=== PATIENT | female | born 1945 | race Caucasian/White ===

== ENCOUNTER 2017-11-26 15:26 | Emergency (ER) | payer MEDICARE ==
[~2017-11-26] VITALS: Ht 157.5 cm; Wt 100.0 kg
[2017-11-26] MEDS ORDERED: normal saline 1000ML IV soln IVB ONE (17:00)
[2017-11-26 17:31] LABS: BASOPHILS # (AUTO) 0.1 X10'3 (0-0.2); BASOPHILS % (AUTO) 0.6 % (0-1); EOSINOPHILS # (AUTO) 0.3 X10'3 (0-0.9); EOSINOPHILS % (AUTO) 2.9 % (0-6); HEMATOCRIT 35.6 % (35.0-45.0); HEMOGLOBIN 11.9 g/dl (12.0-16.0); LYMPHOCYTES % (AUTO) 17.6 % (21-51); MEAN CORPUSCULAR HEMOGLOBIN 32.8 PG (27.0-31.0); MEAN CORPUSCULAR HGB CONC 33.3 % (33.0-36.5); MEAN CORPUSCULAR VOLUME 98.6 FL (78-98); MEAN PLATELET VOLUME 9.1 FL (7.4-10.4); MONOCYTES # (AUTO) 0.8 X10'3 (0-0.9); MONOCYTES % (AUTO) 6.9 % (2-12); NEUTROPHILS # (AUTO) 8.1 X10'3 (1.8-7.7); PLATELET COUNT 361 X10'3 (140-440); RED BLOOD COUNT 3.61 X10'6 (4.20-5.60); RED CELL DISTRIBUTION WIDTH 13.2 % (11.5-14.5); WHITE BLOOD COUNT 11.2 X10'3 (4.5-11.0)
[2017-11-26 17:46] LABS: ALANINE AMINOTRANSFERASE 90 U/L (12-78); ALBUMIN 3.2 G/DL (3.4-5.0); ALBUMIN/GLOBULIN RATIO 0.9 (1.1-1.5); ALKALINE PHOSPHATASE 89 IU/L (46-116); ANION GAP 7 (8-16); ASPARTATE AMINO TRANSFERASE 90 U/L (10-37); BILIRUBIN,TOTAL 0.3 MG/DL (0.1-1.0); BLOOD UREA NITROGEN 11 MG/DL (7-18); CALCIUM 8.6 MG/DL (8.5-10.1); CHLORIDE 102 MMOL/L (99-107); CREATININE 0.92 MG/DL (0.40-0.90); GLUCOSE 96 MG/DL (70-104); POTASSIUM 3.9 MMOL/L (3.5-5.1); SODIUM 139 MMOL/L (135-145); TOTAL CARBON DIOXIDE 30.2 MMOL/L (24-32); TOTAL PROTEIN 6.8 G/DL (6.4-8.2); eGFR 60 ML/MIN
[2017-11-26 18:27] LABS: CLARITY,URINE CLOUDY (Clear); COLOR,URINE YELLOW (Yellow); GLUCOSE, URINE NEGATIVE (Neg); KETONES,URINE NEGATIVE (Neg); LEUKOCYTE ESTERASE ,URINE TRACE (Neg); NITRITES, URINE NEGATIVE (Neg); OCCULT BLOOD,URINE LARGE (Neg); PH,URINE 5.5 (4.8-8.0); PROTEIN,URINE 30 mg/dl (Neg)
[2017-11-26 18:28] LABS: UA COLLECTION TYPE CLN CATCH MIDSTREAM
[2017-11-26 18:32] LABS: SQUAMOUS EPITHELIAL CELL,UR MODERATE /LPF (FEW)
[2017-11-26 18:39] LABS: BACTERIA,URINE 2+ /HPF (Neg); CAL OXALATE CRYSTALS 1+ /HPF (NEGATIVE)
[2017-11-26 18:40] LABS: RBC,URINE TNTC /HPF (0-2)
[2017-11-26 19:16] VITALS: BP 141/83
== END 2017-11-26 19:18 | disposition home or self-care (01) ==
LOC: ER 15:27
DX: N93.8 Other specified abnormal uterine and vaginal bleeding (principal); E78.00 Pure hypercholesterolemia, unspecified
CPT/HCPCS: 36415; 74176; 80053; 81001; 85025; 87077; 87088; 87186; 99285; J7030

== ENCOUNTER 2018-06-22 14:35 | Emergency (ER) | payer MEDICARE ==
[~2018-06-22] VITALS: Ht 154.9 cm; Wt 90.9 kg
[2018-06-22 14:54] VITALS: BP 123/54
--- NOTE | 2018-06-22 15:20 | NUR ---
Assumed care of patient. Patient moved from hallway bed to room 10. xray done. Patient's family at bedside.
--- NOTE | 2018-06-22 15:26 | NUR ---
xray at bedside.
--- NOTE | 2018-06-22 16:45 | NUR ---
Patient has walker to use at home.
== END 2018-06-22 16:39 | disposition home or self-care (01) ==
LOC: ER 14:35
DX: S92.512A Displaced fracture of proximal phalanx of left lesser toe(s), initial encounter for closed fracture (principal); E78.00 Pure hypercholesterolemia, unspecified; W01.0XXA Fall on same level from slipping, tripping and stumbling without subsequent striking against object, initial encounter; Y93.89 Activity, other specified; Y92.89 Other specified places as the place of occurrence of the external cause; Y99.8 Other external cause status
CPT/HCPCS: 73610; 73630; 99283

== ENCOUNTER 2023-11-09 15:24 | Emergency (ER) | payer MEDICARE, MEDICAID ==
[~2023-11-09] VITALS: Ht 157.5 cm; Wt 90.9 kg
[2023-11-09 18:06] VITALS: BP 119/47; PULSE 56; RESP 18; TEMP 98.8; O2SAT 96
== END 2023-11-09 18:07 | disposition home or self-care (01) ==
LOC: ER 15:25
DX: S82.832A Other fracture of upper and lower end of left fibula, initial encounter for closed fracture (principal); S63.502A Unspecified sprain of left wrist, initial encounter; E78.00 Pure hypercholesterolemia, unspecified; W19.XXXA Unspecified fall, initial encounter; Y93.89 Activity, other specified; Y92.89 Other specified places as the place of occurrence of the external cause; Y99.8 Other external cause status
CPT/HCPCS: 29260; 73110; 73610; 99284; L3908; L4360; 29125

== ENCOUNTER 2024-06-06 11:43 | Emergency (ER) | payer MEDICARE, MEDICAID ==
[~2024-06-06] VITALS: Ht 157.5 cm; Wt 103.9 kg
[2024-06-06 12:15] VITALS: BP 146/68; PULSE 76; RESP 16; TEMP 99.3; O2SAT 95
[2024-06-06 13:42] LABS: BASOPHILS # (AUTO) 0.1 X10'3 (0-0.2); BASOPHILS % (AUTO) 0.8 % (0-1); EOSINOPHILS # (AUTO) 0.3 X10'3 (0-0.9); EOSINOPHILS % (AUTO) 3.9 % (0-6); HEMATOCRIT 32.9 % (35.0-45.0); HEMOGLOBIN 10.8 g/dl (12.0-16.0); LYMPHOCYTES # (AUTO) 1.3 X10'3 (1.1-4.8); LYMPHOCYTES % (AUTO) 17.1 % (21-51); MEAN CORPUSCULAR HEMOGLOBIN 29.8 PG (27.0-31.0); MEAN CORPUSCULAR HGB CONC 32.9 g/dL (33.0-36.5); MEAN CORPUSCULAR VOLUME 90.6 FL (78-98); MEAN PLATELET VOLUME 8.9 FL (7.4-10.4); MONOCYTES # (AUTO) 0.5 X10'3 (0-0.9); MONOCYTES % (AUTO) 6.6 % (2-12); NEUTROPHILS # (AUTO) 5.3 X10'3 (1.8-7.7); NEUTROPHILS % (AUTO) 71.6 % (42-75); PLATELET COUNT 249 X10'3 (140-440); RED BLOOD COUNT 3.63 X10'6 (4.20-5.60); RED CELL DISTRIBUTION WIDTH 15.1 % (11.5-14.5); WHITE BLOOD COUNT 7.4 X10'3 (4.5-11.0)
[2024-06-06 13:48] LABS: ALANINE AMINOTRANSFERASE 25 U/L (12-78); ALBUMIN 3.3 G/DL (3.4-5.0); ALBUMIN/GLOBULIN RATIO 0.9 (1.1-1.5); ALKALINE PHOSPHATASE 103 IU/L (46-116); ANION GAP 7 (8-16); ASPARTATE AMINO TRANSFERASE 28 U/L (10-37); BILIRUBIN,TOTAL 0.5 MG/DL (0.1-1.0); BLOOD UREA NITROGEN 24 MG/DL (7-18); BUN/CREATININE RATIO 36.4 (10.0-20.0); CALCIUM 8.7 MG/DL (8.5-10.1); CHLORIDE 105 MMOL/L (99-107); CREATININE 0.66 MG/DL (0.40-0.90); GLUCOSE 155 MG/DL (70-104); POTASSIUM 3.8 MMOL/L (3.5-5.1); SODIUM 141 MMOL/L (135-145); TOTAL CARBON DIOXIDE 29.4 MMOL/L (24-32); TOTAL PROTEIN 6.9 G/DL (6.4-8.2); eCRCL 57 ML/MIN; eGFR 87 ML/MIN
== END 2024-06-06 14:31 | disposition home or self-care (01) ==
LOC: ER 11:44
DX: M71.21 Synovial cyst of popliteal space [Baker], right knee (principal); E78.00 Pure hypercholesterolemia, unspecified; Z88.5 Allergy status to narcotic agent
CPT/HCPCS: 36415; 80053; 84145; 85025; 93971; 99284

== ENCOUNTER 2024-06-15 12:52 | Emergency (ER) | payer MEDICARE, MEDICAID ==
[~2024-06-15] VITALS: Ht 157.5 cm; Wt 103.5 kg
[2024-06-15 13:17] VITALS: TEMP 97.8
[2024-06-15 15:17] LABS: BASOPHILS # (AUTO) 0.1 X10'3 (0-0.2); LYMPHOCYTES # (AUTO) 1.7 X10'3 (1.1-4.8); MONOCYTES # (AUTO) 0.6 X10'3 (0-0.9); NEUTROPHILS # (AUTO) 6.6 X10'3 (1.8-7.7); RED BLOOD COUNT 4.02 X10'6 (4.20-5.60)
[2024-06-15 15:18] LABS: EOSINOPHILS # (AUTO) 0.4 X10'3 (0-0.9); EOSINOPHILS % (AUTO) 3.9 % (0-6); HEMATOCRIT 36.5 % (35.0-45.0); HEMOGLOBIN 11.7 g/dl (12.0-16.0); LYMPHOCYTES % (AUTO) 17.8 % (21-51); MEAN CORPUSCULAR HEMOGLOBIN 29.1 PG (27.0-31.0); MEAN CORPUSCULAR HGB CONC 32.1 g/dL (33.0-36.5); MEAN CORPUSCULAR VOLUME 90.8 FL (78-98); MONOCYTES % (AUTO) 6.7 % (2-12); NEUTROPHILS % (AUTO) 70.6 % (42-75); PLATELET COUNT 326 X10'3 (140-440); RED CELL DISTRIBUTION WIDTH 15.1 % (11.5-14.5); WHITE BLOOD COUNT 9.3 X10'3 (4.5-11.0)
[2024-06-15 15:33] LABS: ANION GAP 3 (8-16); BLOOD UREA NITROGEN 16 MG/DL (7-18); BUN/CREATININE RATIO 23.9 (10.0-20.0); CALCIUM 8.9 MG/DL (8.5-10.1); CHLORIDE 102 MMOL/L (99-107); CREATININE 0.67 MG/DL (0.40-0.90); GLUCOSE 98 MG/DL (70-104); POTASSIUM 4.2 MMOL/L (3.5-5.1); SODIUM 138 MMOL/L (135-145); TOTAL CARBON DIOXIDE 32.7 MMOL/L (24-32); eCRCL 57 ML/MIN; eGFR 86 ML/MIN
[2024-06-15 15:34] LABS: ALANINE AMINOTRANSFERASE 34 U/L (12-78); ALBUMIN 3.6 G/DL (3.4-5.0); ALBUMIN/GLOBULIN RATIO 0.8 (1.1-1.5); ALKALINE PHOSPHATASE 103 IU/L (46-116); ASPARTATE AMINO TRANSFERASE 37 U/L (10-37); BILIRUBIN,TOTAL 0.5 MG/DL (0.1-1.0); TOTAL PROTEIN 7.9 G/DL (6.4-8.2)
[2024-06-15 15:40] LABS: PRO BRAIN NATRIURETIC PEPTIDE 131 PG/ML (0-450)
[2024-06-15 16:21] VITALS: BP 149/74; PULSE 73; RESP 16; O2SAT 92
== END 2024-06-15 18:14 | disposition home or self-care (01) ==
LOC: ER 12:52
DX: R60.0 Localized edema (principal); I87.8 Other specified disorders of veins; E78.00 Pure hypercholesterolemia, unspecified; E07.9 Disorder of thyroid, unspecified; Z72.89 Other problems related to lifestyle; Z88.5 Allergy status to narcotic agent
CPT/HCPCS: 36415; 71045; 80053; 83880; 85025; 93971; 99284; J7030

== ENCOUNTER 2025-01-13 17:13 | Inpatient (IN) | payer MEDICARE, MEDICAID ==
[~2025-01-13] VITALS: Ht 157.5 cm; Wt 118.3 kg
[~2025-01-13 17:13] MED LIST: etomidate 2mg/ml inj. ONE; rocuronium 10mg/ml inj IV ONE
[2025-01-13 17:56] LABS: MEAN PLATELET VOLUME 10.0 FL (7.4-10.4); RED CELL DISTRIBUTION WIDTH 15.5 % (11.5-14.5)
[2025-01-13 18:05] LABS: CREATININE 4.60 MG/DL (0.40-0.90); TOTAL CARBON DIOXIDE 25.1 MMOL/L (24-32); eCRCL 8 ML/MIN; eGFR 9 ML/MIN
--- NOTE | 2025-01-13 18:07 | RADIOLOGY REPORT ---
CHEST RADIOGRAPH Indication: R/o sepsis Technique: Single frontal view of the chest was obtained Comparison: DI CHEST,SINGLE VIEW on DOS: 06/15/24 FINDINGS: Lines and Tubes: None Lungs: No focal consolidation. Diffuse interstitial prominence. Pleura: No effusion. No pneumothorax. Cardiomediastinal contours: Gadr-[id number] cardiomegaly with dfrg-up-[id number] atherosclerotic calcification and uncoiling of the aorta. Bones: No acute osseous abnormality. IMPRESSION: Cardiomegaly with pulmonary vascular congestion.
--- NOTE | 2025-01-13 18:10 | Physician Documentation ---
History of Present Illness General Chief Complaint: Confused Stated Complaint: ALOC Time Seen by MD: 18:09 Primary Medical Doctor: eduardo mccarthy History of Present Illness Initial Comments 79-year-old female brought in by family for confusion and slight shortness of breath over last 2-3 days. The patient has had fevers at home. The patient has been complaining of body aches. The patient has had rigors at home. The patient denies any abdominal pain. The patient denies any chest pain. Patient does have history of chronic back pain. Patient takes [place] for chronic back pain. Patient is a symptoms are moderate to severe. Medication Reconciliation Allergies: Coded Allergies: codeine (Verified Allergy, Mild, NAUSEATED, 06/15/24) Scheduled Aspirin (Aspirin EC), 1 TAB PO DAILY, (Reported) Cholecalciferol (Vitamin D3) (Vitamin D), 1 TAB PO DAILY, (Reported) Furosemide* (Lasix*), 1 TAB PO DAILY, (Reported) Levothyroxine* (Synthroid*), 1 TAB PO BKF, (Reported) Losartan Potassium* (Cozaar*), 50 MG PO DAILY, (Reported) Metformin HCl (Metformin HCl), 1 TAB PO Q12H, (Reported) Milk Thistle Seed Extract (Milk Thistle), 1 CAP PO DAILY, (Reported) Omeprazole Magnesium (Prilosec Otc), 20 MG PO DAILY, (Reported) Ropinirole HCl (Ropinirole HCl), 1 TAB PO HS, (Reported) Simvastatin* (Zocor*), 40 MG PO HS, (Reported) Thiamine Mononitrate (Vitamin B-1), 100 MG PO DAILY, (Reported) Venlafaxine HCl (Effexor Xr), 1 CAP PO DAILY, (Reported) Venlafaxine Hcl XR* (Effexor XR*), 1 CAP PO DAILY, (Reported) Scheduled PRN Hydrocodone Bit/Acetaminophen 5/325 MG ([place] 5/325 MG), 2 TAB PO Q4H PRN for moderate or severe pain, (Reported) Past Medical History Past Medical History: High Cholesterol, Thyroid (unspecified) Past Surgical History: no surgical history Alcohol Use: Occasionally Lives with: Family Lives In: Home Review of Systems All Other Systems at this time: Reviewed and Negative Physical Exam Physical Exam Vital Signs: Temperature: 98.5, Source: Oral, Heart Rate: 92, Respiratory Rate: 19, BP: 120/99, Pulse Oximetry: 95, Weight: 111.000 Oxygen Flow Rate: 2.0 Physical Exam VITALS: Reviewed and as above. GENERAL: Alert, mild respiratory distress HEENT: Normocephalic, atraumatic, PERRL, EOMI, dry mucosa, no erythema RESPIRATORY: Slight crackles bilateral bases, tachypneic with mild respiratory distress CHEST: No accessory muscle use, no retractions CV: Regular rate, rhythm, no edema, no murmur, No: JVD GI: Soft, non-tender, bowels sounds present, no rebound, guarding, or rigidity BACK: No CVA tenderness, or swelling MUSCULOSKELETAL: No deformities, no edema SKIN: Warm and dry, pale NEURO: Oriented x4, No motor or sensory deficit PSYCH: Normal mood and affect, no agitation Procedures Central Line Lumen: Quad lumen Central Line Procedure: sterile drapes applied Position: internal jugular (R) Complications: none Post Position: sutured Tolerated Procedure Well?: yes, no complications Procedure Note Patient had the right side of her neck cleansed with chlorhexidine and utilizing sterile procedure and ultrasound guidance a wide lumen central line was placed in the right internal jugular by the resident I supervised the resident throughout the procedure. All lines flushed the central line was in good position and cleared for use. Intubation Intubation Method: orotracheal Medications: Etomidate, other (Rocuronium) ETT Confirmation: Ascultation, CO2 Detector, Direct Visualization Breath Sounds After Intubation: equal Intubation Complications: no complications Post Intubation Xray: Yes Progress/Xray Impression: Post intubation x-ray shows ET tube in good position Progress Results/Orders Results/Orders Orders - OHLJONA SOLOMON MD * (B) Rogers- Non Protocol * Q12H@07,19 (01/13/25 19:44) Abg (Arterial Blood Gas) (01/13/25 ) Bipap/Cpap (01/13/25 ) Chest,Single View (01/13/25 ) Ct Chest Abdomen Pelvis (01/14/25 02:40) Completed Orders - JONA PARIS MD Hs Troponin I W Calculations (01/13/25 18:11) Ceftriaxone/W2o-Uhxdmfxm 1gm (Rocephin 1 (01/13/25 18:15) Normal Saline 1000ml (0.9% Sodium Chlori (01/13/25 18:15) Hydrocodone/Apap 10/325 ([place] 10/325mg (01/13/25 18:25) Normal Saline 1000ml (0.9% Sodium Chlori (01/13/25 19:30) Norepinephrine 8mg/ 250ml Ns (Norepineph (01/13/25 20:21) Fentanyl/Pf (Fentanyl 0.05 Mg/Ml Syringe (01/13/25 21:05) Ondansetron Inj. (Zofran 4mg/2ml Vial) (01/13/25 21:05) Midazolam 5 Mg/Ml 2ml Inj (Versed 5 Mg/M (01/13/25 21:55) Propofol 1000mg/100ml Bottle (Diprivan I (01/13/25 21:55) Sodium Bicarbonate 1meq/Ml Syr (Sodium B (01/13/25 22:10) Sodium Bicarbonate 1meq/Ml Syr (Sodium B (01/13/25 22:14) Chest,Single View (01/13/25 ) Etomidate Inj (Amidate Inj) (01/13/25 21:40) Rocuronium Inj. (Zemuron Inj) (01/13/25 21:40) Ct Chest Abdomen Pelvis (01/14/25 02:40) Vital Signs 01/13/25 01/13/25 01/13/25 01/13/25 17:38 17:57 18:12 18:27 Temp 98.5 Pulse 92 89 90 89 Resp 19 21 23 24 B/P (MAP) 120/99 Pulse Ox 95 O2 Flow Rate 2.0 01/13/25 01/13/25 01/13/25 01/13/25 18:30 18:34 18:42 18:57 Pulse 89 91 Resp 18 16 23 22 B/P (MAP) 01/13/25 01/13/25 01/13/25 01/13/25 19:00 19:12 19:27 19:42 Pulse 90 92 91 91 Resp 18 21 20 17 B/P (MAP) 95/60 (72) 85/50 (62) Pulse Ox 99 O2 Flow Rate 0 01/13/25 01/13/25 01/13/25 01/13/25 19:42 19:57 20:12 20:27 Pulse 90 91 86 88 Resp 20 21 20 15 B/P (MAP) 85/50 (62) 96/53 (67) 83/36 (52) Pulse Ox 98 97 95 95 01/13/25 01/13/25 01/13/25 01/13/25 20:42 20:49 20:57 20:58 Pulse 89 69 97 Resp 16 19 19 B/P (MAP) 104/36 (58) 86/45 (59) 88/43 Pulse Ox 95 93 95 FiO2 35 01/13/25 01/13/25 01/13/25 01/13/25 21:12 21:27 21:42 21:57 Pulse 104 99 96 116 Resp 22 18 18 13 B/P (MAP) 175/138 (150) Pulse Ox 93 98 01/13/25 01/13/25 01/13/25 01/13/25 22:00 22:00 22:09 22:12 Temp 98.6 Pulse 118 137 Resp 14 14 Pulse Ox 96 93 91 FiO2 45 50 Laboratory Tests Test 01/13/25 17:44 01/13/25 19:28 01/13/25 20:32 01/13/25 20:53 White Blood Count 19.6 H Red Blood Count 3.66 L Hemoglobin 10.6 L Hematocrit 32.4 L Mean Corpuscular Volume 88.6 Mean Corpuscular Hemoglobin 29.1 Mean Corpuscular Hemoglobin Concent 32.8 L Red Cell Distribution Width 15.5 H Platelet Count 201 Mean Platelet Volume 10.0 Neutrophils (%) (Auto) 92.7 H Lymphocytes (%) (Auto) 3.0 L Monocytes (%) (Auto) 3.0 Eosinophils (%) (Auto) 1.0 Basophils (%) (Auto) 0.3 Neutrophils # (Auto) 18.1 H Lymphocytes # (Auto) 0.6 L Monocytes # (Auto) 0.6 Eosinophils # (Auto) 0.2 Basophils # (Auto) 0.1 CBC Comment Differential Total Cells Counted 100 Neutrophils % (Manual) 77.0 H Band Neutrophils % 15.0 H Lymphocytes % (Manual) 1.0 L Monocytes % (Manual) 5.0 Eosinophils % (Manual) 1.0 Metamyelocytes % 1.0 H Platelet Estimate Normal Red Blood Cell Morphology Normal Basophilic Stippling Sodium Level 130 L Potassium Level 4.3 Chloride Level 91 L Carbon Dioxide Level 25.1 Anion Gap 14 Blood Urea Nitrogen 54 H Creatinine 4.60 H Estimated GFR/1.73 m2 9 BUN/Creatinine Ratio 11.7 Glucose Level 119 H Lactic Acid Level 5.1 *H 4.2 *H Calcium Level 8.2 L Troponin I High Sensitivity 18 Pro-B-Type Natriuretic Peptide 3312 H Albumin 2.6 L Procalcitonin 84.20 H Chemistry Comments Blood Gas Specimen Type Arterial Blood Gas Puncture Site Rr O2 Saturation 97.5 Arterial Blood pH (Temp corrected) 7.333 L Arterial Blood pCO2 (Temp correct) 36.7 Arterial Blood pO2 (Temp corrected) 104.8 Arterial Blood PO2/FiO2 Ratio 3.74 Arterial Blood HCO3 19.0 L Arterial Blood Base Excess -6.2 L Arterial Blood Oxyhemoglobin 96.8 Arterial Blood Carboxyhemoglobin 0.4 L Arterial Blood Methemoglobin 0.3 Arterial Blood Deoxyhemoglobin 2.5 Gilbert Test Modified Blood Gas Hemoglobin 10.5 L Blood Gas Temperature 37.0 Blood Gas Modality Nasal cannula FiO2 28.0 Urine Specimen Description Rogers cath Urine Color Yellow Urine Clarity Turbid Urine pH 6.0 Urine Specific [place] 1.015 Urine Protein >=300 H Urine Glucose (UA) Negative Urine Ketones Trace H Urine Occult Blood Moderate H Urine Nitrite Negative Urine Bilirubin Moderate Urine Urobilinogen 1.0 Urine Leukocyte Esterase Moderate H Urine RBC None seen Urine WBC Tntc H Urine WBC Clumps Many Urine Squamous Epithelial Cells None seen Urine Bacteria 4+ Urine Culture Indicated Indicated Volume Urine Centrifuged 10 ml Urine Comment Microbiology Date/Time Source Procedure Growth Status 01/13/25 21:28 Urine Rogers Cath Urine Culture - Preliminary Gram Negative Toni Resulted 01/13/25 18:45 Blood A/C Right Blood Culture - Preliminary Positive Culture Resulted EKG/XRAY/CT/US/VASC/MRI Chest X-Ray : Additional Comments Patient: CAROLYNN MCHUGH V Medical Record: [id number] : 1945, Age: 79 Sex: Female Location: ED HOLD Patient Status: ADM IN Service Date/Time: 01/13/25/ Ordering Physician: JONA PARIS MD Exam: CHEST,SINGLE VIEW EXAM: DI CHEST,SINGLE VIEW CLINICAL HISTORY: post endotracheal tube placement TECHNIQUE: AP views of the chest. WID: COMPARISON: DI CHEST,SINGLE VIEW on DOS: 01/13/25, DI CHEST,SINGLE VIEW on DOS: 06/15/24 FINDINGS: Lines and tubes: Endotracheal tube in place with the tip projecting 3.7 cm above the zachery. Gastric tube descends into the stomach with the tip projecting over the body of the stomach. Right IJ central venous catheter with the tip projecting over the low SVC. Chest: Cardiomegaly and pulmonary vascular congestion. Calcified plaque projects over the aortic arch. Small right pleural effusion. No significant pneumothorax. The osseous structures are grossly intact. Multilevel thoracic spondylosis. IMPRESSION: 1. Placement of endotracheal tube, gastric tube, and right IJ central venous catheter as described. 2. Cardiomegaly, pulmonary vascular congestion, and small right pleural effusion. Electronically Signed by:SANTANA KAYE MD Date & Time: 01/13/252308 Dictated by: SANTANA KAYE MD Dictation date and time: 01/13/252308 Primary Care Provider: NO PRIMARY CARE PROVIDER cc: JONA PARIS MD ~ CT : Impression Patient: CAROLYNN MCHUGH V Medical Record: [id number] [place] : 1945, Age: 79 Sex: Female Location: ED HOLD Patient Status: ADM IN Service Date/Time: 01/14/25/ 0240 Ordering Physician: JONA PARIS MD Exam: CT CHEST ABDOMEN PELVIS Exam: CT CT CHEST ABDOMEN PELVIS History: Septic shock. Comparison Study: None Technique: Multidetector CT of the chest, abdomen and pelvis was performed from lower neck to pubic symphysis was performed without intravenous contrast. Coronal and sagittal multiplanar reformats were performed by the technologist on a separate workstation. Radiation Dose Information: CT Dose: CTDI volume is 21.4 mGy. Dose-length product is 1412.3 mGy*cm Findings: Support lines and tubes: There is an endotracheal tube which terminates above the zachery. Right central venous catheter terminates in the superior vena cava. The enteric tube terminates in the stomach. Lower neck: The thyroid is unremarkable. Lungs: There is a 6 mm pulmonary nodule in the left upper lobe. There is bilateral lower lobe atelectasis. Right upper lobe atelectasis. Central airways: Patent. Pleura: No pneumothorax. Small bilateral pleural effusions. Heart/Vascular Structures: Cardiomegaly. There is no significant pericardial effusion. There are coronary artery calcifications. Atherosclerotic calcifications are present in the thoracic aorta. No aneurysmal dilatation of the thoracic aorta. The main pulmonary artery is normal in caliber. Lymph Nodes: No adenopathy Liver: The liver is normal in size. Limited evaluation for masses without contrast. Gallbladder and Biliary Tree: Cholecystectomy. No biliary ductal dilatation. Spleen: Unremarkable Pancreas: The unenhanced pancreas is grossly unremarkable. Adrenal Glands: Unremarkable Kidneys: No renal calculi. There is mild left hydronephrosis and perinephric fat stranding. Bladder: There is a Rogers catheter in the urinary bladder Bowel: The stomach is grossly normal in appearance. The small bowel is normal in caliber. Colonic diverticulosis without acute diverticulitis. No acute appendicitis. Peritoneum: No pneumoperitoneum. No ascites. Lymphadenopathy: No mesenteric, retroperitoneal or periportal lymphadenopathy. Abdominal Wall and Mesentery: Unremarkable. Vasculature: The visualized abdominal aorta is normal in size and caliber. Pelvic Organs: Unremarkable Musculoskeletal: No aggressive focal bony lesions, acute fractures or dislocation. Multilevel lumbar spondylosis. IMPRESSION: 1. Mild left hydronephrosis and perinephric fat stranding. Findings could be related to infection. 2. Colonic diverticulosis without acute diverticulitis. 3. 6 mm left upper lobe pulmonary nodule. Follow-up according to Fleischner society guidelines is recommended. 4. Small bilateral pleural effusions. 5. Cardiomegaly. Electronically Signed by:OSVALDO LUU MD Date & Time: 01/14/25415 Dictated by: OSVALDO LUU MD Dictation date and time: 01/14/25415 Primary Care Provider: NO PRIMARY CARE PROVIDER cc: JONA PARIS MD ~ Medical Decision Making Additional information obtaine: old records, family Findings Patient is a 79-year-old female who presented to the emergency department with confusion and elevated white blood cell count as well as hypotension and an elevated lactic acid with new onset renal failure. With the patient was treated for sepsis and septic shock with IV antibiotics to include ceftriaxone vancomycin and initially azithromycin for concern for possible pneumonia. The patient had a slight resting dyspnea and O2 saturation at 95% no focal crackles were appreciated. The patient was found to have a significant urinary tract infection with very purulent urine. The patient was given 2 L of fluid and developed respiratory distress with audible wheezes and given her size she was expanding a lot of energy on work of breathing so the decision was made to intubate the patient to facilitate her care and allow us to do some central line and continue fluid management. The patient was intubated by myself using etomidate 10 mg and 50 mg of rocuronium tube was positioned to 20 cm at the teeth without complication capnography was used to confirm tube position. The patient has continued to be hypotensive and has been placed on Levophed she has a right femoral arterial line that was placed by myself utilizing sterile to take in his Seldinger technique. This is in the right femoral. The patient has been sedated on propofol but has been difficult to keep sedated so we have started a fentanyl drip. The patient is critical condition has been discussed at length with family. The patient has been discussed with the audit machine operator. The patient will be admitted to the audit machine operator. The patient did develop rapid atrial fibrillation, the patient's heart rate went up to proximally 180 bpm. The patient was given amiodarone 150 mg IV and started on amiodarone drip. Differential Diagnosis Pneumonia, urosepsis, other infectious etiologies. Departure Admitted to Inpatient Unit: yes, to audit machine operator Impression: Primary Impression: Septic shock Additional Impressions: Acute kidney injury Acute urinary tract infection Respiratory distress Atrial fibrillation with rapid ventricular response Referrals: NO PRIMARY CARE PROVIDER (PCP) Critical Care Note Total Time (mins): 240 Critical Care Note The very real possibility of a deterioration of this patient's condition required the highest level of my preparedness for sudden, emergent intervention. I provided critical care services, which included medication orders, frequent reevaluations of the patient's condition and response to treatment, ordering and reviewing test results, and discussing the case with various consultants. Excludes time spent performing separately billable procedures. The critical care time associated with the care of the patient was 240 minutes. Signature Scribe Signature: No scribe Attestation: The note accurately reflects work and decisions made by me.Jona Paris MD 01/15/25 03:53 JONA PARIS MD Jan 13, 2025 18:10
[2025-01-13 18:21] LABS: BANDS% (MANUAL) 15.0 % (0-10); EOSINOPHILS % (MANUAL) 1.0 % (0-6); LYMPHOCYTES % (MANUAL) 1.0 % (21-51); METAMYLEOCYTES% (MANUAL) 1.0 % (0-0); MONOCYTES % (MANUAL) 5.0 % (2-12); NEUTROPHILS % (MANUAL) 77.0 % (42-75)
[2025-01-13 18:22] LABS: PLATELET ESTIMATE NORMAL
[2025-01-13] MEDS: normal saline 1000ML IV soln IVB ONE ×2 (18:28→19:30)
[2025-01-13] MEDS: CefTRIAXone/D5W-Rocephin 1gm 50 ML IV ONE (18:34)
[2025-01-13] MEDS: HYDROcodone/acetaminophen 10/325mg tab PO ONE (18:34)
[2025-01-13] MEDS: CefTRIAXone 2gm/D5W 50ml BAG 50 ML IV ONE (18:49)
[2025-01-13] MEDS: azithromycin/NS 500mg/250ml 250 ML IV ONE (18:50)
[2025-01-13 19:00] LABS: PRO BRAIN NATRIURETIC PEPTIDE 3312 PG/ML (0-450)
--- NOTE | 2025-01-13 19:00 | ELECTROCARDIOGRAPH REPORT ---
[facility] Test Date: 2025-01-13 Test Time: 18:57:40 Pat Name: CAROLYNN MCHUGH Department: [facility] Patient ID: [facility]-[id number] Room: [facility] 2006 Gender: F [employer] Supervisor: : 1945 Requested By: MARIBELL VASQUEZ Order Number: [id number] Reading MD: Dr. Erasmo Huff Measurements Intervals [place] Rate: 91 P: 33 [place]: 168 QRS: -32 QRSD: 114 T: 65 QT: 386 QTc: 475 Interpretive Statements Sinus rhythm Borderline IVCD with LAD Low voltage, precordial leads RSR' in V1 or V2, right VCD or RVH Electronically Signed On 01-21-2025 8:17:[address] Erasmo Huff Please click the below link to view image of tracing.
[2025-01-13] MEDS: vancomycin/NS 1 GM ADD-VANTAGE 250 ML X 1 DOSE IV ONE (19:55)
[2025-01-13 20:42] LABS: ABG BASE EXCESS -6.2 mmol/L (-2.0-3.0); ABG HCO3 19.0 mmol/L (21.0-28.0); ABG OXYGEN SATURATION 97.5 % (94.0-98.0); ABG PCO2 (T) 36.7 mmHg (32.0-45.0); ABG PH (T) 7.333 (7.350-7.450); ABG PO2 (T) 104.8 mmHg (83.0-108.0); ALLEN'S TEST Modified; FCOHb 0.4 % (0.5-1.5); FHHb 2.5 % (0.0-5.0); FIO2 28.0 mmHg/%; FMetHb 0.3 % (0.0-1.5); FO2Hb 96.8 % (94.0-98.0); MODE NASAL CANNULA; PATIENT TEMPERATURE 37.0; TOTAL HEMOGLOBIN 10.5 G/dl (12.0-16.0)
[2025-01-13 20:49] VITALS: PULSE 69; RESP 19; O2SAT 93
[2025-01-13] MEDS: NORepinephrine 8mg/ 250ml NS 250 ML IV ONE (20:58)
[2025-01-13] MEDS: normal saline 500ml IV soln 500 ML IV ONE (21:11)
[2025-01-13] MEDS: ondansetron/PF 4mg/2ml inj IV ONE ×2 (21:12→21:17)
[2025-01-13 21:13] LABS: LEUKOCYTE ESTERASE ,URINE MODERATE (Neg); NITRITES, URINE NEGATIVE (Neg); OCCULT BLOOD,URINE MODERATE (Neg)
[2025-01-13] MEDS: fentaNYL/PF 50MCG/1 ML 2ML syringe IV ONE (21:17)
[2025-01-13 21:24] LABS: UA COLLECTION TYPE FOLEY CATH
[2025-01-13 21:26] LABS: SQUAMOUS EPITHELIAL CELL,UR NONE SEEN /LPF (FEW)
[2025-01-13 21:27] LABS: WBC CLUMPS,URINE MANY /HPF (NEGATIVE)
[2025-01-13 22:00] VITALS: BP 149/65; PULSE 118; RESP 14; O2SAT 96
[2025-01-13] MEDS: MIDAZolam 5mg/ml 2ml vial IV ONE (22:05)
[2025-01-13 22:09] VITALS: O2SAT 93
[2025-01-13] MEDS: etomidate 2mg/ml inj. IV ONE (22:21)
[2025-01-13] MEDS: rocuronium 10mg/ml inj IV ONE (22:21)
[2025-01-13] MEDS: sodium bicarbonate (8.4%) 1 mEq/ml syringe IV ONE (22:22)
[2025-01-13] MEDS: sodium bicarbonate (8.4%) 1 mEq/ml syringe ONE (22:32)
[2025-01-13] MEDS: propofol 1000mg/100ml bottle 100 ML IV PRN (23:05)
--- NOTE | 2025-01-13 23:12 | RADIOLOGY REPORT ---
EXAM: DI CHEST,SINGLE VIEW CLINICAL HISTORY: post endotracheal tube placement TECHNIQUE: AP views of the chest. WID: COMPARISON: DI CHEST,SINGLE VIEW on DOS: 01/13/25, DI CHEST,SINGLE VIEW on DOS: 06/15/24 FINDINGS: Lines and tubes: Endotracheal tube in place with the tip projecting 3.7 cm above the zachery. Gastric tube descends into the stomach with the tip projecting over the body of the stomach. Right IJ central venous catheter with the tip projecting over the low SVC. Chest: Cardiomegaly and pulmonary vascular congestion. Calcified plaque projects over the aortic arch. Small right pleural effusion. No significant pneumothorax. The osseous structures are grossly intact. Multilevel thoracic spondylosis. IMPRESSION: 1. Placement of endotracheal tube, gastric tube, and right IJ central venous catheter as described. 2. Cardiomegaly, pulmonary vascular congestion, and small right pleural effusion.
[2025-01-13 23:15] VITALS: BP 144/80; PULSE 174; RESP 14; O2SAT 93
[2025-01-13] MEDS: amiodarone 150mg/dext, iso-os 100 ML IV ONE (23:23)
[2025-01-13] MEDS: amiodarone/D5 360MG/200ML BAG 200 ML IV SCH (23:33)
[2025-01-13 23:52] LABS: CREATININE 4.45 MG/DL (0.40-0.90); PHOSPHORUS 4.8 MG/DL (2.3-4.5); TOTAL CARBON DIOXIDE 24.6 MMOL/L (24-32); eCRCL 8 ML/MIN; eGFR 10 ML/MIN
[2025-01-14] VITALS (28 sets, daily range): BP systolic 100–151; BP diastolic 46–80; PULSE 78–111; RESP 18–27; O2SAT 94–99
[2025-01-14] MEDS ORDERED: fentaNYL 50mcg/ml PF inj. 2,500 MCG in normal saline 250ml IV soln 200 ML IV ONE (00:30)
[2025-01-14] MEDS: magnesium sulf-water 2g/50mL 50 ML IV ONE (00:38)
[2025-01-14 01:08] LABS: ABG BASE EXCESS -11.6 mmol/L (-2.0-3.0); ABG HCO3 16.6 mmol/L (21.0-28.0); ABG OXYGEN SATURATION 94.3 % (94.0-98.0); ABG PCO2 (T) 47.3 mmHg (32.0-45.0); ABG PH (T) 7.164 (7.350-7.450); ABG PO2 (T) 85.8 mmHg (83.0-108.0); FCOHb 0.5 % (0.5-1.5); FHHb 5.7 % (0.0-5.0); FIO2 50.0 mmHg/%; FMetHb 0.3 % (0.0-1.5); FO2Hb 93.5 % (94.0-98.0); MODE PRVC; PATIENT TEMPERATURE 37.0; PEEP 5 cm H2O; RESPIRATORY RATE 14 b/min; TIDAL VOLUME 400 mL; TOTAL HEMOGLOBIN 11.0 G/dl (12.0-16.0)
[2025-01-14] MEDS: FENTANYL-0.9 % NACL/PF 100 ML IV SCH (01:11)
--- NOTE | 2025-01-14 01:37 | HISTORY AND PHYSICAL ---
History & Physical - Short Providers to CC ~ History of Present Illness Chief Complain & History Night time TeleICU coverage Patient see and evaluated using HIPPA compliant AV device Admitted for encephalopathy/ fever and rigor for two days, after fluid resuscitation in Er became more dyspneic and required intubation, In shock on pressor Also had A fib with RVR now on amiodarone drip. Intubated and sedated Respiratory failure : continue vent support Septic shock : Levo can transition to phenylephrine with A fib UTI: Zosyn, received vanc already, CT abd pelv r/o hydronephrosis Severe metab acidosis: Bicarb A fib: cardiology consult [place]: Gentle hydration Follow cultures and tend lactic acid Family not reachable at this time DVT prophylaxis CCT 60mins Delilah Cody MD Allergies: Coded Allergies: codeine (Verified Allergy, Mild, NAUSEATED, 06/15/24) Exam Last recorded Lab results: 01/13/25 1744 01/13/25 2326 Vitals: Vital Signs Date Time Temp Pulse Resp B/P (MAP) Pulse Ox O2 Delivery O2 Flow Rate FiO2 01/14/25 01:14 111 25 94 50 01/14/25 00:42 101/45 (63) 01/13/25 19:00 0 01/13/25 17:38 98.5 Counseling Services Smoking & Tobacco Cessation: N/A Advance Care Planning Advanced Care planning: N/A DELILAH CODY MD Jan 14, 2025 01:36
[2025-01-14] MEDS: sodium bicarbonate 1meq/ml inj 150 ML in dextrose 5%-water 1,000 ML IV SCH (01:45)
[2025-01-14] MEDS: sodium bicarbonate (8.4%) 1 mEq/ml syringe IV ONE (02:06)
[2025-01-14] MEDS: midazolam 1 mg/ML 2ml injection IV ONE (02:23)
[2025-01-14 02:55] LABS: INFLUENZA TYPE A ANTIGEN RAPID NEGATIVE (Negative); INFLUENZA TYPE B ANTIGEN RAPID NEGATIVE (Negative)
--- NOTE | 2025-01-14 03:04 | RADIOLOGY REPORT ---
EXAM: CT CT HEAD INDICATION: CONFUSION TECHNIQUE: CT of the head without intravenous contrast. Radiation Dose : 1. Head: CT Dose: CTDI volume is 60.5 mGy. Dose-length product is 1201.85 mGy*cm The dose indicators for CT are the volume Computed Tomography (CT) Dose Index (CTDIvol) and the Dose Length Product (DLP), and are measured in units of mGy and mGy-cm, respectively. These indicators are not patient dose, but values generated from the CT scanner acquisition factors. The report includes radiation exposure data for exposures received during this examination. COMPARISON: None FINDINGS: There is no evidence of acute intracranial hemorrhage, extra-axial collection, mass effect, midline shift, herniation or hydrocephalus. Increased prominence of the ventricles, sulci and cisterns consistent with the sequelae of atrophic cortical volume loss. The veliz-white differentiation is intact. Moderate diffuse confluent periventricular and subcortical white matter hypoattenuation is nonspecific but may be related to small vessel ischemic disease. Pansinusitis. The mastoid air cells are clear. The surrounding soft tissues and osseous structures are unremarkable. IMPRESSION: 1. No acute intracranial abnormality. 2. Chronic sequelae of microangiopathy and atrophic cortical volume loss. Radiation optimization: All CT scans at this facility use at least one of these dose optimization techniques: automated exposure control mA and/or kV adjustment per patient size (includes targeted exams where dose is matched to clinical indication) or iterative reconstruction.
--- NOTE | 2025-01-14 04:19 | RADIOLOGY REPORT ---
Exam: CT CT CHEST ABDOMEN PELVIS History: Septic shock. Comparison Study: None Technique: Multidetector CT of the chest, abdomen and pelvis was performed from lower neck to pubic symphysis was performed without intravenous contrast. Coronal and sagittal multiplanar reformats were performed by the technologist on a separate workstation. Radiation Dose Information: CT Dose: CTDI volume is 21.4 mGy. Dose-length product is 1412.3 mGy*cm Findings: Support lines and tubes: There is an endotracheal tube which terminates above the zachery. Right central venous catheter terminates in the superior vena cava. The enteric tube terminates in the stomach. Lower neck: The thyroid is unremarkable. Lungs: There is a 6 mm pulmonary nodule in the left upper lobe. There is bilateral lower lobe atelectasis. Right upper lobe atelectasis. Central airways: Patent. Pleura: No pneumothorax. Small bilateral pleural effusions. Heart/Vascular Structures: Cardiomegaly. There is no significant pericardial effusion. There are coronary artery calcifications. Atherosclerotic calcifications are present in the thoracic aorta. No aneurysmal dilatation of the thoracic aorta. The main pulmonary artery is normal in caliber. Lymph Nodes: No adenopathy Liver: The liver is normal in size. Limited evaluation for masses without contrast. Gallbladder and Biliary Tree: Cholecystectomy. No biliary ductal dilatation. Spleen: Unremarkable Pancreas: The unenhanced pancreas is grossly unremarkable. Adrenal Glands: Unremarkable Kidneys: No renal calculi. There is mild left hydronephrosis and perinephric fat stranding. Bladder: There is a Rogers catheter in the urinary bladder Bowel: The stomach is grossly normal in appearance. The small bowel is normal in caliber. Colonic diverticulosis without acute diverticulitis. No acute appendicitis. Peritoneum: No pneumoperitoneum. No ascites. Lymphadenopathy: No mesenteric, retroperitoneal or periportal lymphadenopathy. Abdominal Wall and Mesentery: Unremarkable. Vasculature: The visualized abdominal aorta is normal in size and caliber. Pelvic Organs: Unremarkable Musculoskeletal: No aggressive focal bony lesions, acute fractures or dislocation. Multilevel lumbar spondylosis. IMPRESSION: 1. Mild left hydronephrosis and perinephric fat stranding. Findings could be related to infection. 2. Colonic diverticulosis without acute diverticulitis. 3. 6 mm left upper lobe pulmonary nodule. Follow-up according to Fleischner society guidelines is recommended. 4. Small bilateral pleural effusions. 5. Cardiomegaly.
[2025-01-14 04:41] LABS: ABG BASE EXCESS -7.0 mmol/L (-2.0-3.0); ABG HCO3 20.1 mmol/L (21.0-28.0); ABG OXYGEN SATURATION 95.4 % (94.0-98.0); ABG PCO2 (T) 49.1 mmHg (32.0-45.0); ABG PH (T) 7.235 (7.350-7.450); ABG PO2 (T) 85.7 mmHg (83.0-108.0); FCOHb 1.0 % (0.5-1.5); FHHb 4.5 % (0.0-5.0); FIO2 50.0 mmHg/%; FMetHb 0.3 % (0.0-1.5); FO2Hb 94.2 % (94.0-98.0); MODE VENT - AC; PATIENT TEMPERATURE 37.8; PEEP 5 cm H2O; RESPIRATORY RATE 14 b/min; TIDAL VOLUME 400 mL; TOTAL HEMOGLOBIN 11.6 G/dl (12.0-16.0)
--- NOTE | 2025-01-14 04:43 | PROGRESS NOTE ---
Progress Progress Note: Called by nurse that patient with GNR in blood. Apparent urinary source. Patient on pressors, intubated. Pip/tazo changed to meropenem as per IDSA recs for complicated UTI in critically ill patient. Results/Orders Result Diagram: 01/13/25 1744 01/13/25 2326 NOEMY REDDY MD Jan 14, 2025 04:43
[2025-01-14] MEDS: acetaminophen 1,000mg/100ml IV 100 ML IV ONE (05:45)
[2025-01-14] MEDS: MEROPENEM 1GM/NACL 50ML IVPB 50 ML IV SCH (05:48)
--- NOTE | 2025-01-14 06:14 | PROCEDURE NOTE- Residance ---
Procedure Note Providers to CC CC: JONA SOW MD ~ Planned Procedure Right Internal Jugular vein catheter Indications Pressor support required Post Operative Dx: Severe sepsis Toolroom Attendant Nora Justice resident supervised by Dr Sow Type of Anesthesia Sedated with versed and fentanyl Informed Consent Yes, obtained prior to the intubation Description Preparation to place a central line was performed in the ED. The nurse and Dr. Sow were in the room to monitor and supervise I wore a surgical cap, mask with protective eyewear, full gown and sterile gloves throughout the procedure. The patient was placed in Trendelenburg position. The right side of the neck was prepped using chlorhexidine scrub and draped in sterile fashion using a three quarter sheet drape and sterile towels. Skin preparation was allowed to dry prior to skin puncture. Anatomic landmarks were identified using ultrasound. Anesthesia was achieved with the fentanyl and Versed by itself that was used for intubation. Using real-time ultrasound, with sterile probe cover and sterile gel, the introducer needle was inserted into the vein under direct ultrasound visualization. Venous blood was withdrawn. The syringe was removed and a guidewire was advanced into the introducer needle. A small incision was made at the skin surface with a scalpel and the introducer needle was exchanged for a dilator over the guidewire. After appropriate dilation was obtained, the dilator was exchanged over the wire for a central venous catheter. The wire was removed and the catheter was sutured in place at 15 cm. A biopatch was placed at the insertion site. A sterile op-site was placed over the catheter and biopatch. The patient tolerated the procedure without any hemodynamic compromise. At time of procedure completion, all ports aspirated and flushed properly. Estimated Blood Loss 10cc Complication None X-Ray Findings Shows adequate positioning of the catheter for use Date of Service: Jan 13, 2025 Billing Provider: JONA SOW MD, DEEPANJALI, ZANE Jan 14, 2025 06:14
[2025-01-14] MEDS: NORepinephrine 8mg/ 250ml NS 250 ML IV ONE (06:24)
[2025-01-14] MEDS: MEROPENEM 1GM/NS 100ML IVPB 100 ML IV ONE (06:25)
[2025-01-14] MEDS ORDERED: propofol 1000mg/100ml bottle 100 ML IV PRN (07:03)
[2025-01-14] MEDS ORDERED: piperacillin/tazo 3.375gm/50ml 50 ML IV SCH (08:00)
[2025-01-14 08:42] LABS: CREATININE 4.83 MG/DL (0.40-0.90); TOTAL CARBON DIOXIDE 21.3 MMOL/L (24-32); eCRCL 8 ML/MIN; eGFR 9 ML/MIN
[2025-01-14] MEDS: propofol 1000mg/100ml bottle 100 ML IV SCH (08:44)
[2025-01-14] MEDS: heparin, porcine 5000 units/ml vial SQ SCH (08:50)
[2025-01-14 10:04] LABS: PHOSPHORUS 3.5 MG/DL (2.3-4.5)
--- NOTE | 2025-01-14 10:18 | RADIOLOGY REPORT ---
EXAM: DI CHEST,SINGLE VIEW Indication: pain Technique: AP views of the chest. WID: Comparison: CT CT CHEST ABDOMEN PELVIS on DOS: 01/14/25, DI CHEST,SINGLE VIEW on DOS: 01/13/25, DI CHEST,SINGLE VIEW on DOS: 01/13/25, DI CHEST,SINGLE VIEW on DOS: 06/15/24, DI CHEST,SINGLE VIEW on DOS: 01/13/25 FINDINGS: Lines and tubes: Endotracheal tube in place with the tip projecting 5.8 cm above the zachery. Gastric tube descends into the stomach with the tip projecting over the body of the stomach. Right IJ central venous catheter with the tip projecting over the low SVC. Chest: Cardiomegaly and pulmonary vascular congestion. Calcified plaque projects over the aortic arch. Small right pleural effusion. No significant pneumothorax. The osseous structures are grossly intact. Multilevel thoracic spondylosis. IMPRESSION: No significant change compared to prior exam allowing for differences in technique.
[2025-01-14] MEDS ORDERED: DEXTROSE 15 GM of carb/4 tabs (each vial/BOTTLE has 4 tablets) PO PRN ×2 (11:10)
[2025-01-14] MEDS ORDERED: dextrose 50%-water 50ml dispensing syringe IV PRN (11:10)
[2025-01-14] MEDS ORDERED: potassium Cl 40MEQ/270ML bag 270 ML IV PRN (11:10)
[2025-01-14] MEDS ORDERED: potassium Cl 40MEQ/1/2NS 520ml 520 ML IV PRN (11:10)
[2025-01-14] MEDS ORDERED: magnesium sulf-water 4G/100mL 100 ML IV PRN (11:10)
[2025-01-14] MEDS ORDERED: glucagon, human recombinant 1mg kit SUBCUT PRN (11:10)
[2025-01-14] MEDS ORDERED: potassium Cl 20 mEq SR tablet PO PRN ×2 (11:10)
[2025-01-14] MEDS ORDERED: magnesium sulf-water 2g/50mL 50 ML IV PRN (11:10)
[2025-01-14] MEDS ORDERED: HYDR-3965 PO (11:21)
[2025-01-14] MEDS ORDERED: VITD400T PO (11:21)
[2025-01-14] MEDS ORDERED: FURO-150 PO (11:21)
[2025-01-14] MEDS ORDERED: OMEP20TA23 PO (11:21)
[2025-01-14] MEDS ORDERED: MILK175C5 PO (11:21)
[2025-01-14] MEDS ORDERED: ROPI3TAB21 PO (11:21)
[2025-01-14] MEDS ORDERED: METF-1203 PO (11:21)
[2025-01-14] MEDS ORDERED: SIMV-42 PO (11:21)
[2025-01-14] MEDS ORDERED: ASPI81TA52 PO (11:21)
[2025-01-14] MEDS ORDERED: VENL150C5 PO (11:21)
[2025-01-14] MEDS ORDERED: LEVO175T2 PO (11:21)
[2025-01-14] MEDS ORDERED: THIA100T70 PO (11:21)
[2025-01-14] MEDS ORDERED: VENL37.59 PO (11:21)
[2025-01-14] MEDS ORDERED: LOSA-415 PO (11:21)
[2025-01-14] MEDS ORDERED: POTASSIUM CHLORIDE 20 MEQ/15 ML oral solution PO PRN (11:27)
[2025-01-14] MEDS ORDERED: POTASSIUM CHLORIDE 20 MEQ/15 ML oral solution NG PRN (11:28)
[2025-01-14] MEDS: albumin (human) 25% 100ml IV 400 ML IV ONE (11:31)
[2025-01-14] MEDS: albumin (Human) 5% 250ml 250 ML IV SCH (11:33)
[2025-01-14] MEDS: NORepinephrine 8mg/ 250ml NS 250 ML IV PRN (11:34)
[2025-01-14] MEDS: POTASSIUM CHLORIDE 20 MEQ/15 ML oral solution NG PRN (11:57)
--- NOTE | 2025-01-14 12:34 | PROGRESS NOTE- Residence ---
Progress Note - Resident Providers to CC Resident Creating Document: PK HARRISON, RES ~ Antibiotic Timeout Antibiotic Ordered?: Yes Subjective Patient seen and examined at the bedside today. The patient is waking up on command. She is sedated and mechanically ventilated and is not able to follow commands at the moment. No acute overnight events were reported. The patient's daughter was at the bedside. She stated that the patient was doing absolutely well prior to the admission and was at baseline, independent in her daily living activities. She denied any recent hospitalizations or antibiotic use. Objective Vital Signs Date Time Temp Pulse Resp B/P (MAP) Pulse Ox O2 Delivery O2 Flow Rate FiO2 01/14/25 11:34 140/49 01/14/25 11:12 86 22 96 Mechanical Ventilator 45 01/14/25 10:00 99.3 01/13/25 19:00 0 Result Diagram: 01/13/25 1744 01/14/25 0800 General: Sedated, intubated and mechanically ventilated. HEENT: Conjunctiva pink, Sclera clear, Mucus Membranes moist. Neck: Supple without masses and tenderness. Resp: On mechanical ventilation. Bilateral coarse breath sounds heard. Heart: Regular Rate and rhythm, normal S1 and S2 without murmur, rub or gallop. Abdomen: Soft and non tender no organomegaly Extremities: 1+ edema noted. No cyanosis or clubbing. Skin: Warm and Dry. Neurology: Wakes up to stimulation. Assessment Assessment 79 years old female with past medical history of hypothyroidism, congestive heart failure, hypertension, hyperlipidemia is admitted in the hospital for evaluation and management of altered level of consciousness. The patient was found to be in his septic shock with worsening respiratory failure and had to be intubated, mechanical ventilated and transferred to the intensive care unit for the management of her septic shock and respiratory failure. Plan Plan Septic shock, POA Most likely secondary to Complicated pyelonephritis Metabolic encephalopathy secondary to above Patient has a WBC count of 19.6, procalcitonin of 84.20. Lactic acidosis. Urine analysis positive for 4+ bacteria, too numerous to count WBCs, positive leukocyte esterase. Blood cultures X 2 show positive for Gram-negative rods in the two cultures. CT scan of the abdomen is significant for mild left-sided hydronephrosis with a perinephric fat stranding. The patient has been started on IV meropenem. Patient received aggressive hydration in the ER. Currently continued on IV bicarbonate drip. Starting the patient on IV albumin drip. Requiring IV norepinephrine to maintain blood pressures at target of map 60 mmHg. Continues to be intubated and mechanically ventilated. We will wean the patient off of pressors and mechanical ventilation as tolerated. Acute hypoxemic respiratory failure Pulmonary nodule Patient had to be intubated and on started on mechanical ventilation. She has a underlying congestive heart failure. The patient had a recent echocardiogram at Dr. Hu's office. We will request records. Chest x-ray significant for atelectasis. CT scan of the chest shows a 6 mm pulmonary nodule in the left upper lobe with a bilateral lower lobe atelectasis and right upper lobe atelectasis. RT evaluation and treatment has been done. Appreciate recommendations. We will plan to wean the patient off of mechanical ventilation as tolerated. Acute kidney injury Mixed respiratory and metabolic acidosis Patient's baseline creatinine from her previous admission show her creatinine was around 0.6. Her creatinine today is 4.45 with a BUN of 56. Urine analysis positive for 4+ bacteria, too numerous to count WBCs, positive leukocyte esterase. The urine also has a high-protein, moderate blood in the urine. CT scan shows mild left hydronephrosis and perinephric fat stranding. We will follow up with renal ultrasound. The Nephrology team has been consulted. Appreciate recommendations. Diabetes mellitus Started the patient on low-dose sliding scale insulin. Nutrition Dietitian consulted. Starting the patient on tube feeds. History of hypothyroidism Restarted home levothyroxine 170 high mcg daily. Normocytic anemia Continue close monitoring of H&H. Follow up with the iron profile. CODE STATUS: Full code DVT prophylaxis: Heparin GI prophylaxis: None Diet: Tube feeds Disposition: Continue management in the intensive care unit. Critical care time 35 minutes. Pk Harrison MD Internal Medicine Resident, PGY-3 Date of Service: Jan 14, 2025 Billing Provider: HARINDER EPSTEIN MD,PK AGUIRRE, RES Jan 14, 2025 12:34
--- NOTE | 2025-01-14 13:56 | CONSULTATION REPORT ---
Consult Providers to CC ~ History of Present Illness Reason for Admit\Complaint: Septic shock History of Present Illness Linda Jefferson is a 79-year-old female with past medical history of hyperlipidemia and hypothyroidism who was brought to the ED by her family due to confusion, fever, generalized bodyaches and slight shortness of breath x 2-3 days. Initial findings were notable for leukocytosis, elevated lactic acid, renal insufficiency, severe hypotension requiring vasopressor. Patient was initially treated with 2 L of bolus fluids in ED, then developed respiratory distress requiring intubation. Patient was intubated and was started in ED and was admitted to ICU. Allergies: Coded Allergies: codeine (Verified Allergy, Mild, NAUSEATED, 06/15/24) Home Medications Home Medications Active Reported Aspirin EC (Aspirin) 81 Mg Tablet.dr 1 Tab PO DAILY 30 Days Vitamin D (Cholecalciferol (Vitamin D3)) 10 Mcg (400 Unit) Tablet 1 Tab PO DAILY 30 Days Milk Thistle (Milk Thistle Seed Extract) 175 Mg Capsule 1 Cap PO DAILY Prilosec Otc (Omeprazole Magnesium) 20 Mg Tablet.dr 20 Mg PO DAILY Synthroid* (Levothyroxine Sodium) 175 Mcg Tab 1 Tab PO BKF 30 Days Zocor* (Simvastatin) 20 Mg Tablet 40 Mg PO HS 30 Days Metformin HCl 500 Mg Tablet 1 Tab PO Q12H 30 Days Ropinirole HCl 3 Mg Tablet 1 Tab PO HS 30 Days Effexor Xr (Venlafaxine HCl) 150 Mg Cap.er.24h 1 Cap PO DAILY 30 Days TAKE TOTAL DOSE OF 187.5 MG Effexor XR* (Venlafaxine HCl) 37.5 Mg Cap.sr.12h 1 Cap PO DAILY 30 Days TAKE TOTAL DOSE OF 187.5 MG [place] 5/325 MG (Acetaminophen/Hydrocodone Bitart) 5 Mg/325 Mg Tablet 2 Tab PO Q4H PRN Cozaar* (Losartan Potassium) 25 Mg Tablet 50 Mg PO DAILY 30 Days Lasix* (Furosemide) 20 Mg Tablet 1 Tab PO DAILY 30 Days Vitamin B-1 (Thiamine Mononitrate) 100 Mg Tablet 100 Mg PO DAILY Past Medical History Past Medical History Hyperlipidemia Hypothyroidism Lower back pain Past Surgical History Surgical History Comment JOSEPHINE Past Social History Social History Comment JOSEPHINE ROS ROS Sedated, intubated Exam Vitals: Vital Signs Date Time Temp Pulse Resp B/P (MAP) Pulse Ox O2 Delivery O2 Flow Rate FiO2 01/14/25 13:09 86 22 98 45 01/14/25 11:34 140/49 01/14/25 11:12 Mechanical Ventilator 01/14/25 10:00 99.3 01/13/25 19:00 0 General: Sedated, intubated HEENT: Normocephalic, PERRLA Neck: Supple, trachea midline, no JVD Chest: Crackles in b/l lower lobes of lungs Cardiovascular: RRR, S1&S2 Abdomen: Soft and nontender Extremities: No cyanosis/clubbing/or edema Central Nervous System: Sedated, intubated Musculoskeletal: No paraspinal muscle tenderness, no muscle spasm Skin: Warm and intact Diagnostic Data Last Recorded Lab Results: 01/13/25 1744 01/14/25 0800 Additional Plan Assessment & Plan Septic shock likely 2/2 pyelonephritis Bacteremia- POA Acute hypoxemic respiratory failure Mixed respiratory and metabolic acidosis Intrinsic TEMITOPE 2/2 pyelonephritis/tubular stasis Pulmonary nodule Metabolic encephalopathy 2/2 above -leukocytosis, elevated lactic acid and procal, UA positive UTI, blood cultures X 2 show positive for Gram-negative rods, CT scan of the abdomen is significant for mild left-sided hydronephrosis with a perinephric fat stranding. -albumin drip, pressors, meropenem, ventilated Hyperlipidemia Hypothyroidism NIDDM low-dose sliding scale insulin, home levothyroxine, follow tsh/t4, lipid panel, a1c Nutrition Dietitian consulted. Starting the patient on tube feeds Normocytic anemia Continue close monitoring of H&H. Follow up with the iron profile. CODE STATUS: Full code DVT prophylaxis: Heparin Date of Service: Jan 14, 2025 Billing Provider: CATERINA AGUSTIN Common Visit Codes: [id number] INP/OBS CARE (HIGH) CATERINA AGUSTIN Jan 14, 2025 13:56
[2025-01-14] MEDS: insulin regular, human U-100 10ml vial - multi-dose SQ SCH (14:00)
--- NOTE | 2025-01-14 15:09 | RADIOLOGY REPORT ---
RENAL ULTRASOUND REASON FOR EXAM: TEMITOPE, Hydronephrosis COMPARISON: None TECHNIQUE: Real-time sector scans in multiple planes were obtained over the kidneys, ureters and bladder. FINDINGS: The right kidney measures 11.9 x 5.1 x 6. cm. The left kidney measures 10.4 x 5.4 x 5.3 cm. No mass is identified. There is no hydronephrosis. The urinary bladder is nearly completely decompressed at the time of evaluation (estimated volume 17 cc). The ureteral jets are not identified during this exam. IMPRESSION: Unremarkable sonographic appearance of the kidneys. No hydronephrosis of either kidney.
[2025-01-14] MEDS ORDERED: DEXTROSE 15 GM of carb/4 tabs (each vial/BOTTLE has 4 tablets) OGT PRN ×2 (15:15→15:16)
[2025-01-14] MEDS ORDERED: POTASSIUM CHLORIDE 20 MEQ/15 ML oral solution OGT PRN ×2 (15:17→15:18)
[2025-01-14 15:40] LABS: ABG BASE EXCESS -3.5 mmol/L (-2.0-3.0); ABG HCO3 21.6 mmol/L (21.0-28.0); ABG OXYGEN SATURATION 98.4 % (94.0-98.0); ABG PCO2 (T) 41.5 mmHg (32.0-45.0); ABG PH (T) 7.340 (7.350-7.450); ABG PO2 (T) 114.1 mmHg (83.0-108.0); FCOHb 1.1 % (0.5-1.5); FHHb 1.6 % (0.0-5.0); FIO2 40.0 mmHg/%; FMetHb 0.3 % (0.0-1.5); FO2Hb 97.0 % (94.0-98.0); MODE VENT - prvc; PATIENT TEMPERATURE 38.3; PEEP 5 cm H2O; RESPIRATORY RATE 22 b/min; TIDAL VOLUME 400 mL; TOTAL HEMOGLOBIN 9.6 G/dl (12.0-16.0)
[2025-01-14 16:26] LABS: MEAN PLATELET VOLUME 10.0 FL (7.4-10.4); RED CELL DISTRIBUTION WIDTH 15.5 % (11.5-14.5)
[2025-01-14 16:41] LABS: CREATININE 4.49 MG/DL (0.40-0.90); TOTAL CARBON DIOXIDE 20.9 MMOL/L (24-32); eCRCL 8 ML/MIN; eGFR 10 ML/MIN
--- NOTE | 2025-01-14 18:40 | CONSULTATION REPORT - RESIDENT ---
Consult Providers to CC Resident Creating Document: NILDA WILSON RES History of Present Illness Reason for Admit\Complaint: TEMITOPE History of Present Illness 79 years old female with past medical history of hypothyroidism, congestive heart failure, hypertension, hyperlipidemia was brought to the hospital for fever, body aches, confusion. Patient had elevated WBC count and was hypotensive with elevated lactic acid. Was admitted for sepsis, septic shock. Was given about 2 L of fluid, which led to respiratory distress and patient was intubated and ventilated. Urine analysis is positive for infection with positive urine and blood cultures. CT abdomen showed findings possible of pyelonephritis. Patient is on norepinephrine drip for maintaining blood pressure and is on meropenem 1 g IV daily. The nephrology team has been consulted for TEMITOPE. Her creatinine at the time of admission is 4.6, continues to be in the same range. BUN 55, mild acidosis with a bicarb of 20.9, potassium and phosphorus in the normal range. Total urine output is 46 mL. Baseline creatinine in 06/22 was 0.67. The TEMITOPE could be secondary to decreased perfusion because of septic shock. Allergies: Coded Allergies: codeine (Verified Allergy, Mild, NAUSEATED, 06/15/24) Home Medications Home Medications Active Reported Aspirin EC (Aspirin) 81 Mg Tablet.dr 1 Tab PO DAILY 30 Days Vitamin D (Cholecalciferol (Vitamin D3)) 10 Mcg (400 Unit) Tablet 1 Tab PO DAILY 30 Days Milk Thistle (Milk Thistle Seed Extract) 175 Mg Capsule 1 Cap PO DAILY Prilosec Otc (Omeprazole Magnesium) 20 Mg Tablet.dr 20 Mg PO DAILY Synthroid* (Levothyroxine Sodium) 175 Mcg Tab 1 Tab PO BKF 30 Days Zocor* (Simvastatin) 20 Mg Tablet 40 Mg PO HS 30 Days Metformin HCl 500 Mg Tablet 1 Tab PO Q12H 30 Days Ropinirole HCl 3 Mg Tablet 1 Tab PO HS 30 Days Effexor Xr (Venlafaxine HCl) 150 Mg Cap.er.24h 1 Cap PO DAILY 30 Days TAKE TOTAL DOSE OF 187.5 MG Effexor XR* (Venlafaxine HCl) 37.5 Mg Cap.sr.12h 1 Cap PO DAILY 30 Days TAKE TOTAL DOSE OF 187.5 MG [place] 5/325 MG (Acetaminophen/Hydrocodone Bitart) 5 Mg/325 Mg Tablet 2 Tab PO Q4H PRN Cozaar* (Losartan Potassium) 25 Mg Tablet 50 Mg PO DAILY 30 Days Lasix* (Furosemide) 20 Mg Tablet 1 Tab PO DAILY 30 Days Vitamin B-1 (Thiamine Mononitrate) 100 Mg Tablet 100 Mg PO DAILY Past Medical History Past Medical History hypothyroidism, congestive heart failure, hypertension, hyperlipidemia, type 2 diabetes mellitus Past Surgical History Surgical History Comment Orthopedic surgeries Past Social History Social History Comment Not known Exam Vitals: Vital Signs Date Time Temp Pulse Resp B/P (MAP) Pulse Ox O2 Delivery O2 Flow Rate FiO2 01/14/25 17:34 20 40 01/14/25 16:56 100.4 84 115/51 (72) 95 Mechanical Ventilator 01/13/25 19:00 0 General: General: Sedated, intubated and mechanically ventilated. HEENT: Conjunctiva pink, Sclera clear, Mucus Membranes moist. Neck: Supple without masses and tenderness. Resp: On mechanical ventilation. Bilateral coarse breath sounds heard. Heart: Regular Rate and rhythm, normal S1 and S2 without murmur, rub or gallop. Abdomen: Soft and non tender no organomegaly Extremities: 2+ edema noted. No cyanosis or clubbing. Skin: Warm and Dry. Neurology: Wakes up to stimulation. Diagnostic Data Last Recorded Lab Results: 01/14/25 1613 01/14/25 1613 Additional Plan Assessment 79 years old female with past medical history of hypothyroidism, congestive heart failure, hypertension, hyperlipidemia is admitted in the hospital for evaluation and management of altered level of consciousness. The patient was found to be in his septic shock with worsening respiratory failure and had to be intubated, mechanical ventilated and transferred to the intensive care unit for the management of her septic shock and respiratory failure. The patient developed TEMITOPE secondary to septic shock. Plan Plan TEMITOPE/ischemic ATN Non-anion gap acidosis Oliguria Possible left-sided pyelonephritis The patient developed TEMITOPE secondary to septic shock. Creatinine 4.49, BUN 55, BUN/creatinine-12.2 Bicarb 20.9, potassium 3.6 Urine output 51 mL Renal ultrasound showed normal appearance of the kidneys Abdominal CT showed mild left hydronephrosis with perinephric fat stranding. Plan Continues D5W with bicarb@ 75 mL/hour Renal dosing of nephrotoxin agents medications, on meropenem 1 g IV daily . Discontinue pantoprazole if not necessary. Follow up with urine electrolytes Strict I&Os Hypocalcemia Calcium 6.0, corrected calcium 6.9 ionized calcium 0.87 Phosphorus in the normal range. Magnesium in the normal range. Septic shock, POA Metabolic encephalopathy secondary to above Positive blood and urine cultures. Elevated WBC count, procalcitonin, lactic acidosis. Urine analysis positive for infection Urine culture showed Gram-negative rods, positive blood culture Patient is intubated and ventilated, FiO2 40, On fentanyl, propofol for sedation, norepinephrine for blood pressure. On IV norepinephrine for blood pressure On meropenem 1 g daily. Diabetes mellitus A1c 6.4 Started the patient on low-dose sliding scale insulin. Nutrition Dietitian consulted. Starting the patient on tube feeds. History of hypothyroidism Restarted home levothyroxine 170 high mcg daily. Normocytic anemia Continue close monitoring of H&H. Follow up with the iron profile. Nilda Wilson M.D PGY2 Nephrology Resident. Nephrology attending: patient seen and examined. care plan reviewed with resident. appreciate the above. will try hydrating today and see how she does. on pressors. this could be ATN from the shock. not in metabolic distrss currenetly and will like to wait for a day or two to see which direction she takes. Chris Johnson MD Date of Service: Jan 14, 2025 Billing Provider: CHRIS JOHNSON MD, PRAVAHIKA, RES Jan 14, 2025 18:40 CHRIS JOHNSON MD Jan 14, 2025 20:56
[2025-01-15] VITALS (44 sets, daily range): BP systolic 98–130; BP diastolic 39–62; PULSE 78–97; RESP 18–36; TEMP 98.4–98.6; O2SAT 92–100
[2025-01-15 04:24] LABS: ABG BASE EXCESS 0.9 mmol/L (-2.0-3.0); ABG HCO3 25.4 mmol/L (21.0-28.0); ABG OXYGEN SATURATION 98.4 % (94.0-98.0); ABG PCO2 (T) 41.6 mmHg (32.0-45.0); ABG PH (T) 7.407 (7.350-7.450); ABG PO2 (T) 114.2 mmHg (83.0-108.0); FCOHb 0.9 % (0.5-1.5); FHHb 1.6 % (0.0-5.0); FIO2 35.0 mmHg/%; FMetHb 0.3 % (0.0-1.5); FO2Hb 97.2 % (94.0-98.0); MODE VENT - AC; PATIENT TEMPERATURE 37.9; PEEP 5 cm H2O; RESPIRATORY RATE 22 b/min; TIDAL VOLUME 400 mL; TOTAL HEMOGLOBIN 9.4 G/dl (12.0-16.0)
[2025-01-15 06:26] LABS: MEAN PLATELET VOLUME 10.3 FL (7.4-10.4); RED CELL DISTRIBUTION WIDTH 15.4 % (11.5-14.5)
--- NOTE | 2025-01-15 06:57 | RADIOLOGY REPORT ---
CHEST RADIOGRAPH Indication: int Technique: Single frontal view of the chest was obtained COMPARISON: DI CHEST,SINGLE VIEW on DOS: 01/14/25, CT CT CHEST ABDOMEN PELVIS on DOS: 01/14/25, DI CHEST,SINGLE VIEW on DOS: 01/13/25, DI CHEST,SINGLE VIEW on DOS: 01/13/25, DI CHEST,SINGLE VIEW on DOS: 06/15/24 FINDINGS: Lines and Tubes: Unchanged. Lungs: Stable appearing diffuse increased prominence of the pulmonary vasculature and probable small bilateral pleural effusions. No pneumothorax. Cardiomediastinal contours: Cardiomegaly. Bones: Unremarkable IMPRESSION: 1. Stable diffuse increased prominence of the pulmonary vasculature, probable small bilateral pleural effusions and cardiomegaly. 2. Lines and tubes unchanged.
[2025-01-15 07:06] LABS: CHOL/HDL RATIO 8.9 (0.00-4.99); LDL CHOLESTEROL 20 MG/DL (50-100)
[2025-01-15 07:18] LABS: PHOSPHORUS 2.0 MG/DL (2.3-4.5)
[2025-01-15] MEDS: levoTHYROXINE 175mcg tablet OGT SCH (07:38)
[2025-01-15] MEDS: NORepinephrine 8mg/ 250ml NS 250 ML IV SCH (07:38)
[2025-01-15] MEDS: K and/or MAG REPLACEMENT MC SCH (07:39)
[2025-01-15 07:51] LABS: CREATININE 5.16 MG/DL (0.40-0.90); TOTAL CARBON DIOXIDE 26.1 MMOL/L (24-32); eCRCL 7 ML/MIN; eGFR 8 ML/MIN
[2025-01-15] MEDS: midazolam 1 mg/ML 2ml injection IV ONE (09:57)
[2025-01-15] MEDS: midazolam 100mg in NS 100ml 100 ML IV SCH (09:58)
[2025-01-15] MEDS: COMMUNICATION ORDER 1 EA MISC MC ONE ×3 (09:59→10:00)
--- NOTE | 2025-01-15 10:46 | PROGRESS NOTE ---
Subjective Subjective Patient seen and examined at the bedside today. The patient is sedated on propofol and fentanyl and remains on mechanical ventilation.No acute overnight events were reported. She remains anuric. Reason for visit: Acute respiratory failure Reviewed: Care Plan, H&P, Labs, Medications, Radiology Review of Systems Changes from previous H/P or p: No Changes Daily Progress Note Exam Vitals Vital Signs Date Time Temp Pulse Resp B/P (MAP) Pulse Ox O2 Delivery O2 Flow Rate FiO2 01/15/25 10:23 88 27 97 50 01/15/25 09:58 109/53 01/15/25 08:00 101.1 Mechanical Ventilator 01/13/25 19:00 0 Result Diagram: 01/15/25 [id number] Exam General: Sedated, intubated and mechanically ventilated. HEENT: Conjunctiva pink, Sclera clear, Mucus Membranes moist. Neck: Supple without masses and tenderness. Resp: On mechanical ventilation. Bilateral coarse breath sounds heard. Heart: Regular Rate and rhythm, normal S1 and S2 without murmur, rub or gallop. Abdomen: Soft and non tender no organomegaly Extremities: 1+ edema noted. No cyanosis or clubbing. Skin: Warm and Dry. Neurology: Wakes up to stimulation. VTE VTE Risk Score VTE Risk Score Reference Ranges: Score 0-1 = Low Risk (Aggressive mobilization; early ambulation; no VTE prophylaxis required) Score 2: Moderate Risk (Intermittent/Pneumatic Compression Device OR Lovenox/Heparin/Coumadin) Score 3-4: High Risk (Intermittent/Pneumatic Compression Device AND Lovenox/Heparin/Coumadin) Score > or = 5: Highest Risk (Intermittent/Pneumatic Compression Device AND Lovenox/Heparin/Coumadin) Assessment/Plan Assessment 79 years old female with past medical history of hypothyroidism, congestive heart failure, hypertension, hyperlipidemia is admitted in the hospital for evaluation and management of altered level of consciousness. The patient was found to be in his septic shock with worsening respiratory failure and had to be intubated, mechanical ventilated and transferred to the intensive care unit for the management of her septic shock and respiratory failure. Plan Septic shock, POA: Secondary to E coli that is pansensitive. Currently on meropenem. Remains on low-dose norepinephrine drip at 0.05 mcg/kg per minute. Most likely secondary to Complicated pyelonephritis: Has mild left hydronephrosis. Metabolic encephalopathy secondary to above Acute hypoxemic respiratory failure Pulmonary nodule: 6 mm in size in the left upper lobe Acute kidney injury: Remains anuric. Expected to resolve with time. Bridging with renal replacement therapy i.e. dialysis. Mixed respiratory and metabolic acidosis Diabetes mellitus Nutrition History of hypothyroidism Normocytic anemia Hypothyroidism Plan: Continue mechanical ventilation. No spontaneous breathing trial at this moment. Continue sedation with midazolam and fentanyl to achieve a RASS score of-1/-2. Propofol should be discontinued in light of hypertriglyceridemia. Dialysis will be initiated today once dialysis catheter has been inserted. Change meropenem to ceftriaxone. Adjust pressors to maintain a mean arterial pressure of at least 65 mm of mercury. Continue 5% albumin and IV bicarbonate each running at 75 mL/hour Continue levothyroxine. CODE STATUS: Full code DVT prophylaxis: Heparin GI prophylaxis: None Diet: Tube feeds Disposition: Continue management in the intensive care unit. Critical care time 35 minutes. Expected Outcome/Goals Expected Outcomes/Goals: Tolerance to TF, wt maintenance, bowel regularity, skin integrity, BG 140-180 mg/dL HARINDER EPSTEIN MD Jan 15, 2025 10:46
[2025-01-15] MEDS: CefTRIAXone/D5W-Rocephin 1gm 50 ML IV ONE (12:22)
--- NOTE | 2025-01-15 13:11 | RADIOLOGY REPORT ---
CHEST RADIOGRAPH Indication: for line placment Technique: DI CHEST,SINGLE VIEW COMPARISON: 01/15/2025 FINDINGS: Right IJ catheter tip projects over the SVC. Endotracheal tube tip projects 5.5 cm above the zachery. Nasogastric tube projects towards the stomach, beyond the field of view of this examination. The cardiac silhouette is enlarged. The lungs demonstrate bilateral patchy airspace opacities. The pulmonary vasculature is prominent. Small to moderate bilateral pleural effusions. There is no pneumothorax. IMPRESSION: As above
[2025-01-15] MEDS ORDERED: albumin (human) 25% 100ml IV 100 ML IV PRN (13:25)
--- NOTE | 2025-01-15 13:29 | PROGRESS NOTE ---
Progress Note Dictate Providers to CC ~ Central Line/PICC still needed: Yes Central Line/PICC Necessity: Req HD/Plasmapheresis [facility] Indications Met/Not Met: F/C Indications Met Antibiotic Ordered?: Yes Subjective Subjective The patient continues to be oliguric. remains septic. on levophed. creatinine worsening. remains critically ill. spoke to the daughter and spent about 35 minutes today reviewing chart and explained about the need for CVVH vs regular hD. She wishes to proceed. She gave a written consent. Line has since been placed by . Greatly appreciated. Orders for hD written. will try regular HD first. If she fails, will switch to CVVH from tomorrow. She still is running low grade tempoerature. her CVP is indeed high. remains on jose juan ventilator at 50% FiO2 Objective Vitals Vital Signs Date Time Temp Pulse Resp B/P (MAP) Pulse Ox O2 Delivery O2 Flow Rate FiO2 01/15/25 13:17 101/49 01/15/25 13:17 24 01/15/25 13:15 98.6 82 98 Mechanical Ventilator 45 01/13/25 19:00 0 Lab Results: 01/15/25 0240 01/15/25 0240 Objective Vital Signs: As above, remains on jose juan ventilator General: obese body habitus, no acute distress. Skin: No rashes, lumps, ulcers, blisters, purpura or petechiae HEENT: Anicteric sclera, DONTE Neck: Supple and nontender without enlargement of the thyroid, or lymphadenopathy. Chest: Normal size and shape, no tenderness, CTA bilaterally Heart: Regular. No jugular venous distention, S1 and S2 heard , no gallop Abdomen: Soft and non tender no organomegaly,BS+ Extremities: ++pedal edema Neuro: sedated. but is responsive Advance Care Planning Advanced Care plannin - 30 Minutes Problem\Assessment\Plan Problems/Diagnosis: (1) Acute respiratory failure Assessment & Plan: on ventilator. weaning in progress. not ready to be extubated. (2) Acute kidney injury Assessment & Plan: worsening. has gone into ATn secondary to septic shock. will proceed with HD starting today. - avoid NSAIds -avoid Magnesium and aluminum based laxatives or antacids -don't use protocol based potassium replacement until recovery of renal function - has a temp cath now. -orders for HD placed. (3) Septic shock Assessment & Plan: on antibiotics. proceed with HD (4) Edema of lower extremity Assessment & Plan: will aim for 0-2 liters off as tolereated (5) Acute urinary tract infection Assessment & Plan: pyelonephritis there is mild hydronephrosis. since then, she has corbett in place and also pyelonephritis can cause that edema. will monitro for now. KRISTEN JACKSON MD Jan 15, 2025 13:29
--- NOTE | 2025-01-15 16:01 | PROGRESS NOTE ---
Daily Progress Note Providers to CC ~ Antibiotic Timeout Antibiotic Ordered?: Yes Subjective Patient examined at bedside. Patient is sedated and mechanically ventilated. HD today. Objective Vital Signs Date Time Temp Pulse Resp B/P (MAP) Pulse Ox O2 Delivery O2 Flow Rate FiO2 01/15/25 15:45 81 23 95 35 01/15/25 15:15 108/50 (69) Mechanical Ventilator 01/15/25 14:31 97.0 01/13/25 19:00 0 Result Diagram: 01/15/2523901/15/25239 Physical Exam General: Sedated, intubated HEENT: Normocephalic, PERRLA Neck: Supple, trachea midline, no JVD Chest: Crackles in b/l lower lobes of lungs Cardiovascular: RRR, S1&S2 Abdomen: Soft and nontender Extremities: No cyanosis/clubbing/or edema Central Nervous System: Sedated, intubated Musculoskeletal: No paraspinal muscle tenderness, no muscle spasm Skin: Warm and intact Problem\Assessment\Plan Assessment & Plan Septic shock likely 2/2 pyelonephritis Bacteremia- POA Acute hypoxemic respiratory failure Mixed respiratory and metabolic acidosis Intrinsic TEMITOPE 2/2 pyelonephritis/tubular stasis Pulmonary nodule Metabolic encephalopathy 2/2 above -leukocytosis, elevated lactic acid and procal, UA positive UTI, blood cultures X 2 show positive for Gram-negative rods, CT scan of the abdomen is significant for mild left-sided hydronephrosis with a perinephric fat stranding. -albumin drip, pressors, meropenem, ventilated 01/15: UA E.coli, prelim blood cx gram neg analy; HD today. Hyperlipidemia Hypothyroidism NIDDM low-dose sliding scale insulin, home levothyroxine, follow tsh/t4, lipid panel, a1c Nutrition Dietitian consulted. Starting the patient on tube feeds Normocytic anemia Continue close monitoring of H&H. Follow up with the iron profile. CODE STATUS: Full code DVT prophylaxis: Heparin Date of Service: Jan 15, 2025 Billing Provider: CATERINA AGUSTIN Common Visit Codes: [id number] INP/OBS CARE(HIGH) CATERINA AGUSTIN Jan 15, 2025 16:01
[2025-01-15] MEDS ORDERED: albumin (human) 5% 500 ML NS IV ONE (17:05)
[2025-01-15] MEDS: albumin (human) 5% 500 ML NS IV ONE (18:00)
[2025-01-15] MEDS: heparin 1,000unit/ml 10ml vial 10 ML IV ONE (18:15)
[2025-01-15] MEDS: heparin 1,000 units/ml 10ml inj IV ONE (18:15)
[2025-01-15] MEDS: heparin 1,000 units/ml 10ml inj HE ONE ×2 (18:16)
[2025-01-15] MEDS: EPOETIN ALFA-EPBX 20,000 UNIT/ML 1 ML MDV IV ONE (18:17)
[2025-01-16] VITALS (44 sets, daily range): BP systolic 101–129; BP diastolic 46–55; PULSE 76–97; RESP 17–31; TEMP 99.5–100; O2SAT 93–100
--- NOTE | 2025-01-16 01:38 | PROGRESS NOTE ---
Progress Note Dictate Providers to CC ~ Antibiotic Ordered?: Yes Objective Vitals Vital Signs Date Time Temp Pulse Resp B/P (MAP) Pulse Ox O2 Delivery O2 Flow Rate FiO2 01/16/25 01:12 84 23 96 40 01/15/25 22:00 99.3 118/52 (74) Mechanical Ventilator 01/13/25 19:00 0 Lab Results: 01/15/25 0240 01/15/25 0240 Problem\Assessment\Plan Additional Plan Night time TeleICU coverage Patient see and evaluated using HIPPA compliant AV device E coli bacteremia Respiratory failure Intubated and sedated Synchronous with the vent Respiratory failure : Continue vent support Septic shock : Levo improving UTI/Bacteremia E coli: Ceftriaxone, A fib: cardiology consulted TEMITOPE: On dialysis tolerated 2L removal today DVT prophylaxis CCT 60mins Dleilah Cody MD Sepsis Screening Skin Color: Normal DELILAH CODY MD Jan 16, 2025 01:38
[2025-01-16 02:49] LABS: MEAN PLATELET VOLUME 10.0 FL (7.4-10.4); RED CELL DISTRIBUTION WIDTH 15.9 % (11.5-14.5)
[2025-01-16 03:11] LABS: CREATININE 4.27 MG/DL (0.40-0.90); TOTAL CARBON DIOXIDE 30.4 MMOL/L (24-32); eCRCL 9 ML/MIN; eGFR 10 ML/MIN
[2025-01-16 03:27] LABS: ABG BASE EXCESS 1.9 mmol/L (-2.0-3.0); ABG HCO3 28.5 mmol/L (21.0-28.0); ABG OXYGEN SATURATION 96.8 % (94.0-98.0); ABG PCO2 (T) 58.1 mmHg (32.0-45.0); ABG PH (T) 7.313 (7.350-7.450); ABG PO2 (T) 98.0 mmHg (83.0-108.0); FCOHb 1.3 % (0.5-1.5); FHHb 3.1 % (0.0-5.0); FIO2 40.0 mmHg/%; FMetHb 0.3 % (0.0-1.5); FO2Hb 95.3 % (94.0-98.0); MODE PRVC; PATIENT TEMPERATURE 37.9; PEEP 5 cm H2O; RESPIRATORY RATE 22 b/min; TIDAL VOLUME 300 mL; TOTAL HEMOGLOBIN 9.3 G/dl (12.0-16.0)
[2025-01-16 03:31] LABS: BANDS% (MANUAL) 1.0 % (0-10); EOSINOPHILS % (MANUAL) 2.0 % (0-6); LYMPHOCYTES % (MANUAL) 8.0 % (21-51); MONOCYTES % (MANUAL) 11.0 % (2-12); NEUTROPHILS % (MANUAL) 78.0 % (42-75); PLATELET ESTIMATE DECREASED
--- NOTE | 2025-01-16 06:11 | RADIOLOGY REPORT ---
CHEST RADIOGRAPH Indication: ET Tube PLacement Technique: Single frontal view of the chest was obtained Comparison: DI CHEST,SINGLE VIEW on DOS: 01/15/25, DI CHEST,SINGLE VIEW on DOS: 01/15/25, DI CHEST,SINGLE VIEW on DOS: 01/14/25 IMPRESSION: The heart is enlarged with moderate pulmonary vascular congestion. Endotracheal tube tip is unchanged approximately 5 cm from the zachery. Other support lines and tubes appear unchanged in satisfactory position. There is likely a small left pleural effusion. No pneumothorax.
[2025-01-16 08:14] LABS: PHOSPHORUS 2.3 MG/DL (2.3-4.5)
[2025-01-16] MEDS: CefTRIAXone/D5W-Rocephin 1gm 50 ML IV SCH (09:25)
--- NOTE | 2025-01-16 09:40 | PROGRESS NOTE ---
Daily Progress Note Providers to CC ~ Rogers-Non Protocol Rogers Indications Met/Not Met: F/C Indications Met Antibiotic Timeout Antibiotic Ordered?: Yes Subjective Patient examined at bedside. Patient is sedated and mechanically ventilated. Pansensitive E.coli bacteremia secondary to pyelonephritis. Febrile, continued on abx. Objective Vital Signs Date Time Temp Pulse Resp B/P (MAP) Pulse Ox O2 Delivery O2 Flow Rate FiO2 01/16/25 09:11 85 22 96 40 01/16/25 09:00 99.9 102/49 (66) Mechanical Ventilator 01/13/25 19:00 0 Result Diagram: 01/16/2519901/16/25199 Physical Exam General: Sedated, intubated HEENT: Normocephalic, PERRLA Neck: Supple, trachea midline, no JVD Chest: Crackles in b/l lower lobes of lungs Cardiovascular: RRR, S1&S2 Abdomen: Soft and nontender Extremities: No cyanosis/clubbing/or edema Central Nervous System: Sedated, intubated Musculoskeletal: No paraspinal muscle tenderness, no muscle spasm Skin: Warm and intact Problem\Assessment\Plan Assessment & Plan Septic shock likely 2/2 pyelonephritis Bacteremia- POA Acute hypoxemic respiratory failure Mixed respiratory and metabolic acidosis Intrinsic TEMITOPE 2/2 pyelonephritis/tubular stasis Pulmonary nodule Metabolic encephalopathy 2/2 above -leukocytosis, elevated lactic acid and procal, UA positive UTI, blood cultures X 2 show positive for Gram-negative rods, CT scan of the abdomen is significant for mild left-sided hydronephrosis with a perinephric fat stranding. -albumin drip, pressors, meropenem, ventilated 01/15: UA E.coli, prelim blood cx gram neg analy; HD today. 01/16: Pansensitive E.coli bacteremia secondary to pyelonephritis. Hyperlipidemia Hypothyroidism NIDDM low-dose sliding scale insulin, home levothyroxine, follow tsh/t4, lipid panel, a1c Nutrition Dietitian consulted. Starting the patient on tube feeds Normocytic anemia Continue close monitoring of H&H. Follow up with the iron profile. CODE STATUS: Full code DVT prophylaxis: Heparin Sepsis Screening Skin Color: Normal Date of Service: Jan 16, 2025 Billing Provider: CATERINA AGUSTIN Common Visit Codes: [id number] INP/OBS CARE(HIGH) CATERINA AGUSTIN Jan 16, 2025 09:40
--- NOTE | 2025-01-16 09:53 | PROGRESS NOTE ---
Subjective Subjective Patient seen and examined at the bedside today.The patient is sedated on midazolam and fentanyl and remains on mechanical ventilation.Had dialysis yesterday ,No acute overnight events were reported. She remains anuric. Reason for visit: Acute respiratory failure Reviewed: Care Plan, H&P, Labs, Medications, Radiology Daily Progress Note Exam Vitals Vital Signs Date Time Temp Pulse Resp B/P (MAP) Pulse Ox O2 Delivery O2 Flow Rate FiO2 01/16/25 09:11 85 22 96 40 01/16/25 09:00 99.9 102/49 (66) Mechanical Ventilator 01/13/25 19:00 0 Result Diagram: 01/16/2519901/16/25199 Exam General: Sedated, intubated and mechanically ventilated. HEENT: Conjunctiva pink, Sclera clear, Mucus Membranes moist. Neck: Supple without masses and tenderness. Resp: On mechanical ventilation. Bilateral coarse breath sounds heard. Heart: Regular Rate and rhythm, normal S1 and S2 without murmur, rub or gallop. Abdomen: Soft and non tender no organomegaly Extremities: 1+ edema noted. No cyanosis or clubbing. Skin: Warm and Dry. Neurology: Wakes up to stimulation. VTE VTE Risk Score VTE Risk Score Reference Ranges: Score 0-1 = Low Risk (Aggressive mobilization; early ambulation; no VTE prophylaxis required) Score 2: Moderate Risk (Intermittent/Pneumatic Compression Device OR Lovenox/Heparin/Coumadin) Score 3-4: High Risk (Intermittent/Pneumatic Compression Device AND Lovenox/Heparin/Coumadin) Score > or = 5: Highest Risk (Intermittent/Pneumatic Compression Device AND Lovenox/Heparin/Coumadin) Assessment/Plan Plan Septic shock, POA: Secondary to E coli that is pansensitive. Currently on meropenem. Remains on low-dose norepinephrine drip at 0.05 mcg/kg per minute. Most likely secondary to Complicated pyelonephritis: Has mild left hydronephrosis. Metabolic encephalopathy secondary to above Acute hypoxemic respiratory failure:Remains on mechanical ventilation Pulmonary nodule: 6 mm in size in the left upper lobe Acute kidney injury: Remains anuric. Expected to resolve with time. Bridging with renal replacement therapy i.e. dialysis.Second round of dialysis planned for today. Mixed respiratory and metabolic acidosis Diabetes mellitus Nutrition History of hypothyroidism Normocytic anemia Hypothyroidism Thrombocytopenia: Getting worse . Plan: Continue mechanical ventilation. No spontaneous breathing trial at this moment. Continue sedation with midazolam and fentanyl to achieve a RASS score of-1/-2. Propofol should be discontinued in light of hypertriglyceridemia. Dialysis will be initiated today once dialysis catheter has been inserted. Change meropenem to ceftriaxone. Adjust pressors to maintain a mean arterial pressure of at least 65 mm of mercury. Avoid all heparin products. Continue 5% albumin and IV bicarbonate each running at 75 mL/hour Continue levothyroxine. F/u pulmonary nodule as outpatient. Consult urology tomorrow for mild left hydronephrosis. CODE STATUS: Full code DVT prophylaxis: Heparin GI prophylaxis: None Diet: Tube feeds Disposition: Continue management in the intensive care unit. Critical care time 35 minutes. Expected Outcome/Goals Expected Outcomes/Goals: Tolerance to TF, wt maintenance, bowel regularity, skin integrity, BG 140-180 mg/dL HARINDER EPSTEIN MD Jan 16, 2025 09:53
[2025-01-16] MEDS: albumin (human) 5% 500 ML NS IV ONE ×2 (11:13→13:11)
[2025-01-16] MEDS: EPOETIN ALFA-EPBX 20,000 UNIT/ML 1 ML MDV IV ONE (12:38)
[2025-01-16] MEDS: albumin (human) 25% 100ml IV 100 ML IV PRN (12:39)
[2025-01-16] MEDS: heparin 1,000unit/ml 10ml vial 10 ML IV ONE (12:40)
[2025-01-16] MEDS: heparin 1,000 units/ml 10ml inj IV ONE (12:40)
[2025-01-16] MEDS: heparin 1,000 units/ml 10ml inj HE ONE ×2 (12:41→12:42)
[2025-01-16] MEDS: mineral oil/petrolatum ophthal oint EACHEYE SCH (14:35)
[2025-01-16] MEDS ORDERED: albumin (human) 5% 500 ML NS IV ONE (22:00)
[2025-01-17] VITALS (46 sets, daily range): BP systolic 85–188; BP diastolic 35–86; PULSE 67–145; RESP 19–34; TEMP 98.1–98.6; O2SAT 90–98
[2025-01-17 01:45] LABS: MEAN PLATELET VOLUME 10.1 FL (7.4-10.4); RED CELL DISTRIBUTION WIDTH 15.8 % (11.5-14.5)
[2025-01-17 01:59] LABS: CREATININE 3.90 MG/DL (0.40-0.90); PHOSPHORUS 2.0 MG/DL (2.3-4.5); TOTAL CARBON DIOXIDE 30.8 MMOL/L (24-32); eCRCL 10 ML/MIN; eGFR 11 ML/MIN
[2025-01-17 02:48] LABS: EOSINOPHILS % (MANUAL) 1.0 % (0-6); LYMPHOCYTES % (MANUAL) 8.0 % (21-51); METAMYLEOCYTES% (MANUAL) 1.0 % (0-0); MONOCYTES % (MANUAL) 13.0 % (2-12); NEUTROPHILS % (MANUAL) 77.0 % (42-75)
[2025-01-17 02:49] LABS: LARGE PLATELETS FEW; PLATELET ESTIMATE DECREASED
[2025-01-17 03:26] LABS: ABG BASE EXCESS 3.2 mmol/L (-2.0-3.0); ABG HCO3 29.1 mmol/L (21.0-28.0); ABG OXYGEN SATURATION 97.3 % (94.0-98.0); ABG PCO2 (T) 51.3 mmHg (32.0-45.0); ABG PH (T) 7.371 (7.350-7.450); ABG PO2 (T) 91.9 mmHg (83.0-108.0); FCOHb 1.4 % (0.5-1.5); FHHb 2.7 % (0.0-5.0); FIO2 35.0 mmHg/%; FMetHb 0.3 % (0.0-1.5); FO2Hb 95.6 % (94.0-98.0); MODE PRVC; PATIENT TEMPERATURE 37.0; PEEP 5 cm H2O; RESPIRATORY RATE 22 b/min; TIDAL VOLUME 300 mL; TOTAL HEMOGLOBIN 9.0 G/dl (12.0-16.0)
--- NOTE | 2025-01-17 05:52 | RADIOLOGY REPORT ---
CHEST RADIOGRAPH Indication: ET Tube PLacement Technique: Single frontal view of the chest was obtained COMPARISON: DI CHEST,SINGLE VIEW on DOS: 01/16/25, DI CHEST,SINGLE VIEW on DOS: 01/15/25, DI CHEST,SINGLE VIEW on DOS: 01/15/25, DI CHEST,SINGLE VIEW on DOS: 01/14/25, CT CT CHEST ABDOMEN PELVIS on DOS: 01/14/25 FINDINGS: Lines and Tubes: Unchanged. Lungs: Stable appearing diffuse increased prominence of the pulmonary vasculature. Small bilateral pleural effusions. No pneumothorax. Cardiomediastinal contours: Cardiomegaly. Bones: Unremarkable IMPRESSION: 1. Stable pulmonary vascular congestion and bilateral pleural effusions. 2. Cardiomegaly. 3. Lines and tubes unchanged.
--- NOTE | 2025-01-17 08:39 | PROGRESS NOTE ---
Progress Note Dictate Providers to CC ~ Central Line/PICC still needed: Yes Central Line/PICC Necessity: Req HD/Plasmapheresis [facility] Indications Met/Not Met: F/C Indications Met Antibiotic Ordered?: Yes Subjective Subjective The patient is on ventilator. FiO2 down to 35%. HD getting started soon. will aim for 2-3 liter fluid off as tolerated. cathetr flows have come down. will use tpa to keep cath open. Objective Vitals Vital Signs Date Time Temp Pulse Resp B/P (MAP) Pulse Ox O2 Delivery O2 Flow Rate FiO2 01/17/25 12:45 98.6 140 22 103/43 (63) 94 Mechanical Ventilator 35 01/17/25 08:00 0.0 Lab Results: 01/17/25 0130 01/17/25 0130 Objective Vital Signs: As above, remains on jose juan ventilator General: obese body habitus, no acute distress. Skin: No rashes, lumps, ulcers, blisters, purpura or petechiae HEENT: Anicteric sclera, DONTE Neck: Supple and nontender without enlargement of the thyroid, or lymphadenopathy. Chest: Normal size and shape, no tenderness, CTA bilaterally Heart: Regular. No jugular venous distention, S1 and S2 heard , no gallop Abdomen: Soft and non tender no organomegaly,BS+ Extremities: ++pedal edema Neuro: sedated. but is responsive Advance Care Planning Advanced Care plannin - 30 Minutes Problem\Assessment\Plan Problems/Diagnosis: (1) Acute respiratory failure Assessment & Plan: on ventilator. weaning in progress. not ready to be extubated. ICu team following. FiO2 down to .35 (2) Acute kidney injury Assessment & Plan: ATN due to septic shock. will proceed with HD 3rd day - avoid NSAIds -avoid Magnesium and aluminum based laxatives or antacids -don't use protocol based potassium replacement until recovery of renal function - has a temp cath now. -orders for HD placed. (3) Septic shock Assessment & Plan: on antibiotics. proceed with HD (4) Edema of lower extremity Assessment & Plan: will aim for 3 liters off as tolereated (5) Acute urinary tract infection Assessment & Plan: pyelonephritis there is mild hydronephrosis. since then, she has corbett in place and also pyelonephritis can cause that edema. will monitro for now. Sepsis Screening Skin Color: Normal KRISTEN JACKSON MD Jan 17, 2025 08:39
--- NOTE | 2025-01-17 10:49 | PROGRESS NOTE ---
Daily Progress Note Providers to CC ~ Antibiotic Timeout Antibiotic Ordered?: Yes Subjective Patient examined at bedside. Patient is sedated and mechanically ventilated. Pansensitive E. coli bacteremia secondary to pyelonephritis. Off pressors, sedation. Objective Vital Signs Date Time Temp Pulse Resp B/P (MAP) Pulse Ox O2 Delivery O2 Flow Rate FiO2 01/17/25 09:09 90 22 96 35 01/17/25 09:00 125/54 (77) 01/17/25 07:00 97.9 01/17/25 05:58 Mechanical Ventilator 01/16/25 20:00 0.0 Result Diagram: 01/17/2512901/17/25129 Physical Exam General: Sedated, intubated HEENT: Normocephalic, PERRLA Neck: Supple, trachea midline, no JVD Chest: Crackles in b/l lower lobes of lungs Cardiovascular: RRR, S1&S2 Abdomen: Soft and nontender Extremities: No cyanosis/clubbing/or edema Central Nervous System: Sedated, intubated Musculoskeletal: No paraspinal muscle tenderness, no muscle spasm Skin: Warm and intact Problem\Assessment\Plan Assessment & Plan Septic shock likely 2/2 pyelonephritis Bacteremia- POA Acute hypoxemic respiratory failure Mixed respiratory and metabolic acidosis Intrinsic TEMITOPE 2/2 pyelonephritis/tubular stasis Pulmonary nodule Metabolic encephalopathy 2/2 above -leukocytosis, elevated lactic acid and procal, UA positive UTI, blood cultures X 2 show positive for Gram-negative rods, CT scan of the abdomen is significant for mild left-sided hydronephrosis with a perinephric fat stranding. -albumin drip, pressors, meropenem, ventilated 01/15: UA E.coli, prelim blood cx gram neg analy; HD today 01/16: Pansensitive E.coli bacteremia secondary to pyelonephritis, HD #2 01/17: off pressors, sedation Hyperlipidemia Hypothyroidism NIDDM low-dose sliding scale insulin, home levothyroxine, follow tsh/t4, lipid panel, a1c Nutrition Dietitian consulted. Starting the patient on tube feeds Normocytic anemia Continue close monitoring of H&H. Follow up with the iron profile. CODE STATUS: Full code DVT prophylaxis: Heparin Sepsis Screening Skin Color: Normal Date of Service: Jan 17, 2025 Billing Provider: CATERINA AGUSTIN SCUDDING INSPECTOR Common Visit Codes: [id number] INP/OBS CARE(HIGH) CATERINA AGUSTIN SCUDDING INSPECTOR Jan 17, 2025 10:49
[2025-01-17] MEDS: albumin (human) 25% 100ml IV 100 ML IV PRN (12:18)
--- NOTE | 2025-01-17 12:34 | PROGRESS NOTE ---
Subjective Subjective Patient seen and examined at the bedside today.The patient is sedated on midazolam and fentanyl and remains on mechanical ventilation.Had dialysis yesterday ,No acute overnight events were reported. She remains anuric. Dialysis initiated. Has had two rounds of dialysis and dialysis also planned for today. Patient's sedation is off. Reason for visit: Acute respiratory failure Reviewed: Care Plan, H&P, Labs, Medications, Radiology Review of Systems Changes from previous H/P or p: No Changes Daily Progress Note Exam Vitals Vital Signs Date Time Temp Pulse Resp B/P (MAP) Pulse Ox O2 Delivery O2 Flow Rate FiO2 01/17/25 12:20 139 23 146/62 (90) 90 Mechanical Ventilator 35 01/17/25 11:50 98.1 01/17/25 08:00 0.0 Result Diagram: 01/17/2512901/17/25129 Exam General: Sedated, intubated and mechanically ventilated. HEENT: Conjunctiva pink, Sclera clear, Mucus Membranes moist. Neck: Supple without masses and tenderness. Resp: On mechanical ventilation. Bilateral coarse breath sounds heard. Heart: Regular Rate and rhythm, normal S1 and S2 without murmur, rub or gallop. Abdomen: Soft and non tender no organomegaly Extremities: 1+ edema noted. No cyanosis or clubbing. Skin: Warm and Dry. Neurology: Wakes up to stimulation. VTE VTE Risk Score VTE Risk Score Reference Ranges: Score 0-1 = Low Risk (Aggressive mobilization; early ambulation; no VTE prophylaxis required) Score 2: Moderate Risk (Intermittent/Pneumatic Compression Device OR Lovenox/Heparin/Coumadin) Score 3-4: High Risk (Intermittent/Pneumatic Compression Device AND Lovenox/Heparin/Coumadin) Score > or = 5: Highest Risk (Intermittent/Pneumatic Compression Device AND Lovenox/Heparin/Coumadin) Assessment/Plan Plan Septic shock, POA: Secondary to E coli that is pansensitive. Meropenem changed to ceftriaxone. Off pressors. Albumin we will be discontinued today. Most likely secondary to Complicated pyelonephritis: Has mild left hydronephrosis. Metabolic encephalopathy secondary to above Acute hypoxemic respiratory failure:Remains on mechanical ventilation Pulmonary nodule: 6 mm in size in the left upper lobe Acute kidney injury: Remains anuric. Expected to resolve with time. Bridging with renal replacement therapy i.e. dialysis.Second round of dialysis planned for today. Mixed respiratory and metabolic acidosis Diabetes mellitus: Adjust insulin to maintain a serum glucose level of 140-180 mg/dL. Nutrition History of hypothyroidism Normocytic anemia Hypothyroidism Thrombocytopenia: Slightly better. Plan: Continue mechanical ventilation. Sedation currently on hold and undergoing a spontaneous breathing trial. We will consider decannulation once patient is more awake. Dialysis will be initiated today once dialysis catheter has been inserted. Continue ceftriaxone for E coli sepsis/septic shock. Adjust pressors to maintain a mean arterial pressure of at least 65 mm of mercury. Avoid all heparin products. Continue levothyroxine. F/u pulmonary nodule as outpatient. Consult urology tomorrow for mild left hydronephrosis. CODE STATUS: Full code DVT prophylaxis: Heparin GI prophylaxis: None Diet: Tube feeds Disposition: Continue management in the intensive care unit. Critical care time 35 minutes. Expected Outcome/Goals Expected Outcomes/Goals: Tolerance to TF, wt maintenance, bowel regularity, skin integrity, BG 140-180 mg/dL HARINDER EPSTEIN MD Jan 17, 2025 12:34
[2025-01-17] MEDS: amiodarone 150mg/dext, iso-os 100 ML IV ONE (12:57)
[2025-01-17] MEDS: amiodarone/D5 360MG/200ML BAG 200 ML IV SCH (12:58)
[2025-01-17] MEDS: tPA-cathflo 2mg/2ml IV flush 2 MG/2 ML VIAL IVF ONE (13:23)
[2025-01-17] MEDS: heparin 1,000 units/ml 10ml inj HE ONE ×2 (13:24)
[2025-01-17] MEDS: EPOETIN ALFA-EPBX 20,000 UNIT/ML 1 ML MDV IV ONE (13:37)
[2025-01-17] MEDS: digoxin 250mcg/ml 2ml ampule IV SCH (15:04)
[2025-01-17] MEDS: acetaminophen 325mg/10.15ml oral unit dose solution PO PRN (19:22)
--- NOTE | 2025-01-17 21:07 | PROGRESS NOTE ---
Progress Note Dictate Providers to CC ~ Progress Note: 79 year old with septic shock and respiratory failure secondary to pyelonephritis. remains intubated and sedated, follows commands intermittently off sedation, off vasopressors. Antibiotic Ordered?: Yes Objective Vitals Vital Signs Date Time Temp Pulse Resp B/P (MAP) Pulse Ox O2 Delivery O2 Flow Rate FiO2 01/17/25 20:55 86 24 98 35 01/17/25 20:18 Mechanical Ventilator 0.0 01/17/25 20:00 98.2 101/65 (77) Lab Results: 01/17/25 0130 01/17/25 0130 Problem\Assessment\Plan Additional Plan Plan: TEMITOPE requiring HD intermittently SAT in am with plan for extubation continue ceftriaxone for e coli minimal vent settings continue tube feeds CCT 60 min using HIPPA compliant A/V technology Sepsis Screening Skin Color: Normal SVITLANA JOSE MD Jan 17, 2025 21:07
[2025-01-18] VITALS (38 sets, daily range): BP systolic 79–181; BP diastolic 35–81; PULSE 52–85; RESP 18–39; TEMP 98.4–98.6; O2SAT 93–100
[2025-01-18 02:35] LABS: MEAN PLATELET VOLUME 9.8 FL (7.4-10.4); RED CELL DISTRIBUTION WIDTH 15.8 % (11.5-14.5)
[2025-01-18 02:43] LABS: CREATININE 4.39 MG/DL (0.40-0.90); PHOSPHORUS 2.7 MG/DL (2.3-4.5); TOTAL CARBON DIOXIDE 28.9 MMOL/L (24-32); eCRCL 8 ML/MIN; eGFR 10 ML/MIN
[2025-01-18] MEDS: dexmedetomidin/NS 400mcg/100ml 100 ML IV SCH (02:45)
[2025-01-18 03:47] LABS: ABG BASE EXCESS 0.9 mmol/L (-2.0-3.0); ABG HCO3 26.2 mmol/L (21.0-28.0); ABG OXYGEN SATURATION 98.6 % (94.0-98.0); ABG PCO2 (T) 44.2 mmHg (32.0-45.0); ABG PH (T) 7.389 (7.350-7.450); ABG PO2 (T) 124.5 mmHg (83.0-108.0); FCOHb 0.2 % (0.5-1.5); FHHb 1.4 % (0.0-5.0); FIO2 35.0 mmHg/%; FMetHb 0.3 % (0.0-1.5); FO2Hb 98.1 % (94.0-98.0); MODE CMV PRVC IT 0.8; PATIENT TEMPERATURE 36.7; PEEP 5 cm H2O; RESPIRATORY RATE 22 b/min; TIDAL VOLUME 300 mL; TOTAL HEMOGLOBIN 9.6 G/dl (12.0-16.0)
[2025-01-18 05:13] LABS: HBSAG SCREEN Negative (Negative)
--- NOTE | 2025-01-18 06:01 | RADIOLOGY REPORT ---
CHEST RADIOGRAPH Indication: ET Tube PLacement Technique: Single frontal view of the chest was obtained COMPARISON: DI CHEST,SINGLE VIEW on DOS: 01/17/25, DI CHEST,SINGLE VIEW on DOS: 01/16/25, DI CHEST,SINGLE VIEW on DOS: 01/15/25, DI CHEST,SINGLE VIEW on DOS: 01/15/25, DI CHEST,SINGLE VIEW on DOS: 01/14/25 FINDINGS: Lines and Tubes: Unchanged. The endotracheal tube tip projects approximately 4.4 cm above the level of the zachery. Lungs: Stable appearing diffuse increased prominence of the pulmonary vasculature and small bilateral pleural effusions. No pneumothorax. Cardiomediastinal contours: Cardiomegaly. Bones: Unremarkable IMPRESSION: 1. Stable diffuse increased prominence of the pulmonary vasculature, small bilateral pleural effusions and cardiomegaly. 2. Lines and tubes unchanged.
[2025-01-18] MEDS ORDERED: magnesium sulf-water 4G/100mL 100 ML IV PRN (10:05)
[2025-01-18] MEDS ORDERED: sodium phosphate inj. 30 MMOL in dextrose 5%-water 250 ML IV PRN (10:05)
[2025-01-18] MEDS ORDERED: Duosol 4K/3 Ca (w/calcium) 5,000 ML HE SCH (10:05)
--- NOTE | 2025-01-18 10:07 | PROGRESS NOTE ---
Progress Note Dictate Providers to CC ~ Central Line/PICC still needed: Yes Central Line/PICC Necessity: Req HD/Plasmapheresis Corbett Indications Met/Not Met: F/C Indications Met Antibiotic Ordered?: Yes Subjective Subjective the patient is fluid positive by 3-4 liters. Though she is currently off the pressors, it is soft that we need a continuous dialysis to help remove more fluids, failing which, she won't be able to come off the ventilator. I discussed with and will proceed with CVVH starting today. catheter meanwhile was malfunctioning yesterday and we instilled tpa yesterday . Objective Vitals Vital Signs Date Time Temp Pulse Resp B/P (MAP) Pulse Ox O2 Delivery O2 Flow Rate FiO2 01/18/25 09:00 18 35 01/18/25 09:00 97.5 76 131/50 (77) 95 Mechanical Ventilator 01/17/25 20:18 0.0 Lab Results: 01/18/25 0215 01/18/25 0215 Objective Vital Signs: As above, remains on jose juan ventilator General: obese body habitus, no acute distress. Skin: No rashes, lumps, ulcers, blisters, purpura or petechiae HEENT: Anicteric sclera, DONTE Neck: Supple and nontender without enlargement of the thyroid, or lymphadenopathy. Chest: Normal size and shape, no tenderness, CTA bilaterally Heart: Regular. No jugular venous distention, S1 and S2 heard , no gallop Abdomen: Soft and non tender no organomegaly,BS+ Extremities: ++pedal edema Neuro: sedated. but is responsive Advance Care Planning Advanced Care plannin - 30 Minutes Problem\Assessment\Plan Problems/Diagnosis: (1) Acute respiratory failure Assessment & Plan: on ventilator. weaning in progress. not ready to be extubated. ICu team following. FiO2 down to .35 (2) Acute kidney injury Assessment & Plan: ATN due to septic shock. - avoid NSAIds -avoid Magnesium and aluminum based laxatives or antacids -don't use protocol based potassium replacement until recovery of renal function - has a temp cath now. -switchign to CVVH (3) Septic shock Assessment & Plan: on antibiotics. proceed with CVVh starting today for the next few dayxs (4) Edema of lower extremity Assessment & Plan: will aim for 50-150 cc per hour negative fluid balance on CVVH (5) Acute urinary tract infection Assessment & Plan: pyelonephritis there is mild hydronephrosis. since then, she has corbett in place and also pyelonephritis can cause that edema. will monitro for now. Sepsis Screening Skin Color: Normal KRISTEN JACKSON MD Jan 18, 2025 10:07
[2025-01-18] MEDS ORDERED: calcium chloride inj. 1,000 MG in normal saline 100ml IV soln 100 ML IV PRN ×2 (10:30→12:55)
[2025-01-18] MEDS ORDERED: fentaNYL/PF 50MCG/1 ML 2ML syringe IV PRN (10:50)
[2025-01-18] MEDS ORDERED: magnesium hydroxide 30ml (MOM) UD suspension PO PRN (10:50)
[2025-01-18] MEDS: FENTANYL-0.9 % NACL/PF 100 ML IV SCH (10:59)
[2025-01-18] MEDS: propofol 1000mg/100ml bottle 100 ML IV SCH (11:07)
[2025-01-18] MEDS: potassium Cl 40MEQ/270ML bag 270 ML IV PRN (11:38)
--- NOTE | 2025-01-18 12:14 | PROGRESS NOTE- Residence ---
Progress Note - Resident Providers to CC Resident Creating Document: NORA MASON RES ~ Central Line/PICC still needed: Yes Central Line/PICC Necessity: Prolonged IV access req Rogers-Non Protocol Rogers Indications Met/Not Met: F/C Indications Met Antibiotic Timeout Antibiotic Ordered?: Yes Subjective Patient continues to be sedated and ventilated. Still not responding to command. Unable to wean off of the vent as she is not responding to command and due to diffuse pulmonary congestion, restarting propofol and fentanyl again. Plan for CVVH starting today Objective Vital Signs Date Time Temp Pulse Resp B/P (MAP) Pulse Ox O2 Delivery O2 Flow Rate FiO2 01/18/25 11:44 127/49 01/18/25 11:25 64 35 93 30 01/18/25 11:00 98.6 Mechanical Ventilator 01/17/25 20:18 0.0 Result Diagram: 01/18/2521401/18/25214 General: Mechanically ventilated and sedated Resp: Mechanical sounds. Diminished by basilar breath sounds Heart: Regular Rate and rhythm, normal S1 and S2, pansystolic blowing murmur 3/5 loudest in the tricuspid area Abdomen: Distended, Soft and non tender no organomegaly. Hypoactive bowel sounds Extremities: Edema of the upper extremities present. No cyanosis, edema or pallor of the lower extremities. RESIDENT IN DIAGNOSTIC RADIOLOGY: Not responding to commands even off sedation. Skin: Warm and Dry. Assessment Assessment 79 years old female with past medical history of hypothyroidism, congestive heart failure, hypertension, hyperlipidemia is admitted in the hospital for evaluation and management of altered level of consciousness. The patient was found to be in his septic shock secondary to a complicated UTI with associated respiratory distress requiring to be intubated and mechanically ventilated. Additionally also developed TEMITOPE from the septic shock with anuria and now is being continued management in the ICU. Plan Plan Septic shock, POA Most likely secondary to complicated UTI and pyelonephritis Metabolic encephalopathy secondary to above Metabolic acidosis resolved Improving leukocytosis. Continue Rocephin- day 3 for E coli sepsis IV fluids decreased to rate of 75 cc/hour Levophed to maintain map greater than 65 We will wean the patient off of pressors and mechanical ventilation as tolerated Acute hypoxemic respiratory failure Likely secondary to bilateral atelectasis and pulmonary congestion Respiratory acidosis resolved Minimal vent settings but risk of desaturation on SAT as the patient is not waking up. However, no significant improvement on chest x-ray. CVVH started today to remove fluid overload; monitor for improvement on chest x-ray and respiratory status Restarting propofol and fentanyl- expect clearance through CVVH. Addressed hypertriglyceridemia and elevated alkaline phosphatase We will plan to wean the patient off of mechanical ventilation as tolerated. Acute kidney injury Mixed respiratory and metabolic acidosis: Resolved CVVH starting today on 01/17 Likely secondary to septic shock and complicated UTI Continue IV fluid resuscitation and CVVH Strict I&O monitoring through the Rogers's catheter Nephrology following Diabetes mellitus Started the patient on low-dose sliding scale insulin. Nutrition Dietitian consulted. Starting the patient on tube feeds. History of hypothyroidism Restarted home levothyroxine 170 high mcg daily. Normocytic anemia Continue close monitoring of H&H. Follow up with the iron profile. Constipation: Milk of mag and if failed to work, will try senna or suppositories CODE STATUS: Full code DVT prophylaxis: Heparin GI prophylaxis: None Diet: Tube feeds Disposition: Continue management in the intensive care unit. Critical care time 35 minutes. Nora Mason PGY3, Internal medicine resident Date of Service: Jan 18, 2025 Billing Provider: HARINDER EPSTEIN MD, DEEPANJALI, RES Jan 18, 2025 12:14
[2025-01-18] MEDS ORDERED: potassium Cl 40MEQ/270ML bag 270 ML IV PRN (12:55)
[2025-01-18] MEDS: Duosol 4K/3 Ca (w/calcium) 5,000 ML HE SCH (13:19)
[2025-01-18 13:30] LABS: MEAN PLATELET VOLUME 10.1 FL (7.4-10.4); RED CELL DISTRIBUTION WIDTH 16.1 % (11.5-14.5)
[2025-01-18 13:39] LABS: CREATININE 4.74 MG/DL (0.40-0.90); PHOSPHORUS 2.8 MG/DL (2.3-4.5); TOTAL CARBON DIOXIDE 28.0 MMOL/L (24-32); eCRCL 8 ML/MIN; eGFR 9 ML/MIN
[2025-01-18 14:02] LABS: BANDS% (MANUAL) 2.0 % (0-10); EOSINOPHILS % (MANUAL) 4.0 % (0-6); METAMYLEOCYTES% (MANUAL) 2.0 % (0-0); PLATELET ESTIMATE NORMAL
[2025-01-18 14:03] LABS: LYMPHOCYTES % (MANUAL) 6.0 % (21-51); MONOCYTES % (MANUAL) 11.0 % (2-12); NEUTROPHILS % (MANUAL) 75.0 % (42-75)
[2025-01-18 14:05] LABS: LARGE PLATELETS FEW
[2025-01-18 14:21] LABS: MEAN PLATELET VOLUME 9.9 FL (7.4-10.4); RED CELL DISTRIBUTION WIDTH 16.0 % (11.5-14.5)
[2025-01-18 14:35] LABS: CREATININE 4.20 MG/DL (0.40-0.90); PHOSPHORUS 2.7 MG/DL (2.3-4.5); TOTAL CARBON DIOXIDE 27.1 MMOL/L (24-32); eCRCL 9 ML/MIN; eGFR 10 ML/MIN
[2025-01-18 15:23] LABS: MEAN PLATELET VOLUME 10.1 FL (7.4-10.4); RED CELL DISTRIBUTION WIDTH 16.0 % (11.5-14.5)
[2025-01-18 15:36] LABS: CREATININE 3.92 MG/DL (0.40-0.90); PHOSPHORUS 2.6 MG/DL (2.3-4.5); TOTAL CARBON DIOXIDE 28.9 MMOL/L (24-32); eCRCL 10 ML/MIN; eGFR 11 ML/MIN
[2025-01-18 16:25] LABS: MEAN PLATELET VOLUME 10.1 FL (7.4-10.4); RED CELL DISTRIBUTION WIDTH 15.9 % (11.5-14.5)
[2025-01-18 16:36] LABS: CREATININE 3.81 MG/DL (0.40-0.90); PHOSPHORUS 2.4 MG/DL (2.3-4.5); TOTAL CARBON DIOXIDE 28.8 MMOL/L (24-32); eCRCL 10 ML/MIN; eGFR 11 ML/MIN
[2025-01-18 17:31] LABS: MEAN PLATELET VOLUME 10.0 FL (7.4-10.4); RED CELL DISTRIBUTION WIDTH 16.1 % (11.5-14.5)
[2025-01-18 17:38] LABS: CREATININE 3.70 MG/DL (0.40-0.90); PHOSPHORUS 2.3 MG/DL (2.3-4.5); TOTAL CARBON DIOXIDE 28.7 MMOL/L (24-32); eCRCL 10 ML/MIN; eGFR 12 ML/MIN
--- NOTE | 2025-01-18 18:21 | PROGRESS NOTE ---
Daily Progress Note Providers to CC Patient intubated sedated resting comfortably in the bed ~ Central Line/PICC still needed: Yes Rogers-Non Protocol Rogers Indications Met/Not Met: F/C Indications Met Antibiotic Timeout Antibiotic Ordered?: Yes MRSA Education MRSA Education Provided to pt: Yes Subjective As above Objective Vital Signs Date Time Temp Pulse Resp B/P (MAP) Pulse Ox O2 Delivery O2 Flow Rate FiO2 01/18/25 18:00 97.5 54 24 134/45 (74) 99 Mechanical Ventilator 30 01/17/25 20:18 0.0 Vital signs, stable ,afebrile. Pulse Oximetry reflects adequate oxygenation. Intubated on ventilator FiO2 30% General: well developed, well nourished. Awake , alert, and oriented x4, resting comfortably in the bed, in no acute distress . Skin: Warm, dry, no pallor, no rash or petechiae. HEENT: Atraumatic, normocephalic, EOMI, anicteric sclera B; pink conjunctiva; PERRLA, normal oropharynx, moist oral and nasal mucosa. Tympanic membrane , nose , throat clear. Neck: Trachea midline. Supple, full range of motion, no JVD, bruit , hepatojugular reflex , lymphadenopathy or masses, or other lesions Cardiac: Regular rhythm, regular rate no murmurs, rubs, or gallops. Normal S1 and S2, no S3 noticed. PMI is normal. Respiratory: Equal breath sounds bilaterally, no tachypnea; lungs clear to auscultation bilaterally, no wheezing ,rub or rales, or crackles. Chest wall is symmetric and without deformity. No signs of trauma. Chest wall is nontender. No signs of respiratory distress. Resonance is normal upon percussion bilaterally. Gastrointestinal: Abdomen symmetric, non-distended, soft, non-tender, normal bowel sounds x4 quadrant, normoactive, no hepatosplenomegaly , no masses , no bruit, no flank pain bilaterally. No voluntary guarding, rebound, or rigidity. No tenderness to percussion. No pulsatile masses. Equal femoral pulses. No Benitez's sign or McBurney point tenderness. Back; no CVA tenderness bilaterally, no deformities. Neck and back are without deformity as well. No tenderness noted on palpation of the spinous processes. Spinous processes are midline. Cervical, thoracic, and lumbar paraspinal muscles are not tender and are without spasm. : normal external genitalia, without lesions, swelling, masses or tenderness. Musculoskeletal: Extremities, normal range of motion, non-tender, muscle strength 5/5 x 4. Negative Homans signs bilaterally on lower extremity. Distal pulses full symmetrical, no clubbing, cyanosis , edema. Neurological: Sedated on ventilator Psych: Sedated on ventilator Vascular: Good distal pulses, which are equal x4; capillary refill less than 2 seconds. Lymphatic, no lymphadenopathy. Result Diagram: 01/18/25 17001/18/25 170 Problem\Assessment\Plan Assessment & Plan Septic shock likely 2/2 pyelonephritis Bacteremia- POA Bilateral pneumonia Gram-positive Gram-negative, mixed renato, POA Acute hypoxemic respiratory failure Mixed respiratory and metabolic acidosis Intrinsic TEMITOPE 2/2 pyelonephritis/tubular stasis Pulmonary nodule Metabolic encephalopathy 2/2 above -leukocytosis, elevated lactic acid and procal, UA positive UTI, blood cultures X 2 show positive for Gram-negative rods, CT scan of the abdomen is significant for mild left-sided hydronephrosis with a perinephric fat stranding. -albumin drip, pressors, meropenem, ventilated 01/15: UA E.coli, prelim blood cx gram neg analy; HD today 01/16: Pansensitive E.coli bacteremia secondary to pyelonephritis, HD #2 01/17: off pressors, sedation Hyperlipidemia Hypothyroidism NIDDM low-dose sliding scale insulin, home levothyroxine, follow tsh/t4, lipid panel, a1c Nutrition Dietitian consulted. Starting the patient on tube feeds Normocytic anemia Continue close monitoring of H&H. Follow up with the iron profile. CODE STATUS: Full code DVT prophylaxis: Heparin Sepsis Screening Reassessment Date: Jan 18, 2025 Skin Color: Normal Date of Service: Jan 18, 2025 Billing Provider: YOLANDA LARSON MD Common Visit Codes: [id number] INP/OBS CARE(HIGH) YOLANDA LARSON MD Jan 18, 2025 18:21
--- NOTE | 2025-01-18 19:44 | PROGRESS NOTE ---
Progress Note Dictate Providers to CC ~ Progress Note: 79 year old with septic shock and respiratory failure secondary to pyelonephritis. remains intubated and sedated, follows commands intermittently off sedation restarted on levophed and crrt, volume removal at 50cc/hr Antibiotic Ordered?: Yes Objective Vitals Vital Signs Date Time Temp Pulse Resp B/P (MAP) Pulse Ox O2 Delivery O2 Flow Rate FiO2 01/18/25 19:20 54 22 100 30 01/18/25 18:00 97.5 134/45 (74) Mechanical Ventilator 01/17/25 20:18 0.0 Lab Results: 01/18/25 1700 01/18/25 1700 Problem\Assessment\Plan Additional Plan Plan: continue crrt start on senna continue tube feeds at goal continue levophed with goal map >65 d/c amiodarone for bradycardia CCT 60 min using HIPPA compliant A/V technology Sepsis Screening Skin Color: Normal SVITLANA JOSE MD Jan 18, 2025 19:44
[2025-01-18] MEDS ORDERED: docusate sodium 100mg/10ml UD cup OGT SCH (20:00)
[2025-01-18 23:28] LABS: MEAN PLATELET VOLUME 9.9 FL (7.4-10.4); RED CELL DISTRIBUTION WIDTH 16.2 % (11.5-14.5)
[2025-01-18 23:41] LABS: CREATININE 2.84 MG/DL (0.40-0.90); PHOSPHORUS 2.5 MG/DL (2.3-4.5); TOTAL CARBON DIOXIDE 28.5 MMOL/L (24-32); eCRCL 13 ML/MIN; eGFR 16 ML/MIN
[2025-01-19] VITALS (38 sets, daily range): BP systolic 102–179; BP diastolic 37–62; PULSE 52–86; RESP 21–39; TEMP 98.6; O2SAT 95–100
[2025-01-19 03:53] LABS: ABG BASE EXCESS 1.4 mmol/L (-2.0-3.0); ABG HCO3 26.3 mmol/L (21.0-28.0); ABG OXYGEN SATURATION 96.5 % (94.0-98.0); ABG PCO2 (T) 42.5 mmHg (32.0-45.0); ABG PH (T) 7.408 (7.350-7.450); ABG PO2 (T) 87.7 mmHg (83.0-108.0); FCOHb 1.4 % (0.5-1.5); FHHb 3.4 % (0.0-5.0); FIO2 30.0 mmHg/%; FMetHb 0.3 % (0.0-1.5); FO2Hb 94.9 % (94.0-98.0); MODE CMV PRVC IT 0.8; PATIENT TEMPERATURE 36.8; PEEP 5 cm H2O; RESPIRATORY RATE 22 b/min; TIDAL VOLUME 300 mL; TOTAL HEMOGLOBIN 9.3 G/dl (12.0-16.0)
[2025-01-19 05:57] LABS: CREATININE 2.17 MG/DL (0.40-0.90); TOTAL CARBON DIOXIDE 27.8 MMOL/L (24-32); eCRCL 17 ML/MIN; eGFR 22 ML/MIN
--- NOTE | 2025-01-19 05:59 | RADIOLOGY REPORT ---
CHEST RADIOGRAPH Indication: ET Tube PLacement Technique: Single frontal view of the chest was obtained Comparison: DI CHEST,SINGLE VIEW on DOS: 01/18/25 FINDINGS: Lines and Tubes: There is a right central venous catheter with tip terminating in the superior vena cava. The endotracheal tube terminates 4.9 cm above the zachery. The enteric tube courses below the left hemidiaphragm and the tip extends outside the field of view. Lungs: Hazy bilateral opacities. Pleura: No effusion. No pneumothorax. Cardiomediastinal contours: Cardiomegaly. Bones: No acute osseous abnormality. IMPRESSION: 1. Support tubes in appropriate position. 2. Hazy bilateral pulmonary opacities. 3. Cardiomegaly.
[2025-01-19 06:03] LABS: MEAN PLATELET VOLUME 10.3 FL (7.4-10.4); RED CELL DISTRIBUTION WIDTH 15.9 % (11.5-14.5)
[2025-01-19 06:10] LABS: PHOSPHORUS 2.6 MG/DL (2.3-4.5)
[2025-01-19 09:06] LABS: BANDS% (MANUAL) 1.0 % (0-10); EOSINOPHILS % (MANUAL) 1.0 % (0-6); LYMPHOCYTES % (MANUAL) 4.0 % (21-51); METAMYLEOCYTES% (MANUAL) 2.0 % (0-0); MONOCYTES % (MANUAL) 9.0 % (2-12); NEUTROPHILS % (MANUAL) 83.0 % (42-75)
[2025-01-19 09:07] LABS: PLATELET ESTIMATE NORMAL
--- NOTE | 2025-01-19 09:07 | PROGRESS NOTE ---
Progress Note Dictate Providers to CC ~ Central Line/PICC still needed: Yes Central Line/PICC Necessity: Req HD/Plasmapheresis [facility] Indications Met/Not Met: F/C Indications Met Antibiotic Ordered?: Yes Subjective Subjective The patient remains on the ventilator. CVVH in progress albeit the temp dialysis cath is malfunctioning, with poor flows despite tpa. set to be changed today. Objective Vitals Vital Signs Date Time Temp Pulse Resp B/P (MAP) Pulse Ox O2 Delivery O2 Flow Rate FiO2 01/19/25 17:21 62 33 99 30 01/19/25 17:00 98.1 135/51 (79) Mechanical Ventilator 01/17/25 20:18 0.0 Lab Results: 01/19/25 1700 01/19/25 1700 Objective Vital Signs: As above, remains on jose juan ventilator General: obese body habitus, no acute distress. Skin: No rashes, lumps, ulcers, blisters, purpura or petechiae HEENT: Anicteric sclera, DONTE Neck: Supple and nontender without enlargement of the thyroid, or lymphadenopathy. Chest: Normal size and shape, no tenderness, CTA bilaterally Heart: Regular. No jugular venous distention, S1 and S2 heard , no gallop Abdomen: Soft and non tender no organomegaly,BS+ Extremities: ++pedal edema Neuro: sedated. but is responsive Advance Care Planning Advanced Care plannin - 30 Minutes Problem\Assessment\Plan Problems/Diagnosis: (1) Acute respiratory failure Assessment & Plan: on ventilator. weaning in progress. not ready to be extubated. ICu team following. FiO2 down to .35 (2) Acute kidney injury Assessment & Plan: ATN due to septic shock. - avoid NSAIds -avoid Magnesium and aluminum based laxatives or antacids -don't use protocol based potassium replacement until recovery of renal function - has a temp cath now. -continue CVVH -getting the Temp cath exchanged over guide wire today by resident. (3) Septic shock Assessment & Plan: on antibiotics. proceed with CVVh starting today for the next few dayxs (4) Edema of lower extremity Assessment & Plan: will aim for 50-150 cc per hour negative fluid balance on CVVH (5) Acute urinary tract infection Assessment & Plan: pyelonephritis there is mild hydronephrosis. since then, she has corbett in place and also pyelonephritis can cause that edema. will monitro for now. Sepsis Screening Skin Color: Normal KRISTEN JACKSON MD Jan 19, 2025 09:07
[2025-01-19] MEDS ORDERED: acetaminophen 325mg/10.15ml oral unit dose solution OGT PRN ×2 (10:51→10:52)
[2025-01-19] MEDS: lactulose 20gm/30ml cup OGT SCH (11:07)
[2025-01-19 12:01] LABS: MEAN PLATELET VOLUME 10.4 FL (7.4-10.4); RED CELL DISTRIBUTION WIDTH 15.8 % (11.5-14.5)
[2025-01-19 12:27] LABS: CREATININE 2.00 MG/DL (0.40-0.90); PHOSPHORUS 2.6 MG/DL (2.3-4.5); TOTAL CARBON DIOXIDE 28.3 MMOL/L (24-32); eCRCL 19 ML/MIN; eGFR 24 ML/MIN
--- NOTE | 2025-01-19 13:47 | RADIOLOGY REPORT ---
CHEST RADIOGRAPH Indication: Post central line/Mamadou placement Technique: Single frontal view of the chest was obtained Comparison: DI CHEST,SINGLE VIEW on DOS: 01/19/25, DI CHEST,SINGLE VIEW on DOS: 01/18/25, DI CHEST,SINGLE VIEW on DOS: 01/17/25, DI CHEST,SINGLE VIEW on DOS: 01/16/25, DI CHEST,SINGLE VIEW on DOS: 01/15/25, DI CHEST,SINGLE VIEW on DOS: 01/19/25 FINDINGS: Lines and Tubes: The endotracheal tube terminates 4.9 cm above the zachery. The enteric tube courses below the left hemidiaphragm and the tip extends outside the field of view. Right Mamadou catheter with tip in the SVC Lungs: Hazy bilateral opacities. Pleura: No effusion. No pneumothorax. Cardiomediastinal contours: Cardiomegaly. Bones: No acute osseous abnormality. IMPRESSION: 1. Support tubes in appropriate position. 2. Hazy bilateral pulmonary opacities. 3. Cardiomegaly. 4. Right Mamadou catheter with tip in the SVC
--- NOTE | 2025-01-19 14:38 | PROGRESS NOTE ---
Daily Progress Note Providers to CC Sedated, resting comfortably in the bed ~ Central Line/PICC still needed: Yes Rogers-Non Protocol Rogers Indications Met/Not Met: F/C Indications Met Antibiotic Timeout Antibiotic Ordered?: Yes MRSA Education MRSA Education Provided to pt: Yes Subjective As above Objective Vital Signs Date Time Temp Pulse Resp B/P (MAP) Pulse Ox O2 Delivery O2 Flow Rate FiO2 01/19/25 14:17 98.6 80 26 132/48 (76) 97 Mechanical Ventilator 30 01/17/25 20:18 0.0 Vital signs, stable ,afebrile. Pulse Oximetry reflects adequate oxygenation FiO2 30% General: well developed, well nourished. Sedated on mechanical ventilator, resting comfortably in the bed, in no acute distress . Skin: Warm, dry, no pallor, no rash or petechiae. HEENT: Atraumatic, normocephalic, EOMI, anicteric sclera B; pink conjunctiva; PERRLA, normal oropharynx, moist oral and nasal mucosa. Tympanic membrane , nose , throat clear. Neck: Trachea midline. Supple, full range of motion, no JVD, bruit , hepatojugular reflex , lymphadenopathy or masses, or other lesions Cardiac: Regular rhythm, regular rate no murmurs, rubs, or gallops. Normal S1 and S2, no S3 noticed. PMI is normal. Respiratory: Equal breath sounds bilaterally, no tachypnea; lungs clear to auscultation bilaterally, no wheezing ,rub or rales, or crackles. Chest wall is symmetric and without deformity. No signs of trauma. Chest wall is nontender. No signs of respiratory distress. Resonance is normal upon percussion bilaterally. Gastrointestinal: Abdomen symmetric, non-distended, soft, non-tender, normal bowel sounds x4 quadrant, normoactive, no hepatosplenomegaly , no masses , no bruit, no flank pain bilaterally. No voluntary guarding, rebound, or rigidity. No tenderness to percussion. No pulsatile masses. Equal femoral pulses. No Benitez's sign or McBurney point tenderness. Back; no CVA tenderness bilaterally, no deformities. Neck and back are without deformity as well. No tenderness noted on palpation of the spinous processes. Spinous processes are midline. Cervical, thoracic, and lumbar paraspinal muscles are not tender and are without spasm. Rogers in place functional Musculoskeletal: Extremities, normal range of motion, non-tender, muscle strength 5/5 x 4. Negative Homans signs bilaterally on lower extremity. Distal pulses full symmetrical, no clubbing, cyanosis , edema. Neurological: Sedated on mechanical ventilator Psych: Sedated, Vascular: Good distal pulses, which are equal x4; capillary refill less than 2 seconds. Lymphatic, no lymphadenopathy. Result Diagram: 01/19/25 1106 01/19/25 1106 Problem\Assessment\Plan Assessment & Plan Septic shock likely 2/2 pyelonephritis Bacteremia- POA Bilateral pneumonia Gram-positive Gram-negative, mixed renato, POA Acute hypoxemic respiratory failure Mixed respiratory and metabolic acidosis Intrinsic TEMITOPE 2/2 pyelonephritis/tubular stasis Pulmonary nodule Metabolic encephalopathy 2/2 above -leukocytosis, elevated lactic acid and procal, UA positive UTI, blood cultures X 2 show positive for Gram-negative rods, CT scan of the abdomen is significant for mild left-sided hydronephrosis with a perinephric fat stranding. -albumin drip, pressors, meropenem, ventilated 01/15: UA E.coli, prelim blood cx gram neg analy; HD today 01/16: Pansensitive E.coli bacteremia secondary to pyelonephritis, HD #2 01/17: off pressors, sedation Hyperlipidemia Hypothyroidism NIDDM low-dose sliding scale insulin, home levothyroxine, follow tsh/t4, lipid panel, a1c Nutrition Dietitian consulted. Starting the patient on tube feeds Normocytic anemia Continue close monitoring of H&H. Follow up with the iron profile. CODE STATUS: Full code DVT prophylaxis: Heparin Sepsis Screening Reassessment Date: Jan 19, 2025 Skin Color: Normal Date of Service: Jan 19, 2025 Billing Provider: YOLANDA LARSON MD Common Visit Codes: [id number] INP/OBS CARE(HIGH) YOLANDA LARSON MD Jan 19, 2025 14:38
[2025-01-19] MEDS: mineral oil/petrolatum ophthal oint EACHEYE SCH (14:53)
[2025-01-19 17:22] LABS: MEAN PLATELET VOLUME 10.3 FL (7.4-10.4); RED CELL DISTRIBUTION WIDTH 15.7 % (11.5-14.5)
[2025-01-19 17:53] LABS: CREATININE 1.89 MG/DL (0.40-0.90); PHOSPHORUS 2.7 MG/DL (2.3-4.5); TOTAL CARBON DIOXIDE 27.9 MMOL/L (24-32); eCRCL 20 ML/MIN; eGFR 26 ML/MIN
--- NOTE | 2025-01-19 17:56 | PROGRESS NOTE- Residence ---
Progress Note - Resident Providers to CC Resident Creating Document: VANCE MASON RES ~ Central Line/PICC still needed: Yes Central Line/PICC Necessity: Prolonged IV access req Rogers-Non Protocol Rogers Indications Met/Not Met: F/C Indications Met Antibiotic Timeout Antibiotic Ordered?: Yes Subjective Continues to be sedated and ventilated. Bilateral atelectasis of the lungs, continuing to be on a PEEP of five and FiO2 of 30 but tachypneic. She is distended from not having a bowel movement over the last one week since she has been in the hospital. She is passing flatus and has hyperactive bowel sounds but is unable to pass any stool due to which she also has bilateral atelectasis Objective Vital Signs Date Time Temp Pulse Resp B/P (MAP) Pulse Ox O2 Delivery O2 Flow Rate FiO2 01/19/25 17:21 62 33 99 30 01/19/25 17:00 98.1 135/51 (79) Mechanical Ventilator 01/17/25 20:18 0.0 Result Diagram: 01/19/25 1700 01/19/25 1106 General: Mechanically ventilated and sedated Neck: Right Mamadou cath and left IJV present Resp: Mechanical sounds. Diminished by basilar breath sounds Heart: Regular Rate and rhythm, normal S1 and S2, pansystolic blowing murmur 3/5 loudest in the tricuspid area Abdomen: Distended, Soft and non tender no organomegaly. Hyperactive bowel sounds Extremities: Edema of the upper extremities present. No cyanosis, edema or pallor of the lower extremities. CONSERVATION SPECIALIST: Continues to be sedated Skin: Warm and Dry. Assessment Assessment 79 years old female with past medical history of hypothyroidism, congestive heart failure, hypertension, hyperlipidemia is admitted in the hospital for evaluation and management of altered level of consciousness. The patient was found to be in his septic shock secondary to a complicated UTI with associated respiratory distress requiring to be intubated and mechanically ventilated. Additionally also developed TEMITOPE from the septic shock with anuria and now is being continued management in the ICU. Plan Plan Septic shock, POA Most likely secondary to complicated UTI and pyelonephritis Metabolic encephalopathy secondary to above Metabolic acidosis resolved Continue Rocephin- day 4 for E coli sepsis Follow repeat procalcitonin for tomorrow IV fluids decreased to rate of 75 cc/hour Levophed to maintain map greater than 65 We will wean the patient off of pressors and mechanical ventilation as tolerated Acute hypoxemic respiratory failure Likely secondary to bilateral atelectasis and pulmonary congestion Respiratory acidosis resolved Chest x-ray reveals bibasilar atelectasis with very minimal lung volumes, also reveals increased pulmonary vascular congestion Currently on pressure support Tachypnea ongoing due to which and able to perform spontaneous breathing trials CVVH ongoing. Estimate that the patient has a bowel movement, the atelectasis of the lung will decrease in lung volumes will increase due to decreasing in abdominal distention No significant change in chest x-ray, diffuse bilateral basilar atelectasis noted. Restarting propofol and fentanyl- expect clearance through CVVH. Addressed hypertriglyceridemia and elevated alkaline phosphatase We will plan to wean the patient off of mechanical ventilation as tolerated. Acute kidney injury Mixed respiratory and metabolic acidosis: Resolved CVVH starting today on 01/17 Likely secondary to septic shock and complicated UTI Continue IV fluid resuscitation and CVVH Urine output improving, continuing strict I&O monitoring through the foleys catheter Nephrology following Diabetes mellitus Continue the patient on low-dose sliding scale insulin. Goal between 140-180 mg/dL Nutrition Continue tube feeds Dietitian on board History of hypothyroidism Restarted home levothyroxine 170 high mcg daily. Normocytic anemia Continue close monitoring of H&H. Likely anemia of chronic disease based on the iron panel Constipation: Milk of mag and if failed to work, will try senna or suppositories CODE STATUS: Full code DVT prophylaxis: Heparin GI prophylaxis: None Diet: Tube feeds Disposition: Continue management in the intensive care unit. Critical care time 35 minutes. Vance Mason PGY3, Internal medicine resident Date of Service: Jan 19, 2025 Billing Provider: HARINDER EPSTEIN MD,VANCE, RES Jan 19, 2025 17:56
--- NOTE | 2025-01-19 19:00 | PROCEDURE NOTE- Residance ---
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 Local as needed Informed Consent Obtained from family Description My hands were washed immediately prior to the procedure. I wore a surgical cap, mask with protective eyewear, full gown and sterile gloves throughout the procedure. The patient was placed in Trendelenburg position. The dressing around the Mamadou catheter on the left was removed postop The left side of the neck site was cleaned with a chlorhexidine scrub and draped in sterile fashion using a three quarter sheet drape and sterile towels. Skin preparation was a llowed to dry prior to skin puncture. Anatomic landmarks were identified. Anesthesia was achieved over the vein using 1% lidocaine. A guidewire was passed the Mamadou catheter and exchanged for a central line. Venous blood was withdrawn. The wire was removed and the catheter was sutured in place at 15 cm. A biopatch was placed at the insertion site. A sterile op-site was placed over the catheter and biopatch. The patient tolerated the procedure without any hemodynamic compromise. At time of procedure completion, all ports aspirated and flushed properly. Attention was sent to the right side of the neck, the central line was removed. After appropriate dilation was obtained, the dilator was exchanged over the wire for a Mamadou catheter. The wire was removed and the catheter was sutured in place at 15 cm. A sterile sorbaview shield was placed over the catheter at the insertion site. The patient tolerated the procedure without any hemodynamic compromise. At time of procedure completion, all ports aspirated and flushed properly. Estimated Blood Loss 20-30cc Complication None X-Ray Findings Shows adequate positioning of the catheter for use. Date of Service: Jan 19, 2025 Billing Provider: HARINDER EPSTEIN MD, DEEPANJALI, ZANE Jan 19, 2025 19:00
--- NOTE | 2025-01-19 22:13 | PROGRESS NOTE ---
Progress Note Dictate Providers to CC ~ Progress Note: 79 year old with septic shock and respiratory failure secondary to pyelonephritis. failed sat, remains intubated Antibiotic Ordered?: Yes Objective Vitals Vital Signs Date Time Temp Pulse Resp B/P (MAP) Pulse Ox O2 Delivery O2 Flow Rate FiO2 01/19/25 21:04 60 28 100 30 01/19/25 20:00 Mechanical Ventilator 01/19/25 18:00 98.2 127/49 (75) 01/17/25 20:18 0.0 Lab Results: 01/19/25 1700 01/19/25 1700 Problem\Assessment\Plan Additional Plan Plan: continue levophed with goal map >65 ceftriaxone for sepsis hold amiodarone crrt with volume removal CCT 60 min using HIPPA compliant A/V technology Sepsis Screening Skin Color: Normal SVITLANA JOSE MD Jan 19, 2025 22:13
[2025-01-19 23:30] LABS: MEAN PLATELET VOLUME 10.3 FL (7.4-10.4); RED CELL DISTRIBUTION WIDTH 15.8 % (11.5-14.5)
[2025-01-19 23:34] LABS: CREATININE 1.63 MG/DL (0.40-0.90); PHOSPHORUS 2.7 MG/DL (2.3-4.5); TOTAL CARBON DIOXIDE 27.4 MMOL/L (24-32); eCRCL 23 ML/MIN; eGFR 31 ML/MIN
[2025-01-20] VITALS (35 sets, daily range): BP systolic 105–174; BP diastolic 36–75; PULSE 55–95; RESP 15–36; TEMP 99.2; O2SAT 91–100
[2025-01-20 00:22] LABS: BANDS% (MANUAL) 14.0 % (0-10); EOSINOPHILS % (MANUAL) 2.0 % (0-6); LYMPHOCYTES % (MANUAL) 4.0 % (21-51); METAMYLEOCYTES% (MANUAL) 7.0 % (0-0); MONOCYTES % (MANUAL) 3.0 % (2-12); MYELOCYTES % (MANUAL) 1.0 % (0-0); NEUTROPHILS % (MANUAL) 69.0 % (42-75); NUCLEATED RED BLOOD CELLS 1 /100WBC (0-0)
[2025-01-20 00:23] LABS: PLATELET ESTIMATE NORMAL
[2025-01-20] MEDS: FENTANYL-0.9 % NACL/PF 100 ML IV PRN (00:52)
[2025-01-20 03:25] LABS: ABG BASE EXCESS 1.9 mmol/L (-2.0-3.0); ABG HCO3 27.4 mmol/L (21.0-28.0); ABG OXYGEN SATURATION 97.0 % (94.0-98.0); ABG PCO2 (T) 47.2 mmHg (32.0-45.0); ABG PH (T) 7.381 (7.350-7.450); ABG PO2 (T) 94.3 mmHg (83.0-108.0); FCOHb 1.8 % (0.5-1.5); FHHb 2.9 % (0.0-5.0); FIO2 30.0 mmHg/%; FMetHb 0.3 % (0.0-1.5); FO2Hb 95.0 % (94.0-98.0); MODE CMV PRVC IT 0.8; PATIENT TEMPERATURE 36.8; PEEP 5 cm H2O; RESPIRATORY RATE 22 b/min; TIDAL VOLUME 300 mL; TOTAL HEMOGLOBIN 9.0 G/dl (12.0-16.0)
[2025-01-20 05:32] LABS: MEAN PLATELET VOLUME 10.5 FL (7.4-10.4); RED CELL DISTRIBUTION WIDTH 15.7 % (11.5-14.5)
[2025-01-20] MEDS: heparin 1,000 units/ml 10ml inj HE ONE ×2 (05:44→05:46)
[2025-01-20 05:47] LABS: CREATININE 1.51 MG/DL (0.40-0.90); PHOSPHORUS 3.1 MG/DL (2.3-4.5); TOTAL CARBON DIOXIDE 28.0 MMOL/L (24-32); eCRCL 25 ML/MIN; eGFR 33 ML/MIN
--- NOTE | 2025-01-20 06:35 | RADIOLOGY REPORT ---
CHEST RADIOGRAPH Indication: ET Tube PLacement Technique: Single frontal view of the chest was obtained COMPARISON: DI CHEST,SINGLE VIEW on DOS: 01/19/25, DI CHEST,SINGLE VIEW on DOS: 01/19/25, DI CHEST,SINGLE VIEW on DOS: 01/18/25, DI CHEST,SINGLE VIEW on DOS: 01/17/25, DI CHEST,SINGLE VIEW on DOS: 01/16/25 FINDINGS: Lines and Tubes: Endotracheal tube, left central venous catheter, and right central venous catheter in satisfactory position. Lungs: Unchanged pulmonary vascular congestion. Pleura: No effusion.No pneumothorax. Cardiomediastinal contours: Cardiomegaly. Bones: Unremarkable IMPRESSION: Lines and tubes in satisfactory position. No significant interval change.
[2025-01-20 08:07] LABS: BANDS% (MANUAL) 7.0 % (0-10); EOSINOPHILS % (MANUAL) 1.0 % (0-6); LYMPHOCYTES % (MANUAL) 7.0 % (21-51); METAMYLEOCYTES% (MANUAL) 7.0 % (0-0); MONOCYTES % (MANUAL) 6.0 % (2-12); NEUTROPHILS % (MANUAL) 72.0 % (42-75)
[2025-01-20 08:08] LABS: LARGE PLATELETS FEW; PLATELET ESTIMATE NORMAL
--- NOTE | 2025-01-20 09:56 | PROGRESS NOTE- Residence ---
Progress Note - Resident Providers to CC Resident Creating Document: VANCE MASON RES ~ Central Line/PICC still needed: Yes Central Line/PICC Necessity: Req HD/Plasmapheresis Rogers-Non Protocol Rogers Indications Met/Not Met: F/C Indications Met Antibiotic Timeout Antibiotic Ordered?: Yes Subjective Patient had a bowel movement today. No other significant changes. Continues to be on CVVH, continues to be sedated and mechanically ventilated but on pressure support. Plan for TDC today Objective Vital Signs Date Time Temp Pulse Resp B/P (MAP) Pulse Ox O2 Delivery O2 Flow Rate FiO2 01/20/25 09:35 32 01/20/25 09:13 30 01/20/25 09:00 98.8 85 174/63 (100) 91 Mechanical Ventilator 01/17/25 20:18 0.0 Result Diagram: 01/20/25 0500 01/20/25 0500 General: Mechanically ventilated and sedated Neck: Right Mamadou cath and left IJV present Resp: Mechanical sounds. Diminished by basilar breath sounds Heart: Regular Rate and rhythm, normal S1 and S2, pansystolic blowing murmur 3/5 loudest in the tricuspid area Abdomen: Improved distention, Soft and non tender no organomegaly. Hyperactive bowel sounds Extremities: Edema of the upper extremities present. No cyanosis, edema or pallor of the lower extremities. 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 Assessment Assessment 79 years old female with past medical history of hypothyroidism, congestive heart failure, hypertension, hyperlipidemia is admitted in the hospital for evaluation and management of altered level of consciousness. The patient was found to be in his septic shock secondary to a complicated UTI with associated respiratory distress requiring to be intubated and mechanically ventilated. Additionally also developed TEMITOPE from the septic shock with anuria and now is being continued management in the ICU. Plan Plan Septic shock: POA Most likely secondary to complicated UTI and pyelonephritis Metabolic encephalopathy secondary to above Metabolic acidosis resolved Fluctuating leukocytosis, mostly up trending. Awaiting repeat procalcitonin. Repeat blood cultures on 01/16/2025 negative in three days Continue Rocephin- day 5 for E coli sepsis; total of seven days of IV antibiotic therapy Tapered off of Levophed since the last 12 hours. Monitor to maintain map above 65 RT eval and treat to wean off of mechanical ventilation Acute hypoxemic respiratory failure Likely secondary to bilateral atelectasis and pulmonary congestion/developing pneumonia Respiratory acidosis POA resolved Review of chest x-ray today on 12/2024 reveals mildly improved aeration bilaterally but more on the right side. Prominent cardiomegaly present Currently on pressure support. Ongoing tachypnea; on fentanyl. Also on propofol for sedation CVVH ongoing with fluid retrieval planned for today. Patient had a bowel movement today, decreasing the distention of the abdomen we will likely improve bibasilar atelectasis We will plan to wean the patient off of mechanical ventilation as tolerated. Discussed with family regarding the possibility of slow recovery and requiring a PEG and trach possibly next week Acute kidney injury secondary to septic shock and end-organ damage Mixed respiratory and metabolic acidosis: Resolved CVVH started on 01/17 Likely secondary to septic shock and complicated UTI Continue IV fluid resuscitation and CVVH. Plan for TDC today. Reassess tomorrow to switch from CVVH to HD Urine output minimal improvement at about 5-10 cc of output, continuing strict I&O monitoring through the foleys catheter Nephrology following Paroxysmal AFib with RVR: Currently rate controlled and in sinus rhythm Amiodarone drip held CHADS-VASc- 4. We will start Eliquis after TDC placement Diabetes mellitus Continue the patient on low-dose sliding scale insulin Goal between 140-180 mg/dL Nutrition Continue tube feeds Dietitian on board History of hypothyroidism Restarted home levothyroxine 170 mcg daily. Normocytic anemia Continue close monitoring of H&H. Likely anemia of chronic disease based on the iron panel Elevated alkaline phosphatase: Continue propofol today. Watch closely for liver function tests and switch to an alternative sedative Constipation: Senna and lactulose. Continue lactulose q.6 hours until 2-3 bowel movements per day and decrease it to twice a day after CODE STATUS: Full code DVT prophylaxis: Heparin GI prophylaxis: None Diet: Tube feeds Disposition: Continue management in the intensive care unit. Critical care time 35 minutes. Vance Mason PGY3, Internal medicine resident Date of Service: Jan 20, 2025 Billing Provider: HARINDER EPSTEIN MD, DEEPANJALI, ZANE Jan 20, 2025 09:56
--- NOTE | 2025-01-20 17:13 | PROGRESS NOTE ---
Daily Progress Note Providers to CC ~ patient sedated intubated resting comfortably in the bed Central Line/PICC still needed: Yes Rogers-Non Protocol Rogers Indications Met/Not Met: F/C Indications Met Antibiotic Timeout Antibiotic Ordered?: Yes MRSA Education MRSA Education Provided to pt: Yes Subjective As above Objective Vital Signs Date Time Temp Pulse Resp B/P (MAP) Pulse Ox O2 Delivery O2 Flow Rate FiO2 01/20/25 16:35 94 25 97 30 01/20/25 16:00 99.3 137/51 (79) Mechanical Ventilator 01/17/25 20:18 0.0 Vital signs, stable ,afebrile. Pulse Oximetry reflects adequate oxygenation. FiO2 30%, sedated on ventilator General: well developed, well nourished. Sedated, on ventilator resting comfortably in the bed, in no acute distress . Skin: Warm, dry, no pallor, no rash or petechiae. HEENT: Atraumatic, normocephalic, EOMI, anicteric sclera B; pink conjunctiva; PERRLA, normal oropharynx, moist oral and nasal mucosa. Tympanic membrane , nose , throat clear. Neck: Trachea midline. Supple, full range of motion, no JVD, bruit , hepatojugular reflex , lymphadenopathy or masses, or other lesions Cardiac: Regular rhythm, regular rate no murmurs, rubs, or gallops. Normal S1 and S2, no S3 noticed. PMI is normal. Respiratory: Equal breath sounds bilaterally, no tachypnea; lungs clear to auscultation bilaterally, no wheezing ,rub or rales, or crackles. Chest wall is symmetric and without deformity. No signs of trauma. Chest wall is nontender. No signs of respiratory distress. Resonance is normal upon percussion bilaterally. Gastrointestinal: Abdomen symmetric, non-distended, soft, non-tender, normal bowel sounds x4 quadrant, normoactive, no hepatosplenomegaly , no masses , no bruit, no flank pain bilaterally. No voluntary guarding, rebound, or rigidity. No tenderness to percussion. No pulsatile masses. Equal femoral pulses. No Benitez's sign or McBurney point tenderness. Back; no CVA tenderness bilaterally, no deformities. Neck and back are without deformity as well. No tenderness noted on palpation of the spinous processes. Spinous processes are midline. Cervical, thoracic, and lumbar paraspinal muscles are not tender and are without spasm. Musculoskeletal: Extremities, normal range of motion, non-tender, muscle strength 5/5 x 4. Negative Homans signs bilaterally on lower extremity. Distal pulses full symmetrical, no clubbing, cyanosis , edema. Neurological: Sedated, on ventilator Psych: Sedated on ventilator Vascular: Good distal pulses, which are equal x4; capillary refill less than 2 seconds. Lymphatic, no lymphadenopathy. Result Diagram: 01/20/25 0500 01/20/25 0500 Problem\Assessment\Plan Assessment & Plan Septic shock likely 2/2 pyelonephritis Bacteremia- POA Bilateral pneumonia Gram-positive Gram-negative, mixed renato, POA Acute hypoxemic respiratory failure Mixed respiratory and metabolic acidosis Intrinsic TEMITOPE 2/2 pyelonephritis/tubular stasis Pulmonary nodule Metabolic encephalopathy 2/2 above -leukocytosis, elevated lactic acid and procal, UA positive UTI, blood cultures X 2 show positive for Gram-negative rods, CT scan of the abdomen is significant for mild left-sided hydronephrosis with a perinephric fat stranding. -albumin drip, pressors, meropenem, ventilated 01/15: UA E.coli, prelim blood cx gram neg analy; HD today 01/16: Pansensitive E.coli bacteremia secondary to pyelonephritis, HD #2 01/17: off pressors, sedation Hyperlipidemia Hypothyroidism NIDDM low-dose sliding scale insulin, home levothyroxine, follow tsh/t4, lipid panel, a1c Nutrition Dietitian consulted. Starting the patient on tube feeds Normocytic anemia Continue close monitoring of H&H. Follow up with the iron profile. CODE STATUS: Full code DVT prophylaxis: Heparin Sepsis Screening Reassessment Date: Jan 20, 2025 Skin Color: Normal Date of Service: Jan 20, 2025 Billing Provider: YOLANDA LARSON MD Common Visit Codes: [id number] INP/OBS CARE(HIGH) YOLANDA LARSON MD Jan 20, 2025 17:13
--- NOTE | 2025-01-20 17:49 | PROGRESS NOTE ---
Progress Note Dictate Providers to CC ~ Central Line/PICC still needed: Yes Central Line/PICC Necessity: Req HD/Plasmapheresis Rogers Indications Met/Not Met: F/C Indications Met Antibiotic Ordered?: Yes Subjective Subjective The patient is on ventilator. getting TDC today as IR service is available today. CVVH to be resumed after that. She is off pressors. hopefully she can move to [facility] after that Objective Vitals Vital Signs Date Time Temp Pulse Resp B/P (MAP) Pulse Ox O2 Delivery O2 Flow Rate FiO2 01/20/25 16:35 94 25 97 30 01/20/25 16:00 99.3 137/51 (79) Mechanical Ventilator 01/17/25 20:18 0.0 Lab Results: 01/20/25 0500 01/20/25 0500 Objective Vital Signs: As above, remains on jose juan ventilator General: obese body habitus, no acute distress. Skin: No rashes, lumps, ulcers, blisters, purpura or petechiae HEENT: Anicteric sclera, DONTE Neck: Supple and nontender without enlargement of the thyroid, or lymphadenopathy. Chest: Normal size and shape, no tenderness, CTA bilaterally Heart: Regular. No jugular venous distention, S1 and S2 heard , no gallop Abdomen: Soft and non tender no organomegaly,BS+ Extremities: ++pedal edema Neuro: sedated. but is responsive Advance Care Planning Advanced Care plannin - 30 Minutes Problem\Assessment\Plan Problems/Diagnosis: (1) Acute respiratory failure Assessment & Plan: on ventilator. weaning in progress. not ready to be extubated. ICu team following. FiO2 down to .35 (2) Acute kidney injury Assessment & Plan: ATN due to septic shock. - avoid NSAIds -avoid Magnesium and aluminum based laxatives or antacids -don't use protocol based potassium replacement until recovery of renal function - has a temp cath now. -continue CVVH -getting the Temp cath exchanged over guide wire to tDC today by IR (3) Septic shock Assessment & Plan: on antibiotics. due to fluctuating bP, we are continuing cvvh today. (4) Edema of lower extremity Assessment & Plan: will aim for 50-150 cc per hour negative fluid balance on CVVH (5) Acute urinary tract infection Assessment & Plan: there is mild hydronephrosis. due to pyelonephritis. CVVh to continue. Sepsis Screening Skin Color: Normal KRISTEN JACKSON MD Jan 20, 2025 17:49
[2025-01-20 23:21] LABS: MEAN PLATELET VOLUME 10.0 FL (7.4-10.4); RED CELL DISTRIBUTION WIDTH 15.4 % (11.5-14.5)
[2025-01-20 23:32] LABS: CREATININE 1.76 MG/DL (0.40-0.90); PHOSPHORUS 3.7 MG/DL (2.3-4.5); TOTAL CARBON DIOXIDE 28.5 MMOL/L (24-32); eCRCL 21 ML/MIN; eGFR 28 ML/MIN
[2025-01-21] VITALS (37 sets, daily range): BP systolic 115–161; BP diastolic 35–61; PULSE 54–84; RESP 16–36; TEMP 97.4–97.5; O2SAT 95–100
[2025-01-21 03:30] LABS: ABG BASE EXCESS 1.9 mmol/L (-2.0-3.0); ABG HCO3 26.9 mmol/L (21.0-28.0); ABG OXYGEN SATURATION 97.8 % (94.0-98.0); ABG PCO2 (T) 44.1 mmHg (32.0-45.0); ABG PH (T) 7.403 (7.350-7.450); ABG PO2 (T) 100.6 mmHg (83.0-108.0); FCOHb 2.3 % (0.5-1.5); FHHb 2.1 % (0.0-5.0); FIO2 30.0 mmHg/%; FMetHb 0.3 % (0.0-1.5); FO2Hb 95.3 % (94.0-98.0); MODE ac/prvc; PATIENT TEMPERATURE 36.8; PEEP 5 cm H2O; RESPIRATORY RATE 22 b/min; TIDAL VOLUME 300 mL; TOTAL HEMOGLOBIN 8.0 G/dl (12.0-16.0)
[2025-01-21 05:32] LABS: MEAN PLATELET VOLUME 10.1 FL (7.4-10.4); RED CELL DISTRIBUTION WIDTH 15.6 % (11.5-14.5)
[2025-01-21 05:47] LABS: CREATININE 1.41 MG/DL (0.40-0.90); PHOSPHORUS 3.0 MG/DL (2.3-4.5); TOTAL CARBON DIOXIDE 27.3 MMOL/L (24-32); eCRCL 26 ML/MIN; eGFR 36 ML/MIN
[2025-01-21 06:34] LABS: BANDS% (MANUAL) 7.0 % (0-10); EOSINOPHILS % (MANUAL) 3.0 % (0-6); LYMPHOCYTES % (MANUAL) 4.0 % (21-51); METAMYLEOCYTES% (MANUAL) 2.0 % (0-0); MONOCYTES % (MANUAL) 7.0 % (2-12); NEUTROPHILS % (MANUAL) 77.0 % (42-75); PLATELET ESTIMATE NORMAL
[2025-01-21] MEDS: lactulose 20gm/30ml cup OGT SCH (08:09)
--- NOTE | 2025-01-21 09:00 | RADIOLOGY REPORT ---
CHEST RADIOGRAPH Indication: ET Tube PLacement Technique: Single frontal view of the chest was obtained Comparison: DI CHEST,SINGLE VIEW on DOS: 01/20/25, DI CHEST,SINGLE VIEW on DOS: 01/19/25, DI CHEST,SINGLE VIEW on DOS: 01/19/25, DI CHEST,SINGLE VIEW on DOS: 01/18/25, DI CHEST,SINGLE VIEW on DOS: 01/17/25, DI CHEST,SINGLE VIEW on DOS: 01/20/25 FINDINGS: Lines and Tubes: Endotracheal tube, left central venous catheter, and right central venous catheter in satisfactory position. Lungs: Unchanged pulmonary vascular congestion. Pleura: No effusion.No pneumothorax. Cardiomediastinal contours: Cardiomegaly. Bones: Unremarkable IMPRESSION: 1. Lines and tubes in satisfactory position. 2. No significant interval change.
[2025-01-21 10:40] LABS: MEAN PLATELET VOLUME 10.0 FL (7.4-10.4); RED CELL DISTRIBUTION WIDTH 15.7 % (11.5-14.5)
[2025-01-21 10:52] LABS: CREATININE 1.19 MG/DL (0.40-0.90); PHOSPHORUS 3.0 MG/DL (2.3-4.5); TOTAL CARBON DIOXIDE 29.3 MMOL/L (24-32); eCRCL 31 ML/MIN; eGFR 44 ML/MIN
--- NOTE | 2025-01-21 11:26 | PROGRESS NOTE- Residence ---
Progress Note - Resident Providers to CC Resident Creating Document: ANNETTE HAWKINS RES ~ Antibiotic Timeout Antibiotic Ordered?: Yes Subjective Seen and examined patient at the bedside, her BUN and creatinine are stable, bicarb 27, Patient is currently on CVVH, and WBC count is elevated Objective Vital Signs Date Time Temp Pulse Resp B/P (MAP) Pulse Ox O2 Delivery O2 Flow Rate FiO2 01/21/25 10:00 97.2 69 23 148/47 (80) 96 Mechanical Ventilator 30 01/17/25 20:18 0.0 Result Diagram: 01/21/25 1015 01/21/25 1015 General: Mechanically ventilated and sedated Neck: Right Mamadou cath and left IJV present Resp: Mechanical sounds. Diminished by basilar breath sounds Heart: Regular Rate and rhythm, normal S1 and S2, pansystolic blowing murmur 3/5 loudest in the tricuspid area Abdomen: Improved distention, Soft and non tender no organomegaly. Hyperactive bowel sounds Extremities: Edema of the upper extremities present. No cyanosis, edema or pallor of the lower extremities. RN MEDICATION: Continues to be sedated but responds to pain Skin: Warm and Dry. Advance Care Planning Advanced Care plannin - 30 Minutes Assessment Assessment 79 years old female with past medical history of hypothyroidism, congestive heart failure, hypertension, hyperlipidemia is admitted in the hospital for evaluation and management of altered level of consciousness. The patient was found to be in his septic shock secondary to a complicated UTI with associated respiratory distress requiring to be intubated and mechanically ventilated. Additionally also developed TEMITOPE from the septic shock with anuria and now is being continued management in the ICU. Plan Plan Acute kidney injury secondary to septic shock and end-organ damage Mixed respiratory and metabolic acidosis: Resolved CVVH started on 01/17 Likely secondary to septic shock and complicated UTI Patient is Currently on CVVH Continue IV fluid resuscitation 2)Septic shock: POA Most likely secondary to complicated UTI and pyelonephritis Metabolic encephalopathy secondary to above Metabolic acidosis resolved 3)Acute hypoxemic respiratory failure Likely secondary to bilateral atelectasis and pulmonary congestion/developing pneumonia Respiratory acidosis POA resolved 4)Paroxysmal AFib with RVR: 5)Diabetes mellitus 6)History of hypothyroidism 7)Normocytic anemia 8)Elevated alkaline phosphatase: Continue managing the Patient according to Primary Care Givers Plan Nephrology Attending: The patient was seen and examined with resident. wbc high. not a candidate right now for TDC placement. Ischemic ATN from septic shock / Pyelonephritis needs to continue CVVH for now. not ready to be extubated as well yet. discussed with her son by the bedside. Chris Johnson MD Date of Service: Jan 21, 2025 Billing Provider: CHRIS JOHNSON MD, SATISH, RES Jan 21, 2025 11:26 CHRIS JOHNSON MD Jan 21, 2025 12:24
--- NOTE | 2025-01-21 11:57 | PROGRESS NOTE- Residence ---
Progress Note - Resident Providers to CC Resident Creating Document: VANCE JUSTICE RES ~ Central Line/PICC still needed: Yes Central Line/PICC Necessity: Req HD/Plasmapheresis Rogers-Non Protocol Rogers Indications Met/Not Met: F/C Indications Met Antibiotic Timeout Antibiotic Ordered?: Yes Subjective Patient continues to be intubated on pressure support. No significant changes noted today. Trial of SAT and SBT we will be continued if the patient is able to tolerated. Objective Vital Signs Date Time Temp Pulse Resp B/P (MAP) Pulse Ox O2 Delivery O2 Flow Rate FiO2 01/21/25 11:24 29 01/21/25 11:18 30 01/21/25 11:00 97.3 56 144/39 (74) 97 Mechanical Ventilator 01/17/25 20:18 0.0 Result Diagram: 01/21/25 1015 01/21/25 1015 General: Mechanically ventilated and sedated Neck: Right Mamadou cath and left IJV present Resp: Mechanical sounds. Diminished by basilar breath sounds Heart: Regular Rate and rhythm, normal S1 and S2, pansystolic blowing murmur 3/5 loudest in the tricuspid area Abdomen: Improved distention, Soft and non tender no organomegaly. Hyperactive bowel sounds Extremities: Edema of the upper extremities present. No cyanosis, edema or pallor of the lower extremities. 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 Assessment Assessment 79 years old female with past medical history of hypothyroidism, congestive heart failure, hypertension, hyperlipidemia is admitted in the hospital for evaluation and management of altered level of consciousness. The patient was found to be in his septic shock secondary to a complicated UTI with associated respiratory distress requiring to be intubated and mechanically ventilated. Additionally also developed TEMITOPE from the septic shock with anuria and now is being continued management in the ICU. Plan Plan Septic shock: POA Most likely secondary to complicated UTI and pyelonephritis Metabolic encephalopathy secondary to above Metabolic acidosis resolved Fluctuating leukocytosis, mostly up trending. Downtrending procalcitonin Last blood cultures from 01/16/2025 and negative. Repeat blood cultures ordered today. Continue Rocephin- day 6 for E coli sepsis; total of eight days of IV antibiotic therapy Levophed intermittently being used. Goal of map above 65. Likely hypotension secondary to CRRT and on high-dose sedation RT eval and treat to wean off of mechanical ventilation Acute hypoxemic respiratory failure Likely secondary to bilateral atelectasis and pulmonary congestion/developing pneumonia Respiratory acidosis POA resolved Mild improved aeration in the left lung saha on the chest x-ray Currently on pressure support. Unable to wean off of the current ventilator settings due to developing tachypnea and respiratory distress. Trials to wean the patient off of mechanical ventilation as tolerated ongoing. Discussed with family regarding the possibility of slow recovery and requiring a PEG and trach possibly next week Acute kidney injury secondary to septic shock and end-organ damage Mixed respiratory and metabolic acidosis: Resolved CVVH started on 01/17 Likely secondary to septic shock and complicated UTI Continue IV fluid resuscitation and CVVH through the Mamadou catheter on the right. Unable to get the TDC due to ongoing leukocytosis. We will re-evaluate as condition improves Urine output minimal improvement at about 5-10 cc of output, continuing strict I&O monitoring through the foleys catheter Nephrology following Paroxysmal AFib with RVR: Currently rate controlled and in sinus rhythm Amiodarone drip held CHADS-VASc- 4. We will start Eliquis after TDC placement Diabetes mellitus Continue the patient on low-dose sliding scale insulin Goal between 140-180 mg/dL Nutrition Continue tube feeds Dietitian on board History of hypothyroidism On home medication of levothyroxine 175 mcg daily TSH on admission was 0.18, with normal free T4. Follow repeat normal T4 and total T3 to rule out euthyroid sick syndrome versus primary hyperthyroidism Normocytic anemia Continue close monitoring of H&H. Likely anemia of chronic disease based on the iron panel Elevated alkaline phosphatase: Minimally elevated AST, normal ALT. Bilirubin also mildly elevated at 1.3. Ongoing elevation noted, we will consider abdominal ultrasound Continue propofol today. Watch closely for liver function tests and switch to an alternative sedative Constipation: Resolved, continue Senna and lactulose daily CODE STATUS: Full code DVT prophylaxis: Heparin GI prophylaxis: None Diet: Tube feeds Disposition: Continue management in the intensive care unit. Critical care time 35 minutes. Vance Justice PGY3, Internal medicine resident Date of Service: Jan 21, 2025 Billing Provider: HARINDER EPSTEIN MD, DEEPANJALI, RES Jan 21, 2025 11:57
--- NOTE | 2025-01-21 15:28 | RADIOLOGY REPORT ---
CHEST RADIOGRAPH Indication: r/o TB for HD Technique: DI CHEST,SINGLE VIEW COMPARISON: None FINDINGS: Right IJ catheter tip projects over SVC. Endotracheal tube tip projects 3.5 cm above the zachery. Nasogastric tube projects towards stomach. Left IJ catheter tip projects over the presumed confluence of the internal jugular and brachiocephalic veins. The cardiac silhouette is enlarged. The lungs demonstrate bilateral patchy airspace opacities. The pulmonary vasculature is prominent. Small bilateral pleural effusions. There is no pneumothorax. IMPRESSION: Cardiomegaly with pulmonary vascular congestion and bilateral patchy airspace opacities. Small bilateral pleural effusions. Support catheters and lines as above. Please note that the left IJ catheter tip projects over the expected /presumed region of the left internal jugular and brachiocephalic veins. Correlate clinically to ensure that this is not in the arterial/carotid circulation.
--- NOTE | 2025-01-21 15:36 | PROGRESS NOTE ---
Daily Progress Note Providers to CC ~ intubated sedated resting comfortably in the bed Central Line/PICC still needed: Yes Rogers-Non Protocol Rogers Indications Met/Not Met: F/C Indications Met Antibiotic Timeout Antibiotic Ordered?: Yes MRSA Education MRSA Education Provided to pt: Yes Subjective As above Objective Vital Signs Date Time Temp Pulse Resp B/P (MAP) Pulse Ox O2 Delivery O2 Flow Rate FiO2 01/21/25 15:22 153/50 01/21/25 15:04 28 30 01/21/25 15:00 98.1 69 99 Mechanical Ventilator 01/17/25 20:18 0.0 Vital signs, stable ,afebrile. Pulse Oximetry reflects adequate oxygenation. On ventilator, sedated FiO2 30% General: well developed, well nourished. , resting comfortably in the bed, in no acute distress . Skin: Warm, dry, no pallor, no rash or petechiae. HEENT: Atraumatic, normocephalic, EOMI, anicteric sclera B; pink conjunctiva; PERRLA, normal oropharynx, moist oral and nasal mucosa. Tympanic membrane , nose , throat clear. Neck: Trachea midline. Supple, full range of motion, no JVD, bruit , hepatojugular reflex , lymphadenopathy or masses, or other lesions Cardiac: Regular rhythm, regular rate no murmurs, rubs, or gallops. Normal S1 and S2, no S3 noticed. PMI is normal. Respiratory: Equal breath sounds bilaterally, no tachypnea; lungs clear to auscultation bilaterally, no wheezing ,rub or rales, or crackles. Chest wall is symmetric and without deformity. No signs of trauma. Chest wall is nontender. No signs of respiratory distress. Resonance is normal upon percussion bilaterally. Gastrointestinal: Abdomen symmetric, non-distended, soft, non-tender, normal bowel sounds x4 quadrant, normoactive, no hepatosplenomegaly , no masses , no bruit, no flank pain bilaterally. No voluntary guarding, rebound, or rigidity. No tenderness to percussion. No pulsatile masses. Equal femoral pulses. No Benitez's sign or McBurney point tenderness. Back; no CVA tenderness bilaterally, no deformities. Neck and back are without deformity as well. No tenderness noted on palpation of the spinous processes. Spinous processes are midline. Cervical, thoracic, and lumbar paraspinal muscles are not tender and are without spasm. : Rogers catheter in place functional Musculoskeletal: Extremities, normal range of motion, non-tender, muscle strength 5/5 x 4. Negative Homans signs bilaterally on lower extremity. Distal pulses full symmetrical, no clubbing, cyanosis , edema. Neurological: Intubated, sedated Psych: Intubated sedated Vascular: Good distal pulses, which are equal x4; capillary refill less than 2 seconds. Lymphatic, no lymphadenopathy. Result Diagram: 01/21/25 1015 01/21/25 1015 Problem\Assessment\Plan Assessment & Plan Septic shock likely 2/2 pyelonephritis Bacteremia- POA Bilateral pneumonia Gram-positive Gram-negative, mixed renato, POA Acute hypoxemic respiratory failure Mixed respiratory and metabolic acidosis Intrinsic TEMITOPE 2/2 pyelonephritis/tubular stasis Renal failure, on CVVH, continuous venovenous hemofiltration Pulmonary nodule Metabolic encephalopathy 2/2 above -leukocytosis, elevated lactic acid and procal, UA positive UTI, blood cultures X 2 show positive for Gram-negative rods, CT scan of the abdomen is significant for mild left-sided hydronephrosis with a perinephric fat stranding. -albumin drip, pressors, meropenem, ventilated 01/15: UA E.coli, prelim blood cx gram neg analy; HD today 01/16: Pansensitive E.coli bacteremia secondary to pyelonephritis, HD #2 01/17: off pressors, sedation Hyperlipidemia Hypothyroidism NIDDM low-dose sliding scale insulin, home levothyroxine, follow tsh/t4, lipid panel, a1c Nutrition Dietitian consulted. Starting the patient on tube feeds Normocytic anemia Continue close monitoring of H&H. Follow up with the iron profile. CODE STATUS: Full code DVT prophylaxis: Heparin Sepsis Screening Reassessment Date: Jan 21, 2025 Skin Color: Normal Date of Service: Jan 21, 2025 Billing Provider: YOLANDA LARSON MD Common Visit Codes: [id number] INP/OBS CARE(HIGH) YOLANDA LARSON MD Jan 21, 2025 15:36
[2025-01-21 17:27] LABS: MEAN PLATELET VOLUME 10.0 FL (7.4-10.4); RED CELL DISTRIBUTION WIDTH 15.3 % (11.5-14.5)
[2025-01-21 17:33] LABS: CREATININE 1.01 MG/DL (0.40-0.90); PHOSPHORUS 3.0 MG/DL (2.3-4.5); TOTAL CARBON DIOXIDE 28.7 MMOL/L (24-32); eCRCL 37 ML/MIN; eGFR 53 ML/MIN
[2025-01-22] VITALS (43 sets, daily range): BP systolic 99–188; BP diastolic 34–65; PULSE 47–82; RESP 15–35; TEMP 97–97.6; O2SAT 93–100
[2025-01-22 02:19] LABS: MEAN PLATELET VOLUME 10.2 FL (7.4-10.4); RED CELL DISTRIBUTION WIDTH 15.3 % (11.5-14.5)
[2025-01-22 02:31] LABS: CREATININE 0.96 MG/DL (0.40-0.90); PHOSPHORUS 3.0 MG/DL (2.3-4.5); TOTAL CARBON DIOXIDE 28.1 MMOL/L (24-32); eCRCL 39 ML/MIN; eGFR 56 ML/MIN
[2025-01-22 02:41] LABS: ABG BASE EXCESS 0.7 mmol/L (-2.0-3.0); ABG HCO3 25.0 mmol/L (21.0-28.0); ABG OXYGEN SATURATION 99.7 % (94.0-98.0); ABG PCO2 (T) 37.8 mmHg (32.0-45.0); ABG PH (T) 7.436 (7.350-7.450); ABG PO2 (T) 174.5 mmHg (83.0-108.0); FCOHb 2.0 % (0.5-1.5); FHHb 0.3 % (0.0-5.0); FIO2 30.0 mmHg/%; FMetHb 0.4 % (0.0-1.5); FO2Hb 97.3 % (94.0-98.0); MODE vent- ac prvc; PATIENT TEMPERATURE 36.6; PEEP 5 cm H2O; RESPIRATORY RATE 22 b/min; TIDAL VOLUME 300 mL; TOTAL HEMOGLOBIN 7.6 G/dl (12.0-16.0)
[2025-01-22 02:50] LABS: BANDS% (MANUAL) 2.0 % (0-10); LYMPHOCYTES % (MANUAL) 5.0 % (21-51); METAMYLEOCYTES% (MANUAL) 3.0 % (0-0); MONOCYTES % (MANUAL) 3.0 % (2-12); NEUTROPHILS % (MANUAL) 87.0 % (42-75)
[2025-01-22 02:51] LABS: PLATELET ESTIMATE NORMAL
--- NOTE | 2025-01-22 06:25 | RADIOLOGY REPORT ---
CHEST RADIOGRAPH Indication: ET Tube PLacement Technique: Single frontal view of the chest was obtained COMPARISON: DI CHEST,SINGLE VIEW on DOS: 01/21/25, DI CHEST,SINGLE VIEW on DOS: 01/21/25, DI CHEST,SINGLE VIEW on DOS: 01/20/25, DI CHEST,SINGLE VIEW on DOS: 01/19/25, DI CHEST,SINGLE VIEW on DOS: 01/19/25 FINDINGS: Lines and Tubes: Slight interval retraction of the endotracheal tube such that the tip now projects approximately 5.7 cm above the level of the zachery. Remaining lines and tubes unchanged. Lungs: Moderate diffuse increased prominence of the pulmonary vasculature and small left pleural effusion. No evidence of focal consolidation. No pneumothorax. Cardiomediastinal contours: Cardiomegaly. Bones: Unremarkable IMPRESSION: 1. Slight interval retraction of the endotracheal tube such that the tip now projects approximately 5.7 cm above the level of the zachery. Remaining lines and tubes unchanged. 2. Moderate pulmonary edema and small left pleural effusion. 3. Cardiomegaly.
[2025-01-22 07:54] LABS: MEAN PLATELET VOLUME 9.7 FL (7.4-10.4); RED CELL DISTRIBUTION WIDTH 15.1 % (11.5-14.5)
[2025-01-22 08:06] LABS: CREATININE 0.86 MG/DL (0.40-0.90); PHOSPHORUS 2.6 MG/DL (2.3-4.5); TOTAL CARBON DIOXIDE 28.3 MMOL/L (24-32); eCRCL 43 ML/MIN; eGFR 64 ML/MIN
--- NOTE | 2025-01-22 11:11 | PROGRESS NOTE ---
Subjective Subjective Patient continues to be intubated on pressure support. No significant changes noted today. Became tachypneic and wrestless with SBT . Reason for visit: Acute respiratory failure Reviewed: Care Plan, H&P, Labs, Medications, Radiology Daily Progress Note Exam Vitals Vital Signs Date Time Temp Pulse Resp B/P (MAP) Pulse Ox O2 Delivery O2 Flow Rate FiO2 01/22/25 10:00 97.3 75 23 149/53 (85) 97 Mechanical Ventilator 30 Result Diagram: 01/22/25 0740 01/22/25 0740 Exam General: Sedated, intubated and mechanically ventilated. HEENT: Conjunctiva pink, Sclera clear, Mucus Membranes moist. Neck: Supple without masses and tenderness. Resp: On mechanical ventilation. Bilateral coarse breath sounds heard. Heart: Regular Rate and rhythm, normal S1 and S2 without murmur, rub or gallop. Abdomen: Soft and non tender no organomegaly Extremities: No cyanosis, clubbing and edema. Skin: Warm and Dry. Neurology: Wakes up to stimulation. VTE VTE Risk Score VTE Risk Score Reference Ranges: Score 0-1 = Low Risk (Aggressive mobilization; early ambulation; no VTE prophylaxis required) Score 2: Moderate Risk (Intermittent/Pneumatic Compression Device OR Lovenox/Heparin/Coumadin) Score 3-4: High Risk (Intermittent/Pneumatic Compression Device AND Lovenox/Heparin/Coumadin) Score > or = 5: Highest Risk (Intermittent/Pneumatic Compression Device AND Lovenox/Heparin/Coumadin) Assessment/Plan Assessment 79 years old female with past medical history of hypothyroidism, congestive heart failure, hypertension, hyperlipidemia is admitted in the hospital for evaluation and management of altered level of consciousness. The patient was found to be in his septic shock secondary to a complicated UTI with associated respiratory distress requiring to be intubated and mechanically ventilated. Additionally also developed TEMITOPE from the septic shock with anuria and now is being continued management in the ICU. Plan Septic shock: POA Most likely secondary to complicated UTI and pyelonephritis Metabolic encephalopathy secondary to above Metabolic acidosis resolved Fluctuating leukocytosis, mostly up trending. Downtrending procalcitonin Last blood cultures from 01/21/2025 and negative. Repeat blood cultures done. Currently off pressors. Goal of map above 65. Likely hypotension secondary to septic shock, CRRT and on high-dose sedation RT eval and treat to wean off of mechanical ventilation Acute hypoxemic respiratory failure Likely secondary to bilateral atelectasis and pulmonary congestion/developing pneumonia Respiratory acidosis POA resolved Interval worsening from yesterday. Currently on AC/PRVC 22/300/5/30% with a pulse oximeter reading of 97%. Arterial blood gas reveals a mild metabolic alkalosis. Unable to wean off of the current ventilator settings due to developing tachypnea and respiratory distress. Trials to wean the patient off of mechanical ventilation as tolerated ongoing. Discussed with family regarding the possibility of slow recovery and requiring a PEG and trach possibly next week Acute kidney injury secondary to septic shock and end-organ damage Mixed respiratory and metabolic acidosis: Resolved CVVH started on 01/17 Likely secondary to septic shock and complicated UTI Continue IV fluid resuscitation and CVVH through the Mamadou catheter on the right. Unable to get the TDC due to ongoing leukocytosis. We will re-evaluate as condition improves Urine output minimal improvement at about 5-10 cc of output, continuing strict I&O monitoring through the foleys catheter Nephrology following Paroxysmal AFib with RVR: Currently rate controlled and in sinus rhythm Amiodarone drip held CHADS-VASc- 4. Now on Eliquis after TDC placement Diabetes mellitus Continue the patient on low-dose sliding scale insulin Goal between 140-180 mg/dL Nutrition Continue tube feeds and currently on Vital HP at 55 mL/hour. Dietitian on board History of hypothyroidism On home medication of levothyroxine 175 mcg daily TSH on admission was 0.18, with normal free T4. Follow repeat normal T4 and total T3 to rule out euthyroid sick syndrome versus primary hyperthyroidism Normocytic anemia Continue close monitoring of H&H. Likely anemia of chronic disease based on the iron panel Elevated alkaline phosphatase: Minimally elevated AST, normal ALT. Bilirubin also mildly elevated at 1.3. Ongoing elevation noted, we will consider abdominal ultrasound Continue propofol today. Watch closely for liver function tests and switch to an alternative sedative Constipation: Resolved, continue Senna and lactulose daily CODE STATUS: Full code DVT prophylaxis: Heparin GI prophylaxis: None Diet: Tube feeds Disposition: Continue management in the intensive care unit. Critical care time 35 minutes. Expected Outcome/Goals Expected Outcomes/Goals: Tolerance to TF, wt maintenance, bowel regularity, skin integrity, BG 140-180 mg/dL HARINDER EPSTEIN MD Jan 22, 2025 11:11
[2025-01-22 14:05] LABS: MEAN PLATELET VOLUME 9.8 FL (7.4-10.4); RED CELL DISTRIBUTION WIDTH 15.3 % (11.5-14.5)
[2025-01-22 14:14] LABS: CREATININE 0.76 MG/DL (0.40-0.90); PHOSPHORUS 2.6 MG/DL (2.3-4.5); TOTAL CARBON DIOXIDE 29.2 MMOL/L (24-32); eCRCL 49 ML/MIN; eGFR 74 ML/MIN
--- NOTE | 2025-01-22 14:49 | PROGRESS NOTE ---
Progress Note Dictate Providers to CC ~ Progress Note: This is a 79-year-old woman with a history of hypothyroidism, congestive heart failure, hypertension, and hyperlipidemia, admitted with altered mental status and found to be in septic shock from a complicated urinary tract infection. She developed acute kidney injury with anuria, refractory hypervolemia, and electrolyte disturbances despite medical management. She is intubated and mechanically ventilated for respiratory distress, with moderate pulmonary edema and a small pleural effusion on imaging. She remains oliguric (235 mL/24h), with ongoing hemodynamic support, anemia, and hypoalbuminemia. The most likely etiology of her TEMITOPE is acute tubular necrosis (ATN) secondary to septic shock, given the context of sepsis, persistent oliguria/anuria, and volume overload. Pre-renal azotemia is less likely given refractory oliguria despite hemodynamic support, and there is no evidence for obstruction or rapidly progressive glomerulonephritis. Antibiotic Ordered?: N/A Objective Vitals Vital Signs Date Time Temp Pulse Resp B/P (MAP) Pulse Ox O2 Delivery O2 Flow Rate FiO2 01/22/25 17:19 76 22 98 30 01/22/25 17:00 97.3 153/59 (90) Mechanical Ventilator Sedated, intubated, ventilated, CVVH RRR w/o murmur, no JVD Ventilator breath sounds, no wheezes Decreased BS 1+ edema Lab Results: 01/22/25 1350 01/22/25 1350 Other Results I & O 01/22/25 07:00 Intake Total 2376 ml Output Total 5596 ml Balance -3220 ml Intake Oral 80 ml IV Total 924 ml Tube Feeding 1272 ml Blood Product 0 ml Other 100 ml Output Urine Total 222 ml Gastric Drainage Total 0 ml Chest Tube Drainage Total 0 ml Drainage Total 0 ml Ultrafiltrate 5179 ml Other 195 ml Problem\Assessment\Plan Additional Plan This patient has severe, oliguric TEMITOPE due to septic shock, now complicated by refractory hypervolemia, pulmonary edema, and metabolic derangements. She requires initiation of renal replacement therapy for volume and metabolic control. Continue aggressive management of sepsis, hemodynamic support, and supportive care for her comorbidities. 1. Acute Kidney Injury (ATN, secondary to septic shock) Most likely due to prolonged hypotension and sepsis. Pre-renal causes are less likely given persistent oliguria despite resuscitation; obstruction is unlikely without suggestive imaging or history. Initiate renal replacement therapy ([employer]) for refractory hypervolemia, anuria, and metabolic derangements. Monitor hemodynamics and adjust ultrafiltration rates as tolerated. Avoid further nephrotoxins. 2. Volume Overload with Pulmonary Edema Due to anuric TEMITOPE and underlying heart failure, not responsive to diuretics. Manage with [employer] for fluid removal. Monitor for respiratory and hemodynamic stability. 3. Electrolyte Disturbances and Acidemia Monitor and correct potassium, calcium, magnesium, and acid-base status as needed. [employer] will assist with correction of metabolic derangements. 4. Septic Shock (complicated UTI) Continue broad-spectrum antibiotics (ceftriaxone) and source control. Titrate vasopressors (norepinephrine) to maintain adequate perfusion. 5. Severe Anemia (Hgb 6.9) Likely multifactorial (sepsis, critical illness, possible blood loss). Transfuse PRBCs as indicated for hemodynamic instability or symptomatic anemia. 6. Chronic Medical Conditions (CHF, hypothyroidism, hypertension, hyperlipidemia) Cautiously restart home medications as appropriate and as tolerated in the ICU setting. Monitor for decompensation of heart failure during fluid management. Sepsis Screening Skin Color: Normal WALL,JOHN M III DO Jan 22, 2025 14:49
--- NOTE | 2025-01-22 15:16 | PROGRESS NOTE ---
Daily Progress Note Providers to CC Intubated, sedated on mechanical ventilator ~ Central Line/PICC still needed: Yes Rogers-Non Protocol Rogers Indications Met/Not Met: F/C Indications Met Antibiotic Timeout Antibiotic Ordered?: Yes MRSA Education MRSA Education Provided to pt: Yes Subjective As above Objective Vital Signs Date Time Temp Pulse Resp B/P (MAP) Pulse Ox O2 Delivery O2 Flow Rate FiO2 01/22/25 14:19 126/45 01/22/25 14:00 96.8 68 26 98 Mechanical Ventilator 30 Vital signs, stable ,afebrile. Pulse Oximetry reflects adequate oxygenation. FiO2 30% General: well developed, well nourished. Sedated, on ventilator, resting comfortably in the bed, in no acute distress . Skin: Warm, dry, no pallor, no rash or petechiae. HEENT: Atraumatic, normocephalic, EOMI, anicteric sclera B; pink conjunctiva; PERRLA, normal oropharynx, moist oral and nasal mucosa. Tympanic membrane , nose , throat clear. Neck: Trachea midline. Supple, full range of motion, no JVD, bruit , hepatojugular reflex , lymphadenopathy or masses, or other lesions Cardiac: Regular rhythm, regular rate no murmurs, rubs, or gallops. Normal S1 and S2, no S3 noticed. PMI is normal. Respiratory: Equal breath sounds bilaterally, no tachypnea; lungs clear to auscultation bilaterally, no wheezing ,rub or rales, or crackles. Chest wall is symmetric and without deformity. No signs of trauma. Chest wall is nontender. No signs of respiratory distress. Resonance is normal upon percussion bilaterally. Gastrointestinal: Abdomen symmetric, non-distended, soft, non-tender, normal bowel sounds x4 quadrant, normoactive, no hepatosplenomegaly , no masses , no bruit, no flank pain bilaterally. No voluntary guarding, rebound, or rigidity. No tenderness to percussion. No pulsatile masses. Equal femoral pulses. No Benitez's sign or McBurney point tenderness. Back; no CVA tenderness bilaterally, no deformities. Neck and back are without deformity as well. No tenderness noted on palpation of the spinous processes. Spinous processes are midline. Cervical, thoracic, and lumbar paraspinal muscles are not tender and are without spasm. Musculoskeletal: Extremities, normal range of motion, non-tender, muscle strength 5/5 x 4. Negative Homans signs bilaterally on lower extremity. Distal pulses full symmetrical, no clubbing, cyanosis , edema. Neurological: On ventilator, sedated Vascular: Good distal pulses, which are equal x4; capillary refill less than 2 seconds. Lymphatic, no lymphadenopathy. Result Diagram: 01/22/25 1350 01/22/25 1350 Problem\Assessment\Plan Assessment & Plan Septic shock likely 2/2 pyelonephritis Bacteremia- POA Bilateral pneumonia Gram-positive Gram-negative, mixed renato, POA Acute hypoxemic respiratory failure Mixed respiratory and metabolic acidosis Intrinsic TEMITOPE 2/2 pyelonephritis/tubular stasis Renal failure, on CVVH, continuous venovenous hemofiltration Pulmonary nodule Metabolic encephalopathy 2/2 above -leukocytosis, elevated lactic acid and procal, UA positive UTI, blood cultures X 2 show positive for Gram-negative rods, CT scan of the abdomen is significant for mild left-sided hydronephrosis with a perinephric fat stranding. -albumin drip, pressors, meropenem, ventilated 01/15: UA E.coli, prelim blood cx gram neg analy; 01/16: Pansensitive E.coli bacteremia secondary to pyelonephritis, HD #2 01/17: off pressors, sedation Hyperlipidemia Hypothyroidism NIDDM low-dose sliding scale insulin, home levothyroxine, follow tsh/t4, lipid panel, a1c Nutrition Dietitian consulted. Starting the patient on tube feeds Normocytic anemia Continue close monitoring of H&H. Follow up with the iron profile. CODE STATUS: Full code DVT prophylaxis: Heparin Sepsis Screening Reassessment Date: Jan 22, 2025 Skin Color: Normal Date of Service: Jan 22, 2025 Billing Provider: YOLANDA LARSON MD Common Visit Codes: [id number] INP/OBS CARE(HIGH) YOLANDA LARSON MD Jan 22, 2025 15:16
--- NOTE | 2025-01-22 15:30 | CONSULTATION ---
DATE OF CONSULTATION: 01/22/2025 DICTATING PHYSICIAN: Thong Almanza MD HISTORY OF PRESENT ILLNESS: A 79-year-old female who was admitted 8 days ago on 01/14/2025. She remains in the ICU. She had a CT scan on admission, which showed minimal left-sided hydroureteronephrosis with bilateral perinephric stranding, but no obstruction or stones with an indwelling Rogers. I am asked to consult since she apparently has grown out gram-negative rods in both her blood and urine. Cultures are reviewed and culture from her Rogers catheter on 01/13/2025 reveals E. coli and that in her blood also reveals E. coli. She remains in critical condition, intubated in the ICU. LABORATORY DATA: White count remains elevated at 25,000, hematocrit is 22%, BUN and creatinine on presentation was 56 and 4.4, but has since normalized to a creatinine of 0.76. IMAGING: CT scan is reviewed in detail and reveals minimal left hydronephrosis with bilateral perinephric stranding and a Rogers catheter in the bladder and no obstruction from ureteral stones or renal stones. ASSESSMENT: Gram-negative analy bacteremia from a urinary source without obstruction. PLAN: Recommend supportive care with appropriate antibiotics. No indication for genitourinary surgical intervention. Thong Almanza MD TID: [id number] RECEIPT: [id number] PF/JOSÉ MIGUEL
[2025-01-22 20:10] LABS: MEAN PLATELET VOLUME 10.3 FL (7.4-10.4); RED CELL DISTRIBUTION WIDTH 15.1 % (11.5-14.5)
[2025-01-22 20:16] LABS: CREATININE 0.83 MG/DL (0.40-0.90); PHOSPHORUS 2.5 MG/DL (2.3-4.5); TOTAL CARBON DIOXIDE 28.1 MMOL/L (24-32); eCRCL 45 ML/MIN; eGFR 67 ML/MIN
[2025-01-22] MEDS: magnesium sulf-water 4G/100mL 100 ML IV PRN (20:24)
[2025-01-22 23:38] LABS: ABG BASE EXCESS 2.3 mmol/L (-2.0-3.0); ABG HCO3 25.9 mmol/L (21.0-28.0); ABG OXYGEN SATURATION 98.5 % (94.0-98.0); ABG PCO2 (T) 34.2 mmHg (32.0-45.0); ABG PH (T) 7.493 (7.350-7.450); ABG PO2 (T) 102.2 mmHg (83.0-108.0); FCOHb 2.0 % (0.5-1.5); FHHb 1.5 % (0.0-5.0); FIO2 30.0 mmHg/%; FMetHb 0.3 % (0.0-1.5); FO2Hb 96.2 % (94.0-98.0); MODE ac/prvc; PATIENT TEMPERATURE 36.0; PEEP 5 cm H2O; RESPIRATORY RATE 14 b/min; TIDAL VOLUME 450 mL; TOTAL HEMOGLOBIN 8.5 G/dl (12.0-16.0)
[2025-01-23] VITALS (37 sets, daily range): BP systolic 100–156; BP diastolic 33–60; PULSE 46–67; RESP 13–30; TEMP 98.4; O2SAT 93–100
[2025-01-23 02:26] LABS: MEAN PLATELET VOLUME 10.2 FL (7.4-10.4); RED CELL DISTRIBUTION WIDTH 15.4 % (11.5-14.5)
[2025-01-23 02:37] LABS: CREATININE 0.70 MG/DL (0.40-0.90); PHOSPHORUS 2.5 MG/DL (2.3-4.5); TOTAL CARBON DIOXIDE 28.0 MMOL/L (24-32); eCRCL 53 ML/MIN; eGFR 81 ML/MIN
[2025-01-23 03:04] LABS: BANDS% (MANUAL) 4.0 % (0-10); EOSINOPHILS % (MANUAL) 4.0 % (0-6); LYMPHOCYTES % (MANUAL) 8.0 % (21-51); METAMYLEOCYTES% (MANUAL) 1.0 % (0-0); MONOCYTES % (MANUAL) 2.0 % (2-12); NEUTROPHILS % (MANUAL) 81.0 % (42-75); PLATELET ESTIMATE NORMAL
[2025-01-23 03:05] LABS: LARGE PLATELETS FEW
[2025-01-23 03:33] LABS: ABG BASE EXCESS 0.3 mmol/L (-2.0-3.0); ABG HCO3 24.2 mmol/L (21.0-28.0); ABG OXYGEN SATURATION 97.3 % (94.0-98.0); ABG PCO2 (T) 33.7 mmHg (32.0-45.0); ABG PH (T) 7.469 (7.350-7.450); ABG PO2 (T) 82.8 mmHg (83.0-108.0); FCOHb 2.4 % (0.5-1.5); FHHb 2.6 % (0.0-5.0); FIO2 30.0 mmHg/%; FMetHb 0.3 % (0.0-1.5); FO2Hb 94.7 % (94.0-98.0); MODE ac/prvc; PATIENT TEMPERATURE 35.7; PEEP 5 cm H2O; RESPIRATORY RATE 14 b/min; TIDAL VOLUME 450 mL; TOTAL HEMOGLOBIN 8.7 G/dl (12.0-16.0)
--- NOTE | 2025-01-23 07:32 | RADIOLOGY REPORT ---
CHEST RADIOGRAPH Indication: ET Tube PLacement Technique: Single frontal view of the chest was obtained Comparison: DI CHEST,SINGLE VIEW on DOS: 01/22/25 FINDINGS: Lines and Tubes: The endotracheal tube terminates 5.7 cm above the zachery. The enteric tube courses below the left hemidiaphragm and the tip extends outside the field of view. Right central venous catheter with its tip terminating in the superior vena cava. There is a left central venous catheter with its tip terminating in the superior vena cava. Lungs: There is pulmonary edema. Pleura: No effusion. No pneumothorax. Cardiomediastinal contours: Cardiomegaly. Bones: No acute osseous abnormality. IMPRESSION: 1. Support tubes in appropriate position. 2. Cardiomegaly and pulmonary edema similar to prior study.
[2025-01-23 08:16] LABS: MEAN PLATELET VOLUME 10.5 FL (7.4-10.4); RED CELL DISTRIBUTION WIDTH 15.3 % (11.5-14.5)
[2025-01-23 08:23] LABS: CREATININE 0.81 MG/DL (0.40-0.90); PHOSPHORUS 2.6 MG/DL (2.3-4.5); TOTAL CARBON DIOXIDE 27.6 MMOL/L (24-32); eCRCL 46 ML/MIN; eGFR 69 ML/MIN
[2025-01-23] MEDS: COMMUNICATION ORDER 1 EA MISC MC ONE (09:18)
--- NOTE | 2025-01-23 10:25 | PROGRESS NOTE ---
Subjective Subjective Patient continues to be intubated and was on pressure support this morning off sedation. No significant changes noted today. Became tachypneic and wrestless with SBT and therefore sedation resumed. Still on low-dose Levophed. Reason for visit: Acute respiratory failure Reviewed: Care Plan, H&P, Labs, Medications, Radiology Daily Progress Note Exam Vitals Vital Signs Date Time Temp Pulse Resp B/P (MAP) Pulse Ox O2 Delivery O2 Flow Rate FiO2 01/23/25 10:00 98.1 56 15 117/40 (65) 98 Mechanical Ventilator 30 01/23/25 08:00 0.0 Result Diagram: 01/23/25 0757 01/23/25 0800 Exam General: Sedated, intubated and mechanically ventilated. HEENT: Conjunctiva pink, Sclera clear, Mucus Membranes moist. Neck: Supple without masses and tenderness. Resp: On mechanical ventilation. Bilateral coarse breath sounds heard. Heart: Regular Rate and rhythm, normal S1 and S2 without murmur, rub or gallop. Abdomen: Soft and non tender no organomegaly Extremities: No cyanosis, clubbing and edema. Skin: Warm and Dry. Neurology: Still unresponsive. Thrashing around with sedation vacation VTE VTE Risk Score VTE Risk Score Reference Ranges: Score 0-1 = Low Risk (Aggressive mobilization; early ambulation; no VTE prophylaxis required) Score 2: Moderate Risk (Intermittent/Pneumatic Compression Device OR Lovenox/Heparin/Coumadin) Score 3-4: High Risk (Intermittent/Pneumatic Compression Device AND Lovenox/Heparin/Coumadin) Score > or = 5: Highest Risk (Intermittent/Pneumatic Compression Device AND Lovenox/Heparin/Coumadin) Assessment/Plan Assessment 79 years old female with past medical history of hypothyroidism, congestive heart failure, hypertension, hyperlipidemia is admitted in the hospital for evaluation and management of altered level of consciousness. The patient was found to be in his septic shock secondary to a complicated UTI with associated respiratory distress requiring to be intubated and mechanically ventilated. Additionally also developed TEMITOPE from the septic shock with anuria and now is being continued management in the ICU. Plan Septic shock: POA Most likely secondary to complicated UTI and pyelonephritis Metabolic encephalopathy secondary to above Metabolic acidosis resolved Leukemoid reaction slightly improved. Downtrending procalcitonin Most recent blood cultures on the and 21 January 2025 without any growth. Currently norepinephrine drip at 0.04 mcg/kg per minute.Goal of map above 65. Hypotension likely secondary to septic shock, CRRT and on high-dose sedation RT eval and treat to wean off of mechanical ventilation Acute hypoxemic respiratory failure Likely secondary to bilateral atelectasis and pulmonary congestion/developing pneumonia Respiratory acidosis POA resolved Interval chest x-ray improvement with CRRT i.e. fluid removal. Currently on AC/PRVC 22/300/5/30% with a pulse oximeter reading of 96%. Arterial blood gas reveals a mild respiratory alkalosis. Unable to wean off of the current ventilator settings due to developing tachypnea and respiratory distress with sedation vacation. We will continue daily awakening and spontaneous breathing trials. Discussed with family regarding the possibility of slow recovery and requiring a PEG and trach possibly next week Acute kidney injury secondary to septic shock and end-organ damage Mixed respiratory and metabolic acidosis: Resolved CRRT started on 01/17 Likely secondary to septic shock and complicated E coli UTI and bacteremia. Continue IV fluid resuscitation and CVVH through the Mamadou catheter on the right. Unable to get the TDC due to ongoing leukocytosis. We will re-evaluate as condition improves. Remains oliguric, continuing strict I&O monitoring through the foleys catheter Nephrology following Paroxysmal AFib with RVR: Currently rate controlled and in sinus rhythm Amiodarone drip held CHADS-VASc- 4. Now on Eliquis after TDC placement Diabetes mellitus Continue the patient on low-dose sliding scale insulin Goal between 140-180 mg/dL Nutrition Continue tube feeds and currently on Vital HP at 55 mL/hour. Dietitian on board History of hypothyroidism On home medication of levothyroxine 175 mcg daily TSH on admission was 0.18, with normal free T4. Follow repeat normal T4 and total T3 to rule out euthyroid sick syndrome versus primary hyperthyroidism Normocytic anemia Continue close monitoring of H&H. Likely anemia of chronic disease based on the iron panel Elevated alkaline phosphatase: Minimally elevated AST, normal ALT. Bilirubin also mildly elevated at 1.4. Ongoing elevation noted, we will consider abdominal ultrasound Continue propofol today. Watch closely for liver function tests and switch to an alternative sedative Constipation: Resolved, continue Senna and lactulose daily CODE STATUS: Full code DVT prophylaxis: Heparin GI prophylaxis: None Diet: Tube feeds Disposition: Continue management in the intensive care unit. Critical care time 35 minutes. Expected Outcome/Goals Expected Outcomes/Goals: Tolerance to TF, wt maintenance, bowel regularity, skin integrity, BG 140-180 mg/dL HARINDER EPSTEIN MD Jan 23, 2025 10:25
[2025-01-23] MEDS: heparin 1,000 units/ml 10ml inj HE ONE ×2 (11:06→11:07)
--- NOTE | 2025-01-23 11:57 | PROGRESS NOTE ---
Progress Note Dictate Providers to CC ~ Progress Note: This is a 79-year-old woman with a history of hypothyroidism, congestive heart failure, hypertension, and hyperlipidemia, admitted with altered mental status and found to be in septic shock from a complicated urinary tract infection. She developed acute kidney injury with anuria, refractory hypervolemia, and electrolyte disturbances despite medical management. She is intubated and mechanically ventilated for respiratory distress, with moderate pulmonary edema and a small pleural effusion on imaging. She remains oliguric (235 mL/24h), with ongoing hemodynamic support, anemia, and hypoalbuminemia. The most likely etiology of her TEMITOPE is acute tubular necrosis (ATN) secondary to septic shock, given the context of sepsis, persistent oliguria/anuria, and volume overload. Pre-renal azotemia is less likely given refractory oliguria despite hemodynamic support, and there is no evidence for obstruction or rapidly progressive glomerulonephritis. Antibiotic Ordered?: N/A Subjective Subjective Clinically stable overnight, no new events since last evaluation, CRRT with 0-22 UF, reduced today to 0-100, we are getting close to a euvolemic state I believe. Objective Vitals Vital Signs Date Time Temp Pulse Resp B/P (MAP) Pulse Ox O2 Delivery O2 Flow Rate FiO2 01/26/25 21:18 72 25 95 40 01/26/25 20:53 116/38 01/26/25 19:43 Mechanical Ventilator 01/26/25 17:51 99.7 01/24/25 20:00 0.0 Intubated, weaning of sedation for daily SBT RRR w/o murmur, no JVD CTAB, ventilator breath sounds +BS, NT No edema Lab Results: 01/26/25 0200 01/26/25 0200 Other Results I & O 01/23/25 07:00 Intake Total 3159 ml Output Total 7430 ml Balance -4271 ml Intake Oral 50 ml IV Total 1005 ml Tube Feeding 1304 ml Blood Product 700 ml Other 100 ml Output Urine Total 287 ml Gastric Drainage Total 0 ml Chest Tube Drainage Total 0 ml Drainage Total 0 ml Ultrafiltrate 7143 ml Other 0 ml # Bowel Movements 2 Problem\Assessment\Plan Additional Plan She has severe, oliguric TEMITOPE due to septic shock, complicated by refractory hypervolemia, pulmonary edema, and metabolic derangements. She required initiation of renal replacement therapy for volume and metabolic control. Continue aggressive management of sepsis, hemodynamic support, and supportive care for her other comorbidities. 1. Acute Kidney Injury (ATN, secondary to septic shock) Most likely due to prolonged hypotension and sepsis. Purely pre-renal causes are less likely given persistent oliguria despite resuscitation; obstruction is unlikely without suggestive imaging or history. Dr. 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 Monitor hemodynamics and adjust ultrafiltration rates as tolerated, continue to monitor daily for CRRT needs, she may be close to being able to convertt to iHD, I will defer this judgement to Dr Ramesh . Avoid further nephrotoxins. 2. Volume Overload with Pulmonary Edema Due to anuric TEMITOPE and underlying heart failure, not responsive to diuretics. Manage with TRUCK TRAILER MECHANIC for fluid removal, decrease to 0- 100 mL/hr today. Monitor for respiratory and hemodynamic stability and adjust CRRT prescription as indicated clinically. 3. Electrolyte Disturbances and Acidemia Monitor and correct potassium, calcium, magnesium, and acid-base status as needed. CRRT will assist with correction of some but not all metabolic derangements, assess daily and replace as necessary. 4. Septic Shock (complicated UTI) Continue broad-spectrum antibiotics (ceftriaxone) and source control. Titrate vasopressors (norepinephrine) to maintain adequate perfusion. 5. Severe Anemia (Hgb 8.2) Likely multifactorial (sepsis, critical illness, possible blood loss). Transfused PRBCs yesterday, continue to monitor, transfusion indicated for hemodynamic instability or symptomatic anemia. TJ/EPO is not routinely recommended for anemia in critically ill patients due to limited benefit and increased thrombotic risk. 6. Chronic Medical Conditions (CHF, hypothyroidism, hypertension, hyperlipidemia) Cautiously restart home medications as appropriate and as tolerated in the ICU setting. Sepsis Screening Skin Color: Normal WALL,JOHN M III DO Jan 23, 2025 11:57
--- NOTE | 2025-01-23 12:14 | RADIOLOGY REPORT ---
EXAM: CT CT HEAD INDICATION: not following commands TECHNIQUE: CT images of the head were obtained without administration of IV contrast. CT scans at this facility use dose modulation, iterative reconstruction, and/or weight based dosing when appropriate to reduce radiation dose to as low as reasonably achievable. COMPARISON: CT CT HEAD on DOS: 01/14/25 FINDINGS: PARENCHYMA: No acute hemorrhage. There is no mass effect, midline shift, or herniation. There is preservation of the veliz white differentiation. Mild scattered hypoattenuation along the periventricular, centrum semiovale, and deep white matter tracts, which are nonspecific however statistically most likely represent chronic microvascular ischemic change. Suspected slight loss of the anterior temporal lobes VENTRICLES: No hydrocephalus. EXTRA-AXIAL SPACES: No extra-axial fluid collections. OTHER: The bony structures are intact. Visualized portions of the paranasal sinuses and mastoid air cells are clear. IMPRESSION: 1. No CT evidence of an acute intracranial abnormality. 2. Suspected slight loss of the anterior temporal lobes. 3. Correlate for dementia.
[2025-01-23 14:30] LABS: MEAN PLATELET VOLUME 10.2 FL (7.4-10.4); RED CELL DISTRIBUTION WIDTH 15.1 % (11.5-14.5)
[2025-01-23 14:38] LABS: CREATININE 0.92 MG/DL (0.40-0.90); PHOSPHORUS 2.9 MG/DL (2.3-4.5); TOTAL CARBON DIOXIDE 26.9 MMOL/L (24-32); eCRCL 41 ML/MIN; eGFR 59 ML/MIN
--- NOTE | 2025-01-23 15:30 | PROGRESS NOTE ---
Daily Progress Note Providers to CC ~ sedated, on ventilator resting comfortably in the bed Central Line/PICC still needed: Yes Rogers-Non Protocol Rogers Indications Met/Not Met: F/C Indications Met Antibiotic Timeout Antibiotic Ordered?: Yes MRSA Education MRSA Education Provided to pt: Yes Subjective As above Objective Vital Signs Date Time Temp Pulse Resp B/P (MAP) Pulse Ox O2 Delivery O2 Flow Rate FiO2 01/23/25 15:25 58 16 94 30 01/23/25 15:00 97.9 113/33 (59) Mechanical Ventilator 01/23/25 08:00 0.0 Vital signs, stable ,afebrile. Pulse Oximetry reflects adequate oxygenation. Sedated on ventilator FiO2 30% General: well developed, well nourished. Sedated, resting comfortably in the bed, in no acute distress . Skin: Warm, dry, no pallor, no rash or petechiae. HEENT: Atraumatic, normocephalic, EOMI, anicteric sclera B; pink conjunctiva; PERRLA, normal oropharynx, moist oral and nasal mucosa. Tympanic membrane , nose , throat clear. Neck: Trachea midline. Supple, full range of motion, no JVD, bruit , hepatojugular reflex , lymphadenopathy or masses, or other lesions Cardiac: Regular rhythm, regular rate no murmurs, rubs, or gallops. Normal S1 and S2, no S3 noticed. PMI is normal. Respiratory: Equal breath sounds bilaterally, no tachypnea; lungs clear to auscultation bilaterally, no wheezing ,rub or rales, or crackles. Chest wall is symmetric and without deformity. No signs of trauma. Chest wall is nontender. No signs of respiratory distress. Resonance is normal upon percussion bilaterally. Gastrointestinal: Abdomen symmetric, non-distended, soft, non-tender, normal bowel sounds x4 quadrant, normoactive, no hepatosplenomegaly , no masses , no bruit, no flank pain bilaterally. No voluntary guarding, rebound, or rigidity. No tenderness to percussion. No pulsatile masses. Equal femoral pulses. No Benitez's sign or McBurney point tenderness. Back; no CVA tenderness bilaterally, no deformities. Neck and back are without deformity as well. No tenderness noted on palpation of the spinous processes. Spinous processes are midline. Cervical, thoracic, and lumbar paraspinal muscles are not tender and are without spasm. Musculoskeletal: Extremities, normal range of motion, non-tender, muscle strength 5/5 x 4. Negative Homans signs bilaterally on lower extremity. Distal pulses full symmetrical, no clubbing, cyanosis , edema. Neurological: Sedated Vascular: Good distal pulses, which are equal x4; capillary refill less than 2 seconds. Lymphatic, no lymphadenopathy. Result Diagram: 01/23/25 1410 01/23/25 1410 Problem\Assessment\Plan Assessment & Plan Septic shock likely 2/2 pyelonephritis Bacteremia- POA Bilateral pneumonia Gram-positive Gram-negative, mixed renato, POA Acute hypoxemic respiratory failure sedated on ventilator FiO2 30% Mixed respiratory and metabolic acidosis Intrinsic TEMITOPE 2/2 pyelonephritis/tubular stasis Renal failure, on CVVH, continuous venovenous hemofiltration Pulmonary nodule Metabolic encephalopathy 2/2 above -leukocytosis, elevated lactic acid and procal, UA positive UTI, blood cultures X 2 show positive for Gram-negative rods, CT scan of the abdomen is significant for mild left-sided hydronephrosis with a perinephric fat stranding. -albumin drip, pressors, meropenem, ventilated 01/15: UA E.coli, prelim blood cx gram neg analy; 01/16: Pansensitive E.coli bacteremia secondary to pyelonephritis, HD #2 01/17: off pressors, sedation Hyperlipidemia Hypothyroidism NIDDM low-dose sliding scale insulin, home levothyroxine, follow tsh/t4, lipid panel, a1c Nutrition Dietitian consulted. Starting the patient on tube feeds Normocytic anemia Continue close monitoring of H&H. Follow up with the iron profile. CODE STATUS: Full code DVT prophylaxis: Heparin Sepsis Screening Reassessment Date: Jan 23, 2025 Skin Color: Normal Date of Service: Jan 23, 2025 Billing Provider: YOLANDA LARSON MD Common Visit Codes: [id number] INP/OBS CARE(HIGH) YOLANDA LARSON MD Jan 23, 2025 15:30
[2025-01-23 20:40] LABS: MEAN PLATELET VOLUME 9.9 FL (7.4-10.4); RED CELL DISTRIBUTION WIDTH 15.7 % (11.5-14.5)
[2025-01-23 20:49] LABS: CREATININE 0.74 MG/DL (0.40-0.90); PHOSPHORUS 3.0 MG/DL (2.3-4.5); TOTAL CARBON DIOXIDE 27.2 MMOL/L (24-32); eCRCL 50 ML/MIN; eGFR 76 ML/MIN
--- NOTE | 2025-01-23 22:09 | PROGRESS NOTE ---
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
[2025-01-24] VITALS (34 sets, daily range): BP systolic 87–158; BP diastolic 36–56; PULSE 43–84; RESP 11–33; TEMP 97.8; O2SAT 93–100
[2025-01-24 02:42] LABS: MEAN PLATELET VOLUME 9.7 FL (7.4-10.4); RED CELL DISTRIBUTION WIDTH 15.5 % (11.5-14.5)
[2025-01-24 02:55] LABS: CREATININE 0.78 MG/DL (0.40-0.90); PHOSPHORUS 2.6 MG/DL (2.3-4.5); TOTAL CARBON DIOXIDE 27.2 MMOL/L (24-32); eCRCL 48 ML/MIN; eGFR 72 ML/MIN
[2025-01-24 03:28] LABS: ABG BASE EXCESS 1.7 mmol/L (-2.0-3.0); ABG HCO3 26.8 mmol/L (21.0-28.0); ABG OXYGEN SATURATION 96.6 % (94.0-98.0); ABG PCO2 (T) 44.2 mmHg (32.0-45.0); ABG PH (T) 7.399 (7.350-7.450); ABG PO2 (T) 84.6 mmHg (83.0-108.0); FCOHb 2.0 % (0.5-1.5); FHHb 3.3 % (0.0-5.0); FIO2 30.0 mmHg/%; FMetHb 0.4 % (0.0-1.5); FO2Hb 94.3 % (94.0-98.0); MODE ac/prvc; PATIENT TEMPERATURE 36.7; PEEP 5 cm H2O; RESPIRATORY RATE 14 b/min; TIDAL VOLUME 450 mL; TOTAL HEMOGLOBIN 8.9 G/dl (12.0-16.0)
[2025-01-24 03:29] LABS: BANDS% (MANUAL) 2.0 % (0-10); LYMPHOCYTES % (MANUAL) 7.0 % (21-51); MONOCYTES % (MANUAL) 3.0 % (2-12); MYELOCYTES % (MANUAL) 1.0 % (0-0); NEUTROPHILS % (MANUAL) 87.0 % (42-75)
[2025-01-24 03:30] LABS: PLATELET ESTIMATE NORMAL
--- NOTE | 2025-01-24 06:08 | RADIOLOGY REPORT ---
CHEST RADIOGRAPH Indication: ET Tube PLacement Technique: Single frontal view of the chest was obtained Comparison: DI CHEST,SINGLE VIEW on DOS: 01/23/25 FINDINGS: Lines and Tubes: The endotracheal tube terminates 4.3 cm above the zachery. The enteric tube courses below the left hemidiaphragm and the tip extends outside the field of view. There is a right central venous catheter and left central venous catheter both terminating in the superior vena cava. Lungs: Mild pulmonary edema similar to prior study. Pleura: No effusion. No pneumothorax. Cardiomediastinal contours: Stable cardiomegaly. Bones: No acute osseous abnormality. IMPRESSION: 1. Support tubes in appropriate position. 2. Cardiomegaly with mild pulmonary edema similar to prior study.
[2025-01-24 08:03] LABS: MEAN PLATELET VOLUME 9.8 FL (7.4-10.4); RED CELL DISTRIBUTION WIDTH 15.4 % (11.5-14.5)
[2025-01-24 08:19] LABS: CREATININE 0.79 MG/DL (0.40-0.90); PHOSPHORUS 2.7 MG/DL (2.3-4.5); TOTAL CARBON DIOXIDE 27.4 MMOL/L (24-32); eCRCL 47 ML/MIN; eGFR 71 ML/MIN
[2025-01-24] MEDS: dexmedetomidin/NS 400mcg/100ml 100 ML IV SCH (09:15)
--- NOTE | 2025-01-24 12:08 | PROGRESS NOTE ---
Progress Note Dictate Providers to CC ~ Central Line/PICC still needed: Yes Central Line/PICC Necessity: Req HD/Plasmapheresis Rogers Indications Met/Not Met: F/C Indications Met Antibiotic Ordered?: Yes Subjective Subjective remains on jose juan ventilator. She is encephalopathic. weaning from sedation is not working as she gets restless, but without purpose. discussed with family that it is going to be a slow progress and not sure if she is getting a new sepsis (hospital acquired). Discussed with the icu resident. surveillance culture was done yesterday. Objective Vitals Vital Signs Date Time Temp Pulse Resp B/P (MAP) Pulse Ox O2 Delivery O2 Flow Rate FiO2 01/24/25 12:03 128/58 01/24/25 11:31 50 17 96 30 01/24/25 11:00 97.9 Mechanical Ventilator 01/24/25 08:00 0.0 Lab Results: 01/24/25 0745 01/24/25 0745 Objective Vital Signs: As above, remains on jose juan ventilator General: obese body habitus, no acute distress. Skin: No rashes, lumps, ulcers, blisters, purpura or petechiae HEENT: Anicteric sclera, DONTE Neck: Supple and nontender without enlargement of the thyroid, or lymphadenopathy. Chest: Normal size and shape, no tenderness, CTA bilaterally Heart: Regular. No jugular venous distention, S1 and S2 heard , no gallop Abdomen: Soft and non tender no organomegaly,BS+ Extremities: ++pedal edema Neuro: sedated. but is responsive Advance Care Planning Advanced Care plannin - 30 Minutes Problem\Assessment\Plan Problems/Diagnosis: (1) Acute respiratory failure Assessment & Plan: on ventilator. not weaning well yet. restless on weaning of sedation. encephalopthic. EEG pending. (2) Acute kidney injury Assessment & Plan: ATN due to septic shock. - avoid NSAIds -avoid Magnesium and aluminum based laxatives or antacids -don't use protocol based potassium replacement until recovery of renal function - has a temp cath now. -continue CVVH (3) Septic shock Assessment & Plan: on antibiotics. due to fluctuating bP, we are continuing cvvh today. (4) Edema of lower extremity Assessment & Plan: much better. aiming for 0-100 cc per hour as tolerataed. negative fluid balance (5) Acute urinary tract infection Assessment & Plan: there is mild hydronephrosis. due to pyelonephritis. CVVh to continue. Sepsis Screening Skin Color: Normal KRISTEN JACKSON MD Jan 24, 2025 12:08
[2025-01-24 15:02] LABS: MEAN PLATELET VOLUME 9.8 FL (7.4-10.4); RED CELL DISTRIBUTION WIDTH 15.5 % (11.5-14.5)
[2025-01-24 15:12] LABS: CREATININE 0.69 MG/DL (0.40-0.90); PHOSPHORUS 3.0 MG/DL (2.3-4.5); TOTAL CARBON DIOXIDE 28.1 MMOL/L (24-32); eCRCL 54 ML/MIN; eGFR 82 ML/MIN
[2025-01-24] MEDS: heparin 1,000 units/ml 10ml inj HE ONE ×2 (15:29)
[2025-01-24] MEDS ORDERED: iohexol 300mg/ml 100ml inj. ONE (15:46)
--- NOTE | 2025-01-24 16:15 | PROGRESS NOTE ---
Daily Progress Note Providers to CC ~ Antibiotic Timeout Antibiotic Ordered?: Yes Subjective Patient is intubated lethargic unable to respond to verbal commands Objective Vital Signs Date Time Temp Pulse Resp B/P (MAP) Pulse Ox O2 Delivery O2 Flow Rate FiO2 01/24/25 15:00 97.7 49 15 105/37 (59) 96 Mechanical Ventilator 30 01/24/25 08:00 0.0 Result Diagram: 01/24/25 1440 01/24/25 1440 General-patient is intubated, ill-appearing, lethargic HEENT-atraumatic normocephalic, neck supple without elevated JVD, Eyes-no icterus or pallor seen in eyes Chest- decreased breath sounds to auscultation bilaterally, Heart-S1-S2 normal, regular heart rate no murmur Abdomen bowel sounds positive on auscultation, soft nondistended nontender no guarding, no rigidity Neurology-lethargic unable to communicate and follow verbal commands Extremity- no pedal edema , not able to to move extremities Problem\Assessment\Plan 79 years old female with past medical history of hypothyroidism, congestive heart failure, hypertension, hyperlipidemia is admitted in the hospital for evaluation and management of altered level of consciousness. The patient was found to be in his septic shock secondary to a complicated UTI with associated respiratory distress requiring to be intubated and mechanically ventilated. Additionally also developed TEMITOPE from the septic shock with anuria and now is being continued management in the ICU. Septic shock likely 2/2 pyelonephritis Bacteremia- POA Bilateral pneumonia Gram-positive Gram-negative, mixed reanto, POA Acute hypoxemic respiratory failure sedated on ventilator FiO2 30% Mixed respiratory and metabolic acidosis Intrinsic TEMITOPE 2/2 pyelonephritis/tubular stasis Renal failure, on CVVH, continuous venovenous hemofiltration Pulmonary nodule Metabolic encephalopathy 2/2 above -leukocytosis, elevated lactic acid and procal, UA positive UTI, blood cultures X 2 show positive for Gram-negative rods, CT scan of the abdomen is significant for mild left-sided hydronephrosis with a perinephric fat stranding. -albumin drip, pressors, meropenem, ventilated 01/15: UA E.coli, prelim blood cx gram neg analy; 01/16: Pansensitive E.coli bacteremia secondary to pyelonephritis, HD #2 01/17: off pressors, sedation Hyperlipidemia Hypothyroidism NIDDM low-dose sliding scale insulin, home levothyroxine, follow tsh/t4, lipid panel, a1c Normocytic anemia monitoring of H&H. 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
--- NOTE | 2025-01-24 17:11 | RADIOLOGY REPORT ---
CLINICAL HISTORY: abdominal distention, possible hydronephrosis TECHNIQUE: CT of the chest, abdomen, and pelvis was performed with IV contrast. Coronal and sagittal reformatted images were performed for better depiction of the anatomy. This exam was performed according to our departmental dose optimization program. Up-to-date CT equipment and radiation dose reduction techniques are utilized as appropriate. CTDI 36 DLP 2720 COMPARISON: CT CT CHEST ABDOMEN PELVIS on DOS: 01/14/25 FINDINGS: CHEST: The thoracic aorta is normal in course and caliber. There are mild aortic atherosclerotic calcifications. The main pulmonary artery is dilated, 4.2 cm. The heart is mildly enlarged in size with regional faint coronary artery calcifications. No pericardial effusion is seen. No enlarged mediastinal, hilar, or axillary lymph node is present. An endotracheal tube terminate in satisfactory position above the zachery. The central airways are patent. There is no bronchiectasis. Evaluation of the lung is limited due to patient breathing artifact. There are mild bibasilar atelectatic changes. There is no pleural effusion present. ABDOMEN/PELVIS: The adrenal glands, pancreas, and uterus are unremarkable. The liver is cirrhotic in morphology with nodular contour. The spleen is moderately enlarged, measuring 15 cm in long axis. There are multiple bilateral peripelvic cysts. There is mild vswm-[id number]-right perinephric stranding. The gallbladder is absent. The bladder is decompressed by Rogers. The abdominal aorta is normal in course and caliber. There are moderate to advanced atherosclerotic calcifications. There is no free intraperitoneal air or fluid. There is no enlarged abdominal or pelvic lymph node. There is no bowel wall thickening or dilatation. Scattered submucosal fat within the colon is compatible with an old infectious/inflammatory process. There is colonic diverticulosis, moderate at the sigmoid segment. The nasogastric tube terminates in the distal stomach. BONES: There is an age-indeterminate right anterior 8th rib fracture. IMPRESSION: Age-indeterminate right anterior 8 rib fracture. Pulmonary arterial hypertension. 3-vessel coronary artery calcifications. Cirrhotic liver morphology. Moderate splenomegaly. Mild [id number]-uvzm-right nonspecific perinephric stranding. Please correlate with laboratory values/ urinalysis. Cholecystectomy.
--- NOTE | 2025-01-24 18:15 | PROGRESS NOTE- Residence ---
Progress Note - Resident Providers to CC Resident Creating Document: VANCE MASON RES ~ Central Line/PICC still needed: Yes Central Line/PICC Necessity: Prolonged IV access req Rogers-Non Protocol Rogers Indications Met/Not Met: F/C Indications Met Antibiotic Timeout Antibiotic Ordered?: Yes Subjective Patient continues to be intubated, continues to be sedated on pressors. Evaluated by EEG today, awaiting report. No new findings on CT scan of the chest, abdomen or pelvis. Objective Vital Signs Date Time Temp Pulse Resp B/P (MAP) Pulse Ox O2 Delivery O2 Flow Rate FiO2 01/24/25 18:00 97.2 43 16 111/41 (64) 96 Mechanical Ventilator 30 01/24/25 08:00 0.0 Result Diagram: 01/24/25143901/24/25 1440 General: Mechanically ventilated and sedated Neck: Right Mamadou cath and left IJV present Resp: Mechanical sounds. Diminished breath sounds in bilateral lung saha Heart: Regular Rate and rhythm, normal S1 and S2, pansystolic blowing murmur 3/5 loudest in the tricuspid area Abdomen: Improved distention, Soft and non tender no organomegaly. Hyperactive bowel sounds. Cholecystectomy scar present on the right Extremities: Edema of the upper extremities present. No cyanosis, edema or pallor of the lower extremities. 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 Assessment Assessment 79 years old female with past medical history of hypothyroidism, congestive heart failure, hypertension, hyperlipidemia is admitted in the hospital for evaluation and management of altered level of consciousness. The patient was found to be in his septic shock secondary to a complicated UTI with associated respiratory distress requiring to be intubated and mechanically ventilated. Additionally also developed TEMITOPE from the septic shock with anuria and now is being continued management in the ICU. Plan Plan Septic shock: POA Most likely secondary to complicated UTI with bilateral pyelonephritis Metabolic encephalopathy secondary to above Leukemoid reaction improving Most recent blood cultures on the and 21 January 2025 without any growth. Discontinue Rocephin in a.m. Bilateral mild hydronephrosis on the CT abdomen with left side greater than the right and nonspecific perinephric stranding; likely clinically insignificant at this time not affecting management Continues to be on Levophed. Goal of map above 65. Hypotension likely secondary to septic shock, CRRT and on high-dose sedation SAT and SBT trials ongoing. RT eval and treat to wean off of mechanical ventilation CT head negative for intracranial abnormalities. EEG performed today, awaiting results Acute hypoxemic respiratory failure Likely secondary to bilateral atelectasis and pulmonary congestion/developing pneumonia Pulmonary arterial hypertension No significant changes on chest x-ray or chest CT. Cardiomegaly noted with diffuse reduced lung volumes Currently on CPAP. Ongoing SAT and SBT trials Acute kidney injury secondary to septic shock and end-organ damage CRRT started on 01/17 Likely secondary to septic shock and complicated E coli UTI and bacteremia. Continue IV fluid resuscitation and CVVH through the Mamadou catheter on the right. Unable to get the TDC due to ongoing leukocytosis. We will re-evaluate as condition improves. Remains oliguric, continuing strict I&O monitoring through the foleys catheter Nephrology following New diagnosis of cirrhosis and splenomegaly: Possible portal hypertension induced Elevated alkaline phosphatase- discontinued propofol. Close monitoring of CMP CVP is between 5-10; unlikely cardiac induced nutmeg liver Follow ammonia. Continue Protonix 40 mg twice daily. Lactulose BID Paroxysmal AFib with RVR: Currently rate controlled and in sinus rhythm Amiodarone drip held CHADS-VASc- 4. Continue Eliquis Diabetes mellitus Continue the patient on low-dose sliding scale insulin Goal between 140-180 mg/dL Nutrition Continue tube feeds and currently on Vital HP at 55 mL/hour. Dietitian on board History of hypothyroidism On home medication of levothyroxine 175 mcg daily TSH on admission was 0.18, with normal free T4, low T3. Likely euthyroid sick syndrome Normocytic anemia Also on CRRT which is affecting volume status and varies druing the blood draw No acute GI/ blood losses observed; protonix 40mg BID Continue close monitoring of H&H. Likely anemia of chronic disease based on the iron panel Elevated alkaline phosphatase: Minimally elevated AST, normal ALT. Bilirubin also mildly elevated at 1.4. Ongoing elevation noted, we will consider abdominal ultrasound Continue propofol today. Watch closely for liver function tests and switch to an alternative sedative Constipation: Resolved, continue Senna and lactulose daily CODE STATUS: Full code DVT prophylaxis: Heparin GI prophylaxis: None Diet: Tube feeds Disposition: Continue management in the intensive care unit. Critical care time 35 minutes. Date of Service: Jan 24, 2025 Billing Provider: MARKSJODI MILLS MD,VANCE, RES Jan 24, 2025 18:15
[2025-01-24] MEDS: lactulose 20gm/30ml cup PO SCH (19:15)
[2025-01-24] MEDS ORDERED: pantoprazole 40MG/NS 100ML BAG 100 ML IV SCH (20:00)
[2025-01-24 21:02] LABS: MEAN PLATELET VOLUME 10.0 FL (7.4-10.4); RED CELL DISTRIBUTION WIDTH 15.8 % (11.5-14.5)
--- NOTE | 2025-01-24 21:04 | [facility] CONSULT REPORT ---
[facility] Procedure Note [facility] Procedure Note Consult [facility] Note # Demographics Type of EEG Read: - Routine EEG - video Patient Location: Inpatient First Name: Linad Last Name: Ronny Date of : 1945 Age: 79 Gender: Female Facility: [facility] Time of Initial Page (): 01/24/2025 12:40 First Contact with Site (): 01/24/2025 12:40 # EEG Interpretation Start Time of EEG Read (): 01/24/2025 13:03 Stop Time of EEG Read (): 01/24/2025 13:24 Duration: 0h 21m Technical Details: - The EEG electrodes were placed using the standard International 10-20 system of electrode placement. Video and an accessory EKG lead were used during the course of this study. - This study was recorded using the [employer] EEG software Indication: - altered mental status # Description Photic Stimulation: NOT Performed Hyperventilation: NOT performed Phases Captured: - unresponsive - sleep Symmetry: symmetric Posterior Dominant Rhythm: The record is continuous, of normal amplitude and bilaterally symmetrical. There was no clear posterior dominant rhythm captured. There is a moderate amount of diffuse low amplitude 15-25 Hz beta activity and moderate amount of 4-7 Hz theta activity. Occasional <4 Hz delta activity is present. With drowsiness, there is attenuation of the background alpha activity and a shift to slower frequencies. Amplitude: normal Reactivity: unclear Variability: unclear Continuity: continuous EKG: artifactual # Abnormalities Epileptiform Abnormalities: - NOT present Focal Slowing: no Seizure: - NOT present No push button events # Impression Impression: abnormal 1. Diffuse Slowing # Clinical Correlation Clinical Correlation: 1. Diffuse slowing is non-specific and may be seen in the setting of diffuse cerebral dysfunction; such as toxic/metabolic/infectious encephalopathy or heavily sedating medication use. # Demographics First Name: Linda Last Name: Ronny Facility: [facility] ROSALBA PAULINO MD Jan 24, 2025 21:04
[2025-01-24 21:16] LABS: CREATININE 0.54 MG/DL (0.40-0.90); TOTAL CARBON DIOXIDE 25.6 MMOL/L (24-32); eCRCL 69 ML/MIN; eGFR > 90 ML/MIN
[2025-01-24 21:17] LABS: PHOSPHORUS 2.2 MG/DL (2.3-4.5)
[2025-01-25] VITALS (44 sets, daily range): BP systolic 95–168; BP diastolic 34–78; PULSE 40–83; RESP 10–30; TEMP 97.2; O2SAT 96–100
[2025-01-25] MEDS: sodium phosphate inj. 30 MMOL in dextrose 5%-water 250 ML IV PRN (01:32)
[2025-01-25 02:46] LABS: MEAN PLATELET VOLUME 9.8 FL (7.4-10.4); RED CELL DISTRIBUTION WIDTH 15.3 % (11.5-14.5)
[2025-01-25 03:02] LABS: CALCIUM CVVH 8.6 MG/DL (8.5-10.1); CREATININE 0.65 MG/DL (0.40-0.90); PHOSPHORUS 2.3 MG/DL (2.3-4.5); TOTAL CARBON DIOXIDE 26.8 MMOL/L (24-32); eCRCL 57 ML/MIN; eGFR 88 ML/MIN
[2025-01-25 03:37] LABS: ABG BASE EXCESS 0.2 mmol/L (-2.0-3.0); ABG HCO3 24.6 mmol/L (21.0-28.0); ABG OXYGEN SATURATION 96.7 % (94.0-98.0); ABG PCO2 (T) 37.3 mmHg (32.0-45.0); ABG PH (T) 7.433 (7.350-7.450); ABG PO2 (T) 82.4 mmHg (83.0-108.0); FCOHb 2.5 % (0.5-1.5); FHHb 3.2 % (0.0-5.0); FIO2 30.0 mmHg/%; FMetHb 0.3 % (0.0-1.5); FO2Hb 94.0 % (94.0-98.0); MODE ac/prvc; PATIENT TEMPERATURE 36.0; PEEP 5 cm H2O; RESPIRATORY RATE 14 b/min; TIDAL VOLUME 450 mL; TOTAL HEMOGLOBIN 8.6 G/dl (12.0-16.0)
[2025-01-25 03:59] LABS: BANDS% (MANUAL) 2.0 % (0-10); EOSINOPHILS % (MANUAL) 3.0 % (0-6); LYMPHOCYTES % (MANUAL) 5.0 % (21-51); METAMYLEOCYTES% (MANUAL) 2.0 % (0-0); MONOCYTES % (MANUAL) 4.0 % (2-12); NEUTROPHILS % (MANUAL) 84.0 % (42-75)
[2025-01-25 04:00] LABS: PLATELET ESTIMATE NORMAL
[2025-01-25 05:14] LABS: HBSAG SCREEN Negative (Negative); HEP B CORE AB, IGM Negative (Negative)
--- NOTE | 2025-01-25 05:48 | RADIOLOGY REPORT ---
CHEST RADIOGRAPH Indication: ET Tube PLacement Technique: Single frontal view of the chest was obtained Comparison: CT CT CHEST ABDOMEN PELVIS W/ IV CONTRAST on DOS: 01/24/25 FINDINGS: Lines and Tubes: Right central venous catheter terminates in the superior vena cava. Endotracheal tube terminates 6.4 cm above the zachery. The enteric tube courses below the left hemidiaphragm and the tip extends outside the field of view. Lungs: Hazy bilateral opacities. Pleura: No effusion. No pneumothorax. Cardiomediastinal contours: Cardiomegaly. Bones: No acute osseous abnormality. IMPRESSION: 1. Support tubes in appropriate position. 2. Cardiomegaly with hazy bilateral pulmonary opacities.
[2025-01-25 07:57] LABS: MEAN PLATELET VOLUME 9.7 FL (7.4-10.4); RED CELL DISTRIBUTION WIDTH 15.7 % (11.5-14.5)
[2025-01-25 08:09] LABS: CALCIUM CVVH 8.4 MG/DL (8.5-10.1); CREATININE 0.77 MG/DL (0.40-0.90); PHOSPHORUS 5.0 MG/DL (2.3-4.5); TOTAL CARBON DIOXIDE 29.3 MMOL/L (24-32); eGFR 73 ML/MIN
--- NOTE | 2025-01-25 08:12 | PROGRESS NOTE ---
Progress Note Dictate Providers to CC ~ Central Line/PICC still needed: Yes Central Line/PICC Necessity: Prolonged IV access req Rogers Indications Met/Not Met: F/C Indications Met Antibiotic Ordered?: Yes Subjective Subjective The patient is on CVVH. CXR shows some haziness ? related to obesity. CT chest done yesterday fails to show any pleural effusion. NO hydronephrosis identified in the kidneys. Good negative fluid balance last 24 hours. we are aiming for 50-100 negative balance per hour as tolerated. if the membrane fails, will switch her to intermitted HD Objective Vitals Vital Signs Date Time Temp Pulse Resp B/P (MAP) Pulse Ox O2 Delivery O2 Flow Rate FiO2 01/25/25 10:28 44 14 97 30 01/25/25 10:00 97.3 122/42 (68) Mechanical Ventilator 01/24/25 20:00 0.0 Lab Results: 01/25/25 0745 01/25/25 0745 Objective Vital Signs: As above, remains on jose juan ventilator General: obese body habitus, no acute distress. Skin: No rashes, lumps, ulcers, blisters, purpura or petechiae HEENT: Anicteric sclera, DONTE Neck: Supple and nontender without enlargement of the thyroid, or lymphadenopathy. Chest: Normal size and shape, no tenderness, CTA bilaterally Heart: Regular. No jugular venous distention, S1 and S2 heard , no gallop Abdomen: Soft and non tender no organomegaly,BS+ Extremities: ++pedal edema Neuro: sedated. but is responsive Advance Care Planning Advanced Care plannin - 30 Minutes Problem\Assessment\Plan Problems/Diagnosis: (1) Acute respiratory failure Assessment & Plan: on ventilator. not weaning well yet. restless on weaning of sedation. encephalopthic. EEG pending. (2) Acute kidney injury Assessment & Plan: ATN due to septic shock. - avoid NSAIds -avoid Magnesium and aluminum based laxatives or antacids -don't use protocol based potassium replacement until recovery of renal function - has a temp cath now. -continue CVVH for now. aim for 50-100 cc negative fluid balance. (3) Septic shock Assessment & Plan: on antibiotics. due to fluctuating bP, we are continuing cvvh today. if the membrane fails later today, will consider stopping CVVH and switch her to intermittent HD starting tomorrow. (4) Edema of lower extremity Assessment & Plan: much better. aiming for 0-100 cc per hour as tolerataed. negative fluid balance (5) Acute urinary tract infection Assessment & Plan: there is mild hydronephrosis. due to pyelonephritis. CVVh in progress. needs a new line possibly TDC. Sepsis Screening Skin Color: Normal KRISTEN JACKSON MD Jan 25, 2025 08:12
[2025-01-25 08:37] LABS: PRO BRAIN NATRIURETIC PEPTIDE 665 PG/ML (0-450)
[2025-01-25] MEDS: propofol 1000mg/100ml bottle 100 ML IV SCH (10:47)
[2025-01-25] MEDS: CefTRIAXone/D5W-Rocephin 1gm 50 ML IV ONE (12:26)
[2025-01-25] MEDS ORDERED: albuterol 2.5 MG/3 ML nebule NEB PRN (13:45)
--- NOTE | 2025-01-25 13:46 | PROGRESS NOTE- Residence ---
Progress Note - Resident Providers to CC Resident Creating Document: VANCE JUSTICE RES ~ Central Line/PICC still needed: Yes Central Line/PICC Necessity: Prolonged IV access req Rogers-Non Protocol Rogers Indications Met/Not Met: F/C Indications Met Antibiotic Timeout Antibiotic Ordered?: Yes Subjective No significant improvement noted. On levophed, sedation and perssure support. Unable to tolerate cpap for too long. Continuing on CRRT. Current plan on pausing tomorrow. Objective Vital Signs Date Time Temp Pulse Resp B/P (MAP) Pulse Ox O2 Delivery O2 Flow Rate FiO2 01/25/25 13:00 15 30 01/25/25 13:00 96.6 49 114/39 (64) 96 Mechanical Ventilator 01/24/25 20:00 0.0 Result Diagram: 01/25/2545 01/25/25 0745 General: Mechanically ventilated and sedated Neck: Right Mamadou cath and left IJV present Resp: Diminished breath sounds in bilateral lung saha with expiratory wheezing noted Heart: Regular Rate and rhythm, normal S1 and S2, pansystolic blowing murmur 3/5 loudest in the tricuspid area Abdomen: Improved distention, Soft and non tender no organomegaly. Hyperactive bowel sounds. Cholecystectomy scar present on the right Extremities: Edema of the upper extremities present. No cyanosis, edema or pallor of the lower extremities. 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 No rashes Assessment Assessment 79 years old female with past medical history of hypothyroidism, congestive heart failure, hypertension, hyperlipidemia is admitted in the hospital for evaluation and management of altered level of consciousness. The patient was found to be in his septic shock secondary to a complicated UTI with associated respiratory distress requiring to be intubated and mechanically ventilated. Additionally also developed TEMITOPE from the septic shock with anuria and now is being continued management in the ICU. Plan Plan Septic shock: POA Most likely secondary to complicated UTI with bilateral pyelonephritis Metabolic encephalopathy secondary to above Leukemoid reaction improving. Negative blood cultures, last drawn on the 21 of January Rocephin increased to 2 g per day, continue complete 14 days of antibiotic therapy- five more days No change in management based on the CTA abdomen with mild hydronephrosis Continues to be on Levophed. Goal of map above 65. Hypotension likely secondary to septic shock, CRRT and on high-dose sedation EEG aligns with possible sedation induced slowing/metabolic encephalopathy SAT and SBT trials ongoing. RT eval and treat to wean off of mechanical ventilation Acute hypoxemic respiratory failure Likely secondary to bilateral atelectasis and pulmonary congestion/developing pneumonia Pulmonary arterial hypertension with RVSP 57 mmHg Difficult to wean off of ventilator No significant changes on chest x-ray. Cardiomegaly noted with diffuse reduced lung volumes Duo nebs q.4 scheduled and albuterol q.2h PRN. RT eval and treat with CPT Acute kidney injury secondary to septic shock and end-organ damage CRRT started on 01/17 Likely secondary to septic shock and complicated E coli UTI and bacteremia. Continue IV fluid resuscitation and CVVH through the Ammadou catheter on the right. Remains oliguric, continuing strict I&O monitoring through the foleys catheter Nephrology following New diagnosis of cirrhosis and splenomegaly: Possible portal hypertension induced Elevated alkaline phosphatase; restart propofol today in view of bradycardia and hypotension from Precedex. Expect in significant increase in alkaline phosphatase, patient is status post cholecystectomy and normal bile duct appearance. CVP is between 5-10; but patient has elevated RVSP. Possible nutmeg liver Ammonia within normal limits. Continue Protonix 40 mg twice daily. Lactulose BID to have at least 3-4 bowel movements/day Paroxysmal AFib with RVR: Currently rate controlled and in sinus rhythm Amiodarone drip held CHADS-VASc- 4. Continue Eliquis Diabetes mellitus Continue the patient on low-dose sliding scale insulin Goal between 140-180 mg/dL Nutrition Continue tube feeds and currently on Vital HP at 55 mL/hour. Dietitian on board History of hypothyroidism Currently euthyroid sick syndrome On home medication of levothyroxine 175 mcg daily TSH on admission was 0.18, with normal free T4, low T3. Normocytic anemia Also on CRRT which is affecting volume status and varies druing the blood draw No acute GI/ blood losses observed; protonix 40mg BID Continue close monitoring of H&H. Likely anemia of chronic disease based on the iron panel Constipation: Resolved, continue Senna and lactulose daily CODE STATUS: Full code DVT prophylaxis: Heparin GI prophylaxis: None Diet: Tube feeds Disposition: Continue management in the intensive care unit. Prognosis is poor. Begun the conversation regarding possible comfort care options with the family. Critical care time 35 minutes. Vance Justice PGY3, Internal medicine resident Date of Service: Jan 25, 2025 Billing Provider: JODI MARKS MD,VANCE, RES Jan 25, 2025 13:46
[2025-01-25 14:33] LABS: MEAN PLATELET VOLUME 9.4 FL (7.4-10.4); RED CELL DISTRIBUTION WIDTH 15.7 % (11.5-14.5)
[2025-01-25] MEDS: ipratropium/albuterol 3ml nebule NEB SCH (14:45)
[2025-01-25 14:49] LABS: CALCIUM CVVH 8.5 MG/DL (8.5-10.1); CREATININE 0.65 MG/DL (0.40-0.90); PHOSPHORUS 3.2 MG/DL (2.3-4.5); TOTAL CARBON DIOXIDE 29.0 MMOL/L (24-32); eGFR 88 ML/MIN
--- NOTE | 2025-01-25 18:33 | CARDIOLOGY REPORT ---
APPROVED REPORT EXAM: Comprehensive 2D, Doppler, and color-flow Echocardiogram. Patient Location: 2006 A Blood Pressure: 130/43 mmHg Heart Rate: 53 bpm Rhythm: SINUS BRADYCARDIA Indications CONGESTIVE HEART FAILURE HYPERTENSION ALOC [place]ocks Tender: unknown Previous echo: none 2D Dimensions IVSd 1.4 (0.7-1.1cm) LVDd 4.7 cm PWd 1.2 (0.7-1.1cm) IVSs 1.9 (0.8-1.2cm) LVDs 3.1 (2.5-4.0cm) PWs 1.5 (0.8-1.2cm) LVOT Diameter 2.08 (1.8-2.4cm) LVEF(%) 65.1 (>50%) FS (%) 35.6 % SV 67.9 ml CO 3.3 L/min M-Mode Dimensions Left Atrium(MM) 3.79 (2.5-4.0cm) Aortic Root 3.58 (2.2-3.7cm) Aortic Cusp Exc 1.44 (1.5-2.0cm) Aortic Valve AoV Peak Danial. 312.1 cm/s AoV VTI 71.0 cm AO Peak GR. 39.0 mmHg AO Mean GR. 21 mmHg LVOT VTI 33.11 cm LVOT Peak Danial. 158.8 cm/s HONORIO(VTI)/BSA 1.48 cm2/m2 HONORIO (VTI) 1.48 cm2 AV DI 0.47 % Mitral Valve MV E Velocity 153.7 cm/s MV Peak Gr. 16 mmHg MV DECEL TIME 368 ms MV A Velocity 126.0 cm/s MV PHT 56 ms E/A Ratio 1.2 MVA (PHT) 3.93 cm2 MV VMax 197.0 cm/s TDI Medial E' P. V 12.89 cm/s E/Medial E' 11.9 Tricuspid Valve TR P. Velocity 344 cm/s RAP ESTIMATE 10 mmHg TR Peak Gr. 47 mmHg RVSP 57 mmHg Pulmonary Vein S1 Velocity 53.8 cm/s D2 Velocity 35.8 cm/s PVa Velocity 31.4 cm/s PVa Duration 112 msec LEFT VENTRICLE Normal LV size and function. Moderate concentric hypertrophy. Overall LVEF is 60-65%. RIGHT VENTRICLE RV size and function appear normal. RVSP is estimated at 57 mmHg. ATRIA LA size is normal. AORTIC VALVE Trileaflet AV appears moderately sclerotic and calcified with moderate stenosis. HONORIO: 1.47 cmsq; Pkv: 3.12 m/sec; Gradients: 39 / 21 mmHG. Moderate insufficiency. MITRAL VALVE Mild MV annular calcification without stenosis. Mild regurgitation. TRICUSPID VALVE TV appears structurally normal with mild regurgitation. PULMONIC VALVE Normal PV without stenosis, mild insufficiency. GREAT VESSELS The aortic root is normal in size. PERICARDIUM Normal pericardium. No effusion. Other Information Study Quality: Adequate, but difficult due to patient being supine/intubated, body habitus. Conclusion Overall LVEF is 60-65%. Normal LV size and function. Moderate concentric hypertrophy. RV size and function appear normal. RVSP is estimated at 57 mmHg. Trileaflet AV appears moderately sclerotic and calcified with moderate stenosis. HONORIO: 1.47 cmsq; Pkv: 3.12 m/sec; Gradients: 39 / 21 mmHG. Moderate insufficiency. Mild MV annular calcification without stenosis. Mild regurgitation. TV appears structurally normal with mild regurgitation. Normal pericardium. No effusion.
--- NOTE | 2025-01-25 18:44 | PROGRESS NOTE ---
Daily Progress Note Providers to CC ~ Antibiotic Timeout Antibiotic Ordered?: Yes Subjective No significant improvement noted. On levophed, sedation and perssure support. failed weaning trials. Objective Vital Signs Date Time Temp Pulse Resp B/P (MAP) Pulse Ox O2 Delivery O2 Flow Rate FiO2 01/25/25 18:32 153/46 01/25/25 17:55 97.5 64 14 97 Mechanical Ventilator 30 01/24/25 20:00 0.0 Result Diagram: 01/25/25 1412 01/25/25 1412 General-patient is intubated, ill-appearing, lethargic HEENT-atraumatic normocephalic, neck supple without elevated JVD, Eyes-no icterus or pallor seen in eyes Chest- decreased breath sounds to auscultation bilaterally, Heart-S1-S2 normal, regular heart rate no murmur Abdomen bowel sounds positive on auscultation, soft nondistended nontender no guarding, no rigidity Neurology-lethargic unable to communicate and follow verbal commands Extremity- no pedal edema , not able to to move extremities Problem\Assessment\Plan 79 years old female with past medical history of hypothyroidism, congestive heart failure, hypertension, hyperlipidemia is admitted in the hospital for evaluation and management of altered level of consciousness. The patient was found to be in his septic shock secondary to a complicated UTI with associated respiratory distress requiring to be intubated and mechanically ventilated. Additionally also developed TEMITOPE from the septic shock with anuria and now is being continued management in the ICU. Septic shock likely 2/2 pyelonephritis Bacteremia- POA Bilateral pneumonia Gram-positive Gram-negative, mixed renato, POA Acute hypoxemic respiratory failure sedated on ventilator FiO2 30% Mixed respiratory and metabolic acidosis Intrinsic TEMITOPE 2/2 pyelonephritis/tubular stasis Renal failure, on CVVH, continuous venovenous hemofiltration Pulmonary nodule Metabolic encephalopathy 2/2 above -leukocytosis, elevated lactic acid and procal, UA positive UTI, blood cultures X 2 show positive for Gram-negative rods, CT scan of the abdomen is significant for mild left-sided hydronephrosis with a perinephric fat stranding. -albumin drip, pressors, meropenem, ventilated 01/15: UA E.coli, prelim blood cx gram neg analy; 01/16: Pansensitive E.coli bacteremia secondary to pyelonephritis, HD #2 01/17: off pressors, sedation Hyperlipidemia Hypothyroidism NIDDM low-dose sliding scale insulin, home levothyroxine, follow tsh/t4, lipid panel, a1c Normocytic anemia monitoring of H&H. CODE STATUS: Full code DVT prophylaxis: Heparin We will continue to follow patient along with the vascular neurologist team Sepsis Screening Skin Color: Normal Date of Service: Jan 25, 2025 Billing Provider: CATALINO OSEGUERA MD Common Visit Codes: [id number] INP/OBS CARE(MOD) CATALINO OSEGUERA MD Jan 25, 2025 18:44
[2025-01-25 20:21] LABS: MEAN PLATELET VOLUME 9.3 FL (7.4-10.4); RED CELL DISTRIBUTION WIDTH 15.8 % (11.5-14.5)
[2025-01-25 20:34] LABS: CALCIUM CVVH 8.4 MG/DL (8.5-10.1); CREATININE 0.67 MG/DL (0.40-0.90); PHOSPHORUS 2.7 MG/DL (2.3-4.5); TOTAL CARBON DIOXIDE 27.4 MMOL/L (24-32); eGFR 85 ML/MIN
--- NOTE | 2025-01-25 21:46 | PROGRESS NOTE ---
Progress Note Dictate Providers to CC ~Hypoxic resp failure Central Line/PICC still needed: N\A Rogers Indications Met/Not Met: F/C Indications Met Antibiotic Ordered?: N/A MRSA Education MRSA Education Provided to pt: N/A Objective Vitals Vital Signs Date Time Temp Pulse Resp B/P (MAP) Pulse Ox O2 Delivery O2 Flow Rate FiO2 01/25/25 20:54 60 25 100 30 01/25/25 20:24 100/34 01/25/25 19:17 Mechanical Ventilator 01/25/25 17:55 97.5 01/24/25 20:00 0.0 Lab Results: 01/25/25200401/25/252004 Counseling Services Smoking & Tobacco Cessation: N/A Advance Care Planning Advanced Care planning: N/A Problem\Assessment\Plan Additional Plan Assessment Assessment 79 years old female with past medical history of hypothyroidism, congestive heart failure, hypertension, hyperlipidemia is admitted in the hospital for evaluation and management of altered level of consciousness. The patient was found to be in his septic shock secondary to a complicated UTI with associated respiratory distress requiring to be intubated and mechanically ventilated. Additionally also developed TEMITOPE from the septic shock with anuria and now is being continued management in the ICU. Plan Plan Septic shock: POA Most likely secondary to complicated UTI with bilateral pyelonephritis Metabolic encephalopathy secondary to above Leukemoid reaction improving. Negative blood cultures, last drawn on the 21 of January Rocephin increased to 2 g per day, continue complete 14 days of antibiotic therapy- five more days No change in management based on the CTA abdomen with mild hydronephrosis Continues to be on Levophed. Goal of map above 65. Hypotension likely secondary to septic shock, CRRT and on high-dose sedation EEG aligns with possible sedation induced slowing/metabolic encephalopathy SAT and SBT trials ongoing. RT eval and treat to wean off of mechanical ventilation Acute hypoxemic respiratory failure Likely secondary to bilateral atelectasis and pulmonary congestion/developing pneumonia Pulmonary arterial hypertension with RVSP 57 mmHg Difficult to wean off of ventilator No significant changes on chest x-ray. Cardiomegaly noted with diffuse reduced lung volumes Duo nebs q.4 scheduled and albuterol q.2h PRN. RT eval and treat with CPT Acute kidney injury secondary to septic shock and end-organ damage CRRT started on 01/17 Likely secondary to septic shock and complicated E coli UTI and bacteremia. Continue IV fluid resuscitation and CVVH through the Mamadou catheter on the right. Remains oliguric, continuing strict I&O monitoring through the foleys catheter Nephrology following New diagnosis of cirrhosis and splenomegaly: Possible portal hypertension induced Elevated alkaline phosphatase; restart propofol today in view of bradycardia and hypotension from Precedex. Expect in significant increase in alkaline phosphatase, patient is status post cholecystectomy and normal bile duct appearance. CVP is between 5-10; but patient has elevated RVSP. Possible nutmeg liver Ammonia within normal limits. Continue Protonix 40 mg twice daily. Lactulose BID to have at least 3-4 bowel movements/day Paroxysmal AFib with RVR: Currently rate controlled and in sinus rhythm Amiodarone drip held CHADS-VASc- 4. Continue Eliquis Diabetes mellitus Continue the patient on low-dose sliding scale insulin Goal between 140-180 mg/dL Nutrition Continue tube feeds and currently on Vital HP at 55 mL/hour. Dietitian on board History of hypothyroidism Currently euthyroid sick syndrome On home medication of levothyroxine 175 mcg daily TSH on admission was 0.18, with normal free T4, low T3. Normocytic anemia Also on CRRT which is affecting volume status and varies druing the blood draw No acute GI/ blood losses observed; protonix 40mg BID Constipation: Resolved, continue Senna and lactulose daily Patient seen using HIPAA compliant audio visual aid CC time 35 mins Sepsis Screening Skin Color: Normal DARIEL SIMMONS MD Jan 25, 2025 21:46
[2025-01-26] VITALS (49 sets, daily range): BP systolic 95–170; BP diastolic 30–69; PULSE 59–113; RESP 12–26; O2SAT 91–100
[2025-01-26] MEDS: heparin, porcine 5000 units/ml vial IV ONE ×2 (01:17→01:18)
[2025-01-26] MEDS: heparin 1,000 units/ml 10ml inj HE ONE ×2 (01:21)
[2025-01-26 02:16] LABS: MEAN PLATELET VOLUME 9.4 FL (7.4-10.4); RED CELL DISTRIBUTION WIDTH 15.9 % (11.5-14.5)
[2025-01-26 02:36] LABS: CALCIUM CVVH 8.8 MG/DL (8.5-10.1); CREATININE 1.00 MG/DL (0.40-0.90); PHOSPHORUS 2.9 MG/DL (2.3-4.5); TOTAL CARBON DIOXIDE 26.4 MMOL/L (24-32); eCRCL 37 ML/MIN; eGFR 54 ML/MIN
[2025-01-26 03:32] LABS: ABG BASE EXCESS -0.2 mmol/L (-2.0-3.0); ABG HCO3 24.1 mmol/L (21.0-28.0); ABG OXYGEN SATURATION 96.9 % (94.0-98.0); ABG PCO2 (T) 38.0 mmHg (32.0-45.0); ABG PH (T) 7.421 (7.350-7.450); ABG PO2 (T) 88.3 mmHg (83.0-108.0); ALLEN'S TEST Modified; FCOHb 2.3 % (0.5-1.5); FHHb 3.0 % (0.0-5.0); FIO2 30.0 mmHg/%; FMetHb 0.3 % (0.0-1.5); FO2Hb 94.4 % (94.0-98.0); MODE ac/prvc; PATIENT TEMPERATURE 37.2; PEEP 5 cm H2O; RESPIRATORY RATE 14 b/min; TIDAL VOLUME 450 mL; TOTAL HEMOGLOBIN 8.0 G/dl (12.0-16.0)
--- NOTE | 2025-01-26 05:40 | RADIOLOGY REPORT ---
CHEST RADIOGRAPH Indication: ET Tube PLacement Technique: 1 view Comparison: DI CHEST,SINGLE VIEW on DOS: 01/25/25, DI CHEST,SINGLE VIEW on DOS: 01/24/25, DI CHEST,SINGLE VIEW on DOS: 01/23/25, DI CHEST,SINGLE VIEW on DOS: 01/22/25, DI CHEST,SINGLE VIEW on DOS: 01/21/25 FINDINGS: Lines and Tubes: Unchanged. Lungs/Pleura: Unchanged. Cardiomediastinum: Unchanged. Other: Unchanged osseous structures. IMPRESSION: No significant change from the previous day. Stable support devices. Persistent [id number] interstitial opacities with cardiomegaly.
[2025-01-26] MEDS: CefTRIAXone 2gm/D5W 50ml BAG 50 ML IV SCH (08:12)
[2025-01-26] MEDS ORDERED: methylPREDNISolone sod succ/PF 40mg inj. IV SCH (10:30)
--- NOTE | 2025-01-26 10:59 | PROGRESS NOTE- Residence ---
Progress Note - Resident Providers to CC Resident Creating Document: VANCE JUSTICE RES ~ Central Line/PICC still needed: Yes Central Line/PICC Necessity: Prolonged IV access req Rogers-Non Protocol Rogers Indications Met/Not Met: F/C Indications Met Antibiotic Timeout Antibiotic Ordered?: Yes Subjective Patient has had no significant changes since yesterday. Continues to be on pressure support, Levophed. Continues to be agitated without sedation. Intermittent dialysis starting from today; CRRT discontinued. Urine output slightly improved than prior. We discussed with the family regarding the possibility for tracheostomy and PEG tube placement if she fails to improve with this upcoming weekend. Objective Vital Signs Date Time Temp Pulse Resp B/P (MAP) Pulse Ox O2 Delivery O2 Flow Rate FiO2 01/26/25 10:34 106/39 01/26/25 10:30 16 01/26/25 09:56 100.4 113 93 Mechanical Ventilator 01/24/25 20:00 0.0 Result Diagram: 01/26/2519901/26/25 020 General: Mechanically ventilated and sedated Neck: Right Mamadou cath and left IJV present Resp: Diminished breath sounds in bilateral lung saha with expiratory wheezing noted Heart: Regular Rate and rhythm, normal S1 and S2, pansystolic blowing murmur 3/5 loudest in the tricuspid area Abdomen: Improved distention, Soft and non tender no organomegaly. Hyperactive bowel sounds. Cholecystectomy scar present on the right Extremities: Edema of the upper extremities present. No cyanosis, edema or pallor of the lower extremities. 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 No rashes Assessment Assessment 79 years old female with past medical history of hypothyroidism, congestive heart failure, hypertension, hyperlipidemia is admitted in the hospital for evaluation and management of altered level of consciousness. The patient was found to be in his septic shock secondary to a complicated UTI with associated respiratory distress requiring to be intubated and mechanically ventilated. Additionally also developed TEMITOPE from the septic shock with anuria and now is being continued management in the ICU. Plan Plan Septic shock: POA Most likely secondary to complicated UTI with bilateral pyelonephritis Metabolic encephalopathy secondary to above Leukemoid reaction improving. Negative blood cultures, last drawn on the 21 of January Rocephin increased to 2 g per day, continue until total of 14 days of antibiotic therapy. Stop date placed Continues to be on Levophed. Goal of map above 65 SAT and SBT trials ongoing. RT eval and treat to wean off of mechanical ventilation Acute hypoxemic respiratory failure Likely secondary to bilateral atelectasis and pulmonary congestion/developing pneumonia Pulmonary arterial hypertension with RVSP 57 mmHg Starting the patient on solumedrol 125 stat followed by 40mg daily from tomorrow No significant changes on chest x-ray. Cardiomegaly noted with diffuse reduced lung volumes Duo nebs q.4 scheduled and albuterol q.2h PRN. RT eval and treat with CPT Acute kidney injury secondary to septic shock and end-organ damage CRRT started on 01/17; stopped yesterday on 01/25/2025 Likely secondary to septic shock and complicated E coli UTI and bacteremia. Plan for possible intermittent dialysis. Requires a TDC when stable Remains oliguric, continuing strict I&O monitoring through the foleys catheter Nephrology following New diagnosis of cirrhosis and splenomegaly: Possible portal hypertension induced Elevated alkaline phosphatase; restart propofol today in view of bradycardia and hypotension from Precedex. Expect in significant increase in alkaline phosphatase, patient is status post cholecystectomy and normal bile duct appearance. CVP is between 5-10; but patient has elevated RVSP. Possible nutmeg liver Ammonia within normal limits. Continue Protonix 40 mg twice daily. Lactulose BID to have at least 3-4 bowel movements/day Paroxysmal AFib with RVR: Currently rate controlled and in sinus rhythm Amiodarone drip held CHADS-VASc- 4. Continue Eliquis Diabetes mellitus Continue the patient on low-dose sliding scale insulin Goal between 140-180 mg/dL Nutrition Continue tube feeds and currently on Vital HP at 55 mL/hour. Dietitian on board History of hypothyroidism Currently euthyroid sick syndrome On home medication of levothyroxine 175 mcg daily TSH on admission was 0.18, with normal free T4, low T3. Normocytic anemia Also on CRRT which is affecting volume status and varies druing the blood draw No acute GI/ blood losses observed; protonix 40mg BID Continue close monitoring of H&H. Likely anemia of chronic disease based on the iron panel Constipation: Resolved, continue Senna and lactulose daily CODE STATUS: Full code DVT prophylaxis: Heparin GI prophylaxis: None Diet: Tube feeds Disposition: Continue management in the intensive care unit. Prognosis is poor. Begun the conversation regarding possible comfort care versus tracheostomy and PEG tube placement options with the family. Critical care time 35 minutes. Vance Justice PGY3, Internal medicine resident Date of Service: Jan 26, 2025 Billing Provider: JODI MARKS MD,VANCE, RES Jan 26, 2025 10:59
--- NOTE | 2025-01-26 19:02 | PROGRESS NOTE ---
Daily Progress Note Providers to CC ~ Antibiotic Timeout Antibiotic Ordered?: Yes Subjective The patient remains on a ventilator sedated and per the retail sales assistant service will likely require tracheostomy and a PEG tube placement Objective Vital Signs Date Time Temp Pulse Resp B/P (MAP) Pulse Ox O2 Delivery O2 Flow Rate FiO2 01/26/25 18:40 129/44 01/26/25 17:51 99.7 92 17 92 Mechanical Ventilator 30 01/24/25 20:00 0.0 Result Diagram: 01/26/2519901/26/25199 Gen. sedated on a ventilator Lungs clear to ascultation bilaterally, no wheezes rales or rhonchi appreciated Heart normal sinus rhythm no murmurs rubs or clicks noted Abdomen soft nontender bowel sounds are normoactive Lower extremities no clubbing cyanosis, nor edema appreciated bilaterally Problem\Assessment\Plan 79 years old female with past medical history of hypothyroidism, congestive heart failure, hypertension, hyperlipidemia is admitted in the hospital for evaluation and management of altered level of consciousness. The patient was found to be in his septic shock secondary to a complicated UTI with associated respiratory distress requiring to be intubated and mechanically ventilated. Additionally also developed TEMITOPE from the septic shock with anuria and now is being continued management in the ICU. Septic shock likely 2/2 pyelonephritis Bacteremia- POA Bilateral pneumonia Gram-positive Gram-negative, mixed renato, POA Acute hypoxemic respiratory failure sedated on ventilator FiO2 30% Mixed respiratory and metabolic acidosis Intrinsic TEMITOPE 2/2 pyelonephritis/tubular stasis Renal failure, on CVVH, continuous venovenous hemofiltration Pulmonary nodule Metabolic encephalopathy 2/2 above -leukocytosis, elevated lactic acid and procal, UA positive UTI, blood cultures X 2 show positive for Gram-negative rods, CT scan of the abdomen is significant for mild left-sided hydronephrosis with a perinephric fat stranding. -albumin drip, pressors, meropenem, ventilated 01/15: UA E.coli, prelim blood cx gram neg analy; 01/16: Pansensitive E.coli bacteremia secondary to pyelonephritis, HD #2 01/17: off pressors, sedation 01/26 remains sedated on a ventilator per retail sales assistant service will likely require tracheostomy and PEG tube placement and is on a norepinephrine drip Hyperlipidemia Hypothyroidism NIDDM low-dose sliding scale insulin, home levothyroxine, 01/26 blood sugars remained controlled Normocytic anemia monitoring of H&H. Transfuse if hemoglobin drops below 7.0. CODE STATUS: Full code DVT prophylaxis: Heparin We will continue to follow patient along with the retail sales assistant team Sepsis Screening Skin Color: Normal Date of Service: Jan 26, 2025 Billing Provider: ADELFO MERAZ DO Common Visit Codes: [id number] INP/OBS CARE(HIGH) ADELFO MERAZ DO Jan 26, 2025 19:02
--- NOTE | 2025-01-26 20:05 | PROGRESS NOTE ---
Progress Note Dictate Providers to CC ~ Progress Note: 79 year old female admitted with respiratory failure. Placed back on full vent support. not following commands. Antibiotic Ordered?: Yes Objective Vitals Vital Signs Date Time Temp Pulse Resp B/P (MAP) Pulse Ox O2 Delivery O2 Flow Rate FiO2 01/26/25 19:43 79 12 Mechanical Ventilator 40 01/26/25 19:31 92 01/26/25 18:40 129/44 01/26/25 17:51 99.7 01/24/25 20:00 0.0 Lab Results: 01/26/25 0200 01/26/25 0200 Problem\Assessment\Plan Additional Plan Plan: plan for HD per renal levophed with goal map >65 will likely require trach and peg restarted on bowel regimen for constipation CCT 60 min using HIPPA compliant A/V technology Sepsis Screening Skin Color: Normal SVITLANA JOSE MD Jan 26, 2025 20:05
[2025-01-26] MEDS: lactulose 20gm/30ml cup OGT SCH (21:35)
[2025-01-27] VITALS (61 sets, daily range): BP systolic 91–167; BP diastolic 37–85; PULSE 69–109; RESP 8–28; TEMP 98.7; O2SAT 93–98
[2025-01-27 03:17] LABS: ABG BASE EXCESS -3.3 mmol/L (-2.0-3.0); ABG HCO3 21.7 mmol/L (21.0-28.0); ABG OXYGEN SATURATION 98.3 % (94.0-98.0); ABG PCO2 (T) 38.2 mmHg (32.0-45.0); ABG PH (T) 7.370 (7.350-7.450); ABG PO2 (T) 119.7 mmHg (83.0-108.0); ALLEN'S TEST POSITIVE; FCOHb 0.7 % (0.5-1.5); FHHb 1.7 % (0.0-5.0); FIO2 40.0 mmHg/%; FMetHb 0.3 % (0.0-1.5); FO2Hb 97.3 % (94.0-98.0); PATIENT TEMPERATURE 36.9; PEEP 5 cm H2O; RESPIRATORY RATE 18 b/min; TIDAL VOLUME 300 mL; TOTAL HEMOGLOBIN 8.4 G/dl (12.0-16.0)
[2025-01-27 03:20] LABS: MEAN PLATELET VOLUME 9.7 FL (7.4-10.4); RED CELL DISTRIBUTION WIDTH 17.3 % (11.5-14.5)
[2025-01-27 03:39] LABS: CREATININE 1.56 MG/DL (0.40-0.90); PHOSPHORUS 5.1 MG/DL (2.3-4.5); TOTAL CARBON DIOXIDE 25.1 MMOL/L (24-32); eCRCL 24 ML/MIN; eGFR 32 ML/MIN
--- NOTE | 2025-01-27 05:41 | RADIOLOGY REPORT ---
CHEST RADIOGRAPH Indication: ET Tube PLacement Technique: Single frontal view of the chest was obtained COMPARISON: DI CHEST,SINGLE VIEW on DOS: 01/26/25, DI CHEST,SINGLE VIEW on DOS: 01/25/25, CT CT CHEST ABDOMEN PELVIS W/ IV CONTRAST on DOS: 01/24/25, DI CHEST,SINGLE VIEW on DOS: 01/24/25, DI CHEST,SINGLE VIEW on DOS: 01/23/25 FINDINGS: Lines and Tubes: Unchanged. Lungs: Stable diffuse increased prominence of the pulmonary vasculature and small bilateral pleural effusions. No pneumothorax. Cardiomediastinal contours: Cardiomegaly. Bones: Unremarkable IMPRESSION: 1. Lines and tubes unchanged. 2. Cardiomegaly and diffuse increased prominence of the pulmonary vasculature.
[2025-01-27] MEDS: methylPREDNISolone sod succ/PF 40mg inj. IV SCH (07:29)
[2025-01-27] MEDS: insulin regular, human U-100 10ml vial - multi-dose SQ SCH (07:53)
[2025-01-27] MEDS ORDERED: albumin (human) 25% 100ml IV 100 ML IV PRN (08:35)
[2025-01-27] MEDS: COMMUNICATION ORDER 1 EA MISC MC ONE (10:00)
--- NOTE | 2025-01-27 10:45 | PROGRESS NOTE- Residence ---
Progress Note - Resident Providers to CC Resident Creating Document: VANCE JUSTICE RES ~ Central Line/PICC still needed: Yes Central Line/PICC Necessity: Req HD/Plasmapheresis Rogers-Non Protocol Rogers Indications Met/Not Met: F/C Indications Met Antibiotic Timeout Antibiotic Ordered?: Yes Subjective Continues to be sedated and on CPAP on the mechanical ventilator. Started dialysis today, removing 4 L through dialysis. No bowel movement, lactulose increased to q.6 hours. Objective Vital Signs Date Time Temp Pulse Resp B/P (MAP) Pulse Ox O2 Delivery O2 Flow Rate FiO2 01/27/25 10:05 92 14 162/69 (100) 94 Mechanical Ventilator 30 01/27/25 09:50 98.7 01/24/25 20:00 0.0 Result Diagram: 01/27/2519901/27/25199 General: Mechanically ventilated and sedated Neck: Right Mamadou cath and left IJV present Resp: Diminished breath sounds in bilateral lung saha Heart: Regular Rate and rhythm, normal S1 and S2, pansystolic blowing murmur 3/5 loudest in the tricuspid area Abdomen: Improved distention, Soft and non tender no organomegaly. Hyperactive bowel sounds. 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 No rashes Assessment Assessment 79 years old female with past medical history of hypothyroidism, congestive heart failure, hypertension, hyperlipidemia is admitted in the hospital for evaluation and management of altered level of consciousness. The patient was found to be in his septic shock secondary to a complicated UTI with associated respiratory distress requiring to be intubated and mechanically ventilated. Additionally also developed TEMITOPE from the septic shock with anuria and now is being continued management in the ICU. Plan Plan Septic shock: POA Most likely secondary to complicated UTI with bilateral mild nonobstructive pyelonephritis Metabolic encephalopathy secondary to above New onset leukocytosis secondary to steroids. Negative blood cultures, last drawn on the 21 of January Rocephin increased to 2 g per day, continue until total of 14 days of antibiotic therapy. Stop date placed Continues to be on Levophed. Goal of map above 65 SAT and SBT trials ongoing. RT eval and treat to wean off of mechanical ventilation If fails to improve, plan for trach and PEG next week Acute hypoxemic respiratory failure Likely secondary to bilateral atelectasis and pulmonary congestion/developing pneumonia Pulmonary arterial hypertension with RVSP 57 mmHg Continue Solu-Medrol 40mg daily No significant changes on chest x-ray. Cardiomegaly noted with diffuse reduced lung volumes Duo nebs q.4 scheduled and albuterol q.2h PRN. RT eval and treat with CPT Acute kidney injury secondary to septic shock and end-organ damage Intermittent hemodialysis starting today; CRRT from 01/17-01/25 Likely secondary to septic shock and complicated E coli UTI and bacteremia. Plan for TDC next week with IR Remains oliguric, continuing strict I&O monitoring through the foleys catheter Nephrology following New diagnosis of cirrhosis and splenomegaly: Possible portal hypertension induced Elevated alkaline phosphatase; likely secondary to propofol. Status post cholecystectomy and normal bile duct appearance. CVP is between 5-10; but patient has elevated RVSP. Possible nutmeg liver Ammonia within normal limits. Continue Protonix 40 mg twice daily. Lactulose q.6 hours to have at least 3-4 bowel movements/day Paroxysmal AFib with RVR: Currently rate controlled and in sinus rhythm Amiodarone drip held CHADS-VASc- 4. Continue Eliquis Diabetes mellitus Continue the patient on low-dose sliding scale insulin Goal between 140-180 mg/dL Nutrition Continue tube feeds and currently on Vital HP at 55 mL/hour. Dietitian on board History of hypothyroidism Currently euthyroid sick syndrome On home medication of levothyroxine 175 mcg daily TSH on admission was 0.18, with normal free T4, low T3. Normocytic anemia Also on CRRT which is affecting volume status and varies druing the blood draw No acute GI/ blood losses observed; protonix 40mg BID Continue close monitoring of H&H. Likely anemia of chronic disease based on the iron panel Constipation: Resolved, continue Senna and lactulose daily CODE STATUS: Full code DVT prophylaxis: Heparin GI prophylaxis: None Diet: Tube feeds Disposition: Continue management in the intensive care unit. Prognosis is poor. Begun the conversation regarding possible comfort care versus tracheostomy and PEG tube placement options with the family. Critical care time 35 minutes. Vance Justice PGY3, Internal medicine resident Date of Service: Jan 27, 2025 Billing Provider: OJDI MARKS MD,[facility], RES Jan 27, 2025 10:45
[2025-01-27] MEDS: EPOETIN ALFA-EPBX 20,000 UNIT/ML 1 ML MDV IV ONE (10:50)
[2025-01-27] MEDS: heparin 1,000unit/ml 10ml vial 10 ML IV ONE (10:51)
[2025-01-27] MEDS: heparin 1,000 units/ml 10ml inj IV ONE (10:52)
[2025-01-27] MEDS: heparin 1,000 units/ml 10ml inj HE ONE ×2 (10:52→10:53)
[2025-01-27] MEDS: insulin glargine (Lantus) pen - multi-dose SQ SCH (12:13)
--- NOTE | 2025-01-27 12:50 | PROGRESS NOTE ---
Progress Note Dictate Providers to CC ~ Central Line/PICC still needed: Yes Central Line/PICC Necessity: Req HD/Plasmapheresis Rogers Indications Met/Not Met: F/C Indications Met Antibiotic Ordered?: Yes Subjective Subjective met with daughter today and updated the renal status. She is dialysis dependent. HD being done currently. aiming for 3 liters off as tolerated. The catheter has been stithced back in by resident. plans to utilize the iR service next friday to place a TDc. the elevated wbc count is concerning. But the patient is also on steroids. no fever spikes so far. no positive new cultures. Objective Vitals Vital Signs Date Time Temp Pulse Resp B/P (MAP) Pulse Ox O2 Delivery O2 Flow Rate FiO2 01/27/25 12:35 90 9 139/67 (91) 95 Mechanical Ventilator 30 01/27/25 12:14 98.6 01/24/25 20:00 0.0 Lab Results: 01/27/25 0200 01/27/25 0200 Objective Vital Signs: As above, remains on jose juan ventilator General: obese body habitus, no acute distress. Skin: No rashes, lumps, ulcers, blisters, purpura or petechiae HEENT: Anicteric sclera, DONTE Neck: Supple and nontender without enlargement of the thyroid, or lymphadenopathy. Chest: Normal size and shape, no tenderness, CTA bilaterally Heart: Regular. No jugular venous distention, S1 and S2 heard , no gallop Abdomen: Soft and non tender no organomegaly,BS+ Extremities: ++pedal edema Neuro: sedated. but is responsive Advance Care Planning Advanced Care plannin - 30 Minutes Problem\Assessment\Plan Problems/Diagnosis: (1) Acute respiratory failure Assessment & Plan: on ventilator. not weaning well yet. restless on weaning of sedation. encephalopthic. heading towards trach and PEG. (2) Acute kidney injury Assessment & Plan: ATN due to septic shock. - avoid NSAIds -avoid Magnesium and aluminum based laxatives or antacids -don't use protocol based potassium replacement until recovery of renal function - has a temp cath now. -off CVVH on intermittent HD. hd in progress today (3) Septic shock Assessment & Plan: on antibiotics. of pressors. hd in progress. (4) Edema of lower extremity Assessment & Plan: much better. (5) Acute urinary tract infection Assessment & Plan: repeat CT scan does not show hydronephrosis. needs TDC eventually. Sepsis Screening Skin Color: Pale KRISTEN JACKSON MD Jan 27, 2025 12:50
[2025-01-27] MEDS: lactulose 20gm/30ml cup OGT SCH (14:54)
--- NOTE | 2025-01-27 20:36 | PROGRESS NOTE ---
Daily Progress Note Providers to CC ~ Antibiotic Timeout Antibiotic Ordered?: Yes Subjective The patient remains sedated on a ventilator only minimally responsive- is receiving dialysis today and will likely require a tunneling dialysis catheter as well as a trach he ostomy and a PEG tube placement Objective Vital Signs Date Time Temp Pulse Resp B/P (MAP) Pulse Ox O2 Delivery O2 Flow Rate FiO2 01/27/25 20:00 99.7 80 18 110/43 (65) 94 Mechanical Ventilator 30 01/24/25 20:00 0.0 Result Diagram: 01/27/2519901/27/25199 Gen. sedated on a ventilator Lungs clear to ascultation bilaterally, no wheezes rales or rhonchi appreciated Heart normal sinus rhythm no murmurs rubs or clicks noted Abdomen soft nontender bowel sounds are normoactive Lower extremities no clubbing cyanosis, nor edema appreciated bilaterally Problem\Assessment\Plan 79 years old female with past medical history of hypothyroidism, congestive heart failure, hypertension, hyperlipidemia is admitted in the hospital for evaluation and management of altered level of consciousness. The patient was found to be in his septic shock secondary to a complicated UTI with associated respiratory distress requiring to be intubated and mechanically ventilated. Additionally also developed TEMITOPE from the septic shock with anuria and now is being continued management in the ICU. Septic shock likely 2/2 pyelonephritis Bacteremia- POA Bilateral pneumonia Gram-positive Gram-negative, mixed renato, POA Acute hypoxemic respiratory failure sedated on ventilator FiO2 30% Mixed respiratory and metabolic acidosis Intrinsic TEMITOPE 2/2 pyelonephritis/tubular stasis Renal failure, on CVVH, continuous venovenous hemofiltration Pulmonary nodule Metabolic encephalopathy 2/2 above -leukocytosis, elevated lactic acid and procal, UA positive UTI, blood cultures X 2 show positive for Gram-negative rods, CT scan of the abdomen is significant for mild left-sided hydronephrosis with a perinephric fat stranding. -albumin drip, pressors, meropenem, ventilated 01/15: UA E.coli, prelim blood cx gram neg analy; 01/16: Pansensitive E.coli bacteremia secondary to pyelonephritis, HD #2 01/17: off pressors, sedation 01/26 remains sedated on a ventilator per plywood scarfer tender service will likely require tracheostomy and PEG tube placement and is on a norepinephrine drip 01/27 remains on a ventilator and norepinephrine drip- received dialysis today Hyperlipidemia Hypothyroidism NIDDM low-dose sliding scale insulin, home levothyroxine, 01/26 blood sugars remained controlled 01/27 blood sugar is up trending significantly likely secondary to addition of Solu-Medrol Normocytic anemia monitoring of H&H. Transfuse if hemoglobin drops below 7.0. CODE STATUS: Full code DVT prophylaxis: Heparin We will continue to follow patient along with the plywood scarfer tender team Sepsis Screening Skin Color: Normal Date of Service: Jan 27, 2025 Billing Provider: ADELFO MERAZ DO Common Visit Codes: [id number] INP/OBS CARE(HIGH) ADELFO MERAZ DO Jan 27, 2025 20:36
[2025-01-27] MEDS: mineral oil 133ml enema RC ONE (20:38)
--- NOTE | 2025-01-27 22:43 | PROGRESS NOTE ---
Progress Note Dictate Providers to CC ~septic shock Central Line/PICC still needed: N\A Rogers Indications Met/Not Met: F/C Indications Met Antibiotic Ordered?: N/A MRSA Education MRSA Education Provided to pt: N/A Objective Vitals Vital Signs Date Time Temp Pulse Resp B/P (MAP) Pulse Ox O2 Delivery O2 Flow Rate FiO2 01/27/25 22:36 79 22 98 Ventilator+ 30 01/27/25 22:02 117/40 01/27/25 22:00 99.5 01/24/25 20:00 0.0 Lab Results: 01/27/25 0200 01/27/25 0200 Counseling Services Smoking & Tobacco Cessation: N/A Advance Care Planning Advanced Care planning: N/A Problem\Assessment\Plan Additional Plan Problem\Assessment\Plan 79 years old female with past medical history of hypothyroidism, congestive heart failure, hypertension, hyperlipidemia is admitted in the hospital for evaluation and management of altered level of consciousness. The patient was found to be in his septic shock secondary to a complicated UTI with associated respiratory distress requiring to be intubated and mechanically ventilated. Additionally also developed TEMITOPE from the septic shock with anuria and now is being continued management in the ICU. Septic shock likely 2/2 pyelonephritis Bacteremia- POA Bilateral pneumonia Gram-positive Gram-negative, mixed renato, POA Acute hypoxemic respiratory failure sedated on ventilator FiO2 30% Mixed respiratory and metabolic acidosis Intrinsic TEMITOPE 2/2 pyelonephritis/tubular stasis Renal failure, on CVVH, continuous venovenous hemofiltration Pulmonary nodule Metabolic encephalopathy 2/2 above -leukocytosis, elevated lactic acid and procal, UA positive UTI, blood cultures X 2 show positive for Gram-negative rods, CT scan of the abdomen is significant for mild left-sided hydronephrosis with a perinephric fat stranding. -albumin drip, pressors, meropenem, ventilated 01/15: UA E.coli, prelim blood cx gram neg analy; 01/16: Pansensitive E.coli bacteremia secondary to pyelonephritis, HD #2 01/17: off pressors, sedation 01/26 remains sedated on a ventilator per panel machine setter service will likely require tracheostomy and PEG tube placement and is on a norepinephrine drip 01/27 remains on a ventilator and norepinephrine drip- received dialysis today overnight - waking up, on propofol and fentanyl Hyperlipidemia Hypothyroidism NIDDM low-dose sliding scale insulin, home levothyroxine, 01/26 blood sugars remained controlled 01/27 blood sugar is up trending significantly likely secondary to addition of Solu-Medrol Normocytic anemia monitoring of H&H. Transfuse if hemoglobin drops below 7.0. CODE STATUS: Full code DVT prophylaxis: Heparin Patient seen using HIPAA compliant ausio video aid Critical care time 35 mins Susanne Simmons MD Critical Care Sepsis Screening Skin Color: Normal SUSANNE SIMMONS MD Jan 27, 2025 22:43
[2025-01-28] VITALS (41 sets, daily range): BP systolic 104–160; BP diastolic 38–78; PULSE 67–140; RESP 8–22; O2SAT 95–98
[2025-01-28 02:37] LABS: MEAN PLATELET VOLUME 9.0 FL (7.4-10.4); RED CELL DISTRIBUTION WIDTH 21.4 % (11.5-14.5)
[2025-01-28 02:52] LABS: CREATININE 1.45 MG/DL (0.40-0.90); PHOSPHORUS 5.0 MG/DL (2.3-4.5); TOTAL CARBON DIOXIDE 27.4 MMOL/L (24-32); eCRCL 26 ML/MIN; eGFR 35 ML/MIN
[2025-01-28 03:31] LABS: ABG BASE EXCESS -0.1 mmol/L (-2.0-3.0); ABG HCO3 25.9 mmol/L (21.0-28.0); ABG OXYGEN SATURATION 98.3 % (94.0-98.0); ABG PCO2 (T) 48.8 mmHg (32.0-45.0); ABG PH (T) 7.342 (7.350-7.450); ABG PO2 (T) 110.3 mmHg (83.0-108.0); ALLEN'S TEST POSITIVE; FCOHb 1.5 % (0.5-1.5); FHHb 1.7 % (0.0-5.0); FIO2 30.0 mmHg/%; FMetHb 0.3 % (0.0-1.5); FO2Hb 96.5 % (94.0-98.0); PATIENT TEMPERATURE 36.8; PEEP 5 cm H2O; RESPIRATORY RATE 14 b/min; TIDAL VOLUME 450 mL; TOTAL HEMOGLOBIN 8.3 G/dl (12.0-16.0)
[2025-01-28 04:02] LABS: EOSINOPHILS % (MANUAL) 2.0 % (0-6); LYMPHOCYTES % (MANUAL) 8.0 % (21-51); MONOCYTES % (MANUAL) 5.0 % (2-12); NEUTROPHILS % (MANUAL) 85.0 % (42-75)
[2025-01-28 04:03] LABS: PLATELET ESTIMATE INCREASED
--- NOTE | 2025-01-28 05:57 | RADIOLOGY REPORT ---
CHEST RADIOGRAPH Indication: ET Tube PLacement Technique: Single frontal view of the chest was obtained COMPARISON: DI CHEST,SINGLE VIEW on DOS: 01/27/25, DI CHEST,SINGLE VIEW on DOS: 01/26/25, DI CHEST,SINGLE VIEW on DOS: 01/25/25, DI CHEST,SINGLE VIEW on DOS: 01/24/25, DI CHEST,SINGLE VIEW on DOS: 01/23/25 FINDINGS: Lines and Tubes: Slight interval advancement of endotracheal tube such that the tip now projects approximately 4.2 cm above the level of the zachery. Remaining lines and tubes unchanged. Lungs: Grossly stable appearing diffuse Increased prominence of the pulmonary vasculature and small bilateral pleural effusions. No pneumothorax. Cardiomediastinal contours: Cardiomegaly. Bones: Unremarkable IMPRESSION: 1. Stable diffuse increased prominence of the pulmonary vasculature and small bilateral pleural effusions. 2. Cardiomegaly. 3. Slight interval advancement of the endotracheal tube as above. Remaining lines and tubes unchanged.
--- NOTE | 2025-01-28 08:59 | PROGRESS NOTE ---
Progress Note Dictate Providers to CC ~ Central Line/PICC still needed: Yes Central Line/PICC Necessity: Req HD/Plasmapheresis Rogers Indications Met/Not Met: F/C Indications Met Antibiotic Ordered?: Yes Subjective Subjective WBC increasing further. solumedrol at 40mg per day currently. ? etiology for the leukocytosis. surveillance cultures ordered. also the line has been there for quite some time now. it was only exchanged with guide wire previously. It is worthwhile, dcing the cath and switch to a new site as a temp cath, and think about TDC when leukocytosis starts getting better. Objective Vitals Vital Signs Date Time Temp Pulse Resp B/P (MAP) Pulse Ox O2 Delivery O2 Flow Rate FiO2 01/28/25 12:08 20 01/28/25 11:57 124 Nasal Cannula 4.0 01/28/25 11:51 97 36 01/28/25 05:45 134/55 01/28/25 05:45 98.4 Lab Results: 01/28/25 0150 01/28/25 0150 Objective Vital Signs: As above, now extubated. on nasal cannula. General: obese body habitus, no acute distress. Skin: No rashes, lumps, ulcers, blisters, purpura or petechiae HEENT: Anicteric sclera, DONTE Neck: Supple and nontender without enlargement of the thyroid, or lymphadenopathy. Chest: Normal size and shape, no tenderness, CTA bilaterally Heart: Regular. No jugular venous distention, S1 and S2 heard , no gallop Abdomen: Soft and non tender no organomegaly,BS+ Extremities: no pedal edema Neuro: Advance Care Planning Advanced Care plannin - 30 Minutes Problem\Assessment\Plan Problems/Diagnosis: (1) Acute respiratory failure Assessment & Plan: off ventilator now. confused. not a candidate for PO feeding. needs NG feeds. Also she is being de lined. will need mid line vs PICC line (2) Acute kidney injury Assessment & Plan: ATN due to septic shock. - avoid NSAIds -avoid Magnesium and aluminum based laxatives or antacids -don't use protocol based potassium replacement until recovery of renal function - has a temp cath now. this is likely to be removed due to jose juan worsening leukocytosis. surveillance cultures ordered. HD again tomorrow. (3) Edema of lower extremity Assessment & Plan: much better. (4) Acute urinary tract infection Assessment & Plan: repeat CT scan does not show hydronephrosis. needs TDC eventually. (5) Septic shock Assessment & Plan: on antibiotics. of pressors. hd again tomorrow Sepsis Screening Skin Color: Normal KRISTEN JACKSON MD Jan 28, 2025 08:59
[2025-01-28] MEDS: insulin glargine (Lantus) pen - multi-dose SQ SCH ×2 (09:01→20:22)
[2025-01-28] MEDS: heparin 1,000 units/ml 10ml inj HE ONE ×2 (09:25→11:43)
[2025-01-28] MEDS: amiodarone/D5 450MG/250ML BAG 250 ML IV SCH ×2 (10:23→11:00)
[2025-01-28] MEDS: HYDROcodone/acetaminophen 5mg/325mg tablet PO PRN (12:08)
--- NOTE | 2025-01-28 12:17 | RADIOLOGY REPORT ---
Date: 01/28/2025 11:43 AM Examination: DI ABDOMEN,SINGLE VIEW(KUB) History: corpak Comparison: CT CT CHEST ABDOMEN PELVIS W/ IV CONTRAST on DOS: 01/24/25, CT CT CHEST ABDOMEN PELVIS on DOS: 01/14/25 TECHNIQUE: Frontal views of the abdomen was obtained. FINDINGS: Bowel gas pattern is unremarkable. The lung bases are unremarkable. No acute osseous abnormality identified. IMPRESSION: Nonobstructive bowel gas pattern. Weighted feeding tube tip in the distal stomach.
[2025-01-28] MEDS: insulin regular, human U-100 10ml vial - multi-dose SQ SCH (13:54)
--- NOTE | 2025-01-28 18:18 | PROGRESS NOTE- Residence ---
Progress Note - Resident Providers to CC Resident Creating Document: VANCE JUSTICE RES ~ Central Line/PICC still needed: No Rogers-Non Protocol Rogers Indications Met/Not Met: F/C Indications Met Antibiotic Timeout Antibiotic Ordered?: Yes Subjective Extubated today. Maintaining saturations well on 3 L oxygen via nasal cannula. New onset febrile episodes also noted. Objective Vital Signs Date Time Temp Pulse Resp B/P (MAP) Pulse Ox O2 Delivery O2 Flow Rate FiO2 01/28/25 17:00 100.2 97 20 120/51 (74) 96 01/28/25 14:54 Nasal Cannula 3.0 01/28/25 14:45 32 Result Diagram: 01/28/25 01501/28/25 015 General: Extubated. Confused and agitated Neck: Right Mamadou cath Resp: Diminished breath sounds in bilateral lung saha Heart: Tachycardia, normal S1 and S2, pansystolic blowing murmur 3/5 loudest in the tricuspid area Abdomen: Distended, Soft and non tender no organomegaly. Hyperactive bowel sounds. Cholecystectomy scar present on the right Extremities: No cyanosis, edema or pallor of the extremities STAFFING ASSOCIATE: Agitated, restless. Unable to follow commands Skin: Warm and Dry. No rashes Assessment Assessment 79 years old female with past medical history of hypothyroidism, congestive heart failure, hypertension, hyperlipidemia is admitted in the hospital for evaluation and management of altered level of consciousness. The patient was found to be in his septic shock secondary to a complicated UTI with associated respiratory distress requiring to be intubated and mechanically ventilated. Additionally also developed TEMITOPE from the septic shock with anuria and now is being continued management in the ICU. Plan Plan Septic shock: POA Most likely secondary to complicated UTI with bilateral mild nonobstructive pyelonephritis Metabolic encephalopathy secondary to above Ongoing leukocytosis. Negative blood cultures, last drawn on the 21 of January. Repeat blood cultures negative in 24 hours. Order for blood cultures to be taken from the Mamadou catheter Continue Rocephin 2 g per day, continue until total of 14 days of antibiotic therapy. Stop date placed Levophed discontinued Acute hypoxemic respiratory failure Likely secondary to bilateral atelectasis and pulmonary congestion/developing pneumonia Status post extubation today. Currently on nasal cannula oxygen Pulmonary arterial hypertension with RVSP 57 mmHg Solu-Medrol 40 mg daily for five days. Stop date reached No significant changes on chest x-ray. Cardiomegaly noted with diffuse reduced lung volumes Duo nebs q.4 scheduled and albuterol q.2h PRN. RT eval and treat with CPT Maintain saturations between 88 and 92% Acute kidney injury secondary to septic shock and end-organ damage Intermittent hemodialysis starting today; CRRT from 01/17-01/25 Likely secondary to septic shock and complicated E coli UTI and bacteremia. Plan for TDC next week with IR Improving urine output. Currently negative fluid balance, continuing strict I&O monitoring through the foleys catheter Nephrology following New diagnosis of cirrhosis and splenomegaly: Possible portal hypertension induced Elevated alkaline phosphatase; likely secondary to propofol. Status post cholecystectomy and normal bile duct appearance. CVP is between 5-10; but patient has elevated RVSP. Possible nutmeg liver Ammonia within normal limits. Continue Protonix 40 mg twice daily. Lactulose q.i.d. to have at least 3-4 bowel movements/day Paroxysmal AFib with RVR: Currently rate controlled and in sinus rhythm Amiodarone drip held CHADS-VASc- 4. Continue Eliquis Diabetes mellitus Continue the patient on low-dose sliding scale insulin Goal between 140-180 mg/dL Nutrition Continue tube feeds and currently on Vital HP at 55 mL/hour. Dietitian on board History of hypothyroidism Currently euthyroid sick syndrome On home medication of levothyroxine 175 mcg daily TSH on admission was 0.18, with normal free T4, low T3. Normocytic anemia No acute GI/ blood losses observed; protonix 40mg BID Continue close monitoring of H&H. Likely anemia of chronic disease based on the iron panel Constipation: Continue senna and lactulose Restless leg syndrome: Psychiatric history Acute ICU delirium Continue venlafaxine 150 mg daily and ropinirole 3 mg HS Seroquel 100 mg b.i.d. started today Frequent reorientation and maintain family visits to improve familiarization of surroundings CODE STATUS: Full code DVT prophylaxis: Heparin GI prophylaxis: None Diet: Tube feeds Disposition: Extubated today. We will continue monitoring her condition. Prognosis is guarded at this time Critical care time 35 minutes. Vance Justice PGY3, Internal medicine resident Date of Service: Jan 28, 2025 Billing Provider: JODI MARKS MD, DEEPANJALI, RES Jan 28, 2025 18:18
--- NOTE | 2025-01-28 19:29 | PROGRESS NOTE ---
Daily Progress Note Providers to CC ~ Antibiotic Timeout Antibiotic Ordered?: Yes Subjective The patient was extubated today- [place] [address] I have ordered blood cultures- the patient is blood sugars continued to up trend and I have ordered q.6 hour lispro at 5 units scheduled Objective Vital Signs Date Time Temp Pulse Resp B/P (MAP) Pulse Ox O2 Delivery O2 Flow Rate FiO2 01/28/25 19:15 19 96 Mechanical Ventilator 30 01/28/25 18:49 94 3.0 01/28/25 18:30 100.2 130/55 (80) Result Diagram: 01/28/25 01501/28/25 015 Gen. remains nonverbal however is no acute distress in his extubated Lungs clear to ascultation bilaterally, no wheezes rales or rhonchi appreciated Heart normal sinus rhythm no murmurs rubs or clicks noted Abdomen soft nontender bowel sounds are normoactive Lower extremities no clubbing cyanosis, nor edema appreciated bilaterally Problem\Assessment\Plan 79 years old female with past medical history of hypothyroidism, congestive heart failure, hypertension, hyperlipidemia is admitted in the hospital for evaluation and management of altered level of consciousness. The patient was found to be in his septic shock secondary to a complicated UTI with associated respiratory distress requiring to be intubated and mechanically ventilated. Additionally also developed TEMITOPE from the septic shock with anuria and now is being continued management in the ICU. Septic shock likely 2/2 pyelonephritis Bacteremia- POA Bilateral pneumonia Gram-positive Gram-negative, mixed renato, POA Acute hypoxemic respiratory failure sedated on ventilator FiO2 30% Mixed respiratory and metabolic acidosis Intrinsic TEMITOPE 2/2 pyelonephritis/tubular stasis Renal failure, on CVVH, continuous venovenous hemofiltration Pulmonary nodule Metabolic encephalopathy 2/2 above -leukocytosis, elevated lactic acid and procal, UA positive UTI, blood cultures X 2 show positive for Gram-negative rods, CT scan of the abdomen is significant for mild left-sided hydronephrosis with a perinephric fat stranding. -albumin drip, pressors, meropenem, ventilated 01/15: UA E.coli, prelim blood cx gram neg analy; 01/16: Pansensitive E.coli bacteremia secondary to pyelonephritis, HD #2 01/17: off pressors, sedation 01/26 remains sedated on a ventilator per detail drafter service will likely require tracheostomy and PEG tube placement and is on a norepinephrine drip 01/27 remains on a ventilator and norepinephrine drip- received dialysis today 01/28 extubated- white blood cell count continues to up trend possibly secondary to Solu-Medrol repeat blood cultures are ordered Hyperlipidemia Hypothyroidism NIDDM low-dose sliding scale insulin, home levothyroxine, 01/26 blood sugars remained controlled 01/27 blood sugar is up trending significantly likely secondary to addition of Solu-Medrol 01/28 and a high dose sliding scale, added lispro 5 units q.6 hours scheduled and Lantus was increased to 30 units b.i.d. Normocytic anemia monitoring of H&H. Transfuse if hemoglobin drops below 7.0. CODE STATUS: Full code DVT prophylaxis: Heparin We will continue to follow patient along with the detail drafter team Sepsis Screening Skin Color: Normal Date of Service: Jan 28, 2025 Billing Provider: ADELFO MERAZ DO Common Visit Codes: [id number] INP/OBS CARE(HIGH) ADELFO MERAZ DO Jan 28, 2025 19:29
[2025-01-29] VITALS (28 sets, daily range): BP systolic 111–169; BP diastolic 42–76; PULSE 75–92; RESP 10–18; O2SAT 90–100
[2025-01-29 04:07] LABS: MEAN PLATELET VOLUME 8.3 FL (7.4-10.4); RED CELL DISTRIBUTION WIDTH 21.6 % (11.5-14.5)
[2025-01-29 04:22] LABS: CREATININE 1.30 MG/DL (0.40-0.90); PHOSPHORUS 5.0 MG/DL (2.3-4.5); TOTAL CARBON DIOXIDE 28.1 MMOL/L (24-32); eCRCL 29 ML/MIN; eGFR 40 ML/MIN
[2025-01-29 04:49] LABS: PLATELET ESTIMATE INCREASED
[2025-01-29 05:43] LABS: ABG BASE EXCESS 1.6 mmol/L (-2.0-3.0); ABG HCO3 27.1 mmol/L (21.0-28.0); ABG OXYGEN SATURATION 98.5 % (94.0-98.0); ABG PCO2 (T) 47.2 mmHg (32.0-45.0); ABG PH (T) 7.376 (7.350-7.450); ABG PO2 (T) 119.3 mmHg (83.0-108.0); ALLEN'S TEST Modified; FCOHb 1.4 % (0.5-1.5); FHHb 1.5 % (0.0-5.0); FIO2 28.0 mmHg/%; FMetHb 0.0 % (0.0-1.5); FO2Hb 97.1 % (94.0-98.0); PATIENT TEMPERATURE 36.9; TOTAL HEMOGLOBIN 7.9 G/dl (12.0-16.0)
--- NOTE | 2025-01-29 06:16 | PROGRESS NOTE ---
Progress Note Dictate Providers to CC ~ Progress Note: No new acute issues overnight Central Line/PICC still needed: N\A Rogers Indications Met/Not Met: F/C Indications Met Antibiotic Ordered?: Yes Subjective Subjective Restless Objective Vitals Vital Signs Date Time Temp Pulse Resp B/P (MAP) Pulse Ox O2 Delivery O2 Flow Rate FiO2 01/29/25 05:50 98.4 79 14 151/55 (87) 99 Nasal Cannula 2.0 01/29/25 03:55 28 Lab Results: 01/29/25 0356 01/29/25 0356 Objective Heart: S1-2 irregular Lungs: Decrease BS at bases Abdomen: Soft, non-tender, BS (+) Ext: No edema Neuro: confuse Problem\Assessment\Plan Additional Plan 1-Sepsis -Complete abx course 2-Delirium -Continue Seroquel -Avoid Benzos 3-TEMITOPE -LIVESTOCK BROKER as per Nephrology -Will need Perma-cath 4-PAF -Change amiodarone to PO 5-Dysphagia -Will require PEG A Yamilka Sepsis Screening Reassessment Date: Jan 29, 2025 Skin Color: Normal JODI MARKS MD Jan 29, 2025 06:16
[2025-01-29] MEDS: venlafaxine XR 75mg capsule (Q24H) PO SCH (08:40)
--- NOTE | 2025-01-29 08:40 | PROGRESS NOTE ---
Progress Note Dictate Providers to CC ~ Central Line/PICC still needed: Yes Central Line/PICC Necessity: Prolonged IV access req Rogers Indications Met/Not Met: F/C Indications Met Antibiotic Ordered?: Yes Subjective Subjective Leukocytosis normalized today!! urine output excellent. Creatinine better from 1.4 to 1.3 without dialysis yesterday. the temp dialysis cath can come out afterall today!! Yay! edema regressing well. remains encephalopathic, needs PEG tube. If this continues, I shall sign off from renal standpoint. Objective Vitals Vital Signs Date Time Temp Pulse Resp B/P (MAP) Pulse Ox O2 Delivery O2 Flow Rate FiO2 01/29/25 07:27 84 16 Nasal Cannula 2.0 01/29/25 07:21 100 28 01/29/25 05:50 98.4 151/55 (87) Lab Results: 01/29/25 0356 01/29/25 0356 Objective Vital Signs: As above, now extubated. on nasal cannula. General: obese body habitus, no acute distress. Skin: No rashes, lumps, ulcers, blisters, purpura or petechiae HEENT: Anicteric sclera, DONTE Neck: Supple and nontender without enlargement of the thyroid, or lymphadenopathy. Chest: Normal size and shape, no tenderness, CTA bilaterally Heart: Regular. No jugular venous distention, S1 and S2 heard , no gallop Abdomen: Soft and non tender no organomegaly,BS+ Extremities: no pedal edema Neuro: Advance Care Planning Advanced Care plannin - 30 Minutes Problem\Assessment\Plan Problems/Diagnosis: (1) Acute respiratory failure Assessment & Plan: off ventilator now. confused. not a candidate for PO feeding. needs NG feeds. and pEG tube. Also she is being de lined. will need mid line vs PICC line. DC the Mamadou cath. discussed with . (2) Acute kidney injury Assessment & Plan: ATN due to septic shock. starting to recover. - avoid NSAIds -avoid Magnesium and aluminum based laxatives or antacids -don't use protocol based potassium replacement until recovery of renal function -Dc temp cath hold off dialysis henceforth. (3) Edema of lower extremity Assessment & Plan: much better. (4) Acute urinary tract infection Assessment & Plan: repeat CT scan does not show hydronephrosis. cancel TDC and dc the temp cath.. (5) Septic shock Assessment & Plan: on antibiotics. off pressors. Sepsis Screening Skin Color: Normal KRISTEN JACKSON MD Jan 29, 2025 08:40
--- NOTE | 2025-01-29 09:59 | RADIOLOGY REPORT ---
CHEST RADIOGRAPH Indication: follow up for chf Technique: Single frontal view of the chest was obtained COMPARISON: ANGIO LINE PLACEMENT(PICC NURSE) on DOS: 01/28/25, DI CHEST,SINGLE VIEW on DOS: 01/28/25, DI CHEST,SINGLE VIEW on DOS: 01/27/25, DI CHEST,SINGLE VIEW on DOS: 01/26/25, DI CHEST,SINGLE VIEW on DOS: 01/25/25 FINDINGS: Lines and Tubes: Right central venous catheter is unchanged overlying the course of the superior vena cava. Enteric catheter extends below the left hemidiaphragm out of the field of view. Lungs: Unchanged pulmonary vascular congestion. Pleura: No effusion.No pneumothorax. Cardiomediastinal contours: Cardiomegaly. Bones: Unremarkable IMPRESSION: Unchanged pulmonary vascular congestion.
[2025-01-29] MEDS ORDERED: ipratropium/albuterol 3ml nebule NEB PRN (16:00)
--- NOTE | 2025-01-29 19:54 | PROGRESS NOTE ---
Daily Progress Note Providers to CC ~ Antibiotic Timeout Antibiotic Ordered?: Yes Subjective The patient is white blood cell count has normalized and the patient is afebrile and renal function has improved the Mamadou catheter was discontinued and removed by Dr Johnson Objective Vital Signs Date Time Temp Pulse Resp B/P (MAP) Pulse Ox O2 Delivery O2 Flow Rate FiO2 01/29/25 18:18 16 01/29/25 18:00 98.8 91 111/54 (73) 95 Nasal Cannula 1.0 01/29/25 07:21 28 Result Diagram: 01/29/25 0356 01/29/25 0356 Gen. remains nonverbal however is no acute distress in his extubated Lungs clear to ascultation bilaterally, no wheezes rales or rhonchi appreciated Heart normal sinus rhythm no murmurs rubs or clicks noted Abdomen soft nontender bowel sounds are normoactive Lower extremities no clubbing cyanosis, nor edema appreciated bilaterally Problem\Assessment\Plan 79 years old female with past medical history of hypothyroidism, congestive heart failure, hypertension, hyperlipidemia is admitted in the hospital for evaluation and management of altered level of consciousness. The patient was found to be in his septic shock secondary to a complicated UTI with associated respiratory distress requiring to be intubated and mechanically ventilated. Additionally also developed TEMITOPE from the septic shock with anuria and now is being continued management in the ICU. Septic shock likely 2/2 pyelonephritis Bacteremia- POA Bilateral pneumonia Gram-positive Gram-negative, mixed renato, POA Acute hypoxemic respiratory failure sedated on ventilator FiO2 30% Mixed respiratory and metabolic acidosis Intrinsic TEMITOPE 2/2 pyelonephritis/tubular stasis Renal failure, on CVVH, continuous venovenous hemofiltration Pulmonary nodule Metabolic encephalopathy 2/2 above -leukocytosis, elevated lactic acid and procal, UA positive UTI, blood cultures X 2 show positive for Gram-negative rods, CT scan of the abdomen is significant for mild left-sided hydronephrosis with a perinephric fat stranding. -albumin drip, pressors, meropenem, ventilated 01/15: UA E.coli, prelim blood cx gram neg analy; 01/16: Pansensitive E.coli bacteremia secondary to pyelonephritis, HD #2 01/17: off pressors, sedation 01/26 remains sedated on a ventilator per glass smoother service will likely require tracheostomy and PEG tube placement and is on a norepinephrine drip 01/27 remains on a ventilator and norepinephrine drip- received dialysis today 01/28 extubated- white blood cell count continues to up trend possibly secondary to Solu-Medrol repeat blood cultures are ordered 01/29 white blood cell count is normal today, Mamadou catheter has been discontinued and the patient is renal function continues to improve- the patient continues to be confused and may be related to ICU encephalopathy. Hyperlipidemia Hypothyroidism NIDDM low-dose sliding scale insulin, home levothyroxine, 01/26 blood sugars remained controlled 01/27 blood sugar is up trending significantly likely secondary to addition of Solu-Medrol 01/28 and a high dose sliding scale, added lispro 5 units q.6 hours scheduled and Lantus was increased to 30 units b.i.d. Normocytic anemia monitoring of H&H. Transfuse if hemoglobin drops below 7.0. CODE STATUS: Full code DVT prophylaxis: Heparin We will continue to follow patient along with the glass smoother team Sepsis Screening Skin Color: Normal Date of Service: Jan 29, 2025 Billing Provider: ADELFO MERAZ DO Common Visit Codes: [id number] INP/OBS CARE(HIGH) ADELFO MERAZ DO Jan 29, 2025 19:54
[2025-01-29] MEDS: dexmedetomidin/NS 400mcg/100ml 100 ML IV PRN (22:33)
[2025-01-30] VITALS (27 sets, daily range): BP systolic 100–162; BP diastolic 42–71; PULSE 53–76; RESP 11–19; O2SAT 98–100
[2025-01-30 05:58] LABS: MEAN PLATELET VOLUME 8.3 FL (7.4-10.4); RED CELL DISTRIBUTION WIDTH 22.8 % (11.5-14.5)
[2025-01-30 06:10] LABS: CREATININE 1.06 MG/DL (0.40-0.90); PHOSPHORUS 4.1 MG/DL (2.3-4.5); TOTAL CARBON DIOXIDE 32.5 MMOL/L (24-32); eCRCL 35 ML/MIN; eGFR 50 ML/MIN
--- NOTE | 2025-01-30 06:21 | PROGRESS NOTE ---
Progress Note Dictate Providers to CC ~ Progress Note: No new acute issues overnight Central Line/PICC still needed: Yes Rogers Indications Met/Not Met: F/C Indications Met Antibiotic Ordered?: Yes Subjective Subjective Restless Objective Vitals Vital Signs Date Time Temp Pulse Resp B/P (MAP) Pulse Ox O2 Delivery O2 Flow Rate FiO2 01/30/25 05:48 97.3 60 14 103/52 (69) 100 Nasal Cannula 2.0 01/30/25 04:49 28 Lab Results: 01/30/25 0430 01/30/25 0430 Objective Heart: S1-2 irregular Lungs: Decrease BS at bases Abdomen: Soft, non-tender, BS (+) Ext: No edema Neuro: confuse Problem\Assessment\Plan Additional Plan 1-Sepsis -Complete abx course 2-Delirium -Continue Seroquel -Avoid Benzos 3-TEMITOPE -SUPPLIER QUALITY on hold as per Nephrology 4-PAF -Amiodarone PO 5-Dysphagia -Will require PEG A Yamilka Sepsis Screening Reassessment Date: Jan 30, 2025 Skin Color: Normal JODI MARKS MD Jan 30, 2025 06:21
[2025-01-30 06:44] LABS: PLATELET ESTIMATE INCREASED
[2025-01-30 14:35] LABS: CREATININE 1.12 MG/DL (0.40-0.90); TOTAL CARBON DIOXIDE 33.7 MMOL/L (24-32); eCRCL 33 ML/MIN; eGFR 47 ML/MIN
--- NOTE | 2025-01-30 18:52 | PROGRESS NOTE ---
Daily Progress Note Providers to CC ~ Antibiotic Timeout Antibiotic Ordered?: No Subjective The patient remains on a low dose of Precedex she has not squirming around the hospital bed today however she remains in restraints. The patient remains nonverbal Objective Vital Signs Date Time Temp Pulse Resp B/P (MAP) Pulse Ox O2 Delivery O2 Flow Rate FiO2 01/30/25 17:56 98.1 61 17 140/61 (87) 99 Nasal Cannula 2.0 01/30/25 07:33 28 Result Diagram: 01/30/25 0430 01/30/25 1414 Gen. remains nonverbal however is no acute distress Lungs clear to ascultation bilaterally, no wheezes rales or rhonchi appreciated Heart normal sinus rhythm no murmurs rubs or clicks noted Abdomen soft nontender bowel sounds are normoactive Lower extremities no clubbing cyanosis, nor edema appreciated bilaterally Problem\Assessment\Plan 79 years old female with past medical history of hypothyroidism, congestive heart failure, hypertension, hyperlipidemia is admitted in the hospital for evaluation and management of altered level of consciousness. The patient was found to be in his septic shock secondary to a complicated UTI with associated respiratory distress requiring to be intubated and mechanically ventilated. Additionally also developed TEMITOPE from the septic shock with anuria and now is being continued management in the ICU. Septic shock likely 2/2 pyelonephritis Bacteremia- POA Bilateral pneumonia Gram-positive Gram-negative, mixed renato, POA Acute hypoxemic respiratory failure sedated on ventilator FiO2 30% Mixed respiratory and metabolic acidosis Intrinsic TEMITOPE 2/2 pyelonephritis/tubular stasis Renal failure, on CVVH, continuous venovenous hemofiltration Pulmonary nodule Metabolic encephalopathy 2/2 above -leukocytosis, elevated lactic acid and procal, UA positive UTI, blood cultures X 2 show positive for Gram-negative rods, CT scan of the abdomen is significant for mild left-sided hydronephrosis with a perinephric fat stranding. -albumin drip, pressors, meropenem, ventilated 01/15: UA E.coli, prelim blood cx gram neg analy; 01/16: Pansensitive E.coli bacteremia secondary to pyelonephritis, HD #2 01/17: off pressors, sedation 01/26 remains sedated on a ventilator per manager plant service will likely require tracheostomy and PEG tube placement and is on a norepinephrine drip 01/27 remains on a ventilator and norepinephrine drip- received dialysis today 01/28 extubated- white blood cell count continues to up trend possibly secondary to Solu-Medrol repeat blood cultures are ordered 01/29 white blood cell count is normal today, Mamadou catheter has been discontinued and the patient is renal function continues to improve- the patient continues to be confused and may be related to ICU encephalopathy. 01/30 white blood cell count remains within normal limits and the patient remains afebrile- the patient continues to be encephalopathic and a restraints Precedex drip dose is being downtrend titrated Hyperlipidemia Hypothyroidism NIDDM low-dose sliding scale insulin, home levothyroxine, 01/26 blood sugars remained controlled 01/27 blood sugar is up trending significantly likely secondary to addition of Solu-Medrol 01/28 and a high dose sliding scale, added lispro 5 units q.6 hours scheduled and Lantus was increased to 30 units b.i.d. 01/30 blood sugars remained well controlled Normocytic anemia monitoring of H&H. Transfuse if hemoglobin drops below 7.0. Hypernatremia Free water is added to the tube feedings CODE STATUS: Full code DVT prophylaxis: Heparin We will continue to follow patient along with the manager plant team Sepsis Screening Skin Color: Normal Date of Service: Jan 30, 2025 Billing Provider: ADELFO MERAZ DO Common Visit Codes: [id number] INP/OBS CARE(HIGH) ADELFO MERAZ DO Jan 30, 2025 18:52
[2025-01-31] VITALS (28 sets, daily range): BP systolic 106–173; BP diastolic 43–74; PULSE 54–84; RESP 11–22; O2SAT 91–100
[2025-01-31 04:46] LABS: MEAN PLATELET VOLUME 8.5 FL (7.4-10.4); RED CELL DISTRIBUTION WIDTH 23.5 % (11.5-14.5)
[2025-01-31 04:50] LABS: CREATININE 1.06 MG/DL (0.40-0.90); PHOSPHORUS 4.4 MG/DL (2.3-4.5); TOTAL CARBON DIOXIDE 32.2 MMOL/L (24-32); eCRCL 35 ML/MIN; eGFR 50 ML/MIN
[2025-01-31 09:03] LABS: CREATININE 0.89 MG/DL (0.40-0.90); TOTAL CARBON DIOXIDE 34.8 MMOL/L (24-32); eCRCL 42 ML/MIN; eGFR 62 ML/MIN
[2025-01-31] MEDS: fentaNYL/PF 50MCG/1 ML 2ML syringe IV ONE (10:20)
[2025-01-31] MEDS: midazolam 1 mg/ML 2ml injection IV ONE (10:20)
--- NOTE | 2025-01-31 10:24 | PROGRESS NOTE ---
Progress Note Dictate Providers to CC ~ Central Line/PICC still needed: Yes Central Line/PICC Necessity: Prolonged IV access req Rogers Indications Met/Not Met: F/C Indications Met Antibiotic Ordered?: N/A Subjective Subjective Just checked labs as a follow up and I see continued spike in sodium. She is on 50 cc of D5W that was started by primary service. I have increased the free water. to follow up for any fluid overload, have ordered CXr. also ordered DDAVP x once to reduce the sodium levels. Na today is 157!! renal function seems to be ok. She has metabolic alkalosis. But the ABG on 01/29 did indicated that she is a CO2 retainer. Obviously this is a compensatory metabolic alkalosis. ph was still 7.37. She does not qualify yet for Diamox. Objective Vitals Vital Signs Date Time Temp Pulse Resp B/P (MAP) Pulse Ox O2 Delivery O2 Flow Rate FiO2 01/31/25 09:45 68 18 113/47 (69) 100 Nasal Cannula 2.0 01/31/25 07:14 28 01/31/25 06:00 97.7 Lab Results: 01/31/25 0310 01/31/25 0839 Objective Vital Signs: As above, now extubated. on nasal cannula. General: obese body habitus, no acute distress. Skin: No rashes, lumps, ulcers, blisters, purpura or petechiae HEENT: Anicteric sclera, DONTE Neck: Supple and nontender without enlargement of the thyroid, or lymphadenopathy. Chest: Normal size and shape, no tenderness, CTA bilaterally Heart: Regular. No jugular venous distention, S1 and S2 heard , no gallop Abdomen: Soft and non tender no organomegaly,BS+ Extremities: no pedal edema Neuro: Advance Care Planning Advanced Care plannin - 30 Minutes Problem\Assessment\Plan Problems/Diagnosis: (1) Acute respiratory failure Assessment & Plan: off ventilator now. confused. not a candidate for PO feeding. needs NG feeds. and pEG tube. Also she is being de lined. will need mid line vs PICC line. Mamadou out. BUN to creatinine ratio is high. needs some free water. (2) Acute kidney injury Assessment & Plan: ATN due to septic shock. starting to recover. resolved. (3) Edema of lower extremity Assessment & Plan: much better. (4) Acute urinary tract infection Assessment & Plan: repeat CT scan does not show hydronephrosis. temp cath for dialysis has been discontinued 3 - 4 days ago. (5) Septic shock Assessment & Plan: on antibiotics. off pressors. Sepsis Screening Skin Color: Normal KRISTEN JACKSON MD Jan 31, 2025 10:24
--- NOTE | 2025-01-31 11:01 | PROGRESS NOTE- Residence ---
Progress Note - Resident Providers to CC Resident Creating Document: VANCE JUSTICE RES ~ Central Line/PICC still needed: No Rogers-Non Protocol Rogers Indications Met/Not Met: F/C Indications Met Antibiotic Timeout Antibiotic Ordered?: No Subjective Patient continues to not follow commands. Difficulty in tracking with eyes. Daughter at bedside, discussed regarding the care plan today on PEG tube placement. Continues to have significant amount of vaginal bleeding. Urine output well-maintained, renal function normal. No febrile episodes, vitals stable. Objective Vital Signs Date Time Temp Pulse Resp B/P (MAP) Pulse Ox O2 Delivery O2 Flow Rate FiO2 01/31/25 09:45 68 18 113/47 (69) 100 Nasal Cannula 2.0 01/31/25 07:14 28 01/31/25 06:00 97.7 Result Diagram: 01/31/25 0310 01/31/25 0839 General: Lethargic, restless Resp: Conducted bilateral breath sounds Heart: Normal S1 and S2, pansystolic blowing murmur 3/5 loudest in the tricuspid area Abdomen: Distended, Soft and non tender no organomegaly. Hyperactive bowel sounds. Cholecystectomy scar present on the right Extremities: No cyanosis, edema or pallor of the extremities METALLURGICAL TECHNICIAN: Lethargic, not following commands. Genitourinary: Bleeding per vagina with the associated foul-smelling discharge, no external lesions noted. Rogers's catheter in place. Skin: Warm and Dry. No rashes Assessment Assessment 79 years old female with past medical history of hypothyroidism, congestive heart failure, hypertension, hyperlipidemia is admitted in the hospital for evaluation and management of altered level of consciousness. The patient was found to be in his septic shock secondary to a complicated UTI with associated respiratory distress requiring to be intubated and mechanically ventilated. Additionally also developed TEMITOPE from the septic shock with anuria and now is being continued management in the ICU. Plan Plan Septic shock: POA, resolved Most likely secondary to complicated UTI with bilateral mild nonobstructive pyelonephritis Antibiotics completed with Rocephin 2 g per day, total of 15 days antibiotic therapy received Extubated, not pressor dependent. Acute hypoxemic and hypercapnic respiratory failure Likely secondary to bilateral atelectasis/pulmonary congestion/ERICK induced hypercapnia Increasing serum Hco3; likely ERICK induced. Cor pulmonale evident on echo with RVSP of 57 A-a gradiet normal; nighttime CPAP Continuing nasal cannula oxygen, low oxygen requirement Duo nebs q.4 scheduled and albuterol q.2h PRN. RT eval and treat with CPT Mucinex b.i.d. Maintain saturations between 88 and 92% Acute encephalopathy: Metabolic and toxic Acute ICU delirium, Restless leg syndrome, Psychiatric history Metabolic likely secondary septic shock induced/hypernatremia, toxic likely secondary to prolonged sedation for mechanical ventilation CTA head on 01/14 negative intracranial abnormalities, EEG revealed diffuse slowing Follow repeat MRI of the head without contrast PEG tube placement today Correct high CO2 levels with CPAP One dose of DDAVP for hypernatremia, continue D5 water @125cc/hr. Follow BMP q.8 hours. Free water deficit of 6.3L. Correct 6-8meq in 24 hours Do not administer any benzodiazepines. Continue home medications of Effexor and Seroquel. Discontinued home medication of ropinirole Frequent reorientation with family Acute kidney injury secondary to septic shock and end-organ damage: Resolved HD stopped; CRRT from 01/17-01/25 Likely secondary to septic shock and complicated E coli UTI and bacteremia. Unlikely to require TDC Good urine output, recovering renal function Continuing strict I&O monitoring through the foleys catheter Hyperchloremic metabolic alkalosis: Hypernatremia, hyperchloremia and elevated bicarb Correct high sodium. IV fluid supplementation with D5 at 125 cc/hour. Strict output monitoring of the rectal tube; hold senna Also electrolyte abdnormalities from IVF; discontinue Na and Cl containing IVF Protonix to daily, decrease NG tube suctions New onset vaginal bleeding: Copious amount of foul smelling vaginal bleeding Ultrasound pelvis with duplex ordered We will consult KATTY Swift New diagnosis of cirrhosis and splenomegaly: Possible portal hypertension induced Elevated alkaline phosphatase; likely secondary to propofol. Status post cholecystectomy and normal bile duct appearance. CVP is between 5-10; but patient has elevated RVSP. Possible nutmeg liver Ammonia within normal limits. Continue Protonix 40 mg twice daily. Lactulose q.i.d. to have at least 3-4 bowel movements/day Paroxysmal AFib with RVR: Currently rate controlled and in sinus rhythm Amiodarone drip held CHADS-VASc- 4. Continue Eliquis Diabetes mellitus Continue the patient on low-dose sliding scale insulin Goal between 140-180 mg/dL Nutrition Continue tube feeds and currently on Vital HP at 55 mL/hour. Peg tube placement today by Dr. Zenon Quiñonesitishazia on board History of hypothyroidism Currently euthyroid sick syndrome On home medication of levothyroxine 175 mcg daily TSH on admission was 0.18, with normal free T4, low T3. Normocytic anemia No acute GI/ blood losses observed; protonix 40mg BID Continue close monitoring of H&H. Likely anemia of chronic disease based on the iron panel Constipation: Continue senna and lactulose CODE STATUS: Full code DVT prophylaxis: Eliquis GI prophylaxis: Protonix Diet: Tube feeds Disposition: PEG tube placement. MRI head for AMS. Prognosis is guarded at this time Critical care time 35 minutes. Vance Justice PGY3, Internal medicine resident Date of Service: Jan 31, 2025 Billing Provider: JODI MARKS MD,VANCE, RES Jan 31, 2025 11:01
--- NOTE | 2025-01-31 11:58 | RADIOLOGY REPORT ---
EXAM: DI CHEST,SINGLE VIEW Indication: follow up fluid overload Technique: Single frontal view of the chest was obtained Comparison: DI CHEST,SINGLE VIEW on DOS: 01/29/25, ANGIO LINE PLACEMENT(PICC NURSE) on DOS: 01/28/25, DI CHEST,SINGLE VIEW on DOS: 01/28/25, DI CHEST,SINGLE VIEW on DOS: 01/27/25, DI CHEST,SINGLE VIEW on DOS: 01/26/25 FINDINGS: Lines and Tubes: Enteric tube is visualized with tip coursing below the diaphragm. Lungs: Diffuse interstitial opacities. Pleura: No effusion. No pneumothorax. Cardiomediastinal contours: Unremarkable. Atherosclerotic vascular calcifications of the thoracic aorta are noted. Bones: No acute osseous abnormality. IMPRESSION: No acute cardiopulmonary disease.
[2025-01-31] MEDS ORDERED: nystatin 500,000 unit/5ML UD oral suspension PO SCH (13:00)
[2025-01-31] MEDS ORDERED: mineral oil/petrolatum ophthal oint EACHEYE SCH (14:00)
--- NOTE | 2025-01-31 14:13 | RADIOLOGY REPORT ---
INDICATION: Vaginal bleeding TECHNIQUE: Multiple real-time grayscale transabdominal sonographic images along with color and duplex Doppler of the uterus and ovaries were obtained. COMPARISON: CT CT CHEST ABDOMEN PELVIS W/ IV CONTRAST on DOS: 01/24/25, US ULTRASOUND KIDNEY NON VASC on DOS: 01/14/25, CT CT CHEST ABDOMEN PELVIS on DOS: 01/14/25 FINDINGS: The uterus measures 6.7 x 3.1 x 3.7 cm. The endometrial stripe measures 0.6cm. Bilateral ovaries are not well visualized due to obscuration from bowel gas. IMPRESSION: Endometrium measures 0.6 cm which is thickened in a postmenopausal patient with abnormal uterine bleeding. Correlate with endometrial tissue sampling.
[2025-01-31 14:31] LABS: CREATININE 1.00 MG/DL (0.40-0.90); TOTAL CARBON DIOXIDE 33.8 MMOL/L (24-32); eCRCL 37 ML/MIN; eGFR 54 ML/MIN
--- NOTE | 2025-01-31 14:36 | CONSULTATION ---
DATE OF CONSULTATION: 01/30/2025 DICTATING PHYSICIAN: Papi Jon MD REASON FOR CONSULTATION: Evaluation for PEG tube placement. HISTORY OF PRESENT ILLNESS: The patient is nonverbal. Much of the history was obtained by reviewing the chart and speaking to the nurses and ICU physician. The patient is 79 years old with history of septic shock admitted about 2 weeks ago with septic shock, likely secondary to pyelonephritis and bacteremia, and subsequently developed bacterial pneumonia, had respiratory failure and was on the ventilator. Apparently, the patient had been successfully extubated and she also had intercurrent problems, including respiratory acidosis, metabolic acidosis, acute kidney injury and metabolic encephalopathy. The patient has been in the hospital and multiple antibiotics have been given; however, apparently, according to the ICU doctors as well as the nurses, the patient has been not able to accept p.o. feeds. She has been on NG tube feeds, which is not sustainable for too long. I am consulted for PEG tube placement evaluation. She has normal leukocytes at this time. Urine output has been excellent. Creatinine level has been improving, now it is at 1.3. Her edema is regressing, but the patient remains encephalopathic. PAST MEDICAL HISTORY: Essentially as above. FAMILY HISTORY AND PERSONAL HISTORY: Noncontributory. REVIEW OF SYSTEMS: Cannot be performed. PHYSICAL EXAMINATION: She is not arousable, has an NG tube in place. She is extubated. Neck is supple. Heart and lungs normal. Abdomen is soft and nontender, no masses and no organomegaly. LABORATORY VALUES: Reviewed. IMPRESSION: The patient has a bit complicated course of sepsis, including pneumonia, urinary tract infection, renal failure and other intercurrent problems with respiratory failure, apparently doing better now. The patient has normalized with her laboratory values and other parameters. PEG tube placement seems prudent at this time. In the event she improves with her mental state and accepts oral feeds, PEG tube can be easily removed. PLAN: We will plan on placing the PEG tube and discuss with the family prior to doing the endoscopy and PEG tube placement and obtain the consent. The risks and benefits will be explained at the time we speak to the family. She is tentatively scheduled for PEG tube placement for tomorrow. Discussed with the ICU doctor. Papi Jon MD TID: [id number] RECEIPT: [id number] MICK/MARINA
--- NOTE | 2025-01-31 14:39 | CONSULTATION ---
DATE OF CONSULTATION: 01/30/2025 DICTATING PHYSICIAN: Papi Jon MD ADDENDUM Time spent more than 1 hour in the ICU at the bedside. Papi Jon MD TID: [id number] RECEIPT: [id number] PC/JOSÉ MIGUEL
--- NOTE | 2025-01-31 16:47 | PROGRESS NOTE ---
Daily Progress Note Providers to CC ~ Antibiotic Timeout Antibiotic Ordered?: No Subjective None , patient is quite lethargic but opens eyes to her name. Objective Vital Signs Date Time Temp Pulse Resp B/P (MAP) Pulse Ox O2 Delivery O2 Flow Rate FiO2 01/31/25 16:00 97.9 74 14 147/57 (87) 99 Nasal Cannula 1.0 01/31/25 07:14 28 Result Diagram: 01/31/25 0310 01/31/25 1406 Patient is nonverbal, Normocephalic, atraumatic, extraocular movements are intact, sclerae anicteric Neck supple, no JVD Chest: Clear to auscultation, no wheezes crackles rhonchi Heart: Regular rate rhythm, no murmur or gallop rub Abdomen is soft, no organomegaly, peg tube noted Extremities no cyanosis clubbing or edema Neuro exam difficult to assess. Patient barely moves. Other Results Medications reviewed Problem\Assessment\Plan Patient is a 79 years old female who presented to the ER for evaluation of altered mental status. #septic shock: Secondary to pyelonephritis. Continue supportive care Onset acute hypoxemic respiratory failure: Patient required ventilator has been extubated doing well. Continue supplemental oxygen. # bacteremia present on admission: Continue IV antibiotics. # bilateral pneumonia: Antibiotics as noted above # acute kidney injury: Continue monitor daily BMP. On CVVH #hyperlipidemia: Not on any medications at this time. Deferred to the swatch clerk. # AFib with RVR: Continue amiodarone and Eliquis. #hypertension: Patient is on losartan #hypothyroidism : Continue levothyroxine #NIDDM: Correctional insulin #hypernatremia: Continue monitor daily BMP. Free fluids per swatch clerk #vaginal bleeding: OBGYN Dr. Huff has been consulted as per swatch clerk notes. # new diagnosis of cirrhosis and splenomegaly: Ammonia within normal limits. Continue Protonix and lactulose. #PEG tube feeding # code status: Full code # GI prophylaxis: Protonix IV Critical care time spent in excess of 35 minutes. Discussed in the case management meeting. Sepsis Screening Skin Color: Normal Date of Service: Jan 31, 2025 Billing Provider: SAMUEL CEJA MD Common Visit Codes: [id number] CARE 30-74 MIN SAMUEL CEJA MD Jan 31, 2025 16:47
[2025-01-31 17:49] LABS: ABG BASE EXCESS 1.7 mmol/L (-2.0-3.0); ABG HCO3 26.2 mmol/L (21.0-28.0); ABG OXYGEN SATURATION 96.0 % (94.0-98.0); ABG PCO2 (T) 40.9 mmHg (32.0-45.0); ABG PH (T) 7.425 (7.350-7.450); ABG PO2 (T) 84.5 mmHg (83.0-108.0); ALLEN'S TEST Modified; FCOHb 1.4 % (0.5-1.5); FHHb 3.9 % (0.0-5.0); FIO2 24.0 mmHg/%; FLOW 1 L/min; FMetHb 0.3 % (0.0-1.5); FO2Hb 94.4 % (94.0-98.0); MODE NASAL CANNULA; PATIENT TEMPERATURE 37.0; TOTAL HEMOGLOBIN 9.1 G/dl (12.0-16.0)
[2025-01-31] MEDS ORDERED: midazolam 1 mg/ML 2ml injection IV ONE ×2 (17:55→18:00)
[2025-01-31] MEDS ORDERED: fentaNYL/PF 50MCG/1 ML 2ML syringe IV ONE (18:00)
[2025-01-31] MEDS: guaiFENesin ER 600mg tablet PO SCH (19:12)
--- NOTE | 2025-01-31 20:00 | PROGRESS NOTE ---
Progress Note Dictate Providers to CC ~ Progress Note: 79 year old female admitted with respiratory failure now extubated and encephalopathic. intermittently follows commands. peg placed by gi today, CTH unremarkable. Antibiotic Ordered?: N/A Objective Vitals Vital Signs Date Time Temp Pulse Resp B/P (MAP) Pulse Ox O2 Delivery O2 Flow Rate FiO2 01/31/25 19:13 77 12 98 Nasal Cannula* 1 24 01/31/25 18:59 98.4 141/52 (81) Lab Results: 01/31/25 0310 01/31/25 1406 Problem\Assessment\Plan Additional Plan Plan: MRI in am continue to reorient as needed fwf through peg d5w at 125cc/hr for hypernatremia bmp Q6hr CCT 57 min using HIPPA compliant A/V technology Sepsis Screening Skin Color: Normal SVITLANA JOSE MD Jan 31, 2025 20:00
[2025-01-31] MEDS: dexmedetomidin/NS 400mcg/100ml 100 ML IV PRN (21:11)
[2025-01-31 22:47] LABS: CREATININE 0.80 MG/DL (0.40-0.90); TOTAL CARBON DIOXIDE 28.4 MMOL/L (24-32); eCRCL 47 ML/MIN; eGFR 70 ML/MIN
[2025-02-01] VITALS (26 sets, daily range): BP systolic 96–157; BP diastolic 36–92; PULSE 55–87; RESP 9–22; O2SAT 93–100
[2025-02-01 01:01] LABS: CREATININE 0.95 MG/DL (0.40-0.90); TOTAL CARBON DIOXIDE 31.3 MMOL/L (24-32); eCRCL 39 ML/MIN; eGFR 57 ML/MIN
[2025-02-01 02:32] LABS: MEAN PLATELET VOLUME 8.1 FL (7.4-10.4); RED CELL DISTRIBUTION WIDTH 22.6 % (11.5-14.5)
[2025-02-01 02:46] LABS: CREATININE 0.97 MG/DL (0.40-0.90); PHOSPHORUS 3.4 MG/DL (2.3-4.5); TOTAL CARBON DIOXIDE 31.3 MMOL/L (24-32); eCRCL 38 ML/MIN; eGFR 56 ML/MIN
[2025-02-01] MEDS ORDERED: acetaminophen 325mg/10.15ml oral unit dose solution PEG PRN (06:28)
[2025-02-01] MEDS ORDERED: DEXTROSE 15 GM of carb/4 tabs (each vial/BOTTLE has 4 tablets) PEG PRN ×2 (06:29)
[2025-02-01] MEDS ORDERED: POTASSIUM CHLORIDE 20 MEQ/15 ML oral solution PEG PRN (06:31)
[2025-02-01 06:58] LABS: CREATININE 0.97 MG/DL (0.40-0.90); TOTAL CARBON DIOXIDE 30.7 MMOL/L (24-32); eCRCL 38 ML/MIN; eGFR 56 ML/MIN
[2025-02-01] MEDS: levoTHYROXINE 175mcg tablet PEG SCH (07:56)
--- NOTE | 2025-02-01 09:14 | PROGRESS NOTE- Residence ---
Progress Note - Resident Providers to CC Resident Creating Document: VANCE JUSTICE, RES ~ Central Line/PICC still needed: No Rogers-Non Protocol Rogers Indications Met/Not Met: F/C Indications Met Antibiotic Timeout Antibiotic Ordered?: No Subjective No significant change in mental status overnight. However, required Precedex through the night due to increased agitation. Discussed which has a bleeding with Dr. Huff, recommends outpatient follow up for endometrial biopsy. Patient was sat up on the side of the bed on a chair. Soon after, she developed bradycardia and a 5-10sec of apnea with desaturation. Soon after she was laid down flat, the episode resolved. Objective Vital Signs Date Time Temp Pulse Resp B/P (MAP) Pulse Ox O2 Delivery O2 Flow Rate FiO2 02/01/25 08:24 98.8 68 14 96/48 (64) 99 Nasal Cannula 1.0 01/31/25 19:13 24 Result Diagram: 02/01/25 0150 02/01/25 0612 General: Lethargic, restless Resp: Conducted bilateral breath sounds Heart: Normal S1 and S2, pansystolic blowing murmur 3/5 loudest in the tricuspid area Abdomen: Distended, Soft and non tender no organomegaly. Hyperactive bowel sounds. Cholecystectomy scar present on the right Extremities: No cyanosis, edema or pallor of the extremities FOREIGN CLERK: Lethargic, not following commands. Genitourinary: Bleeding per vagina with the associated foul-smelling discharge, no external lesions noted. Rogers's catheter in place. Skin: Warm and Dry. No rashes. Abrasion on the occiput Assessment Assessment 79 years old female with past medical history of hypothyroidism, congestive heart failure, hypertension, hyperlipidemia is admitted in the hospital for evaluation and management of altered level of consciousness. The patient was found to be in his septic shock secondary to a complicated UTI with associated respiratory distress requiring to be intubated and mechanically ventilated. Additionally also developed TEMITOPE from the septic shock with anuria and now is being continued management in the ICU. Plan Plan Acute encephalopathy: Metabolic and toxic Acute ICU delirium, Restless leg syndrome, Psychiatric history Metabolic likely secondary septic shock induced/hypernatremia, toxic likely secondary to prolonged sedation for mechanical ventilation CT head on 01/14 negative intracranial abnormalities, EEG revealed diffuse slowing PEG tube placed; nutrition to ensure accurate caloric intake One dose of DDAVP for hypernatremia. Increase free water flushes. Follow BMP q.8 hours. Free water deficit of 4.2 L. Correct 6-8meq in 24 hours Do not administer any benzodiazepines. Continue home medications of Effexor and Seroquel. Discontinued home medication of ropinirole Frequent reorientation with family Requires long-term placement to rehab Septic shock: POA, resolved Most likely secondary to complicated UTI with bilateral mild nonobstructive pyelonephritis Antibiotics completed with Rocephin 2 g per day, total of 15 days antibiotic therapy received Extubated, not pressor dependent. Acute hypoxemic respiratory failure: Improving Hypercapnic competent resolved Likely secondary to bilateral atelectasis/pulmonary congestion/ ERICK Hypercapnia and metabolic alkalosis resolved. Requiring CPAP at this time. A-a gradient normal Continuing nasal cannula oxygen, low oxygen requirement Duo nebs q.4 scheduled and albuterol q.2h PRN. RT eval and treat with CPT Guaifenesin b.i.d. through [facility] Maintain saturations between 88 and 92% Acute kidney injury secondary to septic shock and end-organ damage: Resolved HD stopped; CRRT from 01/17-01/25 Likely secondary to septic shock and complicated E coli UTI and bacteremia. Unlikely to require TDC Good urine output, recovering renal function Continuing strict I&O monitoring through the foleys catheter Hyperchloremic metabolic alkalosis: Hypernatremia, hyperchloremia and elevated bicarb Correct high sodium with increased free water flushes. Strict output monitoring of the rectal tube; hold senna Also electrolyte abdnormalities from IVF; discontinue Na and Cl containing IVF Protonix to daily, decrease NG tube suctions New onset vaginal bleeding: Discussed with Dr. Huff, outpatient endometrial biopsy for increased endometrial thickness Vaginal bleeding also likely secondary to Eliquis Follow coagulation panel New diagnosis of cirrhosis and splenomegaly: Possible portal hypertension induced Elevated alkaline phosphatase; likely secondary to propofol. Status post cholecystectomy and normal bile duct appearance. CVP is between 5-10; but patient has elevated RVSP. Possible nutmeg liver Ammonia within normal limits. Continue Protonix 40 mg daily. Maintaining 3-4 bowel movements/day Paroxysmal AFib with RVR: Currently rate controlled and in sinus rhythm Amiodarone drip held CHADS-VASc- 4. Continue Eliquis Diabetes mellitus Continue the patient on low-dose sliding scale insulin Goal between 140-180 mg/dL Nutrition Continue tube feeds and currently on Vital HP at 55 mL/hour. Peg tube placement today by Dr. Zenon Webb on board History of hypothyroidism Currently euthyroid sick syndrome On home medication of levothyroxine 175 mcg daily TSH on admission was 0.18, with normal free T4, low T3. Normocytic anemia No acute GI/ blood losses observed; protonix 40mg BID Continue close monitoring of H&H. Likely anemia of chronic disease based on the iron panel Constipation: Resolved CODE STATUS: Full code DVT prophylaxis: Eliquis GI prophylaxis: Protonix Diet: Tube feeds Disposition: Prognosis is guarded. Plan to transfer to a assisted living facility for dedicated intermodal truck driver care Critical care time 35 minutes. Vance Justice PGY3, Internal medicine resident Date of Service: Feb 01, 2025 Billing Provider: JODI MARKS MD,VANCE, RES Feb 01, 2025 09:14
[2025-02-01 10:10] LABS: APTT 26 SECONDS (22-32); INR 1.1 INR
[2025-02-01] MEDS: midazolam 1 mg/ML 2ml injection IV ONE (11:51)
[2025-02-01] MEDS: fentaNYL/PF 50MCG/1 ML 2ML syringe IV ONE (11:51)
--- NOTE | 2025-02-01 12:29 | PROGRESS NOTE- Residence ---
Progress Note - Resident Providers to CC Resident Creating Document: PETER ESPINOSA CC: GABRIEL SUNG MD ~ Antibiotic Timeout Antibiotic Ordered?: Yes Subjective Patient was examined at bedside in CICU. Patient is drowsy and not able to follow commands or answer questions. PEG tube placed yesterday Objective Vital Signs Date Time Temp Pulse Resp B/P (MAP) Pulse Ox O2 Delivery O2 Flow Rate FiO2 02/01/25 11:57 98.6 72 11 136/59 (84) 95 Nasal Cannula 2.0 01/31/25 19:13 24 Result Diagram: 02/01/25 0150 02/01/25 0612 General: Lethargic, drowsy, restless Resp: Conducted bilateral breath sounds Heart: Normal S1 and S2, pansystolic blowing murmur 3/5 loudest in the tricuspid area Abdomen: PEG tube in place. Distended, Soft and non tender no organomegaly. Hyperactive bowel sounds. Cholecystectomy scar present on the right Extremities: No cyanosis, edema or pallor of the extremities IC DESIGNER STANDARD CELLS: Lethargic, not following commands. Genitourinary: Bleeding per vagina with the associated foul-smelling discharge, no external lesions noted. Rogers's catheter in place. Skin: Warm and Dry. No rashes. Abrasion on the occiput Coagulation Studies Laboratory Tests Test 02/01/25 09:45 Prothrombin Time 11.5 SECONDS (9.0-12.0) INR International Normalized Ratio 1.1 INR Activated Partial Thromboplast Time 26 SECONDS (22-32) Coagulation Comments Assessment Assessment 79 years old female with past medical history of hypothyroidism, congestive heart failure, hypertension, hyperlipidemia is admitted in the hospital for evaluation and management of altered level of consciousness. The patient was found to be in his septic shock secondary to a complicated UTI with associated respiratory distress requiring to be intubated and mechanically ventilated. Additionally also developed TEMITOPE from the septic shock with anuria and now is being continued management in the ICU. Plan Plan GI progress note: S/p PEG tube placement without complications, the site looks good with no discharge, erythema Tolerating procedure well Continue tube feeds and currently on Vital HP at 55 mL/hour Rest as per senior telecommunications technician Other comorbidities: Acute encephalopathy: Metabolic and toxic Septic shock: POA, resolved Most likely secondary to complicated UTI with bilateral mild nonobstructive pyelonephritis Acute hypoxemic respiratory failure: Improving Hypercapnic competent resolved Likely secondary to bilateral atelectasis/pulmonary congestion/ ERICK Hyperchloremic metabolic alkalosis: New onset vaginal bleeding: New diagnosis of cirrhosis and splenomegaly: Possible portal hypertension induced Paroxysmal AFib with RVR: Diabetes mellitus Nutrition History of hypothyroidism Currently euthyroid sick syndrome Normocytic anemia Constipation Management per senior telecommunications technician Peter Tadeo MD Internal Medicine Resident, PGY-2 Date of Service: Feb 01, 2025 Billing Provider: GABRIEL SUNG MD, LEONARDO LUIS Feb 01, 2025 12:28 GABRIEL SUNG MD Feb 01, 2025 14:32
[2025-02-01 14:09] LABS: CREATININE 1.02 MG/DL (0.40-0.90); TOTAL CARBON DIOXIDE 31.8 MMOL/L (24-32); eCRCL 37 ML/MIN; eGFR 53 ML/MIN
--- NOTE | 2025-02-01 19:11 | PROGRESS NOTE ---
Progress Note Dictate Providers to CC ~ Progress Note: excellent management with IV and flush water, pitressin and frequent management. Na 149 for the past 24 hrs. At 111 kgs, total body water = 66 L which acts like the Na Vd. To correct back to Na 140 will 66L x 9/149 = 4L positive water balance. Giving 1200 ml/day flushes will require 3 days to correct, which is ok. Since pharmacy is reluctant to make up special TPN solutions, they can stay with the current standard and we give sufficient water as described. Since this was an acute hypermolar state, the fear of dysequilibrium injury is less, but we're well within guidelines. Antibiotic Ordered?: No Objective Vitals Vital Signs Date Time Temp Pulse Resp B/P (MAP) Pulse Ox O2 Delivery O2 Flow Rate FiO2 02/01/25 18:00 100.0 83 22 157/61 (93) 95 Room Air 02/01/25 13:00 2.0 01/31/25 19:13 24 Lab Results: 02/01/25 0150 02/01/25 1348 Coagulation Studies Laboratory Tests Test 02/01/25 09:45 Prothrombin Time 11.5 SECONDS (9.0-12.0) INR International Normalized Ratio 1.1 INR Activated Partial Thromboplast Time 26 SECONDS (22-32) Coagulation Comments Problem\Assessment\Plan Problems/Diagnosis: (1) Acute respiratory failure (2) Acute kidney injury (3) Edema of lower extremity (4) Acute urinary tract infection (5) Septic shock Sepsis Screening Skin Color: Normal DUNIA ANDREA MD Feb 01, 2025 19:10
[2025-02-01] MEDS: guaiFENesin 200 MG/10 ML oral syrup UD cup PEG SCH (19:28)
[2025-02-01 22:07] LABS: CREATININE 0.90 MG/DL (0.40-0.90); TOTAL CARBON DIOXIDE 31.3 MMOL/L (24-32); eCRCL 41 ML/MIN; eGFR 61 ML/MIN
[2025-02-02] VITALS (25 sets, daily range): BP systolic 118–161; BP diastolic 43–86; PULSE 66–85; RESP 13–22; O2SAT 93–97
[2025-02-02 02:46] LABS: MEAN PLATELET VOLUME 7.4 FL (7.4-10.4); RED CELL DISTRIBUTION WIDTH 21.9 % (11.5-14.5)
[2025-02-02 02:59] LABS: CREATININE 0.80 MG/DL (0.40-0.90); PHOSPHORUS 2.3 MG/DL (2.3-4.5); TOTAL CARBON DIOXIDE 31.9 MMOL/L (24-32); eCRCL 47 ML/MIN; eGFR 70 ML/MIN
--- NOTE | 2025-02-02 08:41 | PROGRESS NOTE ---
Daily Progress Note Providers to CC ~ Antibiotic Timeout Antibiotic Ordered?: Yes Subjective None , patient tracks but does not verbalize Objective Vital Signs Date Time Temp Pulse Resp B/P (MAP) Pulse Ox O2 Delivery O2 Flow Rate FiO2 02/02/25 06:00 99.5 80 13 158/59 (92) 95 Room Air 02/01/25 20:00 0.0 21 Result Diagram: 02/02/2523802/02/25238 Patient is nonverbal, Normocephalic, atraumatic, extraocular movements are intact, sclerae anicteric Neck supple, no JVD Chest: Clear to auscultation, no wheezes crackles rhonchi Heart: Regular rate rhythm, no murmur or gallop rub Abdomen is soft, no organomegaly, peg tube noted Extremities no cyanosis clubbing or edema Neuro exam difficult to assess. Patient barely moves. Coagulation Studies Laboratory Tests Test 02/01/25 09:45 Prothrombin Time 11.5 SECONDS (9.0-12.0) INR International Normalized Ratio 1.1 INR Activated Partial Thromboplast Time 26 SECONDS (22-32) Coagulation Comments Other Results Medications reviewed Problem\Assessment\Plan Patient is a 79 years old female who presented to the ER for evaluation of altered mental status. #septic shock: Secondary to pyelonephritis. Continue supportive care Onset acute hypoxemic respiratory failure: Patient required ventilator has been extubated doing well. Continue supplemental oxygen. # bacteremia present on admission: Continue IV antibiotics. # bilateral pneumonia: Antibiotics as noted above # acute kidney injury: Continue monitor daily BMP. On CVVH #hyperlipidemia: Not on any medications at this time. Deferred to the hogshead stock clerk. # AFib with RVR: Continue amiodarone and Eliquis. #hypertension: Patient is on losartan #hypothyroidism : Continue levothyroxine #NIDDM: Correctional insulin #hypernatremia: Continue monitor daily BMP. Free fluids per hogshead stock clerk #vaginal bleeding: OBGYN Dr. Huff has been consulted as per hogshead stock clerk notes. # new diagnosis of cirrhosis and splenomegaly: Ammonia within normal limits. Continue Protonix and lactulose. #Nutrition :PEG tube feeding # code status: Full code # GI prophylaxis: Protonix IV Sepsis Screening Skin Color: Normal Date of Service: Feb 02, 2025 Billing Provider: SAMUEL CEJA MD Common Visit Codes: [id number] INP/OBS CARE(HIGH) SAMUEL CEJA MD Feb 02, 2025 08:41
--- NOTE | 2025-02-02 08:41 | Visit Coding Note ---
Date of Service: Feb 01, 2025 Billing Provider: SAMUEL CEJA MD Common Visit Codes: [id number] CARE 30-74 MIN SAMUEL CEJA MD Feb 02, 2025 08:41
--- NOTE | 2025-02-02 09:26 | PROGRESS NOTE- Residence ---
Progress Note - Resident Providers to CC Resident Creating Document: VANCE JUSTICE, ZANE ~ Central Line/PICC still needed: No Rogers-Non Protocol Rogers Indications Met/Not Met: F/C Indications Met Antibiotic Timeout Antibiotic Ordered?: Yes Subjective No new developments overnight, she has had no neurological changes in spite of being off of the Precedex for over 24 hours. Family understands the requirement for long-term care. Patient can be downgraded to the floor today Objective Vital Signs Date Time Temp Pulse Resp B/P (MAP) Pulse Ox O2 Delivery O2 Flow Rate FiO2 02/02/25 09:00 99.9 75 17 139/58 (85) Room Air 02/02/25 07:00 95 02/01/25 20:00 0.0 21 Result Diagram: 02/02/25 0239 02/02/25 0239 General: Lethargic, restless Resp: Conducted bilateral breath sounds Heart: Normal S1 and S2, pansystolic blowing murmur 3/5 loudest in the tricuspid area Abdomen: Distended, Soft and non tender no organomegaly. Hyperactive bowel sounds. Cholecystectomy scar present on the right Extremities: No cyanosis, edema or pallor of the extremities SNACK BAR CASHIER: Lethargic, not following commands. Genitourinary: Bleeding per vagina with the associated foul-smelling discharge, no external lesions noted. Rogers's catheter in place. Skin: Warm and Dry. No rashes. Abrasion on the occiput Coagulation Studies Laboratory Tests Test 02/01/25 09:45 Prothrombin Time 11.5 SECONDS (9.0-12.0) INR International Normalized Ratio 1.1 INR Activated Partial Thromboplast Time 26 SECONDS (22-32) Coagulation Comments Assessment Assessment 79 years old female with past medical history of hypothyroidism, congestive heart failure, hypertension, hyperlipidemia is admitted in the hospital for evaluation and management of altered level of consciousness. The patient was found to be in his septic shock secondary to a complicated UTI with associated respiratory distress requiring to be intubated and mechanically ventilated. Secondary to the septic shock, she had developed progressive organ failure including acute kidney injury requiring hemodialysis three CVVH which was later switched on 01/19 intermittent hemodialysis. However, she only required about two cycles of intermittent hemodialysis. She was managed with IV antibiotic therapy for total 15 days with Rocephin and intermittent Levophed use. Multidisciplinary team approach was taken with the Nephrology and repairer handtools. As there was no further progression in her condition, it was deemed necessary to extubate the patient and monitor for improvement as she remained on low mechanical ventilator support passing her SBT trials. Hemodialysis was also held and the patient's renal function started to improve and recovered with increased urine output monitored through the Rogers's catheter. The patient was extubated, maintained her saturations at greater than 94% on room air but has not respond to command. Head CT scan head and EEG we are unrevealing. In spite of no sedative use, the patient continued to remain unresponsive to command. Due to this reason, a PEG tube was placed by Dr. Yarbrough and nutrition was consulted. Discussion with the family regarding the requirement of long-term care has been attempted multiple times, the family is in agreement at this time for transferred to an assisted living facility. Off note, the patient developed paroxysmal atrial fibrillation due to which amiodarone and Eliquis were started during her acute septic shock. Over the last four days, the patient is started develop vaginal bleeding and an ultrasound pelvis revealed endometrial thickness of 6 mm. KATTY Swift was consulted who recommended outpatient referral for an endometrial biopsy and no acute management at this time. Plan Plan Acute encephalopathy: Metabolic and toxic Acute ICU delirium, Restless leg syndrome, Psychiatric history Metabolic likely secondary septic shock induced/hypernatremia, toxic likely secondary to prolonged sedation for mechanical ventilation MRI head today. CT head on 01/14 negative intracranial abnormalities, EEG revealed diffuse slowing PEG tube placed; nutrition to ensure accurate caloric intake Continue free water flushes. Discontinue D5. Correct 6-8meq in 24 hours Do not administer any benzodiazepines. Continue home medications of Effexor, d ecreased dose of Seroquel. Discontinued home medication of ropinirole. Frequent reorientation with family Requires long-term placement to rehab Septic shock: POA, resolved Most likely secondary to complicated UTI with bilateral mild nonobstructive pyelonephritis Antibiotics completed with Rocephin 2 g per day, total of 15 days antibiotic therapy received Extubated, not pressor dependent. Acute hypoxemic respiratory failure: Improving Hypercapnic competent resolved Likely secondary to bilateral atelectasis/pulmonary congestion/ ERICK Hypercapnia and metabolic alkalosis resolved. Requiring CPAP at this time. A-a gradient normal Continuing nasal cannula oxygen, low oxygen requirement Duo nebs q.4 scheduled and albuterol q.2h PRN. RT eval and treat with CPT Guaifenesin b.i.d. through [facility] Maintain saturations between 88 and 92% Acute kidney injury secondary to septic shock and end-organ damage: Resolved HD stopped; CRRT from 01/17-01/25 Likely secondary to septic shock and complicated E coli UTI and bacteremia. Unlikely to require TDC Good urine output. DC Rogers's catheter Hyperchloremic metabolic alkalosis: Hypernatremia, hyperchloremia and elevated bicarb Correct high sodium with increased free water flushes. Strict output monitoring of the rectal tube; hold senna Also electrolyte abdnormalities from IVF; discontinue Na and Cl containing IVF Protonix to daily, decrease NG tube suctions New onset vaginal bleeding: Hemodynamically stable Discussed with Dr. Huff, outpatient endometrial biopsy for increased endometrial thickness Vaginal bleeding worsened likely secondary to Eliquis Referral Dr. Huff at discharge by case management New diagnosis of cirrhosis and splenomegaly: Possible portal hypertension induced Elevated alkaline phosphatase; likely secondary to propofol. Status post cholecystectomy and normal bile duct appearance. CVP is between 5-10; but patient has elevated RVSP. 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 Maintaining 3-4 bowel movements/day Paroxysmal AFib with RVR: Currently rate controlled and in sinus rhythm Amiodarone drip held CHADS-VASc- 4. Continue Eliquis Diabetes mellitus Continue the patient on low-dose sliding scale insulin Goal between 140-180 mg/dL Nutrition Continue tube feeds and currently on Vital HP at 55 mL/hour. Peg tube placement today by Dr. Zenon Webb on board History of hypothyroidism Currently euthyroid sick syndrome On home medication of levothyroxine 175 mcg daily TSH on admission was 0.18, with normal free T4, low T3. Repeat thyroid studies Normocytic anemia No acute GI/ blood losses observed; protonix 40mg daily Continue close monitoring of H&H. Likely anemia of chronic disease based on the iron panel Constipation: Resolved CODE STATUS: Full code DVT prophylaxis: Eliquis GI prophylaxis: Protonix Diet: Tube feeds Disposition: Prognosis is guarded. Plan to transfer to a assisted living facility for longshore equipment operator care Critical care time 35 minutes. Vance Justice PGY3, Internal medicine resident Date of Service: Feb 02, 2025 Billing Provider: JODI MARKS MD,[facility], RES Feb 02, 2025 09:26
--- NOTE | 2025-02-02 15:45 | PROGRESS NOTE- Residence ---
Progress Note - Resident Providers to CC Resident Creating Document: ANNETTE SHEIKH, RES ~ Rogers-Non Protocol Rogers Indications Met/Not Met: F/C Indications Met Antibiotic Timeout Antibiotic Ordered?: Yes Subjective Nephrology consult Patient was examined at bedside, BUN 32, creatinine 0.80 normal, Serum sodium 146-improving No overnight acute events Objective Vital Signs Date Time Temp Pulse Resp B/P (MAP) Pulse Ox O2 Delivery O2 Flow Rate FiO2 02/02/25 15:00 99.7 69 18 139/57 (84) 95 Room Air 02/01/25 20:00 0.0 21 Result Diagram: 02/02/2523802/02/25238 General: Lethargic, restless Resp: Conducted bilateral breath sounds Heart: Normal S1 and S2, pansystolic blowing murmur 3/5 loudest in the tricuspid area Abdomen: Distended, Soft and non tender no organomegaly. Hyperactive bowel sounds. Cholecystectomy scar present on the right Extremities: No cyanosis, edema or pallor of the extremities VENTILATION EQUIPMENT TENDER: Lethargic, not following commands. Genitourinary: Bleeding per vagina with the associated foul-smelling discharge, no external lesions noted. Rogers's catheter in place. Skin: Warm and Dry. No rashes. Abrasion on the occiput Coagulation Studies Laboratory Tests Test 02/01/25 09:45 Prothrombin Time 11.5 SECONDS (9.0-12.0) INR International Normalized Ratio 1.1 INR Activated Partial Thromboplast Time 26 SECONDS (22-32) Coagulation Comments HEART Score Extensive d/w daughter and two sons. I recommended MRI for PRES for prognostication of likelihood of recovery. Wonderful family appropriately concerned, but I made clear recovery may take 2-3 months and may not be complete. We're staying on to assist surgery and support the family. Advance Care Planning Advanced Care plannin - 30 Minutes Assessment Assessment 79 years old female with past medical history of hypothyroidism, congestive heart failure, hypertension, hyperlipidemia is admitted in the hospital for evaluation and management of altered level of consciousness. The patient was found to be in his septic shock secondary to a complicated UTI with associated respiratory distress requiring to be intubated and mechanically ventilated. Secondary to the septic shock, she had developed progressive organ failure including acute kidney injury requiring hemodialysis three CVVH which was later switched on 01/19 intermittent hemodialysis. However, she only required about two cycles of intermittent hemodialysis. She was managed with IV antibiotic therapy for total 15 days with Rocephin and intermittent Levophed use. Multidisciplinary team approach was taken with the Nephrology and regional geodetic advisor. As there was no further progression in her condition, it was deemed necessary to extubate the patient and monitor for improvement as she remained on low mechanical ventilator support passing her SBT trials. Hemodialysis was also held and the patient's renal function started to improve and recovered with increased urine output monitored through the Rogers's catheter. The patient was extubated, maintained her saturations at greater than 94% on room air but has not respond to command. Head CT scan head and EEG we are unrevealing. In spite of no sedative use, the patient continued to remain unresponsive to command. Due to this reason, a PEG tube was placed by Dr. Yarbrough and nutrition was consulted. Discussion with the family regarding the requirement of long-term care has been attempted multiple times, the family is in agreement at this time for transferred to an assisted living facility. Off note, the patient developed paroxysmal atrial fibrillation due to which amiodarone and Eliquis were started during her acute septic shock. Over the last four days, the patient is started develop vaginal bleeding and an ultrasound pelvis revealed endometrial thickness of 6 mm. KATTY Swift was consulted who recommended outpatient referral for an endometrial biopsy and no acute management at this time. Plan Plan #Acute kidney injury secondary to septic shock and end-organ damage: Resolved HD stopped; CRRT from 01/17-01/25 Hypernatermia-Improving Likely secondary to septic shock and complicated E coli UTI and bacteremia. Unlikely to require TDC Good urine output. DC Rogers's catheter Follow up with spot urine sodium/protein/osmolarity/potassium #Acute encephalopathy: Metabolic and toxic Differentials include posterior reversible encephalopathy syndrome-follow up with MRI head Septic shock: POA, resolved Most likely secondary to complicated UTI with bilateral mild nonobstructive pyelonephritis Acute hypoxemic respiratory failure: Improving-Hypercapnic competent resolved Likely secondary to bilateral atelectasis/ pulmonary congestion/ ERICK New onset vaginal bleeding: Hemodynamically stable New diagnosis of cirrhosis and splenomegaly: Possible portal hypertension induced Paroxysmal AFib with RVR: Diabetes mellitus Nutrition History of hypothyroidism -Currently euthyroid sick syndrome Normocytic anemia Constipation: Continue managing the patient according to primary caregiver plan CODE STATUS: Full code DVT prophylaxis: Eliquis GI prophylaxis: Protonix Diet: Tube feeds Disposition: Prognosis is guarded. Plan to transfer to a assisted living facility for prison care Annette Sheikh PGY1-Internal Medicine Resident Date of Service: Feb 02, 2025 Billing Provider: DUNIA ANDREA MD, SATISH, RES Feb 02, 2025 15:45 DUNIA ANDREA MD Feb 02, 2025 18:59
--- NOTE | 2025-02-02 20:43 | PROGRESS NOTE ---
DATE: 02/01/2025 DICTATING PHYSICIAN: Mode Teixeira MD SUBJECTIVE: None. The patient is lethargic. Opens eyes to her name. OBJECTIVE: VITAL SIGNS: Temperature 98.6, pulse rate is 70, respirations 16, blood pressure is 137/51. O2 saturation is 93% on 2 L. HEENT: Normocephalic, atraumatic. Extraocular movements are intact. NECK: Supple. CHEST: Clear to auscultation. No wheezes, crackles or rhonchi. HEART: Regular rate and rhythm. No murmur, gallop, or rub. ABDOMEN: Soft, nontender. PEG tube noted. EXTREMITIES: No cyanosis, clubbing, or edema. NEUROLOGIC: Difficult to assess, however, appears to be grossly nonfocal. LABORATORY DATA: White count is 9.5, hemoglobin 8.0, hematocrit is 24.6, platelet count is 435, neutrophils are 79.0%, lymphocyte 11.9%. Sodium is 146, potassium 3.5, chloride is 111, bicarbonate 31.1, BUN 37, creatinine is 0.90, glucose is 145. ASSESSMENT AND PLAN: A 79-year-old female who presented to the ER for evaluation of altered mental status. * Metabolic encephalopathy: Improving slowly. * Septic shock: Due to pyelonephritis: Off pressors. Continue supportive care. * Acute hypoxic/hypoxemic respiratory failure: The patient required ventilator support and has been extubated. Doing well. Does not require a trach as per the warehouse driver. Continue supplemental oxygen. * Bacteremia present on admission: Continue antibiotics. * TEMITOPE: Continue to monitor. The patient was on CVVH; however, does not require any ongoing hemodialysis. * Hyperlipidemia. Deferred to outpatient followup. * A-fib with RVR: Now rate controlled. Continue amiodarone and Eliquis. * Hypertension: Continue losartan. * Hypothyroidism: Continue levothyroxine. * IDDM: The patient is on active feeding. Continue correction insulin. * Hyponatremia: Resolved/improving. Continue free fluids per warehouse driver. * Vaginal bleeding: Continue to monitor H and H. Treat per OB-DIAMOND SETTER, Dr. Huff. * New-onset cirrhosis and splenomegaly: Continue Protonix. CODE STATUS: Full code. Critical care time spent in excess of 35 minutes. Mode Teixeira MD TID: [id number] RECEIPT: [id number] /ORI
[2025-02-03] VITALS (26 sets, daily range): BP systolic 132–181; BP diastolic 45–78; PULSE 68–78; RESP 9–21; TEMP 97.5; O2SAT 94–98
[2025-02-03 03:54] LABS: MEAN PLATELET VOLUME 8.0 FL (7.4-10.4); RED CELL DISTRIBUTION WIDTH 22.1 % (11.5-14.5)
[2025-02-03 04:08] LABS: CREATININE 0.73 MG/DL (0.40-0.90); PHOSPHORUS 2.7 MG/DL (2.3-4.5); TOTAL CARBON DIOXIDE 33.1 MMOL/L (24-32); eCRCL 51 ML/MIN; eGFR 77 ML/MIN
--- NOTE | 2025-02-03 08:42 | PROGRESS NOTE ---
Daily Progress Note Providers to CC ~ Antibiotic Timeout Antibiotic Ordered?: No Subjective None new Objective Vital Signs Date Time Temp Pulse Resp B/P (MAP) Pulse Ox O2 Delivery O2 Flow Rate FiO2 02/03/25 08:21 78 18 96 Room Air* 0 21 02/03/25 07:00 99.9 161/65 (97) Result Diagram: 02/03/25 0327 02/03/25 0327 Awake in NAD Normocephalic, atraumatic, extraocular movements are intact, sclerae anicteric Neck supple, no JVD Chest: Clear to auscultation, no wheezes crackles rhonchi Heart: Regular rate rhythm, no murmur or gallop rub Abdomen is soft, no organomegaly, peg tube noted Extremities no cyanosis clubbing or edema Neuro exam difficult to assess. Patient barely moves. Coagulation Studies Laboratory Tests Test 02/01/25 09:45 Prothrombin Time 11.5 SECONDS (9.0-12.0) INR International Normalized Ratio 1.1 INR Activated Partial Thromboplast Time 26 SECONDS (22-32) Coagulation Comments Other Results Medications reviewed Problem\Assessment\Plan Patient is a 79 years old female who presented to the ER for evaluation of altered mental status. #septic shock: Secondary to pyelonephritis. Continue supportive care # acute hypoxemic respiratory failure: Patient required ventilator has been extubated, doing well. Continue supplemental oxygen. # bacteremia present on admission: Continue IV antibiotics. # bilateral pneumonia: Antibiotics as noted above # acute kidney injury: Resolved, Continue monitor daily BMP. Was on CVVH #hyperlipidemia: Not on any medications at this time. Deferred to the statistician. # AFib with RVR: Continue amiodarone and Eliquis. #hypertension: Patient is on losartan #hypothyroidism : Continue levothyroxine #NIDDM: Correctional insulin #hypernatremia: Continue monitor daily BMP. Free fluids per statistician #vaginal bleeding: OBGYN Dr. Huff has been consulted as per statistician notes. # new diagnosis of cirrhosis and splenomegaly: Ammonia within normal limits. Continue Protonix and lactulose. #Nutrition :PEG tube feeding # code status: Full code # GI prophylaxis: Protonix IV # Disposition To LTAC / SNF when accepted Sepsis Screening Skin Color: Normal Date of Service: Feb 03, 2025 Billing Provider: SAMUEL CEJA MD Common Visit Codes: [id number] INP/OBS CARE(HIGH) SAMUEL CEJA MD Feb 03, 2025 08:42
[2025-02-03] MEDS: guaiFENesin 200 MG/10 ML oral syrup UD cup PEG SCH (08:49)
[2025-02-03] MEDS: midazolam 1 mg/ML 2ml injection IV ONE ×2 (09:25→10:53)
--- NOTE | 2025-02-03 10:49 | RADIOLOGY REPORT ---
PROCEDURE: MR MRI HEAD Indication: Altered mental status COMPARISON: CT CT HEAD on DOS: 01/23/25, CT CT HEAD on DOS: 01/14/25 TECHNIQUE: Multiplanar multisequence images of the brain are obtained. FINDINGS: Examination markedly degraded by motion. There is subtle tiny foci site diffusion restriction within the bilateral stiles radiata and centrum semiovale. Clop-vt-[id number] periventricular and subcortical white matter T2 and FLAIR hyperintense changes. There is no intracranial hemorrhage. No extra-axial fluid collection, mass effect or midline shift. The ventricles are midline and normal in size. The cisterns are patent. Normal intracranial flow voids are preserved. No abnormal susceptibility signal. Bilateral mastoid effusions. Mucosal thickening ethmoids The visualized orbits are unremarkable. IMPRESSION: Examination markedly degraded by motion. 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 Correlate for thromboembolic, vasospastic etiologies. Egfp-[id number]-[id number] chronic microvascular ischemic changes.
[2025-02-03] MEDS: midazolam 1 mg/ML 2ml injection ONE (10:53)
[2025-02-03] MEDS: fentaNYL/PF 50MCG/1 ML 2ML syringe IV ONE (10:53)
[2025-02-03] MEDS: fentaNYL/PF 50MCG/1 ML 2ML syringe ONE (10:54)
--- NOTE | 2025-02-03 11:06 | PROGRESS NOTE- Residence ---
Progress Note - Resident Providers to CC Resident Creating Document: VANCE JUSTICE RES ~ Central Line/PICC still needed: No Rogers-Non Protocol Rogers Indications Met/Not Met: F/C Indications Met Antibiotic Timeout Antibiotic Ordered?: No Subjective Patient is more awake and responsive today and follows commands. However, she continues to be intermittently lethargic. Objective Vital Signs Date Time Temp Pulse Resp B/P (MAP) Pulse Ox O2 Delivery O2 Flow Rate FiO2 02/03/25 10:53 14 02/03/25 08:49 74 02/03/25 08:21 96 Room Air* 0 21 02/03/25 07:00 99.9 161/65 (97) Result Diagram: 02/03/25 0327 02/03/25 0327 General: Lethargic, more awake Resp: Conducted bilateral breath sounds Heart: Normal S1 and S2, pansystolic blowing murmur 3/5 loudest in the tricuspid area Abdomen: Distended, Soft and non tender no organomegaly. Hyperactive bowel sounds. Cholecystectomy scar present on the right Extremities: No cyanosis, edema or pallor of the extremities ICT MANAGERS: Lethargic, not following commands to complete exam. Genitourinary: Decreased bleeding per vagina, mild bruising noted on the labia minora. Rogers's catheter in place. Skin: Warm and Dry. No rashes. Abrasion with healed scab on the occiput Coagulation Studies Laboratory Tests Test 02/01/25 09:45 Prothrombin Time 11.5 SECONDS (9.0-12.0) INR International Normalized Ratio 1.1 INR Activated Partial Thromboplast Time 26 SECONDS (22-32) Coagulation Comments Assessment Assessment 79 years old female with past medical history of hypothyroidism, congestive heart failure, hypertension, hyperlipidemia is admitted in the hospital for evaluation and management of altered level of consciousness. The patient was found to be in his septic shock secondary to a complicated UTI with associated respiratory distress requiring to be intubated and mechanically ventilated. Secondary to the septic shock, she had developed progressive organ failure including acute kidney injury requiring hemodialysis three CVVH which was later switched on 01/19 intermittent hemodialysis. However, she only required about two cycles of intermittent hemodialysis. She was managed with IV antibiotic therapy for total 15 days with Rocephin and intermittent Levophed use. Multidisciplinary team approach was taken with the Nephrology and heavy coil winder. As there was no further progression in her condition, it was deemed necessary to extubate the patient and monitor for improvement as she remained on low mechanical ventilator support passing her SBT trials. Hemodialysis was also held and the patient's renal function started to improve and recovered with increased urine output monitored through the Rogers's catheter. The patient was extubated, maintained her saturations at greater than 94% on room air but has not respond to command. Head CT scan head and EEG we are unrevealing. In spite of no sedative use, the patient continued to remain unresponsive to command. Due to this reason, a PEG tube was placed by Dr. Yarbrough and nutrition was consulted. Discussion with the family regarding the requirement of long-term care has been attempted multiple times, the family is in agreement at this time for transferred to an assisted living facility. Off note, the patient developed paroxysmal atrial fibrillation due to which amiodarone and Eliquis were started during her acute septic shock. Over the last four days, the patient is started develop vaginal bleeding and an ultrasound pelvis revealed endometrial thickness of 6 mm. KATTY Swift was consulted who recommended outpatient referral for an endometrial biopsy and no acute management at this time. Plan Plan Acute encephalopathy: Metabolic and toxic Acute ICU delirium, Restless leg syndrome, Psychiatric history Metabolic likely secondary septic shock induced/hypernatremia, toxic likely secondary to prolonged sedation for mechanical ventilation MRI reveals tiny watershed infarcts across the bilateral stiles radiata, [id number] periventricular and subcortical white matter T2 and FLAIR hyperintense changes as well. and chronic microvascular ischemic changes PEG tube placed; nutrition to ensure accurate caloric intake Continue free water flushes. Correct 6-8meq in 24 hours Do not administer any benzodiazepines. Continue home medications of Effexor, decreased dose of Seroquel further today. Discontinued home medication of ropinirole. Frequent reorientation with family Requires long-term placement to rehab Septic shock: POA, resolved Most likely secondary to complicated UTI with bilateral mild nonobstructive pyelonephritis Antibiotics completed with Rocephin 2 g per day, total of 15 days antibiotic therapy received Extubated, not pressor dependent. Acute hypoxemic respiratory failure: POA, Resolved Duo nebs q.4 scheduled and albuterol q.2h PRN. RT eval and treat with CPT Guaifenesin b.i.d. through [place] Maintain saturations between 88 and 92% Acute kidney injury secondary to septic shock and end-organ damage: Resolved HD stopped; CRRT from 01/17-01/25 Likely secondary to septic shock and complicated E coli UTI and bacteremia. Unlikely to require TDC Good urine output. DC Rogers's catheter Hyperchloremic metabolic alkalosis: Hypernatremia, hyperchloremia and elevated bicarb Correct high sodium with increased free water flushes. Strict output monitoring of the rectal tube; hold laxatives New onset vaginal bleeding: Hemodynamically stable Outpatient endometrial biopsy by Dr. Huff Vaginal bleeding worsened likely secondary to Eliquis Referral Dr. Huff at discharge by case management New diagnosis of cirrhosis and splenomegaly: Possible portal hypertension induced Elevated alkaline phosphatase; likely secondary to propofol. Status post cholecystectomy and normal bile duct appearance. CVP is between 5-10; but patient has elevated RVSP. 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 Maintaining 3-4 bowel movements/day Paroxysmal AFib with RVR: Currently rate controlled and in sinus rhythm Amiodarone drip held CHADS-VASc- 4. Continue Eliquis Diabetes mellitus Continue the patient on low-dose sliding scale insulin Goal between 140-180 mg/dL Nutrition Continue tube feeds and currently on Vital HP at 55 mL/hour. Peg tube placement today by Dr. Zenon Webb on board History of hypothyroidism Currently euthyroid sick syndrome On home medication of levothyroxine 175 mcg daily TSH on admission was 0.18, with normal free T4, low T3. Repeat thyroid studies Normocytic anemia Likely anemia of chronic disease based on the iron panel CODE STATUS: Full code DVT prophylaxis: Eliquis GI prophylaxis: Protonix Diet: Tube feeds Disposition: Prognosis is guarded. Plan to transfer to a assisted living facility for spar machine operator care Critical care time 35 minutes. Vance Justice PGY3, Internal medicine resident Date of Service: Feb 03, 2025 Billing Provider: JODI MARKS MD, DEEPANJALI, RES Feb 03, 2025 11:06
--- NOTE | 2025-02-03 12:11 | PROGRESS NOTE ---
Progress Note Dictate Providers to CC ~ Progress Note: Sodium has leveled off at. Good urine output, no edema. The DDAVP with IV D5 water and half-normal saline seem to be effective in bringing her sodium down from 157. However she now has leveled out hypernatremic. It is interesting that her TSH has gone from normal to 11.7 which would usually cause hyponatremia. We will check urine sodium and osmolality. She does have a fair amount of lesions in the deep brain which appear to be lacunar. I wonder if the hypothalamus is involved enough to be unable to stimulate BREASTFEEDING PEER COUNSELOR release. if that appears to be the case with the spot urine studies (sodium, osmolality), we might consider giving a low dose of DDAVP perhaps nasally. In the meantime we will continue free water flushes. The very small lesions in the deep brain would not typically cause prolonged obtundation since at least on the MRI which is fairly poor quality the frontal lobe and brainstem are spared. Antibiotic Ordered?: No Objective Vitals Vital Signs Date Time Temp Pulse Resp B/P (MAP) Pulse Ox O2 Delivery O2 Flow Rate FiO2 02/03/25 12:00 74 10 168/62 (97) 96 Room Air 02/03/25 08:21 0 21 02/03/25 08:00 99.9 Lab Results: 02/03/25 0327 02/03/25 0327 Coagulation Studies Laboratory Tests Test 02/01/25 09:45 Prothrombin Time 11.5 SECONDS (9.0-12.0) INR International Normalized Ratio 1.1 INR Activated Partial Thromboplast Time 26 SECONDS (22-32) Coagulation Comments Problem\Assessment\Plan Problems/Diagnosis: (1) Acute respiratory failure (2) Acute kidney injury (3) Edema of lower extremity (4) Acute urinary tract infection (5) Septic shock Sepsis Screening Skin Color: Normal DUNIA ANDREA MD Feb 03, 2025 12:11
[2025-02-03] MEDS: HYDROcodone/acetaminophen 7.5MG/325MG per 15ml UD CUP PEG PRN (14:13)
[2025-02-04] VITALS (8 sets, daily range): BP systolic 133–170; BP diastolic 49–63; PULSE 68–77; RESP 11–17; TEMP 97.1–99; O2SAT 93–97
[2025-02-04 04:46] LABS: CREATININE,URINE RANDOM 30.0 MG/DL; TOTAL PROTEIN,URINE RANDOM 10.4 MG/DL
[2025-02-04 07:04] LABS: MEAN PLATELET VOLUME 8.1 FL (7.4-10.4); RED CELL DISTRIBUTION WIDTH 22.4 % (11.5-14.5)
[2025-02-04 07:49] LABS: CREATININE 0.77 MG/DL (0.40-0.90); PHOSPHORUS 3.0 MG/DL (2.3-4.5); TOTAL CARBON DIOXIDE 32.8 MMOL/L (24-32); eCRCL 48 ML/MIN; eGFR 73 ML/MIN
[2025-02-04] MEDS: insulin regular, human U-100 10ml vial - multi-dose SQ SCH (08:00)
--- NOTE | 2025-02-04 09:00 | PROGRESS NOTE ---
Progress Note Dictate Providers to CC ~ Progress Note: Jeana is happy to be up on the floor. She continues to have negative fluid balances which would be appropriate if she has dumping sodium. Spot urine sodium is 72 with potassium 17 so it is possible that the elbow site is not working although her potassium is okay so maybe she should not be excreting it. Sodium is up 150. The urine creatinine is 30 with serum 0.77, a ratio of 40-1 which is excellent and indicates water reabsorption of about 97.5%. It is interesting that she has leveled off at an inappropriate level of sodium but unfortunately the urine and serum osmolality I ordered was not done. I have asked the nurses to please get those two tests so we can look at how she is handling ADH in the collecting duct. I would encourage ad rene p.o. fluid and if being fed relatively dilute tube feedings. Antibiotic Ordered?: No Objective Vitals Vital Signs Date Time Temp Pulse Resp B/P (MAP) Pulse Ox O2 Delivery O2 Flow Rate FiO2 02/04/25 08:13 73 02/04/25 03:55 15 02/04/25 02:00 97.3 156/59 (91) 96 Room Air 02/03/25 19:31 0 21 Lab Results: 02/04/25 0645 02/04/25 0645 Coagulation Studies Laboratory Tests Test 02/01/25 09:45 Prothrombin Time 11.5 SECONDS (9.0-12.0) INR International Normalized Ratio 1.1 INR Activated Partial Thromboplast Time 26 SECONDS (22-32) Coagulation Comments Problem\Assessment\Plan Problems/Diagnosis: (1) Acute respiratory failure (2) Acute kidney injury (3) Edema of lower extremity (4) Acute urinary tract infection (5) Septic shock Sepsis Screening Skin Color: Normal DUNIA ANDREA MD Feb 04, 2025 09:00
[2025-02-04 09:18] LABS: ELLIPTOCYTES FEW; PLATELET ESTIMATE NORMAL
--- NOTE | 2025-02-04 11:58 | RADIOLOGY REPORT ---
Date: 02/04/2025 11:11 AM Examination: DI ABDOMEN,SINGLE VIEW(KUB) History: pain Comparison: DI ABDOMEN,SINGLE VIEW(KUB) on DOS: 01/28/25, CT CT CHEST ABDOMEN PELVIS W/ IV CONTRAST on DOS: 01/24/25, US ULTRASOUND KIDNEY NON VASC on DOS: 01/14/25, CT CT CHEST ABDOMEN PELVIS on DOS: 01/14/25 TECHNIQUE: Frontal views of the abdomen was obtained. FINDINGS: Bowel gas pattern is unremarkable. Large stool burden. The lung bases are unremarkable. No acute osseous abnormality identified. IMPRESSION: Nonobstructive bowel gas pattern. Large stool burden.
[2025-02-04] MEDS: mag hydrox/Alum hydrox/simeth 30ml oral suspension PO PRN (17:51)
[2025-02-05] VITALS (11 sets, daily range): BP systolic 121–158; BP diastolic 43–62; PULSE 60–73; RESP 9–20; TEMP 97.3–98.4; O2SAT 60–97
[2025-02-05] MEDS: magnesium hydroxide 30ml (MOM) UD suspension PO PRN (00:22)
[2025-02-05 06:50] LABS: MEAN PLATELET VOLUME 8.5 FL (7.4-10.4); RED CELL DISTRIBUTION WIDTH 22.0 % (11.5-14.5)
[2025-02-05] MEDS ORDERED: levoTHYROXINE 175mcg tablet PO SCH (07:00)
[2025-02-05 07:15] LABS: CREATININE 0.87 MG/DL (0.40-0.90); PHOSPHORUS 3.0 MG/DL (2.3-4.5); TOTAL CARBON DIOXIDE 35.2 MMOL/L (24-32); eCRCL 43 ML/MIN; eGFR 63 ML/MIN
[2025-02-05] MEDS ORDERED: bisacodyl 10mg suppository rectal RC PRN (12:45)
--- NOTE | 2025-02-05 13:58 | PROGRESS NOTE ---
Progress Note Dictate Providers to CC ~ Progress Note: 79-year-old woman with metabolic alkalosis, hypokalemia, hypernatremia, low anion gap, mild hypercalcemia, anemia, hypoalbuminemia, and concentrated urine with high urine sodium and potassium. She is hemodynamically stable, with normal physical exam and moderate urine output. Antibiotic Ordered?: N/A MRSA Education MRSA Education Provided to pt: N/A Subjective Subjective Resting comfortably in bed, nurses report no new events since last evaluation Objective Vitals Vital Signs Date Time Temp Pulse Resp B/P (MAP) Pulse Ox O2 Delivery O2 Flow Rate FiO2 02/05/25 12:30 14 02/05/25 11:49 73 93 Room Air* 0 21 02/05/25 11:00 97.3 154/62 (92) Alert, resting comfortably RRR w/o murmur, no JVD CTAB, no wheezes +BS, NT trace edema Lab Results: 02/05/25 0632 02/05/25 0632 Coagulation Studies Laboratory Tests Test 02/01/25 09:45 Prothrombin Time 11.5 SECONDS (9.0-12.0) INR International Normalized Ratio 1.1 INR Activated Partial Thromboplast Time 26 SECONDS (22-32) Coagulation Comments Other Results I & O 02/05/25 07:00 Intake Total 4500 ml Output Total 1526 ml Balance 2974 ml Intake Oral 0 ml Free Water 3200 ml Tube Feeding 100 ml Other 1200 ml Output Urine Total 1525 ml Stool Total 1 ml Problem\Assessment\Plan Additional Plan This patients concentrated urine and high urine sodium/potassium indicate intact ADH response but ongoing renal electrolyte losses, likely from diuretics or less likely mineralocorticoid excess. Management should focus on correcting volume and potassium deficits, monitoring for complications, and addressing anemia and nutritional status. 1. Metabolic Alkalosis, Hypokalemia, and Volume Contraction Assessment: Elevated CO? (35.2), low K? (3.3), high Na? (147), low anion gap (3), and high urine sodium (72) and potassium (17) suggest ongoing renal losses, likely from diuretic use or mineralocorticoid excess. The urine is appropriately concentrated (osmolality 379), indicating intact ADH response. Plan: Review for diuretic or laxative use, vomiting, or mineralocorticoid excess. Replete potassium (oral or IV) and magnesium as needed. Consider cautious isotonic saline repletion if not contraindicated to correct volume contraction and metabolic alkalosis. Monitor serial electrolytes and volume status. 2. ADH Handling in the Collecting Duct Assessment: Despite hypernatremia, urine is concentrated (osmolality 379), indicating ADH is present and the collecting duct is responsive. High urine sodium suggests impaired sodium conservation, possibly due to diuretics or tubular dysfunction. Plan: Monitor fluid balance and ensure adequate free water intake if not contraindicated. Continue to monitor urine output and osmolality. 3. Anemia Assessment: Hgb 8.2, Hct 25.5, platelets 320. Likely multifactorial (chronic disease, possible renal loss, or GI loss). Plan: Evaluate for iron deficiency, GI bleeding, or other causes (iron studies, reticulocyte count, peripheral smear). Consider transfusion if symptomatic or Hgb <78, per current geriatric anemia guidelines. 4. Mild Hypercalcemia and Hypomagnesemia Assessment: Calcium 10.1 (mildly elevated), magnesium 1.8 (slightly low). Plan: Replete magnesium as needed. Monitor calcium and assess for causes if persistent or rising. 5. Hypoalbuminemia Assessment: Albumin 2.7, likely due to chronic illness, malnutrition, or proteinuria (urine protein 10.4). Plan: Assess nutritional status and consider dietitian referral. Monitor for edema and further protein loss. 6. Mildly Elevated Alkaline Phosphatase Assessment: Alk phos 130, may reflect bone turnover or mild cholestasis. Plan: Monitor trend; further workup if persistent or rising. Sepsis Screening Skin Color: Normal WALL,JOHN M III DO Feb 05, 2025 13:58
--- NOTE | 2025-02-05 15:25 | PROGRESS NOTE ---
Daily Progress Note Providers to CC ~ no new complaint today, resting comfortably in the bed Central Line/PICC still needed: No Rogers-Non Protocol Rogers Indications Met/Not Met: F/C Indications Not Met Antibiotic Timeout Antibiotic Ordered?: Yes MRSA Education MRSA Education Provided to pt: Yes Subjective As above Objective Vital Signs Date Time Temp Pulse Resp B/P (MAP) Pulse Ox O2 Delivery O2 Flow Rate FiO2 02/05/25 15:00 98.4 73 16 146/52 (83) 95 Room Air 02/05/25 11:49 0 21 Vital signs, stable ,afebrile. Pulse Oximetry reflects adequate oxygenation. General: well developed, well nourished. Awake , alert, and oriented x4, resting comfortably in the bed, in no acute distress . Skin: Warm, dry, no pallor, no rash or petechiae. HEENT: Atraumatic, normocephalic, EOMI, anicteric sclera B; pink conjunctiva; PERRLA, normal oropharynx, moist oral and nasal mucosa. Tympanic membrane , nose , throat clear. Neck: Trachea midline. Supple, full range of motion, no JVD, bruit , hepatojugular reflex , lymphadenopathy or masses, or other lesions Cardiac: Regular rhythm, regular rate no murmurs, rubs, or gallops. Normal S1 and S2, no S3 noticed. PMI is normal. Respiratory: Equal breath sounds bilaterally, no tachypnea; lungs clear to auscultation bilaterally, no wheezing ,rub or rales, or crackles. Chest wall is symmetric and without deformity. No signs of trauma. Chest wall is nontender. No signs of respiratory distress. Resonance is normal upon percussion bilaterally. Gastrointestinal: Abdomen symmetric, non-distended, soft, non-tender, normal bowel sounds x4 quadrant, normoactive, no hepatosplenomegaly , no masses , no bruit, no flank pain bilaterally. No voluntary guarding, rebound, or rigidity. No tenderness to percussion. No pulsatile masses. Equal femoral pulses. No Benitez's sign or McBurney point tenderness. Back; no CVA tenderness bilaterally, no deformities. Neck and back are without deformity as well. No tenderness noted on palpation of the spinous processes. Spinous processes are midline. Cervical, thoracic, and lumbar paraspinal muscles are not tender and are without spasm. Musculoskeletal: Extremities, normal range of motion, non-tender, muscle strength 5/5 x 4. Negative Homans signs bilaterally on lower extremity. Distal pulses full symmetrical, no clubbing, cyanosis , edema. Neurological: Speech is clear, alert, and oriented x 4. No motor or sensory deficit, deep tendon reflexes normal, cerebellar intact. Cranial nerves II-XII intact. Psych: Alert and or appropriate, normal affect. Vascular: Good distal pulses, which are equal x4; capillary refill less than 2 seconds. Lymphatic, no lymphadenopathy. Result Diagram: 02/05/25 0632 02/05/25 0632 Coagulation Studies Laboratory Tests Test 02/01/25 09:45 Prothrombin Time 11.5 SECONDS (9.0-12.0) INR International Normalized Ratio 1.1 INR Activated Partial Thromboplast Time 26 SECONDS (22-32) Coagulation Comments Problem\Assessment\Plan Assessment/plan Patient is a 79 years old female who presented to the ER for evaluation of altered mental status. #septic shock: Secondary to pyelonephritis. Continue supportive care # acute hypoxemic respiratory failure: Patient required ventilator has been extubated, doing well. Continue supplemental oxygen. # bacteremia present on admission: Continue IV antibiotics. # bilateral pneumonia: Antibiotics as noted above # acute kidney injury: Resolved, Continue monitor daily BMP. Was on CVVH #hyperlipidemia: Not on any medications at this time. Deferred to the audio director. # AFib with RVR: Continue amiodarone and Eliquis. #hypertension: Patient is on losartan #hypothyroidism : Continue levothyroxine #NIDDM: Correctional insulin #hypernatremia: Continue monitor daily BMP. Free fluids per audio director #vaginal bleeding: OBGYN Dr. Huff has been consulted as per audio director notes. # new diagnosis of cirrhosis and splenomegaly: Ammonia within normal limits. Continue Protonix and lactulose. #Nutrition :PEG tube feeding # code status: Full code # GI prophylaxis: Protonix IV # Disposition To LTAC / SNF when accepted Sepsis Screening Reassessment Date: Feb 05, 2025 Skin Color: Normal Date of Service: Feb 05, 2025 Billing Provider: YOLANDA LARSON MD Common Visit Codes: [id number] INP/OBS CARE(HIGH) YOLANDA LARSON MD Feb 05, 2025 15:25
[2025-02-05] MEDS: magnesium citrate 296ml oral solution PO ONE (16:15)
[2025-02-05] MEDS: dextrose 50%-water 50ml dispensing syringe IV PRN (23:12)
[2025-02-06] VITALS (10 sets, daily range): BP systolic 94–154; BP diastolic 47–74; PULSE 63–75; RESP 12–20; TEMP 97.4–98.7; O2SAT 91–98
[2025-02-06 06:54] LABS: MEAN PLATELET VOLUME 9.4 FL (7.4-10.4); RED CELL DISTRIBUTION WIDTH 22.4 % (11.5-14.5)
[2025-02-06] MEDS: acetaminophen 325mg/10.15ml oral unit dose solution PEG PRN (07:22)
[2025-02-06] MEDS: ondansetron/PF 4mg/2ml inj IV ONE (07:24)
[2025-02-06 07:25] LABS: CREATININE 0.84 MG/DL (0.40-0.90); PHOSPHORUS 2.7 MG/DL (2.3-4.5); TOTAL CARBON DIOXIDE 33.0 MMOL/L (24-32); eCRCL 44 ML/MIN; eGFR 66 ML/MIN
--- NOTE | 2025-02-06 14:22 | PROGRESS NOTE ---
Progress Note Dictate Providers to CC ~ Progress Note: 79-year-old woman with metabolic alkalosis, hypokalemia, hypernatremia, low anion gap, mild hypercalcemia, anemia, hypoalbuminemia, and concentrated urine with high urine sodium and potassium. She is hemodynamically stable, with normal physical exam and moderate urine output. Antibiotic Ordered?: N/A Subjective Subjective Resting comfortably in bed, no new events since last evaluation reported Objective Vitals Vital Signs Date Time Temp Pulse Resp B/P (MAP) Pulse Ox O2 Delivery O2 Flow Rate FiO2 02/06/25 11:00 98.7 64 13 111/51 (71) 91 Room Air 02/06/25 08:29 0 21 Asleep, arousable RRR w/o murmur, no JVD CTAB, no wheezes +BS, NT No edema Lab Results: 02/06/25 0609 02/06/25 0609 Coagulation Studies Laboratory Tests Test 02/01/25 09:45 Prothrombin Time 11.5 SECONDS (9.0-12.0) INR International Normalized Ratio 1.1 INR Activated Partial Thromboplast Time 26 SECONDS (22-32) Coagulation Comments Other Results I & O 02/06/25 07:00 Intake Total 1560 ml Output Total 1000 ml Balance 560 ml Intake Oral 60 ml Free Water 1500 ml Output Urine Total 1000 ml # Voids 2 # Bowel Movements 3 Problem\Assessment\Plan Additional Plan This patients concentrated urine and high urine sodium/potassium indicate intact ADH response but ongoing renal electrolyte losses, likely from diuretics or less likely mineralocorticoid excess. Management should focus on correcting volume and potassium deficits, monitoring for complications, and addressing anemia and nutritional status. 1. Metabolic Alkalosis, Hypokalemia, and Volume Contraction Assessment: Elevated CO2 (35.2), low K (3.3), high Na (147), low anion gap (3), and high urine sodium (72) and potassium (17) suggest ongoing renal losses, likely from diuretic use or mineralocorticoid excess. The urine is appropriately concentrated (osmolality 379), indicating intact ADH response. Plan: Review for diuretic or laxative use, vomiting, or mineralocorticoid excess. Replete potassium (oral or IV) and magnesium as needed. Free water repletion if not contraindicated to correct hypernatremia, volume contraction and metabolic alkalosis. Monitor serial electrolytes and volume status. 2. ADH Handling in the Collecting Duct Assessment: Despite hypernatremia, urine is concentrated (osmolality 379), indicating ADH is present and the collecting duct is responsive. High urine sodium suggests impaired sodium conservation, possibly due to diuretics or tubular dysfunction. Plan: Monitor fluid balance and ensure adequate free water intake if not contraindicated. Calculated free water deficit 2.4 liters Continue to monitor urine output and osmolality. 3. Anemia Assessment: Hgb 8.2, Hct 25.5, platelets 320. Likely multifactorial (chronic disease, possible renal loss, or GI loss). Plan: Evaluate for iron deficiency, GI bleeding, or other causes (iron studies, reticulocyte count, peripheral smear). Consider transfusion if symptomatic or Hgb <78, per current geriatric anemia guidelines. 4. Mild Hypercalcemia and Hypomagnesemia, improved Assessment: Calcium 10.1 (mildly elevated), magnesium 2.2 (slightly low). Plan: Replete magnesium as needed. Monitor calcium and assess for causes if persistent or rising. 5. Hypoalbuminemia Assessment: Albumin 2.9, likely due to chronic illness, malnutrition, or proteinuria (urine protein 10.4). Plan: Assess nutritional status and consider dietitian referral. Monitor for edema and further protein loss. 6. Mildly Elevated Alkaline Phosphatase Assessment: Alk phos 130, may reflect bone turnover or mild cholestasis. Plan: Monitor trend; further workup if persistent or rising. Sepsis Screening Skin Color: Normal WALL,JOHN Coppola III DO Feb 06, 2025 14:22
--- NOTE | 2025-02-06 15:38 | PROGRESS NOTE ---
Daily Progress Note Providers to CC No new complaint today resting comfortably in the bed ~ Central Line/PICC still needed: No Rogers-Non Protocol Rogers Indications Met/Not Met: F/C Indications Not Met Antibiotic Timeout Antibiotic Ordered?: No MRSA Education MRSA Education Provided to pt: No Subjective As above Objective Vital Signs Date Time Temp Pulse Resp B/P (MAP) Pulse Ox O2 Delivery O2 Flow Rate FiO2 02/06/25 11:00 98.7 64 13 111/51 (71) 91 Room Air 02/06/25 08:29 0 21 Vital signs, stable ,afebrile. Pulse Oximetry reflects adequate oxygenation. General: well developed, well nourished. Somnolent,, resting comfortably in the bed, in no acute distress . Skin: Warm, dry, no pallor, no rash or petechiae. HEENT: Atraumatic, normocephalic, EOMI, anicteric sclera B; pink conjunctiva; PERRLA, normal oropharynx, moist oral and nasal mucosa. Tympanic membrane , nose , throat clear. Neck: Trachea midline. Supple, full range of motion, no JVD, bruit , hepatojugular reflex , lymphadenopathy or masses, or other lesions Cardiac: Regular rhythm, regular rate no murmurs, rubs, or gallops. Normal S1 and S2, no S3 noticed. PMI is normal. Respiratory: Equal breath sounds bilaterally, no tachypnea; lungs clear to auscultation bilaterally, no wheezing ,rub or rales, or crackles. Chest wall is symmetric and without deformity. No signs of trauma. Chest wall is nontender. No signs of respiratory distress. Resonance is normal upon percussion bilaterally. Gastrointestinal: Abdomen symmetric, non-distended, soft, non-tender, normal bowel sounds x4 quadrant, normoactive, no hepatosplenomegaly , no masses , no bruit, no flank pain bilaterally. No voluntary guarding, rebound, or rigidity. No tenderness to percussion. No pulsatile masses. Equal femoral pulses. No Benitez's sign or McBurney point tenderness. Back; no CVA tenderness bilaterally, no deformities. Neck and back are without deformity as well. No tenderness noted on palpation of the spinous processes. Spinous processes are midline. Cervical, thoracic, and lumbar paraspinal muscles are not tender and are without spasm. Musculoskeletal: Extremities, normal range of motion, non-tender, muscle strength 5/5 x 4. Negative Homans signs bilaterally on lower extremity. Distal pulses full symmetrical, no clubbing, cyanosis , edema. Neurological: Somnolent Psych: Somnolent Vascular: Good distal pulses, which are equal x4; capillary refill less than 2 seconds. Lymphatic, no lymphadenopathy. Result Diagram: 02/06/25 0609 02/06/25 0609 Coagulation Studies Laboratory Tests Test 02/01/25 09:45 Prothrombin Time 11.5 SECONDS (9.0-12.0) INR International Normalized Ratio 1.1 INR Activated Partial Thromboplast Time 26 SECONDS (22-32) Coagulation Comments Problem\Assessment\Plan Assessment/plan Patient is a 79 years old female who presented to the ER for evaluation of altered mental status. #septic shock: Secondary to pyelonephritis. Continue supportive care # acute hypoxemic respiratory failure: Patient required ventilator has been extubated, doing well. Continue supplemental oxygen. # bacteremia present on admission: Resolved # bilateral pneumonia: Resolved # acute kidney injury: Resolved, Continue monitor daily BMP. Was on CVVH #hyperlipidemia: # AFib with RVR: Continue amiodarone and Eliquis. #hypertension: Patient is on losartan #hypothyroidism : Continue levothyroxine #NIDDM: Correctional insulin #hypernatremia: Continue monitor daily BMP. Nephrology doctor on case appreciate assistance and expertise #vaginal bleeding: OBGYN Dr. Huff has been consulted # new diagnosis of cirrhosis and splenomegaly: Ammonia within normal limits. Continue Protonix and lactulose. #Nutrition :PEG tube feeding # code status: Full code # GI prophylaxis: Protonix IV # Disposition To LTAC / SNF when accepted Sepsis Screening Reassessment Date: Feb 06, 2025 Skin Color: Normal Date of Service: Feb 06, 2025 Billing Provider: YOLANDA LARSON MD Common Visit Codes: [id number] INP/OBS CARE(HIGH) YOLANDA LARSON MD Feb 06, 2025 15:38
--- NOTE | 2025-02-06 17:32 | RADIOLOGY REPORT ---
EXAM: CT CT CHEST INDICATION: Bilateral pneumonia, worsening TECHNIQUE: Noncontrast axial images of the chest have been obtained along with coronal and sagittal reformatted images. All CT scans at this facility use dose modulation, iterative reconstruction, and/or weight based dosing when appropriate to reduce radiation dose to as low as reasonably achievable. COMPARISON: DI CHEST,SINGLE VIEW on DOS: 01/31/25 FINDINGS: LOWER NECK: Unremarkable LYMPH NODES/MEDIASTINUM: No abnormal lymph nodes by CT size criteria CARDIOVASCULAR: Mild cardiomegaly. No pericardial effusion. No aneurysmal dilatation of the great vessels. Coronary artery calcifications. Prominence of the main pulmonary artery, which may indicate pulmonary hypertension. UPPER ABDOMEN: Cholecystectomy. MUSCULOSKELETAL: No acute fracture or aggressive focal osseous lesion. Multilevel degenerative change of the visualized spine. Age-indeterminate right lateral 3rd rib fracture. Age-indeterminate right anterior 8th rib fracture. CHEST WALL: Unremarkable. LUNG PARENCHYMA/PLEURAL SPACE: No pleural effusion or pneumothorax. No consolidation, suspicious focal airspace opacity, or suspicious nodules.azygous fissure with coursing azygous vein decreased lung volumes. 7 mm oval-shaped pulmonary nodule of the left lung apex, unchanged from 01/14/25. IMPRESSION: 1. Mild cardiomegaly with coronary artery disease and sequelae of pulmonary hypertension. 2. Decreased lung volumes. 3. 7 mm oval-shaped pulmonary nodule in the left lung apex. In low risk patient, consider 6-12 month imaging follow-up.
[2025-02-06 19:01] LABS: LEUKOCYTE ESTERASE ,URINE NEGATIVE (Neg); NITRITES, URINE NEGATIVE (Neg); OCCULT BLOOD,URINE MODERATE (Neg)
[2025-02-06 19:13] LABS: SQUAMOUS EPITHELIAL CELL,UR FEW /LPF (FEW); UA COLLECTION TYPE STRAIGHT CATH
[2025-02-06] MEDS: insulin glargine (Lantus) pen - multi-dose SQ SCH (20:47)
[2025-02-07] VITALS (10 sets, daily range): BP systolic 127–158; BP diastolic 59–77; PULSE 65–79; RESP 11–21; TEMP 96.9–98.8; O2SAT 92–97
[2025-02-07 06:52] LABS: MEAN PLATELET VOLUME 9.9 FL (7.4-10.4); RED CELL DISTRIBUTION WIDTH 21.4 % (11.5-14.5)
[2025-02-07 07:30] LABS: CREATININE 0.89 MG/DL (0.40-0.90); PHOSPHORUS 3.6 MG/DL (2.3-4.5); TOTAL CARBON DIOXIDE 32.5 MMOL/L (24-32); eCRCL 42 ML/MIN; eGFR 62 ML/MIN
[2025-02-07 15:54] LABS: LEUKOCYTE ESTERASE ,URINE SMALL (Neg); NITRITES, URINE NEGATIVE (Neg); OCCULT BLOOD,URINE MODERATE (Neg)
[2025-02-07 16:03] LABS: UA COLLECTION TYPE CLN CATCH MIDSTREAM
[2025-02-07 16:07] LABS: SQUAMOUS EPITHELIAL CELL,UR FEW /LPF (FEW)
[2025-02-07 16:37] LABS: CREATININE,URINE RANDOM 48.0 MG/DL; UA UREA RANDOM 565.0 MG/DL
--- NOTE | 2025-02-07 17:27 | [facility] CONSULT REPORT ---
[facility] Procedure Note [facility] Procedure Note Consult [facility] Note # Demographics Consult Type: General Neurology Patient Location: Inpatient First Name: Jeana Last Name: Ronny Date of : 1945 Age: 79 Gender: Female Facility: [facility] Time of Initial Page (): 02/07/2025 16:18 First Contact with Site (): 02/07/2025 16:18 # HPI Chief Complaint: - altered mental state History: 79 y/o F admitted on 01/14 after presented with fevers, rigor and in the ED became more dyspneic requiring intubation, she needed pressor support and had an episode of a. fib with RVR requiring an amiodarone drip. She was in septic shock secondary to pyelonephritis. She has since been extubated and doing well. Her hospital course was also complicated by bacteremia, TEMITOPE, and b/l PNA. She had an MRI done which showed small areas of stroke b/l. Her daughter says that earlier today she was more communicative but tonight is a bit more tired. # Scores Level of Consciousness 1a: [0] = Alert; keenly responsive LOC Questions 1b: [2] = Answers neither correctly LOC Commands 1c: [2] = Performs neither correctly Best Gaze 2: [0] = Normal Visual 3: [0] = No visual loss Facial Palsy 4: [1] = Minor paralysis Motor Arm Left 5a: [3] = No effort against gravity Motor Arm Right 5b: [3] = No effort against gravity Motor Leg Left 6a: [4] = No movement Motor Leg Right 6b: [3] = No effort against gravity Limb Ataxia 7: [0] = Absent Sensory 8: [0] = Normal Best Language 9: [0] = No aphasia Dysarthria 10: [0] = Normal Extinction and Inattention 11: [0] = No abnormality NIHSS Total: 18 # Exam SBP: 144 DBP: 59 # PMH-FH-SH Medications: - NOAC # Data MRI: - acute ischemia subtle tiny foci of diffusion restriction within the b/l stiles radiata/centrum semiovale likely representing watershed infarcts Other Imaging: EEG-no # Assessment Impression: - Ischemic Stroke (Subacute) stroke in watershed distribution b/l, likely secondary to hypotension from sepsis, but would obtain imaging of vasculature to rule out hemodynamically significant stenosis # Plan Labs: - CBC - comprehensive metabolic panel - hemoglobin A1c - lipid panel Imaging: (urgency: routine): - MR Angiogram Neck with contrast - MR Angiogram Head without contrast Diagnostic Test: - echo with bubble study may need to consider GEOVANNA given bacteremia Therapy/Evaluation: - NPO until swallow evaluation - PT/OT evaluation Medication: - anticoagulation with NOAC - start statin with goal of LDL < 70 Other: - If patient has any neurological deterioration please call me back immediately - telemetry monitoring - I have discussed my recommendations with the referring provider - LDL < 70 # Logistics Attestation of consult completion: The patient is located at: [facility]. Facility staff participated in the visit. I performed this telemedicine visit from my offsite office utilizing interactive 2 way audio and visual telecommunication technology at the request of the onsite inpatient provider. Total time spent in telemedicine encounter: I spent 20 minutes reviewing clinical data and/or imaging, obtaining history, examining the patient, communicating with the onsite care team, and in preparation of this report. # Demographics First Name: Jeana Last Name: Ronny Facility: [facility] Electronically signed at 02/07/2025 17:26 ([place] Time) by Kirstie Razo MD Neuro Consult Order placed for: Yes KIRSTIE RAZO MD Feb 07, 2025 17:27
--- NOTE | 2025-02-07 17:37 | PROGRESS NOTE ---
Progress Note Dictate Providers to CC ~ Progress Note: 79-year-old woman with metabolic alkalosis, hypokalemia, hypernatremia, low anion gap, mild hypercalcemia, anemia, hypoalbuminemia, and concentrated urine with high urine sodium and potassium. She is hemodynamically stable, with normal physical exam and moderate urine output. Antibiotic Ordered?: N/A Subjective Subjective Doing well this morning, remembered me from our previous encounters. Objective Vitals Vital Signs Date Time Temp Pulse Resp B/P (MAP) Pulse Ox O2 Delivery O2 Flow Rate FiO2 02/07/25 16:00 66 16 92 Room Air* 0 21 02/07/25 15:00 97.3 144/59 (87) Alert RRR w/o murmur, no JVD CTAB, no wheezes +BS, NT No edema Lab Results: 02/07/25 0613 02/07/25 0613 Coagulation Studies Laboratory Tests Test 02/01/25 09:45 Prothrombin Time 11.5 SECONDS (9.0-12.0) INR International Normalized Ratio 1.1 INR Activated Partial Thromboplast Time 26 SECONDS (22-32) Coagulation Comments Other Results I & O 02/07/25 07:00 Intake Total 1910 ml Output Total 500 ml Balance 1410 ml Intake Oral 60 ml Free Water 1800 ml Tube Feeding 50 ml Output Urine Total 500 ml # Voids 5 # Bowel Movements 6 Problem\Assessment\Plan Additional Plan This patients concentrated urine and high urine sodium/potassium indicate intact ADH response but ongoing renal electrolyte losses, likely from diuretics or less likely mineralocorticoid excess. Management should focus on correcting volume and potassium deficits, monitoring for complications, and addressing anemia and nutritional status. 1. Metabolic Alkalosis, Hypokalemia, and Volume Contraction Assessment: Elevated CO2 (35.2), low K (3.3), high Na (147), low anion gap (3), and high urine sodium (72) and potassium (17) suggest ongoing renal losses, likely from diuretic use or mineralocorticoid excess. The urine is appropriately concentrated (osmolality 379), indicating intact ADH response. Review for diuretic or laxative use, vomiting, or mineralocorticoid excess. Urine chloride >20 mmol/L, suggests, aldosteronism, cushings, alkalai loading, review for any likely etiology. Replete potassium (oral or IV) and magnesium as needed. Free water repletion if not contraindicated to correct hypernatremia, volume contraction and metabolic alkalosis, 50 mL through feeding tube every 4 hours, assess daily. Monitor serial electrolytes and volume status. 2. ADH Handling in the Collecting Duct Assessment: Despite hypernatremia, urine is concentrated (osmolality 379), indicating ADH is present and the collecting duct is responsive. High urine sodium suggests impaired sodium conservation, possibly due to diuretics or tubular dysfunction. Monitor fluid balance and ensure adequate free water intake if not contraindicated. Calculated free water deficit 0.4 liters Continue to monitor urine output and osmolality. 3. Anemia Assessment: Hgb 8.2, Hct 25.5, platelets 320. Likely multifactorial (chronic disease, possible renal loss, or GI loss). Evaluate for iron deficiency, GI bleeding, or other causes (iron studies, reticulocyte count, peripheral smear). Consider transfusion if symptomatic or Hgb <78, per current geriatric anemia guidelines. 4. Mild Hypercalcemia and Hypomagnesemia, improved Assessment: Calcium 10.1 (mildly elevated), magnesium 2.2 (slightly low). Replete magnesium as needed. Monitor calcium and assess for causes if persistent or rising. 5. Hypoalbuminemia Assessment: Albumin 2.9, likely due to chronic illness, malnutrition, or proteinuria (urine protein 10.4). Assess nutritional status and consider dietitian referral. Monitor for edema and further protein loss. 6. Mildly Elevated Alkaline Phosphatase Assessment: Alk phos 130, may reflect bone turnover or mild cholestasis. Monitor trend; further workup if persistent or rising. Sepsis Screening Skin Color: Normal WALL,JOHN M III DO Feb 07, 2025 17:37
--- NOTE | 2025-02-07 18:03 | PROGRESS NOTE ---
Daily Progress Note Providers to CC No new complaint resting comfortably in the bed, somnolent ~ Central Line/PICC still needed: No Rogers-Non Protocol Rogers Indications Met/Not Met: F/C Indications Not Met Antibiotic Timeout Antibiotic Ordered?: No MRSA Education MRSA Education Provided to pt: No Subjective As above Objective Vital Signs Date Time Temp Pulse Resp B/P (MAP) Pulse Ox O2 Delivery O2 Flow Rate FiO2 02/07/25 16:00 66 16 92 Room Air* 0 21 02/07/25 15:00 97.3 144/59 (87) Vital signs, stable ,afebrile. Pulse Oximetry reflects adequate oxygenation. General: well developed, well nourished. Awake , alert, and oriented x4, resting comfortably in the bed, in no acute distress . Skin: Warm, dry, no pallor, no rash or petechiae. HEENT: Atraumatic, normocephalic, EOMI, anicteric sclera B; pink conjunctiva; PERRLA, normal oropharynx, moist oral and nasal mucosa. Tympanic membrane , nose , throat clear. Neck: Trachea midline. Supple, full range of motion, no JVD, bruit , hepatojugular reflex , lymphadenopathy or masses, or other lesions Cardiac: Regular rhythm, regular rate no murmurs, rubs, or gallops. Normal S1 and S2, no S3 noticed. PMI is normal. Respiratory: Equal breath sounds bilaterally, no tachypnea; lungs clear to auscultation bilaterally, no wheezing ,rub or rales, or crackles. Chest wall is symmetric and without deformity. No signs of trauma. Chest wall is nontender. No signs of respiratory distress. Resonance is normal upon percussion bilaterally. Gastrointestinal: Abdomen symmetric, non-distended, soft, non-tender, normal bowel sounds x4 quadrant, normoactive, no hepatosplenomegaly , no masses , no bruit, no flank pain bilaterally. No voluntary guarding, rebound, or rigidity. No tenderness to percussion. No pulsatile masses. Equal femoral pulses. No Benitez's sign or McBurney point tenderness. Back; no CVA tenderness bilaterally, no deformities. Neck and back are without deformity as well. No tenderness noted on palpation of the spinous processes. Spinous processes are midline. Cervical, thoracic, and lumbar paraspinal muscles are not tender and are without spasm. Musculoskeletal: Extremities, normal range of motion, non-tender, muscle strength 5/5 x 4. Negative Homans signs bilaterally on lower extremity. Distal pulses full symmetrical, no clubbing, cyanosis , edema. Neurological: Somnolent Psych: Somnolent Vascular: Good distal pulses, which are equal x4; capillary refill less than 2 seconds. Lymphatic, no lymphadenopathy. Result Diagram: 02/07/2561202/07/25612 Coagulation Studies Laboratory Tests Test 02/01/25 09:45 Prothrombin Time 11.5 SECONDS (9.0-12.0) INR International Normalized Ratio 1.1 INR Activated Partial Thromboplast Time 26 SECONDS (22-32) Coagulation Comments Problem\Assessment\Plan Assessment/plan Patient is a 79 years old female who presented to the ER for evaluation of altered mental status. Virtual neurology consultation appreciated, recommendation to be implemented Bilateral stroke, MRI pending #septic shock: Secondary to pyelonephritis. Continue supportive care # acute hypoxemic respiratory failure: Patient required ventilator has been extubated, doing well. Continue supplemental oxygen. # bacteremia present on admission: Resolved # bilateral pneumonia: Resolved # acute kidney injury: Resolved, Continue monitor daily BMP. Was on CVVH #hyperlipidemia: # AFib with RVR: Continue amiodarone and Eliquis. #hypertension: Patient is on losartan #hypothyroidism : Continue levothyroxine #NIDDM: Correctional insulin #hypernatremia: Continue monitor daily BMP. Nephrology doctor on case appreciate assistance and expertise #vaginal bleeding: OBGYN Dr. Huff has been consulted # new diagnosis of cirrhosis and splenomegaly: Ammonia within normal limits. Continue Protonix and lactulose. #Nutrition :PEG tube feeding # code status: Full code # GI prophylaxis: Protonix IV # Disposition To LTAC / SNF when accepted Sepsis Screening Reassessment Date: Feb 07, 2025 Skin Color: Normal Date of Service: Feb 07, 2025 Billing Provider: YOLANDA LARSON MD Common Visit Codes: [id number] INP/OBS CARE(HIGH) YOLANDA LARSON MD Feb 07, 2025 18:03
[2025-02-08] VITALS (8 sets, daily range): BP systolic 94–156; BP diastolic 47–78; PULSE 68–76; RESP 14–22; TEMP 96.5–98.1; O2SAT 90–96
[2025-02-08 07:11] LABS: MEAN PLATELET VOLUME 9.8 FL (7.4-10.4); RED CELL DISTRIBUTION WIDTH 21.5 % (11.5-14.5)
[2025-02-08 07:29] LABS: CREATININE 0.72 MG/DL (0.40-0.90); TOTAL CARBON DIOXIDE 35.5 MMOL/L (24-32); eCRCL 52 ML/MIN; eGFR 79 ML/MIN
[2025-02-08] MEDS: ondansetron/PF 4mg/2ml inj IV PRN (09:38)
[2025-02-08] MEDS: CefTRIAXone/D5W-Rocephin 1gm 50 ML IV SCH (14:19)
[2025-02-08] MEDS: diazepam inj 5 MG/ML inj. IV ONE (15:30)
--- NOTE | 2025-02-08 17:46 | RADIOLOGY REPORT ---
PROCEDURE: MR MRA HEAD INDICATION: CVA 02/08/2025 03:55 PM COMPARISON: MR MRI HEAD on DOS: 02/03/25 TECHNIQUE: MRA head without intravenous contrast. 3D image postprocessing was performed on a dedicated workstation and images were used for interpretation and reporting. FINDINGS: Extremely limited examination due to repetitive patient motion. MRA head: There is grossly patent bilateral distal internal carotid arteries. There is grossly patent proximal anterior , middle and posterior cerebral arteries. There is grossly patent vertebral arteries and basilar artery. There is no definite evidence of hemodynamically significant intracranial stenosis, proximal occlusion or aneurysm in the visualized arteries, distally the arteries are not well-visualized due to repetitive patient motion. No abnormal venous signal is seen. IMPRESSION: 1. Significantly limited study due to repetitive patient motion. 2. Grossly patent proximal intracranial arteries. The more distal arteries are not well-visualized due to repetitive motion.
--- NOTE | 2025-02-08 19:24 | PROGRESS NOTE ---
Daily Progress Note Providers to CC Feels better Today, awaiting to go to MRI study ~ Central Line/PICC still needed: No Rogers-Non Protocol Rogers Indications Met/Not Met: F/C Indications Not Met Antibiotic Timeout Antibiotic Ordered?: Yes MRSA Education MRSA Education Provided to pt: Yes Subjective As above Objective Vital Signs Date Time Temp Pulse Resp B/P (MAP) Pulse Ox O2 Delivery O2 Flow Rate FiO2 02/08/25 15:30 16 02/08/25 11:55 68 90 Room Air* 0 21 02/08/25 11:10 96.9 149/66 (93) Vital signs, stable ,afebrile. Pulse Oximetry reflects adequate oxygenation. General: well developed, well nourished. Awake , alert, and oriented x4, resting comfortably in the bed, in no acute distress . Skin: Warm, dry, no pallor, no rash or petechiae. HEENT: Atraumatic, normocephalic, EOMI, anicteric sclera B; pink conjunctiva; PERRLA, normal oropharynx, moist oral and nasal mucosa. Tympanic membrane , nose , throat clear. Neck: Trachea midline. Supple, full range of motion, no JVD, bruit , hepatojugular reflex , lymphadenopathy or masses, or other lesions Cardiac: Regular rhythm, regular rate no murmurs, rubs, or gallops. Normal S1 and S2, no S3 noticed. PMI is normal. Respiratory: Equal breath sounds bilaterally, no tachypnea; lungs clear to auscultation bilaterally, no wheezing ,rub or rales, or crackles. Chest wall is symmetric and without deformity. No signs of trauma. Chest wall is nontender. No signs of respiratory distress. Resonance is normal upon percussion bilaterally. Gastrointestinal: Abdomen symmetric, non-distended, soft, non-tender, normal bowel sounds x4 quadrant, normoactive, no hepatosplenomegaly , no masses , no bruit, no flank pain bilaterally. No voluntary guarding, rebound, or rigidity. No tenderness to percussion. No pulsatile masses. Equal femoral pulses. No Benitez's sign or McBurney point tenderness. Back; no CVA tenderness bilaterally, no deformities. Neck and back are without deformity as well. No tenderness noted on palpation of the spinous processes. Spinous processes are midline. Cervical, thoracic, and lumbar paraspinal muscles are not tender and are without spasm. Musculoskeletal: Extremities, normal range of motion, non-tender, muscle strength 5/5 x 4. Negative Homans signs bilaterally on lower extremity. Distal pulses full symmetrical, no clubbing, cyanosis , edema. Neurological: Speech is clear, alert, and oriented x 4. No motor or sensory deficit, deep tendon reflexes normal, cerebellar intact. Cranial nerves II-XII intact. Psych: Alert and or appropriate, normal affect. Vascular: Good distal pulses, which are equal x4; capillary refill less than 2 seconds. Lymphatic, no lymphadenopathy. Result Diagram: 02/08/25 0633 02/08/25 0635 Coagulation Studies Laboratory Tests Test 02/01/25 09:45 Prothrombin Time 11.5 SECONDS (9.0-12.0) INR International Normalized Ratio 1.1 INR Activated Partial Thromboplast Time 26 SECONDS (22-32) Coagulation Comments Problem\Assessment\Plan Assessment/plan Patient is a 79 years old female who presented to the ER for evaluation of altered mental status. Virtual neurology consultation appreciated, recommendation to be implemented Bilateral stroke, MRI pending, MRA pending #septic shock: Secondary to pyelonephritis. Continue supportive care # acute hypoxemic respiratory failure: Patient required ventilator has been extubated, doing well. Continue supplemental oxygen. # bacteremia present on admission: Resolved # bilateral pneumonia: Resolved # acute kidney injury: Resolved, Continue monitor daily BMP. Was on CVVH #hyperlipidemia: # AFib with RVR: Continue amiodarone and Eliquis. #hypertension: Patient is on losartan #hypothyroidism : Continue levothyroxine #NIDDM: Correctional insulin #hypernatremia: Continue monitor daily BMP. Nephrology doctor on case appreciate assistance and expertise #vaginal bleeding: OBGYN Dr. Huff has been consulted # new diagnosis of cirrhosis and splenomegaly: Ammonia within normal limits. Continue Protonix and lactulose. #Nutrition :PEG tube feeding # code status: Full code # GI prophylaxis: Protonix IV # Disposition To LTAC / SNF when accepted Sepsis Screening Reassessment Date: Feb 08, 2025 Skin Color: Normal Date of Service: Feb 08, 2025 Billing Provider: YOLANDA LARSON MD Common Visit Codes: [id number] INP/OBS CARE(HIGH) YOLANDA LARSON MD Feb 08, 2025 19:23
[2025-02-08] MEDS: POTASSIUM CHLORIDE 20 MEQ/15 ML oral solution PEG PRN (21:44)
[2025-02-09 02:00] VITALS: BP 142/70; PULSE 75; RESP 18; TEMP 98.4; O2SAT 94
[2025-02-09 06:00] VITALS: BP 153/64; PULSE 73; RESP 19; TEMP 97.8; O2SAT 94
[2025-02-09 06:55] LABS: MEAN PLATELET VOLUME 9.9 FL (7.4-10.4); RED CELL DISTRIBUTION WIDTH 21.6 % (11.5-14.5)
[2025-02-09 07:51] LABS: CREATININE 0.82 MG/DL (0.40-0.90); TOTAL CARBON DIOXIDE 31.6 MMOL/L (24-32); eCRCL 45 ML/MIN; eGFR 68 ML/MIN
[2025-02-09 08:00] VITALS: RESP 19; O2SAT 95
--- NOTE | 2025-02-09 10:17 | RADIOLOGY REPORT ---
CLINICAL INFORMATION: CVA. TECHNIQUE: 3-D [id number] MRA images of the neck were obtained. 3-D reformatted images were also obtained. COMPARISON: No prior imaging of the neck was available for comparison at the time of dictation. FINDINGS: The patient was unable to remain still for the examination. Only localizer images and axial 3D [id number] SPGR sequence was obtained. Images obtained are nondiagnostic due to motion artifact. IMPRESSION: Incomplete nondiagnostic examination as described above.
[2025-02-09 11:00] VITALS: BP 143/59; PULSE 63; RESP 16; TEMP 96.3; O2SAT 95
--- NOTE | 2025-02-09 18:51 | DISCHARGE SUMMARY ---
Discharge Summary Providers to CC As better today ready to be discharged to rehab facility ~ Discharge Summary Assessment Acute pyelonephritis complicated Sepsis secondary to above septic shock Acute respiratory failure secondary to hypoxia Metabolic encephalopathy secondary to sepsis Metabolic acidosis Hyperlipidemia Hypothyroidism Diabetes mellitus on insulin Admission Diagnosis: Respiratory Admission Diagnosis Comment: Acute pyelonephritis complicated Sepsis secondary to above septic shock Acute respiratory failure secondary to hypoxia Metabolic encephalopathy secondary to sepsis Metabolic acidosis Hyperlipidemia Hypothyroidism Diabetes mellitus on insulin Hospital Course DATE OF ADMISSION: January 14, 2025 DATE OF DISCHARGE: February 09 2025 Discharge Diagnosis\Comment: Acute pyelonephritis complicated Sepsis secondary to above septic shock Acute respiratory failure secondary to hypoxia Metabolic encephalopathy secondary to sepsis Metabolic acidosis Hyperlipidemia Hypothyroidism Diabetes mellitus on insulin Operations\Procedures: Endotracheal intubation Consultants: [employer] , ICU , virtual neurologist Complications: Non Condition on DC: Stable Discharge Summary: Linda Jefferson is a 79-year-old female with past medical history of hyperlipidemia and hypothyroidism who was brought to the ED by her family due to confusion, fever, generalized bodyaches and slight shortness of breath x 2-3 days. Initial findings were notable for leukocytosis, elevated lactic acid, renal insufficiency, severe hypotension requiring vasopressor. Patient was initially treated with 2 L of bolus fluids in ED, then developed respiratory distress requiring intubation. Patient was intubated and was started in ED and was admitted to ICU. After admission patient was extensively evaluated treated today he is feeling better ready to be discharged to rehab facility, medication reconciled, follow-up PCP in the morning, today on physical exam Vital signs, stable ,afebrile. Pulse Oximetry reflects adequate oxygenation. General: well developed, well nourished. Awake , alert, and oriented x4, resting comfortably in the bed, in no acute distress . Skin: Warm, dry, no pallor, no rash or petechiae. HEENT: Atraumatic, normocephalic, EOMI, anicteric sclera B; pink conjunctiva; PERRLA, normal oropharynx, moist oral and nasal mucosa. Tympanic membrane , nose , throat clear. Neck: Trachea midline. Supple, full range of motion, no JVD, bruit , hepatojugular reflex , lymphadenopathy or masses, or other lesions Cardiac: Regular rhythm, regular rate no murmurs, rubs, or gallops. Normal S1 and S2, no S3 noticed. PMI is normal. Respiratory: Equal breath sounds bilaterally, no tachypnea; lungs clear to auscultation bilaterally, no wheezing ,rub or rales, or crackles. Chest wall is symmetric and without deformity. No signs of trauma. Chest wall is nontender. No signs of respiratory distress. Resonance is normal upon percussion bilaterally. Gastrointestinal: Abdomen symmetric, non-distended, soft, non-tender, normal bowel sounds x4 quadrant, normoactive, no hepatosplenomegaly , no masses , no bruit, no flank pain bilaterally. No voluntary guarding, rebound, or rigidity. No tenderness to percussion. No pulsatile masses. Equal femoral pulses. No Benitez's sign or McBurney point tenderness. Back; no CVA tenderness bilaterally, no deformities. Neck and back are without deformity as well. No tenderness noted on palpation of the spinous processes. Spinous processes are midline. Cervical, thoracic, and lumbar paraspinal muscles are not tender and are without spasm. Musculoskeletal: Extremities, normal range of motion, non-tender, muscle strength 5/5 x 4. Negative Homans signs bilaterally on lower extremity. Distal pulses full symmetrical, no clubbing, cyanosis , edema. Neurological: Speech is clear, alert, and oriented x 4. No motor or sensory deficit, deep tendon reflexes normal, cerebellar intact. Cranial nerves II-XII intact. Psych: Alert and or appropriate, normal affect. Vascular: Good distal pulses, which are equal x4; capillary refill less than 2 seconds. Lymphatic, no lymphadenopathy. *Problems/Diagnosis: (1) Acute respiratory failure (2) Acute kidney injury Status: Acute (3) Edema of lower extremity Status: Acute (4) Acute urinary tract infection Status: Acute (5) Septic shock Status: Acute Total Time Spent on D/C: > 30 Minutes Date of Service: Feb 09, 2025 Billing Provider: YOLANDA LARSON MD Common Visit Codes: [id number]-XHG/OBS DISCH DAY >30min YOLANDA LARSON MD Feb 09, 2025 18:51
== END 2025-02-09 13:44 | DRG 870 ==
LOC: ER 17:14 → ED HOLD 22:24 → CICU 2S 01-14 07:09 → PCU 3S 02-03 22:50
PROVIDERS: ADMIT Internal Medicine; ATTEND Internal Medicine
PROC: 0BH18EZ Insertion of Endotracheal Airway into Trachea, Via Natural or Artificial Opening Endoscopic (ICD-10-PCS; principal; 2025-01-13)
PROC: 5A1955Z Respiratory Ventilation, Greater than 96 Consecutive Hours (ICD-10-PCS; 2025-01-13)
PROC: 02HV33Z Insertion of Infusion Device into Superior Vena Cava, Percutaneous Approach (ICD-10-PCS; 2025-01-13)
PROC: B548ZZA Ultrasonography of Superior Vena Cava, Guidance (ICD-10-PCS; 2025-01-13)
PROC: 5A1D90Z Performance of Urinary Filtration, Continuous, Greater than 18 hours Per Day (ICD-10-PCS; 2025-01-15)
PROC: 5A1D90Z Performance of Urinary Filtration, Continuous, Greater than 18 hours Per Day (ICD-10-PCS; 2025-01-16)
PROC: 5A1D90Z Performance of Urinary Filtration, Continuous, Greater than 18 hours Per Day (ICD-10-PCS; 2025-01-17)
PROC: 3E03317 Introduction of Other Thrombolytic into Peripheral Vein, Percutaneous Approach (ICD-10-PCS; 2025-01-17)
PROC: 5A1D70Z Performance of Urinary Filtration, Intermittent, Less than 6 Hours Per Day (ICD-10-PCS; 2025-01-18)
PROC: 6A550Z3 Pheresis of Plasma, Single (ICD-10-PCS; 2025-01-18)
PROC: 5A1D70Z Performance of Urinary Filtration, Intermittent, Less than 6 Hours Per Day (ICD-10-PCS; 2025-01-19)
PROC: 05PYX3Z Removal of Infusion Device from Upper Vein, External Approach (ICD-10-PCS; 2025-01-19)
PROC: 05HQ33Z Insertion of Infusion Device into Left External Jugular Vein, Percutaneous Approach (ICD-10-PCS; 2025-01-19)
PROC: B544ZZA Ultrasonography of Left Jugular Veins, Guidance (ICD-10-PCS; 2025-01-19)
PROC: 5A1D70Z Performance of Urinary Filtration, Intermittent, Less than 6 Hours Per Day (ICD-10-PCS; 2025-01-20)
PROC: 5A1D70Z Performance of Urinary Filtration, Intermittent, Less than 6 Hours Per Day (ICD-10-PCS; 2025-01-21)
PROC: 30233N1 Transfusion of Nonautologous Red Blood Cells into Peripheral Vein, Percutaneous Approach (ICD-10-PCS; 2025-01-22)
PROC: 5A1D70Z Performance of Urinary Filtration, Intermittent, Less than 6 Hours Per Day (ICD-10-PCS; 2025-01-23)
PROC: 4A00X4Z Measurement of Central Nervous Electrical Activity, External Approach (ICD-10-PCS; 2025-01-24)
PROC: BW251ZZ Computerized Tomography (CT Scan) of Chest, Abdomen and Pelvis using Low Osmolar Contrast (ICD-10-PCS; 2025-01-24)
PROC: 5A1D90Z Performance of Urinary Filtration, Continuous, Greater than 18 hours Per Day (ICD-10-PCS; 2025-01-27)
PROC: 5A09357 Assistance with Respiratory Ventilation, Less than 24 Consecutive Hours, Continuous Positive Airway Pressure (ICD-10-PCS; 2025-01-28)
PROC: 05HY33Z Insertion of Infusion Device into Upper Vein, Percutaneous Approach (ICD-10-PCS; 2025-01-28)
PROC: B54NZZA Ultrasonography of Left Upper Extremity Veins, Guidance (ICD-10-PCS; 2025-01-28)
PROC: 0DH63UZ Insertion of Feeding Device into Stomach, Percutaneous Approach (ICD-10-PCS; 2025-01-31)
DX: A41.51 Sepsis due to Escherichia coli [E. coli] (principal); J15.69 Pneumonia due to other Gram-negative bacteria; G93.41 Metabolic encephalopathy; R65.21 Severe sepsis with septic shock; J96.01 Acute respiratory failure with hypoxia; N17.0 Acute kidney failure with tubular necrosis; J15.9 Unspecified bacterial pneumonia; E87.4 Mixed disorder of acid-base balance; N13.6 Pyonephrosis; Z99.2 Dependence on renal dialysis; D69.6 Thrombocytopenia, unspecified; E03.9 Hypothyroidism, unspecified; E11.9 Type 2 diabetes mellitus without complications; I11.0 Hypertensive heart disease with heart failure; D64.9 Anemia, unspecified; K74.60 Unspecified cirrhosis of liver; E87.0 Hyperosmolality and hypernatremia; E87.1 Hypo-osmolality and hyponatremia; Z20.822 Contact with and (suspected) exposure to COVID-19; G89.29 Other chronic pain; I48.91 Unspecified atrial fibrillation; E78.00 Pure hypercholesterolemia, unspecified; M54.50 Low back pain, unspecified; R91.1 Solitary pulmonary nodule; K59.00 Constipation, unspecified; E83.42 Hypomagnesemia; E83.52 Hypercalcemia; E87.6 Hypokalemia; N93.9 Abnormal uterine and vaginal bleeding, unspecified; E88.09 Other disorders of plasma-protein metabolism, not elsewhere classified; R16.1 Splenomegaly, not elsewhere classified; Z88.5 Allergy status to narcotic agent; Z79.84 Long term (current) use of oral hypoglycemic drugs; Z79.4 Long term (current) use of insulin; Z78.1 Physical restraint status
CPT/HCPCS: 31500; 36410; 36415; 36430; 36556; 36600; 43246; 70450; 70544; 70547; 70551; 71045; 71250; 71260; 72127; 74018; 74176; 74177; 76770; 76856; 76937; 80048; 80053; 80061; 80069; 81001; 82088; 82140; 82330; 82436; 82570; 82728; 82803; 82948; 83036; 83540; 83605; 83735; 83880; 83930; 83935; 84100; 84133; 84134; 84145; 84156; 84300; 84436; 84439; 84443; 84466; 84478; 84480; 84484; 84540; 85007; 85008; 85018; 85025; 85610; 85651; 85730; 86140; 86705; 86885; 86900; 86901; 86920; 87040; 87070; 87077; 87081; 87088; 87186; 87340; 87804; 87811; 92508; 92616; 93005; 93306; 94002; 94003; 94640; 94660; 94760; 94799; 95816; 96365; 96366; 96368; 96375; 97110; 97161; 97530; 99291; 99292; A4615; A4649; A5200; A6196; A6212; A6213; A6250; A6253; A6258; A6449; A9900; C1751; C1752; C1758; E1594; G0257; G0378; J0131; J0282; J0456; J0696; J1160; J1644; J1815; J2185; J2250; J2312; J2405; J2470; J2597; J2704; J2919; J2997; J3010; J3360; J3373; J3475; J3480; J3490; J7030; J7040; J7060; J7070; J7120; P9016; P9045; P9047; Q4081; Q9967